=== PATIENT | female | born 1965 | race Caucasian/White ===

== ENCOUNTER 2016-07-15 12:13 | Emergency (ER) | payer MEDICARE, MEDICAID ==
[~2016-07-15] VITALS: Ht 160 cm; Wt 53.0 kg
[~2016-07-15 12:13] MED LIST: BUDE100T PO; CLIN150 PO; LURA20TA PO; TYLE3 PO
[2016-07-15 12:54] VITALS: BP 105/66; PULSE 87; RESP 16; TEMP 98; O2SAT 100
[2016-07-15] MEDS ORDERED: BUPR100T4 PO (13:27)
[2016-07-15] MEDS ORDERED: LURA20TA PO (13:27)
--- NOTE | 2016-07-15 14:34 | PD ---
HPI Chief Complaint: Eye Problems/Injury Time Seen by Provider: 13:43 Travel History International Travel<30 days: No Contact w/Intl Traveler<30days: No Traveled to known affect area: No History of Present Illness HPI This 51-year-old lady has a history of bipolar and schizoaffective disorders. Is not clear what medication she is on now. She is supposed be on what to do. He says that she is here to have something documented. She says she was told by her eye doctor that she has some nerve problems related to previous medications. She hasn't seen her eye doctor last month because of some blurred vision and she is having a lot of stressors in her life. The house that she lives and has been sold in the [place] and electric evidence cut off. She denies any thoughts of hurting herself or others. she has been Shaw acted in the past but tells me she does not feel like she needs to be Shaw acted now. PFSH Past Medical History Blood Disorders: No Bipolar Disorder: Yes Anxiety: Yes Depression: Yes Cancer: No Cardiovascular Problems: No Chemotherapy: No Diabetes: No Diminished Hearing: No Endocrine: No Gastrointestinal Disorders: No Glaucoma: No Genitourinary: No Headaches: Yes Hypertension: Yes Immune Disorder: No Implanted Vascular Access Dvce: No Musculoskeletal: No Neurologic: No Psychiatric: Yes Reproductive: No Respiratory: No Immunizations Current: Yes Radiation Therapy: No Schizophrenia: Yes Seizures: Yes Sickle Cell Disease: No Tetanus Vaccination: < 5 Years Influenza Vaccination: No ?: Not Menopausal: Yes : 1 Para: 1 Past Surgical History AICD: No Arteriovenous Shunt: No Section: No Insulin Pump: No Joint Replacement: No Pacemaker: No Other Surgery: Yes (see ed history and physical) Social History Alcohol Use: Yes (RARELY -mix drinks) Tobacco Use: Yes (1 PPD (HX OF 3 PPD)) Substance Use: No (PT DENIES) Allergies-Medications (Allergen,Severity, Reaction): Coded Allergies: Depakote (Verified Allergy, Severe, Twitching, 07/15/16) Haldol (Verified Allergy, Severe, 07/15/16) Risperdal (Verified Allergy, Severe, Rash, 07/15/16) Sulfa (Verified Allergy, Severe, Itching, 07/15/16) Ampicillin (Verified Allergy, Mild, Nausea/Vomiting, 07/15/16) *MDRO Multi-Drug Resistant Organism (Unverified Allergy, Unknown, 07/15/16) MRSA 2014 Reported Meds & Prescriptions Reported Meds & Active Scripts Active Reported Latuda (Lurasidone) 20 Mg Tab 20 Mg PO DAILY Bupropion HCl 100 Mg Tab 100 Mg PO DAILY Review of Systems General / Constitutional: No: Fever, Chills Eyes: No: Diploplia HENT: No: Headaches Cardiovascular: No: Chest Pain or Discomfort, Palpitations Respiratory: No: Cough, Shortness of Breath Gastrointestinal: No: Vomiting, Diarrhea Genitourinary: No: Frequency Musculoskeletal: No: Myalgias Skin: No Rash Neurologic: No: Weakness Physical Exam Narrative GENERAL: Well-developed female SKIN: Warm and dry. HEAD: Atraumatic. Normocephalic. EYES: Pupils equal and round. No scleral icterus. No injection or drainage. ENT: No nasal bleeding or discharge. Mucous membranes pink and moist. NECK: Trachea midline. No JVD. CARDIOVASCULAR: Regular rate and rhythm. No murmur appreciated. RESPIRATORY: No accessory muscle use. Clear to auscultation. Breath sounds equal bilaterally. GASTROINTESTINAL: Abdomen soft, non-tender, nondistended. Hepatic and splenic margins not palpable. MUSCULOSKELETAL: No obvious deformities. No clubbing. No cyanosis. No edema. NEUROLOGICAL: Awake and alert. No obvious cranial nerve deficits. Motor grossly within normal limits. Pressured speech PSYCHIATRIC: Patient is hyperactive and has some flight of ideas. She is alert and oriented however. Data Data Last Documented VS Vital Signs Date Time Temp Pulse Resp B/P Pulse Ox O2 Delivery O2 Flow Rate FiO2 07/15/16 12:54 98.0 87 16 105/66 100 MDM Medical Decision Making Medical Screen Exam Complete: Yes Emergency Medical Condition: Yes Medical Record Reviewed: Yes Differential Diagnosis Differential includes schizoaffective disorder, bipolar disorder, Narrative Course Patient appears to have schizoaffective disorder. She does not fit Shaw act criteria and does not want any psychiatric treatment at this time Diagnosis Primary Impression: Schizoaffective disorder Qualified Code: F25.0 - Schizoaffective disorder, bipolar type Disposition: 01 DISCHARGE HOME Condition: Stable Jv Ash MD Jul 15, 2016 14:34
== END 2016-07-15 14:40 | disposition home or self-care (01) ==
LOC: PHED 12:13
DX: F25.0 Schizoaffective disorder, bipolar type (principal); F17.210 Nicotine dependence, cigarettes, uncomplicated
CPT/HCPCS: 99283

== ENCOUNTER 2016-07-16 03:21 | Emergency (ER) | payer MEDICARE, OTHER ==
[~2016-07-16] VITALS: Ht 160 cm; Wt 51.1 kg
[~2016-07-16 03:21] MED LIST changes: -BUDE100T PO; +BUPR100T4 PO; -CLIN150 PO; -TYLE3 PO
[2016-07-16 03:41] VITALS: BP 97/67; PULSE 86; RESP 16; TEMP 97.8; O2SAT 99
== END 2016-07-16 03:50 | disposition left against medical advice (07) ==
LOC: PHED 03:21
DX: R51 Headache (principal)
CPT/HCPCS: 99281

== ENCOUNTER 2016-07-29 00:14 | Emergency (ER) | payer MEDICARE, MEDICAID, OTHER ==
[~2016-07-29] VITALS: Ht 160 cm; Wt 46.0 kg
[2016-07-29 00:16] VITALS: BP 122/75; PULSE 77; RESP 18; TEMP 97.8; O2SAT 98
[2016-07-29 02:50] VITALS: BP 110/70; PULSE 86; RESP 14; O2SAT 98
--- NOTE | 2016-07-29 03:37 | PD ---
HPI . Psychiatric evaluation Chief Complaint: Medical Clearance Time Seen by Provider: 03:18 Travel History International Travel<30 days: No Contact w/Intl Traveler<30days: No Traveled to known affect area: No History of Present Illness HPI History is obtained from triage. The patient is sound asleep and does not awaken when I call her name. She reportedly presented to triage voluntarily stating that her brain was muscle and that she was hurting all over. She comes in with her bags packed. PFSH Past Medical History Blood Disorders: No Bipolar Disorder: Yes Anxiety: Yes Depression: Yes Cancer: No Cardiovascular Problems: No Chemotherapy: No Diabetes: No Diminished Hearing: No Endocrine: No Gastrointestinal Disorders: No Glaucoma: No Genitourinary: No Headaches: Yes Hypertension: Yes Immune Disorder: No Implanted Vascular Access Dvce: No Musculoskeletal: No Neurologic: No Psychiatric: Yes Reproductive: No Respiratory: No Immunizations Current: Yes Radiation Therapy: No Schizophrenia: Yes Seizures: Yes Sickle Cell Disease: No ?: Not Menopausal: Yes : 1 Para: 1 Past Surgical History AICD: No Arteriovenous Shunt: No Section: No Insulin Pump: No Joint Replacement: No Pacemaker: No Other Surgery: Yes (see ed history and physical) Social History Alcohol Use: Yes (RARELY -mix drinks) Tobacco Use: Yes (1 PPD (HX OF 3 PPD)) Substance Use: No (PT DENIES) Allergies-Medications (Allergen,Severity, Reaction): Coded Allergies: Depakote (Verified Allergy, Severe, Twitching, 07/29/16) Haldol (Verified Allergy, Severe, 07/29/16) Risperdal (Verified Allergy, Severe, Rash, 07/29/16) Sulfa (Verified Allergy, Severe, Itching, 07/29/16) Ampicillin (Verified Allergy, Mild, Nausea/Vomiting, 07/29/16) *MDRO Multi-Drug Resistant Organism (Unverified Allergy, Unknown, 07/29/16) MRSA 2013 Reported Meds & Prescriptions Reported Meds & Active Scripts Active No Active Prescriptions or Reported Medications Review of Systems ROS Limitations: Other: (sound asleep) Except as stated in HPI: all other systems reviewed are Neg Physical Exam Narrative GENERAL: Patient presented to triage requesting evaluation for a metastatic brain and hurting all over. The patient has the appearance of a "street person. " She is currently sound sleep. SKIN: Warm and dry. HEAD: Atraumatic. Normocephalic. HENT: No nasal bleeding or discharge. Mucous membranes pink and moist. NECK: Trachea midline. Neck seems supple. CARDIOVASCULAR: Regular rate and rhythm. RESPIRATORY: No accessory muscle use. MUSCULOSKELETAL: No obvious deformities. No edema. NEUROLOGICAL: Sound sleep currently. She reportedly ambulated in. PSYCHIATRIC: Difficult to evaluate at this point. Data Data Last Documented VS Vital Signs Date Time Temp Pulse Resp B/P Pulse Ox O2 Delivery O2 Flow Rate FiO2 07/29/16 08:30 91 20 128/74 98 07/29/16 02:50 Room Air 07/29/16 00:16 97.8 Orders Complete Blood Count With Diff (07/29/16 03:33) Basic Metabolic Panel (Bmp) (07/29/16 03:33) Alcohol (Ethanol) (07/29/16 03:33) Psych Screen (07/29/16 03:33) Labs Laboratory Tests Test 07/29/16 04:30 White Blood Count 8.6 TH/MM3 Red Blood Count 3.67 MIL/MM3 Hemoglobin 11.4 GM/DL Hematocrit 33.2 % Mean Corpuscular Volume 90.5 FL Mean Corpuscular Hemoglobin 31.0 PG Mean Corpuscular Hemoglobin 34.3 % Concent Red Cell Distribution Width 12.4 % Platelet Count 326 TH/MM3 Mean Platelet Volume 6.9 FL Neutrophils (%) (Auto) 51.0 % Lymphocytes (%) (Auto) 35.3 % Monocytes (%) (Auto) 10.8 % Eosinophils (%) (Auto) 1.9 % Basophils (%) (Auto) 1.0 % Neutrophils # (Auto) 4.4 TH/MM3 Lymphocytes # (Auto) 3.1 TH/MM3 Monocytes # (Auto) 0.9 TH/MM3 Eosinophils # (Auto) 0.2 TH/MM3 Basophils # (Auto) 0.1 TH/MM3 CBC Comment DIFF FINAL Differential Comment Sodium Level 140 MEQ/L Potassium Level 3.6 MEQ/L Chloride Level 104 MEQ/L Carbon Dioxide Level 32.1 MEQ/L Anion Gap 4 MEQ/L Blood Urea Nitrogen 14 MG/DL Creatinine 0.69 MG/DL Estimat Glomerular Filtration 89 ML/MIN Rate Random Glucose 97 MG/DL Calcium Level 8.5 MG/DL Ethyl Alcohol Level LESS THAN 3 MG/DL MDM Medical Decision Making Medical Screen Exam Complete: Yes Emergency Medical Condition: Yes Differential Diagnosis Differential diagnosis of altered mental status includes but is not limited to infection, electrolyte abnormality, neurological event, intoxication Narrative Course Patient presents for evaluation of a "messed up brain" and hurting all over. She is currently resting comfortably. Diagnosis Primary Impression: Schizoaffective disorder Qualified Code: F25.0 - Schizoaffective disorder, bipolar type Scripts No Active Prescriptions or Reported Meds Disposition: 01 DISCHARGE HOME Condition: Stable Neha Camejo MD Jul 29, 2016 03:37
[2016-07-29 04:51] LABS: AUTOMATED NEUTROPHIL # 4.4 TH/MM3 (1.8-7.7); BASOPHIL # 0.1 TH/MM3 (0-0.2); EOSINOPHIL # 0.2 TH/MM3 (0-0.4); EOSINOPHIL % 1.9 % (0.0-4.0); HEMATOCRIT 33.2 % (35.0-46.0); HEMO FLAGS DIFF FINAL; LYMPH % 35.3 % (9.0-44.0); LYMPHOCYTE # 3.1 TH/MM3 (1.0-4.8); MEAN CELL VOLUME 90.5 FL (80.0-100.0); MEAN CORPUSCULAR HGB CONC 34.3 % (32.0-36.0); MONO % 10.8 % (0.0-8.0); PLATELET COUNT 326 TH/MM3 (150-450); RED BLOOD COUNT 3.67 MIL/MM3 (4.00-5.30); RED CELL DISTRIBUTION WIDTH 12.4 % (11.6-17.2); WHITE BLOOD COUNT 8.6 TH/MM3 (4.0-11.0)
[2016-07-29 05:15] LABS: ANION GAP 4 MEQ/L (5-15); BICARBONATE 32.1 MEQ/L (21.0-32.0); BLOOD UREA NITROGEN 14 MG/DL (7-18); CHLORIDE 104 MEQ/L (98-107); GLOMERULAR FILTRATION RATE 89 ML/MIN (>89); POTASSIUM 3.6 MEQ/L (3.5-5.1); SODIUM (NA) 140 MEQ/L (136-145)
--- NOTE | 2016-07-29 07:56 | PD ---
History of Present Illness Chief Complaint: Medical Clearance Time Seen by Provider: 07:44 Travel History International Travel<30 Days: No Contact w/Intl Traveler<30days: No Known affected area: No Legal Status Legal Status: Voluntary History of Present Illness: Travel History International Travel<30 days: No Contact w/Intl Traveler<30days: No Traveled to known affect area: No History of Present Illness 51 year old female with history of schizoaffective disorder who presents to ed on a voluntary basis reporting that her " brain was a muscle and that she was hurting all over". She was asleep when the Ed provider went to evaluate her. Of note she presented with all her belongings. As per record review she has a hx of schizoaffective disorder with her last psychiatric hospitalization in 2013 under the care of Dr. Stroud. She presented to ED on Jul 15, 2015 with the complaint that she needed " to have something documented " as her eye doctor told her some of her medications had caused her some side effects. Patient seen in main ed. Asleep but awakens easily . She is irritable. Alert and oriented. Appears older than stated age, disheveled in her appearance. Speech is clear, sl pressured but can be interrupted. No zeynep. She does not appear to be responding to internal stimuli and she denies any hallucinatory process. No suicidal or homicidal ideation. She states " I have no psychiatric illness. I do not take medication and I don't need medication. The psychiatric medication is what messed me up" She states " I am here because my muscles hurt and I need physical attention". She then goes on to describe in detail how she has been affected by different medications and she in no way will consider taking medication. PFSH Past Medical History Blood Disorders: No Bipolar Disorder: Yes Anxiety: Yes Depression: Yes Cancer: No Cardiovascular Problems: No Chemotherapy: No Diabetes: No Diminished Hearing: No Endocrine: No Gastrointestinal Disorders: No Glaucoma: No Genitourinary: No Headaches: Yes Hypertension: Yes Immune Disorder: No Implanted Vascular Access Dvce: No Musculoskeletal: No Neurologic: No Psychiatric: Yes Reproductive: No Respiratory: No Immunizations Current: Yes Radiation Therapy: No Schizophrenia: Yes Seizures: Yes Sickle Cell Disease: No ?: Not Menopausal: Yes : 1 Para: 1 Past Surgical History AICD: No Arteriovenous Shunt: No Section: No Insulin Pump: No Joint Replacement: No Pacemaker: No Other Surgery: Yes (see ed history and physical) Psychiatric History Psychiatric History Hx Psychiatric Treatment: HX OF BIPOLAR DISORDER , DEPRESSION AND SCHIZOAFFECTIVE DISORDER. LAST ADMIT TO [facility] WAS DECEMBER 182013 History of Inpatient Treatment: Yes Guns or firearms in home: No Social History Single, homeless female. Hx Alcohol Use: Yes (RARELY -mix drinks) Hx Tobacco Use: Yes (1 PPD (HX OF 3 PPD)) Hx Substance Use: No (PT DENIES) Substance Use Type: Nicotine/Cigarettes Hx of Substance Use Treatment: No Family Psychiatric History None reported Allergies-Medications (Allergen,Severity, Reaction): Coded Allergies: Depakote (Verified Allergy, Severe, Twitching, 07/29/16) Haldol (Verified Allergy, Severe, 07/29/16) Risperdal (Verified Allergy, Severe, Rash, 07/29/16) Sulfa (Verified Allergy, Severe, Itching, 07/29/16) Ampicillin (Verified Allergy, Mild, Nausea/Vomiting, 07/29/16) *MDRO Multi-Drug Resistant Organism (Unverified Allergy, Unknown, 07/29/16) MRSA 2013 Reported Meds & Prescriptions Reported Meds & Active Scripts Active No Active Prescriptions or Reported Medications Review of Systems ROS Limitations: Clinical Condition (Luis presents multiple complaints in every body system.) Exam Alert: Yes [place]: Person (ox4) Mood: Angry Affect: Euthymic Speech: Clear (focused on multiple complaints regarding her physical complaints ) Eye Contact: Normal Delusions: No Suicidal: Ideation (denies any) Homicidal: Ideation (deneis any) Insight/Judgement Poor. poor MDM Medical Decision Making Medical Record Reviewed: Yes Assessment/Plan 51 year old female under a voluntary status who states she presented to hospital for evaluation of physical complaints. I believe that some of her complaints may have a psychiatric basis and that she may benefit from treatment but she is refusing treatment at this time. She does not meet criteria for BA or for inpatient treatment. Furthermore she is refusing to take any medication or having any psychiatric follow up. She is denying that she has any psychiatric concerns at this time. She states that she is here for physical complaints as " I can't walk". She also states that she is homeless and is having a hard time getting around". Cleared from psychiatry for discharge Orders Complete Blood Count With Diff (07/29/16 03:33) Basic Metabolic Panel (Bmp) (07/29/16 03:33) Drug Screen, Random Urine (07/29/16 03:33) Alcohol (Ethanol) (07/29/16 03:33) Psych Screen (07/29/16 03:33) Results Vital Signs Date Time Temp Pulse Resp B/P Pulse Ox O2 Delivery O2 Flow Rate FiO2 07/29/16 02:50 86 14 110/70 98 Room Air 07/29/16 00:16 97.8 77 18 122/75 98 Room Air Laboratory Tests Test 07/29/16 04:30 White Blood Count 8.6 Red Blood Count 3.67 Hemoglobin 11.4 Hematocrit 33.2 Mean Corpuscular Volume 90.5 Mean Corpuscular Hemoglobin 31.0 Mean Corpuscular Hemoglobin 34.3 Concent Red Cell Distribution Width 12.4 Platelet Count 326 Mean Platelet Volume 6.9 Neutrophils (%) (Auto) 51.0 Lymphocytes (%) (Auto) 35.3 Monocytes (%) (Auto) 10.8 Eosinophils (%) (Auto) 1.9 Basophils (%) (Auto) 1.0 Neutrophils # (Auto) 4.4 Lymphocytes # (Auto) 3.1 Monocytes # (Auto) 0.9 Eosinophils # (Auto) 0.2 Basophils # (Auto) 0.1 CBC Comment DIFF FINAL Differential Comment Sodium Level 140 Potassium Level 3.6 Chloride Level 104 Carbon Dioxide Level 32.1 Anion Gap 4 Blood Urea Nitrogen 14 Creatinine 0.69 Estimat Glomerular Filtration 89 Rate Random Glucose 97 Calcium Level 8.5 Ethyl Alcohol Level LESS THAN 3 Diagnosis Primary Impression: Schizoaffective disorder Psychiatrically Cleared: Yes Med/ Other Pt Specific Info: No Meds Exist/No RX given Prescriptions No Active Prescriptions or Reported Meds Problem Qualifiers Primary Impression: Schizoaffective disorder Qualified Code: F25.0 - Schizoaffective disorder, bipolar type Diane Anaya Jul 29, 2016 07:56
[2016-07-29 08:30] VITALS: BP 128/74
== END 2016-07-29 08:35 | disposition home or self-care (01) ==
LOC: NEPC 00:14
DX: F25.0 Schizoaffective disorder, bipolar type (principal); I10 Essential (primary) hypertension; F17.200 Nicotine dependence, unspecified, uncomplicated; Z59.0 Homelessness; Z86.59 Personal history of other mental and behavioral disorders; Z86.69 Personal history of other diseases of the nervous system and sense organs
CPT/HCPCS: 80048; 80320; 85025; 99283

== ENCOUNTER 2016-08-20 11:32 | Emergency (ER) | payer MEDICARE, OTHER ==
[~2016-08-20] VITALS: Ht 162.6 cm; Wt 50.0 kg
[2016-08-20 11:33] VITALS: BP 134/78; PULSE 89; RESP 15; TEMP 97.9; O2SAT 97
== END 2016-08-20 11:49 | disposition left against medical advice (07) ==
LOC: NED 11:32
DX: Z53.21 Procedure and treatment not carried out due to patient leaving prior to being seen by health care provider (principal)
CPT/HCPCS: 99281

== ENCOUNTER 2016-10-28 13:34 | Inpatient (IN) | payer OTHER, MEDICAID, MEDICARE ==
[~2016-10-28] VITALS: Ht 167.6 cm; Wt 56.5 kg
[2016-10-28 13:43] VITALS: BP 140/89
[2016-10-28] MEDS ORDERED: diphenhydrAMINE HCL 50 MG/ML VIAL IV PUSH ONE ×2 (13:45→18:15)
[2016-10-28] MEDS ORDERED: LORazepam 2 MG/ML VIAL IV PUSH ONE (13:45)
[2016-10-28 13:47] VITALS: BP 140/89; PULSE 82; RESP 20; TEMP 99.1; O2SAT 100
--- NOTE | 2016-10-28 14:15 | PD ---
HPI Chief Complaint: Psychiatric Symptoms Time Seen by Provider: 14:09 Travel History International Travel<30 days: No Contact w/Intl Traveler<30days: No Traveled to known affect area: No History of Present Illness HPI 51-year-old female brought into the emergency department via the police under the Shaw act with reports of patient running in and out of traffic in the [address] The patient also stated to the police that she [place] every morning for him to take her life. Patient was brought in and was somewhat verbally abusive and anxious and was placed in restraints. Patient appears psychotic. Patient denies any medical complaints. She has a history of MRSA. She is allergic to ampicillin, Depakote, Haldol, Risperdal, and sulfa. PFSH Past Medical History Blood Disorders: No Bipolar Disorder: Yes Anxiety: Yes Depression: Yes Cancer: No Cardiovascular Problems: No Chemotherapy: No Diabetes: No Diminished Hearing: No Endocrine: No Gastrointestinal Disorders: No Glaucoma: No Genitourinary: No Headaches: Yes Hypertension: Yes Immune Disorder: No Implanted Vascular Access Dvce: No Musculoskeletal: No Neurologic: No Psychiatric: Yes Reproductive: No Respiratory: No Immunizations Current: Yes Radiation Therapy: No Schizophrenia: Yes Seizures: Yes Sickle Cell Disease: No Tetanus Vaccination: < 5 Years Influenza Vaccination: No ?: Unknown Menopausal: Yes : 1 Para: 1 Past Surgical History AICD: No Arteriovenous Shunt: No Section: No Insulin Pump: No Joint Replacement: No Pacemaker: No Other Surgery: Yes (see ed history and physical) Social History Alcohol Use: Yes (RARELY ) Tobacco Use: Yes (1/2 PPD) Substance Use: No Allergies-Medications (Allergen,Severity, Reaction): Coded Allergies: Depakote (Verified Allergy, Severe, Twitching, 08/20/16) Haldol (Verified Allergy, Severe, 08/20/16) Risperdal (Verified Allergy, Severe, Rash, 08/20/16) Sulfa (Verified Allergy, Severe, Itching, 08/20/16) Ampicillin (Verified Allergy, Mild, Nausea/Vomiting, 08/20/16) *MDRO Multi-Drug Resistant Organism (Unverified Allergy, Unknown, 08/20/16) MRSA 2013 Reported Meds & Prescriptions Reported Meds & Active Scripts Active No Active Prescriptions or Reported Medications Review of Systems ROS Limitations: Psychotic Except as stated in HPI: all other systems reviewed are Neg General / Constitutional: Positive: Chills, No: Fever Eyes: No: Visual changes HENT: No: Headaches Cardiovascular: No: Chest Pain or Discomfort Respiratory: No: Shortness of Breath Gastrointestinal: No: Abdominal Pain Genitourinary: No: Dysuria Musculoskeletal: No: Pain Skin: No Rash Neurologic: No: Weakness Psychiatric: No: Depression Endocrine: No: Polydipsia Hematologic/Lymphatic: No: Easy Bruising Physical Exam Exam Limitations: Uncooperative, Combative, Psychotic Narrative GENERAL: Patient appears anxious and psychotic SKIN: Warm and dry. Normal color. Normal turgor. HEAD: Atraumatic. Normocephalic. EYES: Pupils equal and round. No scleral icterus. No injection or drainage. ENT: No nasal bleeding or discharge. Mucous membranes pink and moist. Pharynx is clear. Airway is patent. Patient has false teeth. NECK: Trachea midline. No JVD. Supple nontender. CARDIOVASCULAR: Regular rate and rhythm. RESPIRATORY: No accessory muscle use. Clear to auscultation. Breath sounds equal bilaterally. MUSCULOSKELETAL: Extremities without clubbing, cyanosis, or edema. No obvious deformities. NEUROLOGICAL: Awake and alert. No obvious cranial nerve deficits. Motor grossly within normal limits. Five out of 5 muscle strength in the arms and legs. Normal speech. PSYCHIATRIC: Patient appears psychotic, but so far is cooperative with redirection. Data Data Last Documented VS Vital Signs Date Time Temp Pulse Resp B/P Pulse Ox O2 Delivery O2 Flow Rate FiO2 10/28/16 13:47 99.1 82 20 140/89 100 Orders Complete Blood Count With Diff (10/28/16 13:45) Comprehensive Metabolic Panel (10/28/16 13:45) Psych Screen (10/28/16 13:45) Restraints Violent (10/28/16 13:45) Drug Screen, Random Urine (10/28/16 13:45) Alcohol (Ethanol) (10/28/16 13:45) Diphenhydramine Inj (Benadryl Inj) (10/28/16 13:45) Lorazepam Inj (Ativan Inj) (10/28/16 13:45) Labs Laboratory Tests Test 10/28/16 14:23 White Blood Count 7.8 TH/MM3 Red Blood Count 3.95 MIL/MM3 Hemoglobin 12.1 GM/DL Hematocrit 36.3 % Mean Corpuscular Volume 91.7 FL Mean Corpuscular Hemoglobin 30.6 PG Mean Corpuscular Hemoglobin 33.4 % Concent Red Cell Distribution Width 12.6 % Platelet Count 311 TH/MM3 Mean Platelet Volume 7.1 FL Neutrophils (%) (Auto) 57.4 % Lymphocytes (%) (Auto) 31.6 % Monocytes (%) (Auto) 8.9 % Eosinophils (%) (Auto) 1.1 % Basophils (%) (Auto) 1.0 % Neutrophils # (Auto) 4.5 TH/MM3 Lymphocytes # (Auto) 2.5 TH/MM3 Monocytes # (Auto) 0.7 TH/MM3 Eosinophils # (Auto) 0.1 TH/MM3 Basophils # (Auto) 0.1 TH/MM3 CBC Comment DIFF FINAL Differential Comment Sodium Level 141 MEQ/L Potassium Level 3.4 MEQ/L Chloride Level 109 MEQ/L Carbon Dioxide Level 25.0 MEQ/L Anion Gap 7 MEQ/L Blood Urea Nitrogen 13 MG/DL Creatinine 0.76 MG/DL Estimat Glomerular Filtration 80 ML/MIN Rate Random Glucose 79 MG/DL Calcium Level 8.8 MG/DL Total Bilirubin 0.5 MG/DL Aspartate Amino Transf 28 U/L (AST/SGOT) Alanine Aminotransferase 22 U/L (ALT/SGPT) Alkaline Phosphatase 80 U/L Total Protein 6.5 GM/DL Albumin 3.4 GM/DL Ethyl Alcohol Level LESS THAN 3 MG/DL MDM Medical Decision Making Medical Screen Exam Complete: Yes Emergency Medical Condition: Yes Medical Record Reviewed: Yes Differential Diagnosis Psychosis. Suicidal ideation. Mood disorder. Narrative Course Patient is medically stable. Patient is placed in an physical restraints. IV access is obtained and the patient is given 1 mg lorazepam and 50 mg diphenhydramine IV. Labs ordered including CBC, CMP, urinalysis, urine drug screen, and serum alcohol level. 1520 hrs. patient is medically cleared for psychiatric evaluation. Diagnosis Primary Impression: Schizoaffective disorder Qualified Code: F25.9 - Schizoaffective disorder, unspecified type Additional Impression: Medical clearance for psychiatric admission Scripts No Active Prescriptions or Reported Meds Condition: Stable Honorio Henderson Oct 28, 2016 14:15
[2016-10-28 15:04] LABS: AUTOMATED NEUTROPHIL # 4.5 TH/MM3 (1.8-7.7); BASOPHIL # 0.1 TH/MM3 (0-0.2); EOSINOPHIL # 0.1 TH/MM3 (0-0.4); EOSINOPHIL % 1.1 % (0.0-4.0); HEMATOCRIT 36.3 % (35.0-46.0); HEMO FLAGS DIFF FINAL; LYMPH % 31.6 % (9.0-44.0); LYMPHOCYTE # 2.5 TH/MM3 (1.0-4.8); MEAN CELL VOLUME 91.7 FL (80.0-100.0); MEAN CORPUSCULAR HEMOGLOBIN 30.6 PG (27.0-34.0); MEAN CORPUSCULAR HGB CONC 33.4 % (32.0-36.0); MONO % 8.9 % (0.0-8.0); NEUT % 57.4 % (16.0-70.0); PLATELET COUNT 311 TH/MM3 (150-450); RED BLOOD COUNT 3.95 MIL/MM3 (4.00-5.30); RED CELL DISTRIBUTION WIDTH 12.6 % (11.6-17.2); WHITE BLOOD COUNT 7.8 TH/MM3 (4.0-11.0)
[2016-10-28 15:10] LABS: ALT (GPT) 22 U/L (10-53); ANION GAP 7 MEQ/L (5-15); AST (GOT) 28 U/L (15-37); BLOOD UREA NITROGEN 13 MG/DL (7-18); CHLORIDE 109 MEQ/L (98-107); GLOMERULAR FILTRATION RATE 80 ML/MIN (>89); POTASSIUM 3.4 MEQ/L (3.5-5.1); SODIUM (NA) 141 MEQ/L (136-145)
[2016-10-28 15:13] LABS: ALKALINE PHOSPHATASE 80 U/L (45-117); TOTAL BILIRUBIN ADULT 0.5 MG/DL (0.2-1.0)
[2016-10-28 17:15] VITALS: BP 120/77; PULSE 86; RESP 18; TEMP 97.9; O2SAT 96
[2016-10-28] MEDS ORDERED: LORazepam 2 MG/ML VIAL IM ONE ×2 (18:15→22:30)
[2016-10-28 22:00] VITALS: BP 113/81; PULSE 85; RESP 19; O2SAT 98
[2016-10-28] MEDS ORDERED: LORazepam 2 MG/ML VIAL IM PRN (22:30)
[2016-10-28] MEDS: diphenhydrAMINE HCL 50 MG/ML VIAL IM PRN (23:37)
[2016-10-29 02:28] VITALS: BP 93/64; PULSE 72; RESP 17; O2SAT 99
[2016-10-29 06:00] VITALS: PULSE 75; RESP 19
[2016-10-29] MEDS ORDERED: OLANZapine IM 10 MG VIAL IM ONE ×2 (09:37→09:45)
[2016-10-29] MEDS ORDERED: LORazepam 1 MG TAB PO PRN (09:45)
[2016-10-29] MEDS ORDERED: OLANZapine 5 MG TAB PO SCH (09:45)
[2016-10-29] MEDS ORDERED: LORazepam 0.5 MG TAB PO PRN (09:45)
[2016-10-29] MEDS ORDERED: LORazepam 2 MG/ML VIAL IM ONE (09:45)
[2016-10-29] MEDS ORDERED: OLANZapine IM 10 MG VIAL IM PRN (09:45)
[2016-10-29] MEDS ORDERED: MAGNESIUM HYDROXIDE SUSP 30 ML CUP PO PRN (09:45)
[2016-10-29] MEDS ORDERED: ALUMINUM/MAGNESIUM/SIMETH 30 ML CUP PO PRN (09:45)
[2016-10-29] MEDS ORDERED: LORazepam 2 MG/ML VIAL IM PRN ×2 (09:45)
--- NOTE | 2016-10-29 09:53 | HHI.HP ---
Provisional Diagnosis Admission Date [place] I. Schizoaffective disorder, bipolar type [place] II. Deferred [place] III. No medical history [place] IV. Homeless, poor social support [place] V. 30 Certification of Person's Competence To Provide Express and Informed Consent I have personally examined Pilar Muniz , a person being served at [facility] on, Oct 29, 2016 09:46. Express and informed consent means consent voluntarily given in writing, by a competent person, after sufficient explanation and disclosure of the subject matter involved to enable the person to make a knowing and willful decision without any element of force, fraud, deceit, duress, or other form of constraint or coercion. This person is 18 years of age or older, is not now known to be incompetent to consent to treatment with a guardian advocate, and does not have a health care surrogate or proxy currently making medical treatment decisions. I have found this person to be one of the following: [] Competent to provide express and informed consent, as defined above, for voluntary admission to this facility and is competent to provide express and informed consent for treatment. He/she has the consistent capacity to make well reasoned, willful, and knowing decisions concerning his or her medical or mental health treatment. The person fully and consistently understands the purpose of the admission for examination/placement and is fully capable of personally exercising all rights assured under [place] [] Incompetent to provide express and informed consent to voluntary admission, and this is incompetent to provide express and informed consent to treatment. The person must be transferred to involuntary status and a petition for a guardian advocate filed with the Circuit Court. [X] Refusing to provide express and informed consent to voluntary admission but is competent to provide express and informed consent for treatment. The person must be discharged or transferred to involuntary status. Form shall be completed within 24 hours of a person's arrival at the receiving facility and filed in the clinical record of each person: 1. Admitted on a voluntary basis 2. Permitted to provide express and informed consent to his/her own treatment 3. Allowed to transfer from involuntary to voluntary status 4. Prior to permitting a person to consent to his or her own treatment after having been previously found incompetent to consent to treatment. History of Present Illness Capacity: Has Capacity HPI The patient is a 51-year-old woman, homeless, single, unemployed, with psychiatric history of schizoaffective disorder, multiple psychiatric hospitalizations, previously [place] acted, known by service, no significant medical history, who was brought into the emergency department via the police under the [place] act with reports of patient running in and out of traffic in the [address] The patient also stated to the police that she [place] every morning for him to take her life. Patient was brought in and was somewhat verbally abusive and anxious and was placed in restraints. Patient denies any medical complaints. She has a history of MRSA. She is allergic to ampicillin, Depakote, Haldol, Risperdal, and sulfa. On psychiatric evaluation patient is extremely disorganized, disruptive, verbally aggressive, no making any sense and unable to answer questions appropriately and provide any meaningful or reliable information for the psychiatric assessment at this moment. Patient in the ER has been giving ETOs already twice. She says that she hasn't been using drugs, psychology could not be done at this moment, BAL is negative, she denies suicidal and homicidal ideation, she denies visual and auditory hallucinations. Review of Systems Constitutional: DENIES: Diaphoretic episodes, Fatigue, Fever, Weight gain, Weight loss, Chills, Dizziness, Change in appetite, Night Sweats Endocrine: DENIES: Abnorml menstrual pattern, Heat/cold intolerance, Polydipsia , Polyuria, Polyphagia Eyes: DENIES: Blurred vision, Diplopia, Eye inflammation, Eye pain, Vision loss , Photosensitivity, Double Vision Ears, nose, mouth, throat: DENIES: Tinnitus, Hearing loss, Vertigo, Nasal discharge, Oral lesions, Throat pain, Hoarseness, Ear Pain, Running Nose, Epistaxis, Sinus Pain, Toothache, Odynophagia Respiratory: DENIES: Apneas, Cough, Snoring, Wheezing, Hemoptysis, Sputum production, Shortness of breath Cardiovascular: DENIES: Chest pain, Palpitations, Syncope, Dyspnea on Exertion , PND, Lower Extremity Edema, Orthopnea, Claudication Genitourinary: DENIES: Abnormal vaginal bleeding, Dysmenorrhea, Dyspareunia, Sexual dysfunction, Urinary frequency, Urinary incontinence, Urgency, Hematuria , Dysuria, Nocturia, Vaginal discharge Musculoskeletal: DENIES: Joint pain, Muscle aches, Stiffness, Joint Swelling, Back pain, Neck pain Integumentary: DENIES: Abnormal pigmentation, Pruritus, Rash, Nail changes, Breast masses, Breast skin changes, Nipple discharge Hematologic/lymphatic: DENIES: Bruising, Lymphadenopathy Immunologic/allergic: DENIES: Eczema, Urticaria Neurologic: DENIES: Abnormal gait, Headache, Localized weakness, Paresthesias, Seizures, Speech Problems, Tremor, Poor Balance Past Psych History Violence risk - others (6 mos) Increased Violence risk - self (6 mos) Increased Substance Abuse History Drugs/Alcohol past 12 months Patient denies the use of cocaine, heroine, and alcohol. She reports occasional use of marijuana Past Family Social History Coded Allergies: Depakote (Verified Allergy, Severe, Twitching, 08/20/16) Haldol (Verified Allergy, Severe, 08/20/16) Risperdal (Verified Allergy, Severe, Rash, 08/20/16) Sulfa (Verified Allergy, Severe, Itching, 08/20/16) Ampicillin (Verified Allergy, Mild, Nausea/Vomiting, 08/20/16) *MDRO Multi-Drug Resistant Organism (Unverified Allergy, Unknown, 08/20/16) MRSA 2013 No Active Prescriptions or Reported Meds Current Medications Medications (Trade) Dose Ordered Sig/Zo Route Start Time Stop Time Status Last Admin (Benadryl Inj) 50 mg ONCE PRN IM 10/28/16 22:30 10/28/16 23:37 (Ativan Inj) 1 mg ONCE PRN IM 10/28/16 22:30 10/28/16 23:37 (Ativan Inj) 2 mg NOW ONCE IM 10/29/16 09:45 10/29/16 09:46 (ZyPREXA INJ) 10 mg NOW ONCE IM 10/29/16 09:45 10/29/16 09:46 (Ativan) 1 mg Q6H PRN PO 10/29/16 09:45 UNV (Ativan Inj) 1 mg Q6H PRN IM 10/29/16 09:45 UNV (Ativan) 0.5 mg Q12H PRN PO 10/29/16 09:45 UNV (Ativan Inj) 0.5 mg Q12H PRN IM 10/29/16 09:45 UNV (Tylenol) 650 mg Q4H PRN PO 10/29/16 09:45 UNV (Milk Of Magnesia Liq) 30 ml DAILY PRN PO 10/29/16 09:45 UNV (Mag-Al Plus Susp Liq) 30 ml Q6H PRN PO 10/29/16 09:45 UNV (ZyPREXA) 5 mg Q12HR PO 10/29/16 09:45 UNV (ZyPREXA INJ) 10 mg Q12H PRN IM 10/29/16 09:45 UNV Family History She denies Social History Patient was born in [facility], she has been living for the for many years, she lives alone in the street, she is single, unemployed Patient's Strengths (min. 2) Under observation Physical Exam Restlessness, psychomotor agitation is present Several skin burning visible lesions No EPS present no stiffness, Vital Signs Vital Signs Date Time Temp Pulse Resp B/P Pulse Ox O2 Delivery O2 Flow Rate FiO2 10/29/16 06:00 75 19 Room Air 10/29/16 02:28 93/64 99 10/28/16 17:15 97.9 Lab Results BAL is negative WBC 7.8, Hgb 12.1, HCT 36.3, NA 141, K3.4, BUN 13, creatinine 0.7, AST 28, AST 22 Mental Status Examination Appearance Short stature, disheveled, very poor hygiene, order than his stated age, [facility], restless, disorganized, non-cooperative Speech: Pressured, Rapid Orientation: Person, Place Memory: Unremarkable Thought Process: Loose Association, Tangential Thought Content: Bizarre thinking, Paranoid, Obsessions Hallucination Type: None Attention and Concentration: Abnormal Suicidal Ideation: No Previous Suicide Attempts: Yes Homicidal Ideation: No Previous Homicide Attempts: No Judgment: Poor Affect: Irritable Mood: Angry Motor Activity: Normal gait Assessment & Plan Problem List: (1) Schizoaffective disorder Assessment & Plan: Psychotic evaluation this morning patient is poorly cooperative, non-reliable, very agitated and disorganized, with visible paranoia and pressured speech, unable to provide any meaningful and reliable information for the psychiatric assessment at this moment. At this moment we are not able to determined if current presentation of zeynep/psychosis is secondary to substance intoxication, no toxicology has been done to the moment, or this is secondary to a major psychiatric illness decompensation, however due to the level of psychosis and disorganization the patient is a current danger to self and others and needs psychiatric admission for stabilization. Patient will be transferred to 2700 units. Will start olanzapine 5 mg twice a day for mood and psychosis. Also will order olanzapine 10 mg IM every 12 hours when necessary aggressive behavior and agitation. Reordered toxicology. Order EKG for baseline QTC. forestry conservation worker intervention for collateral information, psychosocial assessment, counseling, and discharge planning. Patient will participate in individual and group therapies. Appropriate safety measures will be taken, patient is to be in close observation. will consult psychiatry for second opinion. ICD Code: F25.9 Assessment & Plan Estimated LOS: days Problem Qualifiers (1) Schizoaffective disorder: Qualified Code: F25.9 - Schizoaffective disorder, unspecified type Justin Dasilva MD Oct 29, 2016 09:53
[2016-10-29 10:20] VITALS: BP 99/58; PULSE 68; RESP 18; TEMP 96.6; O2SAT 98
[2016-10-29] MEDS ORDERED: ZIPRASIDONE MESYLATE 20 MG VIAL IM ONE (11:53)
[2016-10-29] MEDS ORDERED: ZIPRASIDONE MESYLATE 20 MG VIAL IM STA (11:53)
[2016-10-29] MEDS ORDERED: diphenhydrAMINE HCL 50 MG/ML VIAL IM STA (11:55)
--- NOTE | 2016-10-29 12:00 | HHI.PYPN ---
Subjective Remarks Patient is demonstrating loose associations and nonsensical speech. She is highly agitated, disrobing, banging against the door, and is in danger of harming herself and others. This physician ordered intramuscular Benadryl and intramuscular Geodon stat to prevent her from harming herself or others. Review of Systems ROS Limitations: Clinical Condition Objective Alert: Yes [place]: Person Mood: Agitated Affect: Labile Memory Intact: Immediate Hallucinations: Other Delusions: Yes Delusion Type: Paranoid Suicidal: Ideation Homicidal: Ideation Insight/Judgment Markedly impaired Labs Test 10/28/16 14:23 White Blood Count 7.8 TH/MM3 Red Blood Count 3.95 MIL/MM3 Hemoglobin 12.1 GM/DL Hematocrit 36.3 % Mean Corpuscular Volume 91.7 FL Mean Corpuscular Hemoglobin 30.6 PG Mean Corpuscular Hemoglobin 33.4 % Concent Red Cell Distribution Width 12.6 % Platelet Count 311 TH/MM3 Mean Platelet Volume 7.1 FL Neutrophils (%) (Auto) 57.4 % Lymphocytes (%) (Auto) 31.6 % Monocytes (%) (Auto) 8.9 % Eosinophils (%) (Auto) 1.1 % Basophils (%) (Auto) 1.0 % Neutrophils # (Auto) 4.5 TH/MM3 Lymphocytes # (Auto) 2.5 TH/MM3 Monocytes # (Auto) 0.7 TH/MM3 Eosinophils # (Auto) 0.1 TH/MM3 Basophils # (Auto) 0.1 TH/MM3 CBC Comment DIFF FINAL Differential Comment Sodium Level 141 MEQ/L Potassium Level 3.4 MEQ/L Chloride Level 109 MEQ/L Carbon Dioxide Level 25.0 MEQ/L Anion Gap 7 MEQ/L Blood Urea Nitrogen 13 MG/DL Creatinine 0.76 MG/DL Estimat Glomerular Filtration 80 ML/MIN Rate Random Glucose 79 MG/DL Calcium Level 8.8 MG/DL Total Bilirubin 0.5 MG/DL Aspartate Amino Transf 28 U/L (AST/SGOT) Alanine Aminotransferase 22 U/L (ALT/SGPT) Alkaline Phosphatase 80 U/L Total Protein 6.5 GM/DL Albumin 3.4 GM/DL Ethyl Alcohol Level LESS THAN 3 MG/DL Vitals/IOs Vital Signs Date Time Temp Pulse Resp B/P Pulse Ox O2 Delivery O2 Flow Rate FiO2 10/29/16 10:20 68 18 99/58 Room Air 10/29/16 10:20 96.6 98 Assessment & Plan Problem List: (1) Schizoaffective disorder ICD Code: F25.9 Assessment & Plan Estimated LOS: 7 days days patient obviously requires stabilization on antipsychotic and mood stabilizing medications. At this point she is agitated, emotionally labile, aggressive towards others and inappropriately disrobing. Antipsychotic and mood stabilizing medications will be given for dangerous behavior in a injectable fashion as ordered this morning. We hope to get her to take medications orally for further stabilization. Justification for Cont. Inpt. Psychotic, unstable and dangerous. Problem Qualifiers (1) Schizoaffective disorder: Qualified Code: F25.9 - Schizoaffective disorder, unspecified type Sriram Kerr MD Oct 29, 2016 12:00
[2016-10-29 23:05] VITALS: BP 127/62; PULSE 96; RESP 19; TEMP 99.1; O2SAT 98
[2016-10-30] MEDS ORDERED: LORazepam 2 MG/ML VIAL ONE ×2 (02:00→17:30)
[2016-10-30] MEDS ORDERED: diphenhydrAMINE HCL 50 MG/ML VIAL ONE ×2 (02:01→17:31)
[2016-10-30] MEDS ORDERED: ZIPRASIDONE MESYLATE 20 MG VIAL IM ONE ×4 (02:01→18:00)
[2016-10-30] MEDS ORDERED: LORazepam 2 MG/ML VIAL IM ONE ×2 (02:15→09:00)
[2016-10-30] MEDS ORDERED: diphenhydrAMINE HCL 50 MG/ML VIAL IM ONE ×3 (02:15→18:00)
[2016-10-30 05:38] VITALS: BP 108/60; PULSE 69; RESP 16; TEMP 97.7; O2SAT 100
[2016-10-30] MEDS ORDERED: OLANZapine IM 10 MG VIAL IM ONE ×2 (07:57→09:00)
[2016-10-30] MEDS: diphenhydrAMINE HCL 50 MG/ML VIAL IM PRN (08:19)
[2016-10-30] MEDS ORDERED: MIDAZOLAM HCL 2 MG/2 ML VIAL IM ONE (12:00)
--- NOTE | 2016-10-30 15:29 | HHI.PYPN ---
Subjective Remarks This is a request for second opinion. Patient was seen, and admission note reviewed and case discussed with nursing. Per nursing patient has been delusional and disorganized throughout the day. She has been yelling, labile but has not been combative. Has been stripping continuously throughout the day. She is grossly disorganized and presents a very poor insight into her need to be at the hospital. She's not on any medications at this time because nursing is attempting to obtain consents. Has received 2 ETO's today as ordered by the on-call doctor. Denies positive symptoms but is responding to internal stimuli Objective Alert: Yes [place]: Person Mood: Agitated Affect: Labile Memory Intact: Immediate (not tested) Hallucinations: Other (internal stimuli) Delusions: Yes Delusion Type: Paranoid (internal stimuli) Suicidal: Ideation Homicidal: Ideation Insight/Judgment Poor Labs Test 10/29/16 16:15 Nasal Screen MRSA (PCR) MRSA NOT DETECTED Vitals/IOs Vital Signs Date Time Temp Pulse Resp B/P Pulse Ox O2 Delivery O2 Flow Rate FiO2 10/30/16 05:38 97.7 69 16 108/60 100 10/29/16 10:20 Room Air Assessment & Plan Problem List: (1) Schizoaffective disorder ICD Code: F25.9 Assessment & Plan Work on obtaining consents for medications Justification for Cont. Inpt. Patient will decompensate in a less restrictive setting Problem Qualifiers (1) Schizoaffective disorder: Qualified Code: F25.9 - Schizoaffective disorder, unspecified type Musa Delgadillo DO Oct 30, 2016 15:29
[2016-10-30 18:09] VITALS: BP 122/57; PULSE 62; RESP 17; TEMP 98; O2SAT 97
[2016-10-30 22:40] VITALS: BP 117/66; PULSE 56; RESP 18; TEMP 98.6; O2SAT 93
[2016-10-30 23:30] VITALS: BP 111/63; PULSE 70; RESP 18
[2016-10-31 05:55] VITALS: BP 130/69; PULSE 64; RESP 18; TEMP 97.4; O2SAT 97
[2016-10-31 11:27] VITALS: BP 110/62; PULSE 69; RESP 18; TEMP 98.9; O2SAT 98
--- NOTE | 2016-10-31 14:57 | HHI.PYPN ---
Subjective Remarks Patient was seen and case discussed with nursing. Patient is not on any medications because there is no consent. She was initially cooperative and then began raising her voice getting irritable because she is not being discharged today. Thought process is disorganized and loose. Insight remains poor. Denies auditory hallucinations Objective Alert: Yes [place]: Person, Place Mood: Agitated Affect: Labile Memory Intact: Immediate (not tested) Hallucinations: Auditory (denies), Other (internal stimuli) Delusions: Yes Delusion Type: Paranoid (internal stimuli) Suicidal: Ideation Homicidal: Ideation Insight/Judgment Poor Vitals/IOs Vital Signs Date Time Temp Pulse Resp B/P Pulse Ox O2 Delivery O2 Flow Rate FiO2 10/31/16 11:27 98.9 69 18 110/62 98 10/29/16 10:20 Room Air Assessment & Plan Problem List: (1) Schizoaffective disorder ICD Code: F25.9 Assessment & Plan Continue current treatment plan Justification for Cont. Inpt. Patient will decompensate in a less restrictive setting Problem Qualifiers (1) Schizoaffective disorder: Qualified Code: F25.9 - Schizoaffective disorder, unspecified type Musa Delgadillo DO Oct 31, 2016 14:57
[2016-10-31 16:06] VITALS: BP 110/76; PULSE 68; RESP 16; TEMP 99; O2SAT 100
[2016-10-31] MEDS ORDERED: LORazepam 2 MG/ML VIAL ONE (18:44)
[2016-10-31] MEDS ORDERED: diphenhydrAMINE HCL 50 MG/ML VIAL ONE (18:45)
[2016-10-31] MEDS ORDERED: diphenhydrAMINE HCL 50 MG/ML VIAL IM ONE (19:00)
[2016-10-31] MEDS ORDERED: ZIPRASIDONE MESYLATE 20 MG VIAL IM ONE (19:00)
[2016-10-31] MEDS ORDERED: LORazepam 2 MG/ML VIAL IM ONE (19:00)
[2016-10-31 20:00] VITALS: BP 110/70; PULSE 68; RESP 16; TEMP 98; O2SAT 98
[2016-11-01 06:11] VITALS: BP 110/71; PULSE 69; RESP 20; TEMP 97.6; O2SAT 100
--- NOTE | 2016-11-01 11:28 | HHI.PYPN ---
Subjective Remarks Patient seen and examined with counselor and nurse. Chart reviewed. Case discussed with nursing staff who reports patient remains quite delusional. On my examination today, the patient is initially calm and fairly pleasant but becomes much more irritable and argumentative with extended questioning. She denies any history of psychiatric illness, denies any chemical dependency history, says that she is presently homeless and would like assisted living placement which we have offered to assist her with. She denies any suicidal or homicidal ideation but believes "people are making things happen. They're making me think that I'm crazy because I could say some things to get people in trouble." Paranoia is present. She appears somewhat internally stimulated. When I explained that I will not be discharging her today, she becomes extremely upset and interrupts my rounds repeatedly to demand that she be discharged. She is beginning to escalate on the unit, and I have ordered her medicated with Zyprexa 10 mg IM ETO. We are awaiting consents for psychotropic medications. Review of Systems ROS Limitations: Psychotic, Poor Historian Except as stated in HPI: all other systems reviewed are Neg Objective Alert: Yes [place]: Person, Place (at least) Mood: Agitated, Angry, Oppositional Affect: Labile Memory Intact: Comment (not formally assessed) Hallucinations: Other (appears internally preoccupied) Delusions: Yes Delusion Type: Paranoid (as noted above) Suicidal: Ideation (denies SI) Homicidal: Ideation (denies HI) Insight/Judgment Poor Remarks No motor abnormalities noted. Thought process somewhat disorganized. Speech rambling. Grooming and hygiene fair to poor at best. Labs Labs reviewed. Vitals/IOs Vital Signs Date Time Temp Pulse Resp B/P Pulse Ox O2 Delivery O2 Flow Rate FiO2 11/01/16 06:11 97.6 69 20 110/71 100 10/29/16 10:20 Room Air Assessment & Plan Problem List: (1) Schizoaffective disorder ICD Code: F25.9 Assessment & Plan Ongoing agitation requiring ETO. Awaiting consents for medications. I have instructed the nursing staff to try to identify someone to act his healthcare surrogate to consent for medications. Check a BMP and a beta hCG. Continue to monitor on the high acuity unit. Continue other medications and care as ordered. Justification for Cont. Inpt. Impairment in reality construction. Impairment in social functioning. High risk for decompensation in a less restrictive environment. Discharge Planning Pending psychiatric stabilization. Problem Qualifiers (1) Schizoaffective disorder: Qualified Code: F25.8 - Other schizoaffective disorders Mikey Khanna MD Nov 01, 2016 11:28
[2016-11-01] MEDS ORDERED: OLANZapine IM 10 MG VIAL IM ONE ×2 (11:30→20:00)
[2016-11-02 06:00] VITALS: BP 134/74; PULSE 80; RESP 17; TEMP 98.1; O2SAT 100
--- NOTE | 2016-11-02 11:15 | HHI.PYPN ---
Subjective Remarks Patient seen and examined with counselor and nurse. Chart reviewed. Patient had to be medicated yesterday evening with Zyprexa ETO for agitation. Case discussed with counselor, nurse and occupational therapist in treatment team. Per nursing staff, the patient remains quite disorganized and bizarre. She has reportedly been trying to call the abuse hotline without obvious cause. Even prior to my evaluation today, the patient is behaving in an odd fashion. She is standing at the nursing station trying to hear our conversation through the glass. When the nursing staff asks her to step away for privacy, she instead lowers herself down to the floor, as if hiding. In conversation, she makes several odd statements, saying for example that her boyfriend is "in [facility], probably butt ass naked." She also says "I told my daughter if she to come back as Sai so I could see her." Behavior is overly formal and she is fairly interpersonally odd. She remains quite discharge focused and has asked to file a writ, and I have asked the nursing staff to assist her with this. We are still without a healthcare surrogate to provide consents for patient's medication. I did try to call the number in the EMR of a friend, Mr. Reich, and left a voicemail requesting a call back. The patient herself is either unable or unwilling to provide us with further collateral sources. I did try to call over to [facility] to see if they have any history with the patient. The nurse there told me that she has a record of them seeing the patient in the past, but they have no contact information for anyone in the could serve as healthcare surrogate. Review of Systems ROS Limitations: Psychotic, Poor Historian Except as stated in HPI: all other systems reviewed are Neg Objective Alert: Yes [place]: Person, Place Mood: Anxious, Oppositional Affect: Other (odd) Memory Intact: Comment (not formally assessed) Hallucinations: Other (remains internally preoccupied) Delusions: Yes Delusion Type: Paranoid (and bizarre) Suicidal: Ideation (no SI) Homicidal: Ideation (no HI) Insight/Judgment Poor Remarks No abnormal motor movements noted. Thought process disorganized. Speech somewhat rambling. Grooming and hygiene fair. Labs Labs reviewed. Vitals/IOs Vital Signs Date Time Temp Pulse Resp B/P Pulse Ox O2 Delivery O2 Flow Rate FiO2 4/25/17 06:00 98.1 80 17 134/74 100 10/29/16 10:20 Room Air Assessment & Plan Problem List: (1) Schizoaffective disorder ICD Code: F25.9 Assessment & Plan Still awaiting consents for psychotropics. Continue to monitor on the high acuity unit. Continue other medications and care as ordered. Justification for Cont. Inpt. Impairment in reality construction. Impairment in social function. High risk for decompensation in a less restrictive environment. Discharge Planning Pending outcome of [address], , at which time hopefully the patient will be appointed a guardian advocate who can consent for medications. Request HC Surrog/Guard Advoc?: Yes Problem Qualifiers (1) Schizoaffective disorder: Qualified Code: F25.8 - Other schizoaffective disorders Mikey Khanna MD Nov 02, 2016 11:15
[2016-11-02 14:59] LABS: BICARBONATE 33.4 MEQ/L (21.0-32.0)
[2016-11-02 17:40] VITALS: BP 144/89; PULSE 88; RESP 16; TEMP 97.9; O2SAT 98
[2016-11-03] MEDS: ACETAMINOPHEN 325 MG TAB PO PRN (03:38)
[2016-11-03 05:54] VITALS: BP 110/76; PULSE 77; RESP 18; TEMP 97.7; O2SAT 99
[2016-11-03] MEDS ORDERED: OLANZapine IM 10 MG VIAL IM ONE ×2 (09:15)
--- NOTE | 2016-11-03 12:04 | HHI.PYPN ---
Subjective Remarks Patient seen and examined. Chart reviewed. Case discussed with nursing staff. Patient was extremely agitated this morning, screaming at staff that they were killing her grandmother and child. I was contacted by the nursing staff and ordered the patient medicated with Zyprexa IM ETO. At the time of my evaluation, the patient is somewhat calmer. She remains paranoid and her thought process is disorganized. Affect is dysphoric. No evident side effects from medications. Following my departure from the unit, the patient once again becomes agitated in a similar fashion, and I have ordered her medicated, this time with Geodon ETO in hopes that it will provide more long-lasting behavioral control. Review of Systems ROS Limitations: Psychotic, Poor Historian Except as stated in HPI: all other systems reviewed are Neg Objective Alert: Yes [place]: Person, Place Mood: Anxious Affect: Other (remains odd) Memory Intact: Comment (Not assessed) Hallucinations: Other (internally stimulated) Delusions: Yes Delusion Type: Paranoid (ongoing paranoia) Suicidal: Ideation (no SI) Homicidal: Ideation (no HI) Insight/Judgment Poor Remarks No abnormal motor movements noted Labs Test 11/02/16 14:04 Sodium Level 140 MEQ/L Potassium Level 4.0 MEQ/L Chloride Level 101 MEQ/L Carbon Dioxide Level 33.4 MEQ/L Anion Gap 6 MEQ/L Blood Urea Nitrogen 16 MG/DL Creatinine 0.88 MG/DL Estimat Glomerular Filtration 67 ML/MIN Rate Random Glucose 74 MG/DL Calcium Level 8.9 MG/DL Beta HCG, Qualitative 3 MIU/ML Labs reviewed. GFR decreased. Vitals/IOs Vital Signs Date Time Temp Pulse Resp B/P Pulse Ox O2 Delivery O2 Flow Rate FiO2 11/03/16 05:54 97.7 77 18 110/76 99 Assessment & Plan Problem List: (1) Schizoaffective disorder ICD Code: F25.9 Assessment & Plan Awaiting [facility] for appointment of guardian advocate to allow for scheduled psychotropic medications. Patient remains quite psychotic and requires ongoing monitoring on the inpatient psychiatric unit in the meantime. I will check a BMP in the morning to follow-up patient's renal function. Continue other medications and care as ordered. Justification for Cont. Inpt. Impairment in reality construction. Impairment in social function. High risk for decompensation in a restrictive environment. Discharge Planning Pending outcome of [facility] tomorrow. Request HC Surrog/Guard Advoc?: Yes Problem Qualifiers (1) Schizoaffective disorder: Qualified Code: F25.8 - Other schizoaffective disorders Mikey Kahnna MD Nov 03, 2016 12:04
[2016-11-03] MEDS ORDERED: ZIPRASIDONE MESYLATE 20 MG VIAL IM ONE (13:30)
[2016-11-03] MEDS ORDERED: LORazepam 2 MG/ML VIAL IM ONE (13:30)
[2016-11-03] MEDS ORDERED: diphenhydrAMINE HCL 50 MG/ML VIAL IM ONE (13:30)
[2016-11-03 18:43] VITALS: BP 116/69; PULSE 73; RESP 18; TEMP 97.6; O2SAT 98
[2016-11-04 05:34] VITALS: BP 130/73; PULSE 83; RESP 18; TEMP 97.7; O2SAT 98
--- NOTE | 2016-11-04 11:55 | HHI.PYPN ---
Subjective Remarks Patient seen and case discussed with nursing staff. Chart reviewed. For me today, patient remains disorganized. Her speech is rambling and pressured. She is a little less irritable today. She remains internally preoccupied. No SI or HI voiced. Patient's case was presented to the [email or web address] act court, and she was retained on the inpatient unit by the court and provided with a guardian advocate in order to initiate medications. Review of Systems ROS Limitations: Poor Historian Except as stated in HPI: all other systems reviewed are Neg Objective Alert: Yes [place]: Person, Place Mood: Other (mildly elevated) Affect: Other (odd, somewhat expansive) Memory Intact: Comment (Not assessed) Hallucinations: Other (remains internally preoccupied) Delusions: Yes Delusion Type: Paranoid Suicidal: Ideation (no SI) Homicidal: Ideation (no HI) Insight/Judgment Poor Remarks No motor abnormalities noted. Thought process somewhat disorganized. Speech rambling and pressured. Labs Labs reviewed. Vitals/IOs Vital Signs Date Time Temp Pulse Resp B/P Pulse Ox O2 Delivery O2 Flow Rate FiO2 11/04/16 05:34 97.7 83 18 130/73 98 Assessment & Plan Problem List: (1) Schizoaffective disorder ICD Code: F25.9 Assessment & Plan Initiated Zyprexa 10 mg at bedtime by mouth with IM backup. Plan to titrate to effect. Titrate Ativan PRN. Continue to monitor on the high acuity unit. Continue other medications and care as ordered. Justification for Cont. Inpt. Impairment in reality construction. High risk for decompensation in a restrictive environment. Discharge Planning Pending psychiatric stabilization. Request HC Surrog/Guard Advoc?: Yes Problem Qualifiers (1) Schizoaffective disorder: Qualified Code: F25.8 - Other schizoaffective disorders Mikey Khanna MD Nov 04, 2016 11:55
[2016-11-04] MEDS ORDERED: BENZTROPINE MESYLATE 1 MG TAB PO PRN (12:00)
[2016-11-04] MEDS ORDERED: OLANZapine IM 10 MG VIAL IM PRN (12:00)
[2016-11-04 19:00] VITALS: BP 120/74; PULSE 84; RESP 18; TEMP 97.9; O2SAT 99
[2016-11-04] MEDS: LORazepam 1 MG TAB PO PRN (20:49)
[2016-11-04] MEDS ORDERED: OLANZapine ODT 10 MG TAB PO SCH (21:00)
[2016-11-05] MEDS: ACETAMINOPHEN 325 MG TAB PO PRN (03:17)
[2016-11-05 05:35] VITALS: BP 107/68; PULSE 79; RESP 17; TEMP 97.4; O2SAT 98
[2016-11-05] MEDS: LORazepam 1 MG TAB PO PRN (08:43)
--- NOTE | 2016-11-05 11:30 | HHI.PYPN ---
Subjective Remarks Patient seen and examined with counselor and nurse. Chart reviewed. Case discussed with RN who reports patient was beginning to escalate this morning and received Ativan PO PRN this morning. On my examination today, patient reports that she was "doing really super good until something triggers my memory." Speech is rambling and significant loosening of associations is present. Patient becomes increasingly agitated and discharge focused can initially be verbally redirected. However, I was called by the RN after leaving the unit that the patient continued to escalate, and I have ordered her medicated with Zyprexa 10mg PO once. No evident side effects from medications. Review of Systems ROS Limitations: Psychotic, Poor Historian Except as stated in HPI: all other systems reviewed are Neg Objective Alert: Yes [place]: Person, Place Mood: Other (generally dysphoric) Affect: Labile Memory Intact: Comment (Not assessed) Hallucinations: Other (internally stimulated) Delusions: Yes Delusion Type: Paranoid Suicidal: Ideation (no SI) Homicidal: Ideation (no HI) Insight/Judgment Poor Remarks No motor abnormalities noted. Thought process rambling with significant loosening of associations. Grooming and hygiene fair. Labs Labs reviewed. Vitals/IOs Vital Signs Date Time Temp Pulse Resp B/P Pulse Ox O2 Delivery O2 Flow Rate FiO2 11/05/16 05:35 97.4 79 17 107/68 98 Assessment & Plan Problem List: (1) Schizoaffective disorder ICD Code: F25.9 Assessment & Plan Titrate Zyprexa through the weekend to a target dose of 20 mg at bedtime for the management of psychosis and mood instability. Continue to monitor on the high acuity unit. Continue other medications and care as ordered. Justification for Cont. Inpt. Impairment in social functioning. Impairment in reality construction. Medication changes in process. High risk for decompensation in a less restrictive environment. Discharge Planning Pending psychiatric stabilization. My hope is that the patient would be improved enough for discharge by the middle of next week. Request HC Surrog/Guard Advoc?: Yes Problem Qualifiers (1) Schizoaffective disorder: Qualified Code: F25.8 - Other schizoaffective disorders Mikey Khanna MD Nov 05, 2016 11:30
[2016-11-05] MEDS ORDERED: OLANZapine ODT 10 MG TAB PO ONE (12:15)
[2016-11-05] MEDS: LORazepam 2 MG/ML VIAL IM PRN ×2 (15:55→21:37)
[2016-11-05 17:39] VITALS: BP 113/53; PULSE 88; RESP 18; TEMP 98.6; O2SAT 96
[2016-11-05] MEDS: OLANZapine ODT 15 MG TAB PO SCH (21:00)
[2016-11-06] MEDS: ACETAMINOPHEN 325 MG TAB PO PRN (03:52)
[2016-11-06 05:23] VITALS: BP 114/60; PULSE 90; RESP 18; TEMP 97.5; O2SAT 95
[2016-11-06] MEDS ORDERED: OLANZapine IM 10 MG VIAL IM ONE (13:15)
--- NOTE | 2016-11-06 13:16 | HHI.PYPN ---
Subjective Remarks Pt seen and discussed with staff. Pt escalates quickly during interview and becomes agitated and threatening towards staff. She states that people are following her and committing fraud against her in the hospital. She become increasingly disorganized. Staff tried other means of deescalating pt ( escorting to quiet area of unit for less stimulation) She continued to increase in aggressive agitated behavior (banging on nursing unit windows and making threats to nurses) and was given IM olanzapine X1. Objective Alert: Yes [place]: Person, Place Mood: Agitated (aggresive and threatening), Angry Affect: Labile Memory Intact: Comment (fair) Hallucinations: Auditory, Other (internally stimulated) Delusions: Yes Delusion Type: Paranoid Suicidal: Ideation (no SI) Homicidal: Ideation (no HI) Insight/Judgment poor Vitals/IOs Vital Signs Date Time Temp Pulse Resp B/P Pulse Ox O2 Delivery O2 Flow Rate FiO2 11/06/16 05:23 97.5 90 18 114/60 95 Assessment & Plan Problem List: (1) Schizoaffective disorder ICD Code: F25.9 Assessment & Plan Continue current tx plan. Estimated LOS: days Justification for Cont. Inpt. impairments in safety and reality construction Request HC Surrog/Guard Advoc?: Yes Problem Qualifiers (1) Schizoaffective disorder: Qualified Code: F25.8 - Other schizoaffective disorders Anna Velasco MD Nov 06, 2016 13:16
[2016-11-06] MEDS ORDERED: ZIPRASIDONE MESYLATE 20 MG VIAL IM ONE ×2 (18:19→19:00)
[2016-11-06 18:20] VITALS: BP 115/61; PULSE 87; RESP 18; TEMP 98.2; O2SAT 97
[2016-11-06] MEDS ORDERED: diphenhydrAMINE HCL 50 MG/ML VIAL ONE (18:21)
[2016-11-06] MEDS: LORazepam 2 MG/ML VIAL IM PRN (18:30)
[2016-11-06] MEDS ORDERED: LORazepam 2 MG/ML VIAL IM ONE (19:00)
[2016-11-06] MEDS ORDERED: diphenhydrAMINE HCL 50 MG/ML VIAL IM ONE (19:00)
[2016-11-06] MEDS: OLANZapine ODT 15 MG TAB PO SCH (21:37)
[2016-11-06] MEDS: LORazepam 1 MG TAB PO PRN (21:44)
[2016-11-07 05:34] VITALS: BP 125/72; PULSE 72; RESP 18; TEMP 97.1; O2SAT 98
[2016-11-07] MEDS ORDERED: diphenhydrAMINE HCL 50 MG/ML VIAL ONE (08:33)
[2016-11-07] MEDS ORDERED: ZIPRASIDONE MESYLATE 20 MG VIAL IM ONE ×2 (08:33→09:30)
[2016-11-07] MEDS ORDERED: diphenhydrAMINE HCL 50 MG/ML VIAL IM ONE (09:30)
[2016-11-07] MEDS ORDERED: LORazepam 2 MG/ML VIAL IM ONE (09:30)
[2016-11-07] MEDS: LORazepam 2 MG/ML VIAL IM PRN (12:16)
[2016-11-07] MEDS: BENZTROPINE MESYLATE 2 MG/2 ML VIAL IM PRN (12:16)
[2016-11-07] MEDS ORDERED: ZIPRASIDONE MESYLATE 20 MG VIAL IM STA (17:11)
[2016-11-07] MEDS ORDERED: diphenhydrAMINE HCL 50 MG/ML VIAL IM STA (17:12)
[2016-11-07] MEDS ORDERED: LORazepam 2 MG/ML VIAL IM STA (17:12)
--- NOTE | 2016-11-07 17:33 | HHI.PYPN ---
Subjective Remarks Pt seen and discussed with staff. Pt was agitated this morning and received geodon 20mg IMX1. She remains highly delusional and disorganized. She requires constant supervision and redirection. No SI/HI Objective Alert: Yes [place]: Person, Place Mood: Agitated, Angry Affect: Labile Memory Intact: Comment (fair) Hallucinations: Auditory, Other (internally stimulated) Delusions: Yes Delusion Type: Paranoid Suicidal: Ideation (no SI) Homicidal: Ideation (no HI) Insight/Judgment poor Vitals/IOs Vital Signs Date Time Temp Pulse Resp B/P Pulse Ox O2 Delivery O2 Flow Rate FiO2 11/07/16 05:34 97.1 72 18 125/72 98 Assessment & Plan Problem List: (1) Schizoaffective disorder ICD Code: F25.9 Assessment & Plan Continue current tx plan. Estimated LOS: days Justification for Cont. Inpt. impairments in reality construction and safety Request HC Surrog/Guard Advoc?: Yes Problem Qualifiers (1) Schizoaffective disorder: Qualified Code: F25.8 - Other schizoaffective disorders Anna Velasco MD Nov 07, 2016 17:33
[2016-11-07 17:54] VITALS: BP 130/69; PULSE 121; RESP 18; TEMP 98.4; O2SAT 98
[2016-11-07] MEDS: OLANZapine ODT 20 MG TAB PO SCH (20:24)
[2016-11-07 22:00] VITALS: BP 116/66; PULSE 82; RESP 18; TEMP 97.4
[2016-11-08] MEDS: LORazepam 1 MG TAB PO PRN ×3 (02:50→20:42)
[2016-11-08 06:02] VITALS: BP 106/65; PULSE 104; RESP 18; TEMP 97.7; O2SAT 97
--- NOTE | 2016-11-08 10:17 | HHI.PYPN ---
Subjective Remarks Patient seen and examined with counselor. Chart reviewed. Case discussed with nursing staff who reports patient has had ongoing issues with agitation. The patient did ask for additional medication this morning noting "I need to be slowed down." On my examination today, the patient remains fairly irritable with significant loosening of associations. She denies any suicidal or homicidal ideation but it is not clear that she is reliable to contract for safety. She says "I have a lot of frenemies. It just goes to show that the good people young. I don't like houses. I want a tent. I don't want nothing from the government." She does report she has been on Depakote 250 mg 3 times daily in the past and is agreeable to starting this agent again for mood stabilization. She denies side effects from medications. She becomes agitated following conclusion of our interview, and I have ordered her medicated with Thorazine 100 mg IM once. Review of Systems ROS Limitations: Psychotic, Poor Historian Except as stated in HPI: all other systems reviewed are Neg Objective Alert: Yes [place]: Person, Place Mood: Anxious, Other (easily agitated) Affect: Labile Memory Intact: Comment (not formally assessed) Hallucinations: Other (remains internally preoccupied) Delusions: Yes Delusion Type: Paranoid (regarding being monitored) Suicidal: Ideation (denies SI but unreliable to contract for safety) Homicidal: Ideation (no HI) Insight/Judgment Poor Remarks No motor abnormalities noted. Thought process disorganized with loosening of associations. Speech rambling. Grooming and hygiene fair. Labs Labs reviewed. Vitals/IOs Vital Signs Date Time Temp Pulse Resp B/P Pulse Ox O2 Delivery O2 Flow Rate FiO2 11/08/16 06:02 97.7 104 18 106/65 97 Assessment & Plan Problem List: (1) Schizoaffective disorder ICD Code: F25.9 Assessment & Plan Add Depakote DR 250 mg 3 times daily for mood stabilization. Plan to check a Depakote level later in the week. Continue Zyprexa as ordered, although we might consider titrating this agent as well. Continue to monitor on the high acuity unit. Continue other medications and care as ordered. Justification for Cont. Inpt. Impairment in reality construction. Impairment in social function. Medication changes in process. High risk for decompensation in a lesser restrictive environment. Discharge Planning Pending psychiatric stabilization. My hope is that the patient will be stabilized adequately for safe discharge by the end of the week. Request HC Surrog/Guard Advoc?: Yes Problem Qualifiers (1) Schizoaffective disorder: Qualified Code: F25.8 - Other schizoaffective disorders Mikey Khanna MD November 08, 2016 10:17
[2016-11-08] MEDS: DIVALPROEX SODIUM DELAYED RELEASE 250 MG TAB PO SCH ×2 (12:12→18:18)
[2016-11-08] MEDS: LORazepam 2 MG/ML VIAL IM PRN (12:26)
[2016-11-08 17:15] VITALS: BP 110/57; PULSE 102; RESP 18; TEMP 97.5; O2SAT 97
[2016-11-08] MEDS: OLANZapine ODT 20 MG TAB PO SCH (20:42)
[2016-11-08] MEDS: ACETAMINOPHEN 325 MG TAB PO PRN (21:57)
[2016-11-09] MEDS: ACETAMINOPHEN 325 MG TAB PO PRN ×3 (04:38→20:45)
[2016-11-09 05:58] VITALS: BP 107/54; PULSE 107; RESP 20; TEMP 97.2; O2SAT 97
[2016-11-09] MEDS: LORazepam 1 MG TAB PO PRN ×2 (08:27→20:45)
[2016-11-09] MEDS: DIVALPROEX SODIUM DELAYED RELEASE 250 MG TAB PO SCH ×2 (08:27→13:45)
--- NOTE | 2016-11-09 09:35 | HHI.PYPN ---
Subjective Remarks Patient seen and examined with counselor and nurse. Chart reviewed. Case discussed with counselor, nurse and recreational therapist in treatment team. Per nursing staff, the patient has been considerably agitated and fault finding. Recreational therapist notes that the patient cannot control herself and groups. On my examination today, the patient reports "it's a new day. I forgot about yesterday. I want to get an education. My mother's in a intermediate." She thinks this service writer advisor and the staff for her care in the hospital. She says "I don't want to escape." Denies side effects from medications. We discuss behavioral expectations for discharge including but not limited to at least 24 hours of reasonable behavioral control. Following my departure from the unit, I receive a call from the nursing staff that the patient is escalating. I ordered Prolixin and Benadryl ETO, but the patient was able to be de-escalated before this had to be administered. Review of Systems ROS Limitations: Psychotic, Poor Historian Except as stated in HPI: all other systems reviewed are Neg Objective Alert: Yes [place]: Person, Place Mood: Oppositional, Other (somewhat elevated) Affect: Labile Memory Intact: Comment (not formally assessed) Hallucinations: Other (internally stimulated) Delusions: Yes Delusion Type: Paranoid Suicidal: Ideation (no SI) Homicidal: Ideation (no HI) Insight/Judgment Poor Remarks No motor abnormalities noted. Thought process with ongoing loosening of associations. Speech somewhat rambling. Labs Labs reviewed. Vitals/IOs Vital Signs Date Time Temp Pulse Resp B/P Pulse Ox O2 Delivery O2 Flow Rate FiO2 11/09/16 05:58 97.2 107 20 107/54 97 Assessment & Plan Problem List: (1) Schizoaffective disorder ICD Code: F25.9 Assessment & Plan Titrate Zyprexa to 5/20 mg for additional mood stabilization and for psychosis. Continue Depakote as ordered. Plan to check a Depakote and ammonia level and the we can adjust the dose based on the level and patient's clinical presentation. Continue to monitor on the high acuity unit in the meantime. Continue other medications and care as ordered. Justification for Cont. Inpt. Impairment in reality construction. Impairment in social function. Medication changes in process. High risk for decompensation in a less restrictive environment. Discharge Planning Pending psychiatric stabilization. We have once again offered assisted living placement to this patient, but she has declined. Request HC Surrog/Guard Advoc?: Yes Problem Qualifiers (1) Schizoaffective disorder: Qualified Code: F25.8 - Other schizoaffective disorders Mikey Khanna MD November 09, 2016 09:35
[2016-11-09] MEDS ORDERED: fluPHENAZine HCL 25 MG/10 ML VIAL IM STA (10:52)
[2016-11-09] MEDS ORDERED: diphenhydrAMINE HCL 50 MG/ML VIAL IM ONE (11:00)
[2016-11-09] MEDS: OLANZapine ODT 20 MG TAB PO SCH (20:45)
[2016-11-09] MEDS: carBAMazepine 200 MG TAB PO SCH ×2 (20:45→20:58)
[2016-11-10 06:05] VITALS: BP 117/80; PULSE 102; RESP 16; TEMP 97.3; O2SAT 97
[2016-11-10] MEDS ORDERED: OLANZapine ODT 5 MG TAB PO SCH (09:00)
[2016-11-10] MEDS: LORazepam 1 MG TAB PO PRN ×2 (09:16→21:28)
[2016-11-10] MEDS: carBAMazepine 200 MG TAB PO SCH ×2 (09:16→21:28)
--- NOTE | 2016-11-10 11:38 | HHI.PYPN ---
Subjective Remarks Patient seen and examined with counselor. Chart reviewed. Case discussed with nursing staff who reports that the patient was unable to remain calm after our discussion yesterday regarding the behavioral expectations for discharge. On my examination today, the patient presents as paranoid. She believes that there is something in her bed that is causing nightmares and also believes there is something underneath the bed that is stealing her belongings. She says "that's not normal. It's paranormal. I've been around ghosts. I've seen ghosts" since she was a child. She remains quite discharge focused and when told that she is not yet stable for discharge, she grows irate and rushes out of the room and begin screaming at the nursing station. She insists that she will simply escape the unit. Patient refused heard first dose of carbamazepine last night but did accept a dose this morning. Denies side effects from medications. Review of Systems ROS Limitations: Psychotic, Poor Historian Except as stated in HPI: all other systems reviewed are Neg Objective Alert: Yes [place]: Person, Place Mood: Agitated, Angry, Oppositional Affect: Labile Memory Intact: Comment (not formally assessed) Hallucinations: Other (remains internally preoccupied) Delusions: Yes Delusion Type: Paranoid (and bizarre as noted above) Suicidal: Ideation (no SI) Homicidal: Ideation (no HI) Insight/Judgment Poor Remarks No motor abnormalities noted. Thought process perseverative on discharge. Speech rambling. Grooming and hygiene fair. Labs Labs reviewed. Vitals/IOs Vital Signs Date Time Temp Pulse Resp B/P Pulse Ox O2 Delivery O2 Flow Rate FiO2 11/10/16 06:05 97.3 102 16 117/80 97 Assessment & Plan Problem List: (1) Schizoaffective disorder ICD Code: F25.9 Assessment & Plan Titrate Zyprexa to 10/20 mg for mood stabilization/psychosis. Continue carbamazepine with plans to check a level later in the week. Check a BMP in the morning to follow-up on GFR. Escape precautions. Continue to monitor on the high acuity unit. Continue other medications and care as ordered. Justification for Cont. Inpt. Impairment in reality construction. Impairment in social functioning. Medication changes in process. High risk for decompensation in a restrictive environment. Discharge Planning Pending psychiatric stabilization Request HC Surrog/Guard Advoc?: Yes Problem Qualifiers (1) Schizoaffective disorder: Qualified Code: F25.8 - Other schizoaffective disorders Mikey Kahnna MD November 10, 2016 11:38
[2016-11-10] MEDS: LORazepam 2 MG/ML VIAL IM PRN (17:38)
[2016-11-10] MEDS: BENZTROPINE MESYLATE 2 MG/2 ML VIAL IM PRN (17:48)
[2016-11-10 18:10] VITALS: BP 106/58; PULSE 99; RESP 16; TEMP 98.8; O2SAT 99
[2016-11-10] MEDS: OLANZapine ODT 20 MG TAB PO SCH (21:00)
[2016-11-11] MEDS: ACETAMINOPHEN 325 MG TAB PO PRN (05:39)
[2016-11-11] MEDS: LORazepam 1 MG TAB PO PRN ×2 (05:39→16:00)
[2016-11-11 05:57] VITALS: BP 101/65; PULSE 88; RESP 16; TEMP 98.4; O2SAT 95
[2016-11-11 08:34] LABS: BICARBONATE 35.3 MEQ/L (21.0-32.0); POTASSIUM 3.8 MEQ/L (3.5-5.1)
[2016-11-11] MEDS: carBAMazepine 200 MG TAB PO SCH ×2 (09:13→20:32)
[2016-11-11] MEDS: OLANZapine ODT 5 MG TAB PO SCH (09:13)
--- NOTE | 2016-11-11 11:12 | HHI.PYPN ---
Subjective Remarks Patient seen and examined with counselor. Chart reviewed. Case discussed with nursing staff. Per nursing staff, patient was complaining of dysuria and requesting chocolate to fix it. Nursing notes indicate the patient was bizarre and somewhat agitated overnight. She was given Ativan in the convex grinder operator. Consequently, at the time of my evaluation, the patient is somewhat sedated. Despite this, her affect remains quite labile. She remains quite discharge focused. She says "I want a place to live. I want my cat. Give me freedom!" She remains internally preoccupied. No evident side effects from medications. She does continue to complain of some pelvic discomfort but is to impaired to obtain much more history than that. Review of Systems ROS Limitations: Psychotic, Poor Historian Except as stated in HPI: all other systems reviewed are Neg Objective Alert: Yes [place]: Person, Place Mood: Anxious Affect: Labile Memory Intact: Comment (not formally assessed) Hallucinations: Other (internally stimulated) Delusions: Yes Delusion Type: Paranoid Suicidal: Ideation (no SI) Homicidal: Ideation (no HI) Insight/Judgment Poor Remarks No motor abnormalities noted Labs Test 11/11/16 07:15 Sodium Level 140 MEQ/L Potassium Level 3.8 MEQ/L Chloride Level 99 MEQ/L Carbon Dioxide Level 35.3 MEQ/L Anion Gap 6 MEQ/L Blood Urea Nitrogen 15 MG/DL Creatinine 0.68 MG/DL Estimat Glomerular Filtration 91 ML/MIN Rate Random Glucose 86 MG/DL Calcium Level 8.8 MG/DL Labs reviewed. GFR improved. Vitals/IOs Vital Signs Date Time Temp Pulse Resp B/P Pulse Ox O2 Delivery O2 Flow Rate FiO2 11/11/16 05:57 98.4 88 16 101/65 95 Assessment & Plan Problem List: (1) Schizoaffective disorder ICD Code: F25.9 Assessment & Plan This will be patient's first day on 30 mg total daily dose Zyprexa. She remains fairly psychotic and so if we felt the see any benefit within the next day or 2, I believe we will need to consider modifications or changes to therapy , such as switching to a different antipsychotic or possibly augmenting with a typical. Continue carbamazepine for mood stabilization with plans to check a carbamazepine level over the weekend. I have decreased the dose of patient's Ativan PRN to avoid excessively sedating her. Continue to monitor on the inpatient psychiatric unit. Check a urinalysis. Continue other medications and care as ordered. Justification for Cont. Inpt. Impairment in reality construction. Impairment in social functioning. High risk for decompensation in a restrictive environment. Discharge Planning Pending psychiatric stabilization. Request HC Surrog/Guard Advoc?: Yes Problem Qualifiers (1) Schizoaffective disorder: Qualified Code: F25.8 - Other schizoaffective disorders Mikey Khanna MD November 11, 2016 11:12
[2016-11-11 16:00] VITALS: BP 104/56; PULSE 90; RESP 18; TEMP 97.6; O2SAT 94
[2016-11-11] MEDS ORDERED: LORazepam 2 MG/ML VIAL IM PRN (16:00)
[2016-11-11] MEDS: OLANZapine ODT 20 MG TAB PO SCH (20:32)
[2016-11-12 06:33] VITALS: BP 118/69; PULSE 94; RESP 18; TEMP 97.4; O2SAT 97
[2016-11-12] MEDS: OLANZapine ODT 5 MG TAB PO SCH (08:38)
[2016-11-12] MEDS: carBAMazepine 200 MG TAB PO SCH ×2 (08:38→20:59)
--- NOTE | 2016-11-12 09:05 | HHI.PYPN ---
Subjective Remarks " And has been agitated, including banging on the nursing station window. On my examination today, the patient is angry and irritable. She remains quite discharge focus. She is unable to contain her emotional lability and storms around the unit yelling "my doctor is !" She insists that her proper psychotropic medications are Depakote and Risperdal and that she has followed regularly with Jeremy at [facility] for these medications, but counselor has been in contact with [facility] and the patient has not been seen there in some time and is certainly not a regular patient there. She was most recently prescribed Geodon at [facility]. No side effects from medications. No physical complaints. I ordered Prolixin and Benadryl ETO for patient's high level of agitation. Review of Systems ROS Limitations: Poor Historian Except as stated in HPI: all other systems reviewed are Neg Objective Alert: Yes [place]: Person, Place Mood: Agitated, Anxious Affect: Labile (remains quite labile) Memory Intact: Comment (not formally assessed) Hallucinations: Other (remains internally preoccupied) Delusions: Yes Delusion Type: Paranoid Suicidal: Ideation (no SI) Homicidal: Ideation (no HI) Insight/Judgment Poor Remarks No motor abnormalities noted. Thought process disorganized with loosening of associations. Speech rambling. Labs Labs reviewed. Vitals/IOs Vital Signs Date Time Temp Pulse Resp B/P Pulse Ox O2 Delivery O2 Flow Rate FiO2 11/12/16 06:33 97.4 94 18 118/69 97 Assessment & Plan Problem List: (1) Schizoaffective disorder ICD Code: F25.9 Assessment & Plan Patient does not seem to be deriving much therapeutic benefit from her current psychotropic regimen, it despite the robust dose of Zyprexa. I will discontinue Zyprexa and replace with Geodon with plans to titrate over the weekend. I will continue carbamazepine in check a carbamazepine level over the weekend. Patient has listed allergies/intolerances to Depakote and Risperdal. Continue to monitor on the high acuity unit. Continue other medications and care as ordered. Justification for Cont. Inpt. Impairment in reality construction. Impairment in social function. Medication changes ongoing. High risk for decompensation in a restrictive environment. Discharge Planning Pending psychiatric stabilization. Request HC Surrog/Guard Advoc?: Yes Problem Qualifiers (1) Schizoaffective disorder: Qualified Code: F25.8 - Other schizoaffective disorders Mikey Khanna MD November 12, 2016 09:05
[2016-11-12] MEDS ORDERED: diphenhydrAMINE HCL 50 MG/ML VIAL IM ONE (10:15)
[2016-11-12] MEDS ORDERED: fluPHENAZine HCL 25 MG/10 ML VIAL IM ONE (10:15)
[2016-11-12] MEDS ORDERED: ZIPRASIDONE MESYLATE 20 MG VIAL IM PRN (11:00)
[2016-11-12 18:00] VITALS: BP 112/66; PULSE 93; RESP 18; TEMP 97.8; O2SAT 97
[2016-11-12 18:01] VITALS: BP 112/66; PULSE 93; RESP 18; TEMP 97.8; O2SAT 97
[2016-11-12] MEDS: ZIPRASIDONE HCL 20 MG CAP PO SCH (18:14)
[2016-11-13] MEDS: ACETAMINOPHEN 325 MG TAB PO PRN (03:40)
[2016-11-13 05:58] VITALS: BP 121/67; PULSE 89; RESP 18; TEMP 97.2; O2SAT 98
[2016-11-13] MEDS: ZIPRASIDONE HCL 20 MG CAP PO SCH ×2 (08:41→17:24)
[2016-11-13] MEDS: carBAMazepine 200 MG TAB PO SCH ×2 (08:41→21:38)
[2016-11-13] MEDS: LORazepam 1 MG TAB PO PRN ×2 (09:58→18:24)
--- NOTE | 2016-11-13 13:52 | HHI.PYPN ---
Subjective Remarks Patient was seen and case discussed with nursing. Nursing notes more organized behavior. However patient remains hyperverbal, pressured and disorganized. She is labile occasionally crying during the interview and stopping after a couple seconds when talking about her mother Mother's Day. Compliant with her medications. Denies psychotic symptoms. Denies suicidal ideation intent or plan Objective Alert: Yes [place]: Person, Place Mood: Happy Affect: Labile (remains quite labile), Tearful Memory Intact: Comment (not formally assessed) Hallucinations: Other (remains internally preoccupied) Delusions: Yes Delusion Type: Paranoid Suicidal: Ideation (no SI) Homicidal: Ideation (no HI) Insight/Judgment Poor Vitals/IOs Vital Signs Date Time Temp Pulse Resp B/P Pulse Ox O2 Delivery O2 Flow Rate FiO2 11/13/16 05:58 97.2 89 18 121/67 98 Assessment & Plan Problem List: (1) Schizoaffective disorder ICD Code: F25.9 Assessment & Plan Continue current treatment plan Justification for Cont. Inpt. Patient will decompensate in a less restrictive setting Request HC Surrog/Guard Advoc?: Yes Problem Qualifiers (1) Schizoaffective disorder: Qualified Code: F25.8 - Other schizoaffective disorders Musa Delgadillo DO November 13, 2016 13:52
[2016-11-13 14:53] VITALS: BP 110/65; PULSE 91; RESP 17; TEMP 98.1
[2016-11-14] MEDS: LORazepam 1 MG TAB PO PRN ×2 (03:13→20:13)
[2016-11-14 05:46] VITALS: BP 117/74; PULSE 90; RESP 18; TEMP 97.6; O2SAT 96
[2016-11-14] MEDS: carBAMazepine 200 MG TAB PO SCH ×2 (08:11→20:13)
[2016-11-14] MEDS: ZIPRASIDONE HCL 20 MG CAP PO SCH ×2 (08:11→17:34)
--- NOTE | 2016-11-14 12:26 | HHI.PYPN ---
Subjective Remarks Patient was seen and case discussed with nursing. Patient remains elevated pressured and hyperverbal. Today she is labile and very focused on discharge. Was giving a stripper dance this morning. Compliant with medications Objective Alert: Yes [place]: Person, Place Mood: Anxious Affect: Labile (remains quite labile), Manic, Tearful Memory Intact: Comment (not formally assessed) Hallucinations: Other (remains internally preoccupied) Delusions: Yes Delusion Type: Paranoid Suicidal: Ideation (no SI) Homicidal: Ideation (no HI) Insight/Judgment Poor Labs Test 11/14/16 07:50 Carbamazepine (Tegretol) Level 9.6 MCG/ML Vitals/IOs Vital Signs Date Time Temp Pulse Resp B/P Pulse Ox O2 Delivery O2 Flow Rate FiO2 11/14/16 05:46 97.6 90 18 117/74 96 Assessment & Plan Problem List: (1) Schizoaffective disorder ICD Code: F25.9 Assessment & Plan Continue current treatment plan Justification for Cont. Inpt. Patient will decompensate in a less restrictive setting Request HC Surrog/Guard Advoc?: Yes Problem Qualifiers (1) Schizoaffective disorder: Qualified Code: F25.8 - Other schizoaffective disorders Musa Delgadillo DO November 14, 2016 12:26
[2016-11-14 18:08] VITALS: BP 123/80; PULSE 104; RESP 18; TEMP 98.5; O2SAT 98
[2016-11-15 05:52] VITALS: BP 117/69; PULSE 104; RESP 17; TEMP 97.2; O2SAT 100
[2016-11-15] MEDS: ZIPRASIDONE HCL 20 MG CAP PO SCH (09:51)
[2016-11-15] MEDS: carBAMazepine 200 MG TAB PO SCH ×2 (09:51→22:02)
--- NOTE | 2016-11-15 10:07 | HHI.PYPN ---
Subjective Remarks Patient seen and examined with counselor and nurse. Chart reviewed. Case discussed with nursing staff who reports that the patient painted her face with markers and was dancing on the unit. She has been loud and disruptive. On my examination today, the patient is in better behavioral control. She says "I have no place to live. I need a place that tolerates messy people. I don't hold any grudges. I do want my freedom but I smoke cigarettes." Speech is somewhat pressured. Thoughts remained somewhat disorganized with loose associations. She denies side effects from medications. She says that we can contact a friend who runs a [employer] to get better sense of her baseline; counselor has taken the number. Review of Systems ROS Limitations: Psychotic, Poor Historian Except as stated in HPI: all other systems reviewed are Neg Objective Alert: Yes Lester: Person, Place Mood: Anxious Affect: Labile (mild) Memory Intact: Comment (not formally assessed) Hallucinations: Other (less internally preoccupied) Delusions: No Delusion Type: Other (no wero delusions) Suicidal: Ideation (no SI) Homicidal: Ideation (no HI) Insight/Judgment Poor Remarks No motor abnormalities noted. Thought process as above. Speech somewhat rambling and pressured. Grooming and hygiene fair. Labs Labs reviewed. Carbamazepine level within the therapeutic range Vitals/IOs Vital Signs Date Time Temp Pulse Resp B/P Pulse Ox O2 Delivery O2 Flow Rate FiO2 11/15/16 05:52 97.2 104 17 117/69 100 Assessment & Plan Problem List: (1) Schizoaffective disorder ICD Code: F25.9 Assessment & Plan Patient does seem modestly improved versus before the weekend with the addition of Geodon. I will titrate Geodon to 100 mg twice daily with meals today. Continue carbamazepine as ordered as the level is therapeutic. Continue to monitor on the high acuity unit. Continue other medications and care as ordered. Justification for Cont. Inpt. Impairment in reality construction. Medication changes in process. High risk for decompensation in a restrictive environment. Discharge Planning Pending psychiatric stabilization. We have reinforced the need for good behavioral control for at least a day as a condition of discharge to a lower level of care. Request HC Surrog/Guard Advoc?: Yes Problem Qualifiers (1) Schizoaffective disorder: Qualified Code: F25.8 - Other schizoaffective disorders Mikey Khanna MD November 15, 2016 10:07
[2016-11-15] MEDS: LORazepam 1 MG TAB PO PRN (15:40)
[2016-11-15] MEDS: ZIPRASIDONE HCL 40 MG CAP PO SCH (17:00)
[2016-11-15] MEDS: ZIPRASIDONE HCL 60 MG CAP PO SCH (17:00)
[2016-11-15 17:32] VITALS: BP_SYST 117; BP_SYST 173; BP_DIAS 69; BP_DIAS 84; PULSE 104; PULSE 114; RESP 16; RESP 17; TEMP 97.2; TEMP 98.4; O2SAT 100; O2SAT 97
[2016-11-16] MEDS: ACETAMINOPHEN 325 MG TAB PO PRN (03:55)
[2016-11-16 05:47] VITALS: BP 134/85; PULSE 90; RESP 18; TEMP 97.9; O2SAT 100
[2016-11-16] MEDS: ZIPRASIDONE HCL 60 MG CAP PO SCH (09:07)
[2016-11-16] MEDS: ZIPRASIDONE HCL 40 MG CAP PO SCH (09:07)
[2016-11-16] MEDS: carBAMazepine 200 MG TAB PO SCH (09:07)
[2016-11-16] MEDS ORDERED: GEOD80CA PO (09:48)
[2016-11-16] MEDS ORDERED: CARB200T PO (09:48)
--- NOTE | 2016-11-16 09:48 | HHI.DS ---
Psychiatry Discharge Summary Inpatient Psychiatric care?: Yes Advance Directive: No Reason Not Provided: DOES NOT HAVE Mental Health AdvanceDirective: No Health Care Proxy: No Admission Admission Date Oct 29, 2016 at 09:45 Admission Diagnosis: (1) Schizoaffective disorder ICD Code: F25.9 Brief History The patient is a 51-year-old woman, homeless, single, unemployed, with psychiatric history of schizoaffective disorder, multiple psychiatric hospitalizations, previously Shaw acted, known by service, no significant medical history, who was brought into the emergency department via the police under the Shaw act with reports of patient running in and out of traffic in the [address] The patient also stated to the police that she [place] every morning for him to take her life. Patient was brought in and was somewhat verbally abusive and anxious and was placed in restraints. Patient denies any medical complaints. She has a history of MRSA. She is allergic to ampicillin, Depakote, Haldol, Risperdal, and sulfa. On psychiatric evaluation patient is extremely disorganized, disruptive, verbally aggressive, no making any sense and unable to answer questions appropriately and provide any meaningful or reliable information for the psychiatric assessment at this moment. Patient in the ER has been giving ETOs already twice. She says that she hasn't been using drugs, psychology could not be done at this moment, BAL is negative, she denies suicidal and homicidal ideation, she denies visual and auditory hallucinations. Tobacco Use In Past 30 Days: No Tobacco Past 30 Days Alcohol Use: Monthly or Less Hospital Course Patient was admitted to a locked, inpatient psychiatric unit. Appropriate precautions were in place throughout patient's hospital stay. Patient was seen and examined daily on the unit by psychiatry and also visited by counselor. Medications were adjusted. Patient tolerated medications well without side effects. Patient had improvement in presenting psychiatric symptomatology. There was no evidence of any suicidality or homicidality on the inpatient unit. Patient's behavior improved with the benefit of psychopharmacologic treatment , and she was able to maintain good behavioral control as required for 24 hours prior to discharge. On the day of discharge: Patient seen and examined with counselor and nurse. Chart reviewed. Case discussed with nurse, counselor and recreation therapist in treatment team. Per nursing staff, patient has remained in good behavioral control. On my examination today, the patient persists in requesting discharge from the inpatient psychiatric unit. She believes her mood has stabilized and says that she feels "focused enough to be out of here." Denies any suicidal or homicidal ideation, intent or plan. Denies audiovisual hallucinations, and I can elicit no delusional beliefs. Denies side effects from medications. No physical complaints. She continues to decline assisted living placement but is willing to accept homeless resources on discharge. Weighing the acute, chronic, and protective factors and based on the available evidence, I escort vehicle driver to a reasonable degree of medical certainty that the patient is at low imminent risk of harm to self or others from a mental illness as defined under the Shaw act and her level of function is adequate for outpatient care. Consequently, the patient no longer meets criteria for involuntary psychiatric hospitalization. Given that the patient no longer meets criteria for involuntary psychiatric hospitalization and given that she is requesting discharge from the inpatient unit today, I must arrange for her discharge with psychiatric follow-up as arranged by counselor. Patient is also to follow-up with primary care. I counseled the patient regarding warning signs for need to return to the psychiatric emergency room as part of the general safety plan. Results Blood Pressure 134 / 85 Vital Signs Date Time Temp Pulse Resp B/P Pulse Ox O2 Delivery O2 Flow Rate FiO2 11/16/16 05:47 97.9 90 18 134/85 100 Item Value Date Time White Blood Count 7.8 TH/MM3 10/28/16 1423 Hemoglobin 12.1 GM/DL 10/28/16 1423 Platelet Count 311 TH/MM3 10/28/16 1423 Sodium Level 140 MEQ/L 11/11/16 0715 Potassium Level 3.8 MEQ/L 11/11/16 0715 Chloride Level 99 MEQ/L 11/11/16 0715 Carbon Dioxide Level 35.3 MEQ/L H 11/11/16 0715 Blood Urea Nitrogen 15 MG/DL 11/11/16 0715 Creatinine 0.68 MG/DL 11/11/16 0715 Aspartate Amino Transf (AST/SGOT) 28 U/L 10/28/16 1423 Alanine Aminotransferase (ALT/SGPT) 22 U/L 10/28/16 1423 Alkaline Phosphatase 80 U/L 10/28/16 1423 Beta HCG, Qualitative 3 MIU/ML 11/02/16 1404 Carbamazepine (Tegretol) Level 9.6 MCG/ML 11/14/16 0750 Ethyl Alcohol Level LESS THAN 3 MG/DL 10/28/16 1423 Summary of Procedures None done Imaging None done Pending results at discharge: No Medications # of Antipsychotic meds at D/C: 1 Approp Antipsych med options 1 - Minimum of three failed multiple trials of monotherapy. 2 - Documented plan to taper to monotherapy due to previous use of multiple meds OR cross-taper in progress at D/C. 3 - Documentation of augmentation of Clozapine. 4 - Justification other than those listed in allowable values 1-3, document here : Discharge Discharge Date: November 16, 2016 Discharge Diagnosis: (1) Other schizoaffective disorders Diagnosis: Principal (stabilized) ICD Code: F25.8 GAF on discharge is 55 Mental Status Exam at Disch Patient is casually dressed. She is well groomed. She is awake and alert and oriented to person and hospital at least. No motor abnormalities noted. Speech is within normal limits for rate, tone and volume. Language and fund of knowledge seemed average. Mood is reportedly stable and affect is somewhat blunted. Thought process linear. No loosening of associations. No evident delusions. Denies audiovisual hallucinations. Denies suicidal or homicidal ideation, intent or plan. Insight and judgment are fair at best. Pt Condition on Discharge: Stable Discharge Disposition: Discharge Home Discharge Instructions Diet Instructions: As Tolerated, No Restrictions Activities you can perform: Weight Bearing as Aranza Scheduled Appointment: Gene Dobbins Appointment Time: 7:30am New Medications: Ziprasidone (Geodon) 80 Mg Cap 100 MG PO BIDPC Pharmacist: Ok to dispense in any combination of strengths so long as dose is the same. Mental Health Days 15 Ref 1 CAP Carbamazepine (Carbamazepine) 200 Mg Tab 200 MG PO Q12HR Mental Health Days 15 Ref 1 TAB Discharge Time > 30 minutes Discharge/Advance Care Plan Health Problems: (1) Schizoaffective disorder Goals to promote your health * To prevent worsening of your condition and complications * To maintain your health at the optimal level Directions to meet your goals Take your medications as prescribed Follow your dietary instruction Follow activity as directed Keep your appointments as scheduled Take your immunizations and boosters as scheduled If your symptoms worsen call your PCP, if no PCP go to Urgent Care Center or Emergency Room For 31/01 questions related to your inpatient stay or results of tests pending at discharge, please contact Dr. Mikey Khanna at Smoking is Dangerous to Your Health. Avoid second hand smoking Problem Qualifiers (1) Schizoaffective disorder: Qualified Code: F25.9 - Schizoaffective disorder, unspecified type Mikey Khanna MD November 16, 2016 09:48
== END 2016-11-16 11:10 | disposition home or self-care (01) | DRG 885 ==
LOC: NEPE 13:34 → NEDA 10-29 09:45 → H270 10-29 11:00
PROVIDERS: ADMIT Psychiatry & Neurology Psychiatry; ATTEND Psychiatry & Neurology Psychiatry
DX: F25.8 Other schizoaffective disorders (principal); Z78.1 Physical restraint status; Z59.0 Homelessness; F12.90 Cannabis use, unspecified, uncomplicated
CPT/HCPCS: 80048; 80053; 80156; 80307; 84703; 85025; 87641; 96372; 96374; 96375; J0515; J1200; J2060; J2250; J3230; J3486

== ENCOUNTER 2016-11-17 13:45 | Emergency (ER) | payer MEDICARE, OTHER ==
[~2016-11-17] VITALS: Ht 162.6 cm; Wt 54.5 kg
[~2016-11-17 13:45] MED LIST changes: -BUPR100T4 PO; +CARB200T PO; +GEOD80CA PO; -LURA20TA PO
[2016-11-17] MEDS ORDERED: SODIUM CHLOR 0.9% 1000 ML INJ 1,000 ML IV ONE (14:00)
[2016-11-17] MEDS ORDERED: SODIUM CHLORIDE 0.9% FLUSH 10 ML FLUSH IVF PRN (14:00)
[2016-11-17] MEDS ORDERED: LORazepam 2 MG/ML VIAL IV ONE (14:00)
--- NOTE | 2016-11-17 14:22 | PD ---
HPI Chief Complaint: Alcohol/Drug Intoxication Time Seen by Provider: 13:53 Travel History International Travel<30 days: No Contact w/Intl Traveler<30days: No History of Present Illness HPI Patient is a 51-year-old female who was just discharged from the psychiatric unit on November 16, 2016 with a diagnosis of schizoaffective disorder, multi- psychiatric hospitalizations, presents to emergency room after she reported that she took too many of her geodone pills. Patient reports that she was diagnosed with Geodon, reports that she was given 2 bottles that and was not sure how to take it. Patient reports that she saw her mother today at the group home, reports that she was on such a high, reports that she did bring herself down a little bit. Reports that she self medicated and took 2 extra pills of Geodon. Patient reports that she did take a Geodon 100 mg (she has 2 bottles with her, 1 bottle is 60mg and the second bottle of geodon is 40mg) around 8am this morning, reports that after she saw her mother, she took 2 tabs of the Geodon 40mg to "bring me down." Patient reports that she became worried that she took 2 many medications so she called 911. Patient with a flight of ideas in the emergency room, denies SI or HI at this time. Reports "i just wanted to bring myself down because i was so excited and hyper." Denies use of drugs/alcohol PFSH Past Medical History Blood Disorders: No Bipolar Disorder: Yes Anxiety: Yes Depression: Yes Cancer: No Cardiovascular Problems: No Chemotherapy: No Diabetes: No Diminished Hearing: No Endocrine: No Gastrointestinal Disorders: No Glaucoma: No Genitourinary: No Headaches: Yes Hypertension: Yes Immune Disorder: No Implanted Vascular Access Dvce: No Musculoskeletal: No Neurologic: No Psychiatric: Yes Reproductive: No Respiratory: No Immunizations Current: Yes Radiation Therapy: No Schizophrenia: Yes Seizures: Yes Sickle Cell Disease: No Menopausal: Yes : 1 Para: 1 Past Surgical History AICD: No Arteriovenous Shunt: No Section: No Insulin Pump: No Joint Replacement: No Pacemaker: No Other Surgery: Yes (see ed history and physical) Social History Alcohol Use: Yes (RARELY ) Tobacco Use: Yes (1/2 PPD) Substance Use: Yes Allergies-Medications (Allergen,Severity, Reaction): Coded Allergies: Depakote (Verified Allergy, Severe, Twitching, 11/17/16) Haldol (Verified Allergy, Severe, 11/17/16) Risperdal (Verified Allergy, Severe, Rash, 11/17/16) Sulfa (Verified Allergy, Severe, Itching, 11/17/16) Ampicillin (Verified Allergy, Mild, Nausea/Vomiting, 11/17/16) *MDRO Multi-Drug Resistant Organism (Unverified Allergy, Unknown, 11/17/16) MRSA 2013 Reported Meds & Prescriptions Reported Meds & Active Scripts Active Geodon (Ziprasidone) 80 Mg Cap 100 Mg PO BIDPC 15 Days Pharmacist: Ok to dispense in any combination of strengths so long as dose is the same. Carbamazepine 200 Mg Tab 200 Mg PO Q12HR 15 Days Review of Systems General / Constitutional: No: Fever Eyes: No: Visual changes HENT: No: Headaches Cardiovascular: No: Chest Pain or Discomfort Respiratory: No: Shortness of Breath Gastrointestinal: No: Abdominal Pain Genitourinary: No: Dysuria Musculoskeletal: No: Pain Skin: No Rash Neurologic: No: Weakness Psychiatric: Positive: Mood Disorder, No: Depression Endocrine: No: Polydipsia Hematologic/Lymphatic: No: Easy Bruising Physical Exam Narrative GENERAL: mild distress SKIN: Focused skin assessment warm/dry. HEAD: Atraumatic. Normocephalic. EYES: Pupils equal and round. No scleral icterus. No injection or drainage. ENT: No nasal bleeding or discharge. Mucous membranes pink and moist. NECK: Trachea midline. No JVD. CARDIOVASCULAR: Regular rate and rhythm. No murmur appreciated. RESPIRATORY: No accessory muscle use. Clear to auscultation. Breath sounds equal bilaterally. GASTROINTESTINAL: Abdomen soft, non-tender, nondistended. Hepatic and splenic margins not palpable. MUSCULOSKELETAL: No obvious deformities. No clubbing. No cyanosis. No edema. NEUROLOGICAL: Awake and alert. No obvious cranial nerve deficits. Motor grossly within normal limits. Normal speech. PSYCHIATRIC: Patient anxious with a flight of ideas, denies suicidal or homicidal ideations Data Data Last Documented VS Vital Signs Date Time Temp Pulse Resp B/P Pulse Ox O2 Delivery O2 Flow Rate FiO2 11/17/16 14:39 100 Room Air 11/17/16 14:29 98.5 118 18 127/81 Orders Complete Blood Count With Diff (11/17/16 13:56) Comprehensive Metabolic Panel (11/17/16 13:56) Urinalysis - C+S If Indicated (11/17/16 13:56) Electrocardiogram (11/17/16 13:56) Oximetry (11/17/16 13:56) Iv Access Insert/Monitor (11/17/16 13:56) Ecg Monitoring (11/17/16 13:56) Psych Screen (11/17/16 13:56) Sodium Chloride 0.9% Flush (Ns Flush) (11/17/16 14:00) Lorazepam Inj (Ativan Inj) (11/17/16 14:00) Drug Screen, Random Urine (11/17/16 13:56) Sodium Chlor 0.9% 1000 Ml Inj (Ns 1000 M (11/17/16 14:00) Call Poison Control (11/17/16 14:19) Labs Laboratory Tests Test 11/17/16 14:25 White Blood Count 13.1 TH/MM3 Red Blood Count 4.18 MIL/MM3 Hemoglobin 12.8 GM/DL Hematocrit 37.8 % Mean Corpuscular Volume 90.5 FL Mean Corpuscular Hemoglobin 30.6 PG Mean Corpuscular Hemoglobin 33.8 % Concent Red Cell Distribution Width 12.6 % Platelet Count 516 TH/MM3 Mean Platelet Volume 6.7 FL Neutrophils (%) (Auto) 66.3 % Lymphocytes (%) (Auto) 22.4 % Monocytes (%) (Auto) 10.3 % Eosinophils (%) (Auto) 0.6 % Basophils (%) (Auto) 0.4 % Neutrophils # (Auto) 8.6 TH/MM3 Lymphocytes # (Auto) 2.9 TH/MM3 Monocytes # (Auto) 1.4 TH/MM3 Eosinophils # (Auto) 0.1 TH/MM3 Basophils # (Auto) 0.1 TH/MM3 CBC Comment DIFF FINAL Differential Comment Urine Collection Type CLEAN CATCH Urine Color YELLOW Urine Turbidity CLEAR Urine pH 5.5 Urine Specific [place] 1.005 Urine Protein NEG mg/dL Urine Glucose (UA) NEG mg/dL Urine Ketones NEG mg/dL Urine Occult Blood NEG Urine Nitrite NEG Urine Bilirubin NEG Urine Leukocyte Esterase TRACE Urine RBC 0-3 /hpf Urine WBC 0-2 /hpf Urine Squamous Epithelial 0-5 /hpf Cells Microscopic Urinalysis Comment CULT NOT INDICATED Urine Collection Time 14:25 Sodium Level 138 MEQ/L Potassium Level 3.8 MEQ/L Chloride Level 100 MEQ/L Carbon Dioxide Level 30.6 MEQ/L Anion Gap 7 MEQ/L Blood Urea Nitrogen 11 MG/DL Creatinine 0.71 MG/DL Estimat Glomerular Filtration 86 ML/MIN Rate Random Glucose 100 MG/DL Calcium Level 8.7 MG/DL Total Bilirubin 0.3 MG/DL Aspartate Amino Transf 29 U/L (AST/SGOT) Alanine Aminotransferase 52 U/L (ALT/SGPT) Alkaline Phosphatase 120 U/L Total Protein 7.5 GM/DL Albumin 3.4 GM/DL Urine Opiates Screen NEG Urine Barbiturates Screen NEG Urine Amphetamines Screen NEG Urine Benzodiazepines Screen NEG Urine Cocaine Screen NEG Urine Cannabinoids Screen NEG MDM Medical Decision Making Medical Screen Exam Complete: Yes Emergency Medical Condition: Yes Differential Diagnosis Schizoaffective disorder, electrolyte abnormality, drug overdose Narrative Course Patient is a 51-year-old female who presents to emergency room with complaints of medication overdose. She reports that she was recently discharged from a psychiatric unit at [facility], reports that she was at a restaurant and was on a high so she decided to take extra geodon pills to "bring me down." Patient reports that she is not sure how much Geodon she is supposed to be taking, that she took one of each tablet this morning and took an extra 2 blue tabs this afternoon. Patient with a flight of ideas, denies suicidal or homicidal ideations, reports that "I just off medicated myself." I did review patient's previous records, she was recently discharged from [facility] facility with a prescription for Geodon 100 mg. Patient reports that she was given 2 bottles of geodon from the pharmacy today, one bottle was for Geodon 40 mg, another bottle was for Geodon 60 mg. Patient reports that she does not know how to take her medications as no one reviewed this with her. Although patient denies suicidal or homicidal lesions, patient does have a flight of ideas and patient appears to to be disorganized in her speech. I am concerned for patient safety as she was recently discharged from a psychiatric unit and patient appears extremely confused and with a flight of ideas. Call made to poison control to review dose of Geodon the patient took today. Psychiatric screening labs ordered, EKG ordered, patient was placed on a child monitor upon arrival to the emergency room. Patient will require psychiatric screening once medically cleared. Patient medically cleared for behavioral health evaluation. Shaw act was initiated in the emergency room as patient is unable to determine for herself with her examination is necessary and without treatment and care, she is likely to cause bodily harm to herself as she is self-medicating herself Anna Johnson DO November 17, 2016 14:22
[2016-11-17 14:29] VITALS: BP 127/81; PULSE 118; RESP 18; TEMP 98.5; O2SAT 99
[2016-11-17 14:34] LABS: AUTOMATED NEUTROPHIL # 8.6 TH/MM3 (1.8-7.7); BASOPHIL # 0.1 TH/MM3 (0-0.2); BASOPHIL % 0.4 % (0.0-2.0); EOSINOPHIL # 0.1 TH/MM3 (0-0.4); EOSINOPHIL % 0.6 % (0.0-4.0); HEMATOCRIT 37.8 % (35.0-46.0); HEMO FLAGS DIFF FINAL; LYMPH % 22.4 % (9.0-44.0); LYMPHOCYTE # 2.9 TH/MM3 (1.0-4.8); MEAN CELL VOLUME 90.5 FL (80.0-100.0); MEAN CORPUSCULAR HEMOGLOBIN 30.6 PG (27.0-34.0); MEAN CORPUSCULAR HGB CONC 33.8 % (32.0-36.0); MONO % 10.3 % (0.0-8.0); NEUT % 66.3 % (16.0-70.0); PLATELET COUNT 516 TH/MM3 (150-450); RED BLOOD COUNT 4.18 MIL/MM3 (4.00-5.30); RED CELL DISTRIBUTION WIDTH 12.6 % (11.6-17.2); WHITE BLOOD COUNT 13.1 TH/MM3 (4.0-11.0)
[2016-11-17 14:38] LABS: BLOOD, URINE NEG (NEG); GLUCOSE,URINE NEG (NEG); KETONE, URINE NEG (NEG); NITRITE,URINE NEG (NEG); PH, URINE 5.5 (5.0-8.5)
[2016-11-17 14:39] VITALS: O2SAT 100
[2016-11-17 14:40] LABS: AMPHETAMINE, URINE NEG (NEG); BARBITURATES, URINE NEG (NEG)
[2016-11-17 14:41] LABS: COCAINE, URINE NEG (NEG)
[2016-11-17 14:43] LABS: CHLORIDE 100 MEQ/L (98-107); COMMENT (UR) CULT NOT INDICATED; CULTURE IF INDICATED CULT NOT INDICATED; METHOD OF COLLECTION CLEAN CATCH; POTASSIUM 3.8 MEQ/L (3.5-5.1); RBC, URINE 0-3 /hpf (0-3); SODIUM (NA) 138 MEQ/L (136-145); SQUAMOUS EPITHELIAL CELL URINE 0-5 /hpf (0-5); URINE COLOR YELLOW (YELLW/STRAW); WBC, URINE 0-2 /hpf (0-5)
[2016-11-17 14:47] LABS: ANION GAP 7 MEQ/L (5-15); BICARBONATE 30.6 MEQ/L (21.0-32.0); BLOOD UREA NITROGEN 11 MG/DL (7-18)
[2016-11-17 14:50] LABS: ALT (GPT) 52 U/L (10-53); AST (GOT) 29 U/L (15-37); GLOMERULAR FILTRATION RATE 86 ML/MIN (>89)
[2016-11-17 14:52] LABS: TOTAL BILIRUBIN ADULT 0.3 MG/DL (0.2-1.0)
[2016-11-17 14:53] LABS: ALKALINE PHOSPHATASE 120 U/L (45-117)
[2016-11-17 15:23] VITALS: BP 99/67; PULSE 93; RESP 14; O2SAT 99
[2016-11-17 18:39] VITALS: BP 131/85; PULSE 98; RESP 18; TEMP 97.5; O2SAT 99
[2016-11-17 22:00] VITALS: BP 129/72; PULSE 101; RESP 18; O2SAT 98
[2016-11-17] MEDS ORDERED: LORazepam 2 MG/ML VIAL IM ONE (22:45)
[2016-11-18 02:00] VITALS: BP 101/53; PULSE 72; RESP 18; O2SAT 99
[2016-11-18 06:00] VITALS: BP 111/72; PULSE 100; RESP 19; O2SAT 99
[2016-11-18 10:16] VITALS: BP 136/66; PULSE 66; RESP 16; TEMP 97.6; O2SAT 98
--- NOTE | 2016-11-18 15:50 | EKG ---
Date Performed: 11/17/2016 Time Performed: 14:41:42 PTAGE: 51 years EKG: Sinus tachycardia Anterior T wave changes are nonspecific Borderline ECG PREVIOUS TRACING 01/28/2001 Compared to prior tracing no significant change DOCTOR: Gera Martinez Interpretating Date/Time 11/18/2016 15:47:59
== END 2016-11-18 09:45 ==
LOC: PHED 13:45 → NEPJ 11-18 09:45
DX: F25.9 Schizoaffective disorder, unspecified (principal); I10 Essential (primary) hypertension; F17.200 Nicotine dependence, unspecified, uncomplicated; Z79.899 Other long term (current) drug therapy
CPT/HCPCS: 80053; 80156; 80307; 81001; 85025; 93005; 96361; 96372; 96374; 99285; J2060; J7030

== ENCOUNTER 2016-11-21 10:13 | Emergency (ER) | payer MEDICARE, MEDICAID ==
[2016-11-21 10:14] VITALS: BP 129/74; PULSE 98; RESP 16; TEMP 98.4; O2SAT 99
--- NOTE | 2016-11-21 10:26 | PD ---
HPI Chief Complaint: Psychiatric Symptoms Time Seen by Provider: 10:26 Travel History International Travel<30 days: No Contact w/Intl Traveler<30days: No Traveled to known affect area: No History of Present Illness HPI 51-year-old female came to the emergency room with history of not feeling well she said. She was screaming and said that all this started after she took her psych medications. She has history of schizophrenia. Initially upon arrival she was quite agitated and combative. But has calmed down since then. She is was sleeping but woke up when I called her name. I asked her how she was feeling and she said not good. Vital signs are stable otherwise. I'm not getting much more history out of her at this point. PFSH Past Medical History Narrative Medical List of her past medical, surgical, social and family history is reviewed from the nursing note. Blood Disorders: No Bipolar Disorder: Yes Anxiety: Yes Depression: Yes Cancer: No Cardiovascular Problems: No Chemotherapy: No Diabetes: No Diminished Hearing: No Endocrine: No Gastrointestinal Disorders: No Glaucoma: No Genitourinary: No Headaches: Yes Hypertension: Yes Immune Disorder: No Implanted Vascular Access Dvce: No Musculoskeletal: No Neurologic: No Psychiatric: Yes Reproductive: No Respiratory: No Immunizations Current: Yes Radiation Therapy: No Schizophrenia: Yes Seizures: Yes Sickle Cell Disease: No Menopausal: Yes : 1 Para: 1 Past Surgical History AICD: No Arteriovenous Shunt: No Section: No Insulin Pump: No Joint Replacement: No Pacemaker: No Other Surgery: Yes (see ed history and physical) Social History Alcohol Use: No Tobacco Use: Yes (07/12 PPD) Substance Use: Yes Allergies-Medications (Allergen,Severity, Reaction): Coded Allergies: Depakote (Verified Allergy, Severe, Twitching, 11/17/16) Haldol (Verified Allergy, Severe, 11/17/16) Risperdal (Verified Allergy, Severe, Rash, 11/17/16) Sulfa (Verified Allergy, Severe, Itching, 11/17/16) Ampicillin (Verified Allergy, Mild, Nausea/Vomiting, 11/17/16) *MDRO Multi-Drug Resistant Organism (Unverified Allergy, Unknown, 11/17/16) MRSA 2013 Comments List of her allergies reviewed from the nursing note. Reported Meds & Prescriptions Reported Meds & Active Scripts Active Geodon (Ziprasidone) 80 Mg Cap 100 Mg PO BIDPC 15 Days Pharmacist: Ok to dispense in any combination of strengths so long as dose is the same. Carbamazepine 200 Mg Tab 200 Mg PO Q12HR 15 Days Narrative Medication List of her home medications reviewed from the nursing note. Review of Systems Except as stated in HPI: all other systems reviewed are Neg Physical Exam Narrative GENERAL: Lethargic but wakes up upon calling her name and answers questions appropriately SKIN: Focused skin assessment warm/dry. HEAD: Atraumatic. Normocephalic. EYES: Pupils equal and round. No scleral icterus. No injection or drainage. ENT: No nasal bleeding or discharge. Mucous membranes pink and moist. NECK: Trachea midline. No JVD. CARDIOVASCULAR: Regular rate and rhythm. No murmur appreciated. RESPIRATORY: No accessory muscle use. Clear to auscultation. Breath sounds equal bilaterally. GASTROINTESTINAL: Abdomen soft, non-tender, nondistended. Hepatic and splenic margins not palpable. MUSCULOSKELETAL: No obvious deformities. No clubbing. No cyanosis. No edema. NEUROLOGICAL: Awake and alert. No obvious cranial nerve deficits. Motor grossly within normal limits. Normal speech. PSYCHIATRIC: Appropriate mood and affect; insight and judgment normal. Data Data Last Documented VS Vital Signs Date Time Temp Pulse Resp B/P Pulse Ox O2 Delivery O2 Flow Rate FiO2 11/21/16 17:00 98.1 96 16 140/73 95 Room Air 11/21/16 12:30 2 Orders Electrocardiogram (11/21/16 10:35) Ammonia (11/21/16 10:35) Complete Blood Count With Diff (11/21/16 10:35) Comprehensive Metabolic Panel (11/21/16 10:35) Creatine Kinase (Cpk) (11/21/16 10:35) Prothrombin Time / Inr (Pt) (11/21/16 10:35) Troponin I (11/21/16 10:35) Thyroid Stimulating Hormone (11/21/16 10:35) Lactic Acid Sepsis Protocol (11/21/16 10:35) Urinalysis - C+S If Indicated (11/21/16 10:35) Blood Culture (11/21/16 10:35) Chest, Single Ap (11/21/16 10:35) Ct Brain W/O Iv Contrast(Rout) (11/21/16 10:35) Blood Glucose (11/21/16 10:35) Ecg Monitoring (11/21/16 10:35) Iv Access Insert/Monitor (11/21/16 10:35) Oximetry (11/21/16 10:35) Sodium Chloride 0.9% Flush (Ns Flush) (11/21/16 10:45) Sodium Chlor 0.9% 1000 Ml Inj (Ns 1000 M (11/21/16 10:35) Drug Screen, Random Urine (11/21/16 10:35) Alcohol (Ethanol) (11/21/16 10:35) Psych Screen (11/21/16 12:14) Labs Laboratory Tests Test 11/21/16 11/21/16 11/21/16 10:42 10:49 11:04 White Blood Count 8.9 TH/MM3 Red Blood Count 4.23 MIL/MM3 Hemoglobin 12.9 GM/DL Hematocrit 37.5 % Mean Corpuscular Volume 88.7 FL Mean Corpuscular Hemoglobin 30.4 PG Mean Corpuscular Hemoglobin 34.3 % Concent Red Cell Distribution Width 12.6 % Platelet Count 487 TH/MM3 Mean Platelet Volume 7.2 FL Neutrophils (%) (Auto) 60.6 % Lymphocytes (%) (Auto) 27.2 % Monocytes (%) (Auto) 10.4 % Eosinophils (%) (Auto) 1.0 % Basophils (%) (Auto) 0.8 % Neutrophils # (Auto) 5.4 TH/MM3 Lymphocytes # (Auto) 2.4 TH/MM3 Monocytes # (Auto) 0.9 TH/MM3 Eosinophils # (Auto) 0.1 TH/MM3 Basophils # (Auto) 0.1 TH/MM3 CBC Comment DIFF FINAL Differential Comment Prothrombin Time 10.2 SEC Prothromb Time International 0.9 RATIO Ratio Sodium Level 139 MEQ/L Potassium Level 3.4 MEQ/L Chloride Level 101 MEQ/L Carbon Dioxide Level 30.2 MEQ/L Anion Gap 8 MEQ/L Blood Urea Nitrogen 11 MG/DL Creatinine 0.74 MG/DL Estimat Glomerular Filtration 82 ML/MIN Rate Random Glucose 118 MG/DL Calcium Level 9.1 MG/DL Total Bilirubin 0.3 MG/DL Aspartate Amino Transf 29 U/L (AST/SGOT) Alanine Aminotransferase 37 U/L (ALT/SGPT) Alkaline Phosphatase 126 U/L Total Creatine Kinase 146 U/L Troponin I LESS THAN 0.02 NG/ML Total Protein 7.9 GM/DL Albumin 3.6 GM/DL Thyroid Stimulating Hormone 2.090 uIU/ML 3rd Gen Ethyl Alcohol Level LESS THAN 3 MG/DL Lactic Acid Level 0.8 mmol/L Ammonia 25 MCMOL/L Urine Color LIGHT-YELLOW Urine Turbidity CLEAR Urine pH 6.0 Urine Specific [place] 1.007 Urine Protein NEG mg/dL Urine Glucose (UA) NEG mg/dL Urine Ketones NEG mg/dL Urine Occult Blood NEG Urine Nitrite NEG Urine Bilirubin NEG Urine Urobilinogen LESS THAN 2.0 MG/DL Urine Leukocyte Esterase SMALL Urine RBC 1 /hpf Urine WBC 3 /hpf Urine Squamous Epithelial 4 /hpf Cells Urine Mucus FEW /lpf Microscopic Urinalysis Comment CATH-CULT NOT IND Urine Opiates Screen NEG Urine Barbiturates Screen NEG Urine Amphetamines Screen NEG Urine Benzodiazepines Screen NEG Urine Cocaine Screen NEG Urine Cannabinoids Screen NEG MDM Medical Decision Making Medical Screen Exam Complete: Yes Emergency Medical Condition: Yes Medical Record Reviewed: Yes Interpretation(s) Twelve-lead EKG was reviewed by me. Normal sinus rhythm, normal axis, nonspecific ST-T wave changes. Heart rate of 88 bpm. Differential Diagnosis Metabolic encephalopathy, UTI, electrolyte abnormality, sepsis, psychosis Narrative Course To 13 p.m. all the blood work, CAT scan and x-ray reports of back and within normal limits. I am medically clearing her at this point. She'll need psych assessment Procedures EKG Prior to Arrival: Edwin Keene MD November 21, 2016 10:26
[2016-11-21] MEDS ORDERED: SODIUM CHLOR 0.9% 1000 ML INJ 1,000 ML IV SCH (10:35)
[2016-11-21] MEDS ORDERED: SODIUM CHLORIDE 0.9% FLUSH 10 ML FLUSH IVF PRN (10:45)
--- NOTE | 2016-11-21 10:52 | RADRPT ---
EXAM DATE/TIME: 11/21/2016 10:48 [facility] COMPARISON: CHEST SINGLE AP, March 17, 2016, 18:27. INDICATIONS : Syncope. MEDICAL HISTORY : None. SURGICAL HISTORY : None. ENCOUNTER: Initial ACUITY: 1 day PAIN SCORE: Non-responsive. LOCATION: Bilateral chest FINDINGS: A single view of the chest demonstrates the lungs to be symmetrically aerated without evidence of mas s, infiltrate or effusion. The cardiomediastinal contours are unremarkable. Osseous structures are intact. CONCLUSION: No acute disease. Armani Pacheco MD on November 21, 2016 at 10:48 Board Certified Radiologist. This report was verified electronically.
[2016-11-21 11:20] LABS: AUTOMATED NEUTROPHIL # 5.4 TH/MM3 (1.8-7.7); BASOPHIL # 0.1 TH/MM3 (0-0.2); BASOPHIL % 0.8 % (0.0-2.0); EOSINOPHIL # 0.1 TH/MM3 (0-0.4); HEMATOCRIT 37.5 % (35.0-46.0); HEMO FLAGS DIFF FINAL; LYMPH % 27.2 % (9.0-44.0); LYMPHOCYTE # 2.4 TH/MM3 (1.0-4.8); MEAN CELL VOLUME 88.7 FL (80.0-100.0); MEAN CORPUSCULAR HEMOGLOBIN 30.4 PG (27.0-34.0); MEAN CORPUSCULAR HGB CONC 34.3 % (32.0-36.0); MONO % 10.4 % (0.0-8.0); NEUT % 60.6 % (16.0-70.0); PLATELET COUNT 487 TH/MM3 (150-450); RED BLOOD COUNT 4.23 MIL/MM3 (4.00-5.30); RED CELL DISTRIBUTION WIDTH 12.6 % (11.6-17.2); WHITE BLOOD COUNT 8.9 TH/MM3 (4.0-11.0)
[2016-11-21 11:21] VITALS: RESP 18; O2SAT 96
--- NOTE | 2016-11-21 11:22 | RADRPT ---
EXAM DATE/TIME: 11/21/2016 10:52 [facility] COMPARISON: No previous studies available for comparison. INDICATIONS : Altered mental status. RADIATION DOSE: 56.35 CTDIvol (mGy) MEDICAL HISTORY : Seizures. Hypertension. SURGICAL HISTORY : None. ENCOUNTER: Initial ACUITY: 1 day PAIN SCALE: 0/10 LOCATION: cranial TECHNIQUE: Multiple contiguous axial images were obtained of the head. Using automated exposure control and adj ustment of the mA and/or kV according to patient size, radiation dose was kept as low as reasonably a chievable to obtain optimal diagnostic quality images. FINDINGS: CEREBRUM: The ventricles are normal for age. No evidence of midline shift, mass lesion, hemorrhage or acute in farction. No extra-axial fluid collections are seen. POSTERIOR FOSSA: The cerebellum and brainstem are intact. The 4th ventricle is midline. The cerebellopontine angle i s unremarkable. EXTRACRANIAL: The visualized portion of the orbits is intact. SKULL: The calvaria is intact. No evidence of skull fracture. CONCLUSION: No acute intracranial disease. Armani Pacheco MD on November 21, 2016 at 11:19 Board Certified Radiologist. This report was verified electronically.
[2016-11-21 11:31] LABS: INTERNATIONAL NORMALIZED RATIO 0.9 RATIO; PROTHROMBIN TIME - PATIENT 10.2 SEC (9.8-11.6)
[2016-11-21 11:36] LABS: BLOOD, URINE NEG (NEG); COMMENT (UR) CATH-CULT NOT IND; CULTURE IF INDICATED CATH CULTURE NOT IND; GLUCOSE,URINE NEG (NEG); KETONE, URINE NEG (NEG); MUCUS URINE FEW /lpf (OCC); NITRITE,URINE NEG (NEG); SQUAMOUS EPITHELIAL CELL URINE 4 /hpf (0-5); URINE COLOR LIGHT-YELLOW (YELLW/STRAW)
[2016-11-21 11:39] LABS: AMPHETAMINE, URINE NEG (NEG); BARBITURATES, URINE NEG (NEG); COCAINE, URINE NEG (NEG)
[2016-11-21 11:40] LABS: ALT (GPT) 37 U/L (10-53); ANION GAP 8 MEQ/L (5-15); AST (GOT) 29 U/L (15-37); BICARBONATE 30.2 MEQ/L (21.0-32.0); BLOOD UREA NITROGEN 11 MG/DL (7-18); CHLORIDE 101 MEQ/L (98-107); GLOMERULAR FILTRATION RATE 82 ML/MIN (>89); POTASSIUM 3.4 MEQ/L (3.5-5.1); SODIUM (NA) 139 MEQ/L (136-145)
[2016-11-21 11:50] LABS: ALKALINE PHOSPHATASE 126 U/L (45-117); CREATINE KINASE 146 U/L (26-192); TOTAL BILIRUBIN ADULT 0.3 MG/DL (0.2-1.0)
[2016-11-21 12:30] VITALS: BP 137/88; PULSE 98; RESP 18; O2SAT 99
[2016-11-21 17:00] VITALS: BP 140/73; PULSE 96; RESP 16; TEMP 98.1; O2SAT 95
--- NOTE | 2016-11-22 15:38 | EKG ---
Date Performed: 11/21/2016 Time Performed: 10:40:49 PTAGE: 51 years EKG: Sinus rhythm POSSIBLE LEFT ATRIAL ENLARGEMENT BORDERLINE ECG PREVIOUS TRACING : 11/17/2016 14.41 Compared to previous tracing, sinus rate is slower. DOCTOR: Rodney Wellington Interpretating Date/Time 11/22/2016 15:37:35
== END 2016-11-21 18:30 | disposition left against medical advice (07) ==
LOC: NEPE 10:13
DX: F20.9 Schizophrenia, unspecified (principal); I10 Essential (primary) hypertension; F17.210 Nicotine dependence, cigarettes, uncomplicated; R94.31 Abnormal electrocardiogram [ECG] [EKG]
CPT/HCPCS: 70450; 71010; 80053; 80307; 81001; 82140; 82550; 83605; 84443; 84484; 85025; 85610; 87040; 93005; 99284; J7030

== ENCOUNTER 2016-11-22 22:56 | Inpatient (IN) | payer OTHER, MEDICARE ==
[~2016-11-22] VITALS: Ht 162.6 cm; Wt 54.1 kg
[2016-11-22 23:07] VITALS: BP 139/77; PULSE 108; RESP 18; TEMP 98.6; O2SAT 100
[2016-11-22] MEDS ORDERED: SODIUM CHLORIDE 0.9% FLUSH 10 ML FLUSH IVF PRN (23:15)
[2016-11-22] MEDS ORDERED: SODIUM CHLOR 0.9% 1000 ML INJ 1,000 ML IV SCH (23:15)
[2016-11-22 23:52] LABS: AUTOMATED NEUTROPHIL # 15.5 TH/MM3 (1.8-7.7); BASOPHIL # 0.3 TH/MM3 (0-0.2); BASOPHIL % 1.5 % (0.0-2.0); EOSINOPHIL # 0.1 TH/MM3 (0-0.4); EOSINOPHIL % 0.4 % (0.0-4.0); HEMATOCRIT 35.4 % (35.0-46.0); LYMPH % 10.5 % (9.0-44.0); LYMPHOCYTE # 2.1 TH/MM3 (1.0-4.8); MEAN CELL VOLUME 90.6 FL (80.0-100.0); MEAN CORPUSCULAR HEMOGLOBIN 31.2 PG (27.0-34.0); MEAN CORPUSCULAR HGB CONC 34.4 % (32.0-36.0); MONO % 8.2 % (0.0-8.0); NEUT % 79.4 % (16.0-70.0); PLATELET COUNT 480 TH/MM3 (150-450); RED BLOOD COUNT 3.91 MIL/MM3 (4.00-5.30); RED CELL DISTRIBUTION WIDTH 12.4 % (11.6-17.2); WHITE BLOOD COUNT 19.6 TH/MM3 (4.0-11.0)
[2016-11-22 23:54] LABS: HEMO FLAGS AUTO DIFF
[2016-11-23] VITALS (8 sets, daily range): BP systolic 85–167; BP diastolic 49–83; PULSE 71–94; RESP 18–20; TEMP 97.5–98.4; O2SAT 97–99
[2016-11-23 00:01] LABS: CHLORIDE 104 MEQ/L (98-107); SODIUM (NA) 139 MEQ/L (136-145)
[2016-11-23 00:04] LABS: APTT (PATIENT) 25.2 SEC (24.3-30.1); PROTHROMBIN TIME - PATIENT 10.6 SEC (9.8-11.6)
[2016-11-23 00:05] LABS: ANION GAP 7 MEQ/L (5-15); BICARBONATE 27.8 MEQ/L (21.0-32.0); BLOOD UREA NITROGEN 4 MG/DL (7-18)
[2016-11-23 00:08] LABS: ALT (GPT) 30 U/L (10-53); AST (GOT) 28 U/L (15-37); GLOMERULAR FILTRATION RATE 91 ML/MIN (>89)
[2016-11-23 00:09] LABS: PLATELET ESTIMATE SMEAR HIGH (NORMAL); PLATELET MORPHOLOGY NORMAL (NORMAL); SCAN/DIFF AUTO DIFF CONFIRMED
[2016-11-23 00:10] LABS: TOTAL BILIRUBIN ADULT 0.6 MG/DL (0.2-1.0)
[2016-11-23 00:11] LABS: ALKALINE PHOSPHATASE 105 U/L (45-117)
[2016-11-23 00:12] LABS: POTASSIUM 3.6 MEQ/L (3.5-5.1)
[2016-11-23 00:24] LABS: BLOOD, URINE NEG (NEG); GLUCOSE,URINE NEG (NEG); KETONE, URINE NEG (NEG); NITRITE,URINE NEG (NEG)
[2016-11-23] MEDS ORDERED: LORazepam 2 MG/ML VIAL IV PUSH ONE (00:30)
[2016-11-23 00:33] LABS: AMPHETAMINE, URINE NEG (NEG); BARBITURATES, URINE NEG (NEG)
[2016-11-23 00:34] LABS: COCAINE, URINE NEG (NEG)
[2016-11-23 00:41] LABS: URINE COLOR STRAW (YELLW/STRAW)
[2016-11-23 00:44] LABS: SQUAMOUS EPITHELIAL CELL URINE 0-5 /hpf (0-5)
[2016-11-23 00:45] LABS: COMMENT (UR) CULT NOT INDICATED; CULTURE IF INDICATED CULT NOT INDICATED
--- NOTE | 2016-11-23 02:09 | PD ---
HPI Chief Complaint: General Weakness Time Seen by Provider: 23:09 Travel History International Travel<30 days: No Contact w/Intl Traveler<30days: No Traveled to known affect area: No History of Present Illness HPI 51-year-old female presents emergency department for evaluation of possible poisoning. Patient is a known schizoaffective disorder multiple psychiatric evaluations in our facility as well as other facilities. She states that she had some mild aches and pains in her neck and somebody on the street gave her some ibuprofen and is making her feel very strange. Patient admits that she has not been taking her Geodon and she is weaning herself off of it because she doesn't think she needs anything. She had a similar presentation to this last month and was Shaw acted on arrival by Dr. Johnson. Patient is very bizarre on arrival is rolling back and forth in a stretcher on rocking. She may be interacting with unseen stimuli. She denies any pains other than her neck this time. She denies any injuries. PFSH Past Medical History Blood Disorders: No Bipolar Disorder: Yes Anxiety: Yes Depression: Yes Cancer: No Cardiovascular Problems: No Chemotherapy: No Diabetes: No Diminished Hearing: No Endocrine: No Gastrointestinal Disorders: No Glaucoma: No Genitourinary: No Headaches: Yes Hypertension: Yes Immune Disorder: No Implanted Vascular Access Dvce: No Musculoskeletal: No Neurologic: No Psychiatric: Yes (SCHIZOAFFECTIVE DISORDER) Reproductive: No Respiratory: No Immunizations Current: Yes Radiation Therapy: No Schizophrenia: Yes Seizures: Yes Sickle Cell Disease: No ?: Not Menopausal: Yes : 1 Para: 1 Past Surgical History AICD: No Arteriovenous Shunt: No Section: No Insulin Pump: No Joint Replacement: No Pacemaker: No Other Surgery: Yes (see ed history and physical) Social History Alcohol Use: No Tobacco Use: Yes (07/12 PPD) Substance Use: Yes (DENIES) Allergies-Medications (Allergen,Severity, Reaction): Coded Allergies: Depakote (Verified Allergy, Severe, Twitching, 11/23/16) Haldol (Verified Allergy, Severe, 11/23/16) Risperdal (Verified Allergy, Severe, Rash, 11/23/16) Sulfa (Verified Allergy, Severe, Itching, 11/23/16) Ampicillin (Verified Allergy, Mild, Nausea/Vomiting, 11/23/16) *MDRO Multi-Drug Resistant Organism (Unverified Allergy, Unknown, 11/23/16) MRSA 2014 Reported Meds & Prescriptions Reported Meds & Active Scripts Active Geodon (Ziprasidone) 80 Mg Cap 100 Mg PO BIDPC 15 Days Pharmacist: Ok to dispense in any combination of strengths so long as dose is the same. Carbamazepine 200 Mg Tab 200 Mg PO Q12HR 15 Days Review of Systems Except as stated in HPI: all other systems reviewed are Neg Physical Exam Narrative GENERAL: Well-developed well-nourished, rocking back and forth in the stretcher. SKIN: No bruising no lacerations. There is a small abrasion in the internal portion of bilateral thighs the proximal aspect probably consistent with friction abrasion. HEAD: Atraumatic. Normocephalic. EYES: Pupils equal and round. No scleral icterus. No injection or drainage. ENT: No nasal bleeding or discharge. Mucous membranes pink and moist. NECK: Trachea midline. No JVD. No midline CT or L-spine tenderness. CARDIOVASCULAR: Regular rate and rhythm. No murmur appreciated. RESPIRATORY: No accessory muscle use. Clear to auscultation. Breath sounds equal bilaterally. GASTROINTESTINAL: Abdomen soft, non-tender, nondistended. Hepatic and splenic margins not palpable. MUSCULOSKELETAL: No obvious deformities. No clubbing. No cyanosis. No edema. NEUROLOGICAL: Awake and alert. No obvious cranial nerve deficits. Motor grossly within normal limits. Normal speech. PSYCHIATRIC: labile affect; fairly poor insight into her current medical condition, very poor judgment as well. Data Data Last Documented VS Vital Signs Date Time Temp Pulse Resp B/P Pulse Ox O2 Delivery O2 Flow Rate FiO2 11/23/16 03:37 76 20 100/61 98 11/22/16 23:07 98.6 Orders Electrocardiogram (11/22/16 23:15) Ammonia (11/22/16 23:15) Complete Blood Count With Diff (11/22/16 23:15) Comprehensive Metabolic Panel (11/22/16 23:15) Prothrombin Time / Inr (Pt) (11/22/16 23:15) Act Partial Throm Time (Ptt) (11/22/16 23:15) Urinalysis - C+S If Indicated (11/22/16 23:15) Blood Glucose (11/22/16 23:15) Ecg Monitoring (11/22/16 23:15) Iv Access Insert/Monitor (11/22/16 23:15) Oximetry (11/22/16 23:15) Sodium Chloride 0.9% Flush (Ns Flush) (11/22/16 23:15) Sodium Chlor 0.9% 1000 Ml Inj (Ns 1000 M (11/22/16 23:15) Drug Screen, Random Urine (11/22/16 23:15) Alcohol (Ethanol) (11/22/16 23:15) Salicylates (Aspirin) (11/22/16 23:15) Tylenol (Acetaminophen) (11/22/16 23:15) Lorazepam Inj (Ativan Inj) (11/23/16 00:30) Chest, Single Ap (11/23/16 ) Tylenol (Acetaminophen) (11/23/16 03:12) Labs Laboratory Tests Test 11/22/16 11/23/16 11/23/16 23:30 00:10 03:15 White Blood Count 19.6 TH/MM3 Red Blood Count 3.91 MIL/MM3 Hemoglobin 12.2 GM/DL Hematocrit 35.4 % Mean Corpuscular Volume 90.6 FL Mean Corpuscular Hemoglobin 31.2 PG Mean Corpuscular Hemoglobin 34.4 % Concent Red Cell Distribution Width 12.4 % Platelet Count 480 TH/MM3 Mean Platelet Volume 7.3 FL Neutrophils (%) (Auto) 79.4 % Lymphocytes (%) (Auto) 10.5 % Monocytes (%) (Auto) 8.2 % Eosinophils (%) (Auto) 0.4 % Basophils (%) (Auto) 1.5 % Neutrophils # (Auto) 15.5 TH/MM3 Lymphocytes # (Auto) 2.1 TH/MM3 Monocytes # (Auto) 1.6 TH/MM3 Eosinophils # (Auto) 0.1 TH/MM3 Basophils # (Auto) 0.3 TH/MM3 CBC Comment AUTO DIFF Differential Comment AUTO DIFF CONFIRMED Platelet Estimate HIGH Platelet Morphology Comment NORMAL Red Cell Morphology Comment NORMAL Prothrombin Time 10.6 SEC Prothromb Time International 1.0 RATIO Ratio Activated Partial 25.2 SEC Thromboplast Time Sodium Level 139 MEQ/L Potassium Level 3.6 MEQ/L Chloride Level 104 MEQ/L Carbon Dioxide Level 27.8 MEQ/L Anion Gap 7 MEQ/L Blood Urea Nitrogen 4 MG/DL Creatinine 0.68 MG/DL Estimat Glomerular Filtration 91 ML/MIN Rate Random Glucose 107 MG/DL Calcium Level 9.0 MG/DL Total Bilirubin 0.6 MG/DL Aspartate Amino Transf 28 U/L (AST/SGOT) Alanine Aminotransferase 30 U/L (ALT/SGPT) Alkaline Phosphatase 105 U/L Ammonia 31 MCMOL/L Total Protein 7.2 GM/DL Albumin 3.6 GM/DL Salicylates Level 2.4 MG/DL Acetaminophen Level LESS THAN 2.0 LESS THAN 2.0 MCG/ML MCG/ML Ethyl Alcohol Level LESS THAN 3 MG/DL Urine Color STRAW Urine Turbidity CLEAR Urine pH 6.0 Urine Specific [place] 1.002 Urine Protein NEG mg/dL Urine Glucose (UA) NEG mg/dL Urine Ketones NEG mg/dL Urine Occult Blood NEG Urine Nitrite NEG Urine Bilirubin NEG Urine Leukocyte Esterase NEG Urine Squamous Epithelial 0-5 /hpf Cells Microscopic Urinalysis Comment CULT NOT INDICATED Urine Opiates Screen NEG Urine Barbiturates Screen NEG Urine Amphetamines Screen NEG Urine Benzodiazepines Screen NEG Urine Cocaine Screen NEG Urine Cannabinoids Screen NEG MDM Medical Decision Making Medical Screen Exam Complete: Yes Emergency Medical Condition: Yes Interpretation(s) EKG shows normal sinus rhythm normal axis normal R-wave progression. No concerning ST T changes. Intervals within normal limits. This normal EKG. Differential Diagnosis Intoxication, Tylenol toxicity, salicylate toxicity, psychosis. Narrative Course Patient is a 51-year-old female with a history of schizoaffective disorder presents with very bizarre behavior. She was given Ativan 1 mg IV. After the Ativan started wearing off the patient began wandering the emergency department saying that she wanted to go outside and smoke cigarettes. At this time I counseled her on the risks benefits competitions and alternatives of not waiting for a Tylenol level and the possibility signing out AMA. She does not demonstrate proper insight into her current medical condition and therefore cannot make her own medical decisions. At this time I placed her under Shaw act. Her second Tylenol level comes back nontoxic and she is medically cleared for psychiatric evaluation and disposition. Her labs do show that she has a mildly elevated white blood cell count but no sources been found, urine is clean chest x-ray negative, her exam does not demonstrate a nidus of infection. Diagnosis Primary Impression: Psychosis Qualified Code: F29 - Psychosis, unspecified psychosis type Disposition: 70 TRANSFER TO OTHER FACILITY ([facility]) Condition: Stable Ti Reed MD November 23, 2016 02:09
--- NOTE | 2016-11-23 03:45 | RADHPO ---
EXAM DATE/TIME: 11/23/2016 03:04 [facility] COMPARISON: CHEST SINGLE AP, November 21, 2016, 10:48. INDICATIONS : Cough. MEDICAL HISTORY : None. SURGICAL HISTORY : None. ENCOUNTER: Initial ACUITY: 1 day PAIN SCORE: Non-responsive. LOCATION: Bilateral upper chest FINDINGS: A single view of the chest demonstrates the lungs to be symmetrically aerated without evidence of mas s, infiltrate or effusion. The cardiomediastinal contours are unremarkable. Osseous structures are intact. CONCLUSION: No acute disease. There is no evidence of pneumonia. Shen Bravo MD on November 23, 2016 at 3:43 Board Certified Radiologist. This report was verified electronically.
[2016-11-23 03:56] LABS: ACETAMINOPHEN LESS THAN 2.0 MCG/ML (10.0-30.0)
--- NOTE | 2016-11-23 10:00 | PD ---
History of Present Illness Chief Complaint: General Weakness Time Seen by Provider: 10:40 Travel History International Travel<30 Days: No Contact w/Intl Traveler<30days: No Known affected area: No Legal Status Legal Status: Shaw Act Shaw Act Signed By: History of Present Illness: History of Present Illness 51-year-old female with history of schizoaffective disorder presents to emergency department for evaluation of what she believes is a possible poisoning. She was placed under a BA by Dr. Reed in Ed for " not taking her medication, someone on the street gave her ibuprofen today and she doesn't think it was that. very anxious, bizarre and poor judgement" . Patient admits that she has not been taking her Geodon and she is weaning herself off of it because she doesn't think she needs anything. As per ED documentation " Patient is very bizarre on arrival is rolling back and forth in a stretcher on rocking. She may be interacting with unseen stimuli. " EMR is reviewed. Patient was seen in ED on november 21. as well as on November 17 . She was discharged from [facility] on November 16. Current toxicology is negative. Patient seen. Roz ROBLEDO present.Patient alert, oriented, restless. She is unable to sit for more that several minutes. Appears to be having akathisia. She tells me that she doesn't know when her follow up appointment at [facility] is or if she has any medication left. decreased concentration and attention is noted. She does not admit to hallucinations but appears internally preoccupied. Poor judgement and impaired ability to care for self. PFSH Past Medical History Blood Disorders: No Bipolar Disorder: Yes Anxiety: Yes Depression: Yes Cancer: No Cardiovascular Problems: No Chemotherapy: No Diabetes: No Diminished Hearing: No Endocrine: No Gastrointestinal Disorders: No Glaucoma: No Genitourinary: No Headaches: Yes Hypertension: Yes Immune Disorder: No Implanted Vascular Access Dvce: No Musculoskeletal: No Neurologic: No Psychiatric: Yes (SCHIZOAFFECTIVE DISORDER) Reproductive: No Respiratory: No Immunizations Current: Yes Radiation Therapy: No Schizophrenia: Yes Seizures: Yes Sickle Cell Disease: No ?: Not Menopausal: Yes : 1 Para: 1 Past Surgical History AICD: No Arteriovenous Shunt: No Section: No Insulin Pump: No Joint Replacement: No Pacemaker: No Other Surgery: Yes (see ed history and physical) Psychiatric History Psychiatric History Hx Psychiatric Treatment: Schizoaffective Disorder History of Inpatient Treatment: Yes ([facility] [place] and was discharged on Nov 16 2016.) Guns or firearms in home: No Social History Single, homeless , female Hx Alcohol Use: No Hx Tobacco Use: Yes (07/12 PPD) Hx Substance Use: Yes (DENIES) Substance Use Type: Nicotine/Cigarettes Hx of Substance Use Treatment: No Family Psychiatric History Unknown Allergies-Medications (Allergen,Severity, Reaction): Coded Allergies: Depakote (Verified Allergy, Severe, Twitching, 11/23/16) Haldol (Verified Allergy, Severe, 11/23/16) Risperdal (Verified Allergy, Severe, Rash, 11/23/16) Sulfa (Verified Allergy, Severe, Itching, 11/23/16) Ampicillin (Verified Allergy, Mild, Nausea/Vomiting, 11/23/16) *MDRO Multi-Drug Resistant Organism (Unverified Allergy, Unknown, 11/23/16) MRSA 2013 Reported Meds & Prescriptions Reported Meds & Active Scripts Active Geodon (Ziprasidone) 80 Mg Cap 100 Mg PO BIDPC 15 Days Pharmacist: Ok to dispense in any combination of strengths so long as dose is the same. Carbamazepine 200 Mg Tab 200 Mg PO Q12HR 15 Days Review of Systems ROS Limitations: Clinical Condition Exam Alert: Yes [place]: Person, Place, Date (partial to time) Mood: Anxious Affect: Blunted Speech: Clear, Illogical Eye Contact: Normal Memory Intact: Comment (not formally tetsted. ) Hallucinations: Other (deneis at present) Delusions: No Suicidal: Ideation (denies any) Homicidal: Ideation (deneis any) Insight/Judgement Poor. Impaired. MDM Medical Decision Making Medical Record Reviewed: Yes Assessment/Plan 51 year old female with hx of schizoaffective disorder who presents to ED for evaluation as she reports she took some unknown pills from someone and then she felt strange. She has not been taking her medication since her discharge and during one of her ED visits reported she took more that what was prescribed. At this time the patient exhibits impaired judgement, not caring for herself, not medication compliance. She will be admitted to [facility] for stabilization, medication adjustment and to maintain her safety. Orders Electrocardiogram (11/22/16:) Ammonia (11/22/16:) Complete Blood Count With Diff (11/22/16:) Comprehensive Metabolic Panel (11/22/16:) Prothrombin Time / Inr (Pt) (11/22/16:) Act Partial Throm Time (Ptt) (11/22/16:) Urinalysis - C+S If Indicated (11/22/16:) Blood Glucose (11/22/16:) Ecg Monitoring (11/22/16:) Iv Access Insert/Monitor (11/22/16:) Oximetry (11/22/16:) Sodium Chloride 0.9% Flush (Ns Flush) (11/22/16:) Sodium Chlor 0.9% 1000 Ml Inj (Ns 1000 M (11/22/16:) Drug Screen, Random Urine (11/22/16:15) Alcohol (Ethanol) (11/22/16 23:15) Salicylates (Aspirin) (11/22/16:15) Tylenol (Acetaminophen) (11/22/16:15) Lorazepam Inj (Ativan Inj) (11/23/16 00:30) Chest, Single Ap (11/23/16 ) Tylenol (Acetaminophen) (11/23/16 03:12) Diet Regular Basic (11/23/16 Breakfast) Psych Screen (11/23/16 08:57) Results Vital Signs Date Time Temp Pulse Resp B/P Pulse Ox O2 Delivery O2 Flow Rate FiO2 11/23/16 05:00 84 20 122/77 98 11/23/16 03:37 76 20 100/61 98 11/23/16 02:06 80 20 93/55 98 11/23/16 00:58 71 20 85/49 99 11/23/16 00:25 20 11/23/16 00:13 87 20 139/77 98 11/22/16 23:07 98.6 108 18 139/77 100 Laboratory Tests Test 5/15/17 5/16/17 5/16/17 23:30 00:10 03:15 White Blood Count 19.6 Red Blood Count 3.91 Hemoglobin 12.2 Hematocrit 35.4 Mean Corpuscular Volume 90.6 Mean Corpuscular Hemoglobin 31.2 Mean Corpuscular Hemoglobin 34.4 Concent Red Cell Distribution Width 12.4 Platelet Count 480 Mean Platelet Volume 7.3 Neutrophils (%) (Auto) 79.4 Lymphocytes (%) (Auto) 10.5 Monocytes (%) (Auto) 8.2 Eosinophils (%) (Auto) 0.4 Basophils (%) (Auto) 1.5 Neutrophils # (Auto) 15.5 Lymphocytes # (Auto) 2.1 Monocytes # (Auto) 1.6 Eosinophils # (Auto) 0.1 Basophils # (Auto) 0.3 CBC Comment AUTO DIFF Differential Comment AUTO DIFF CONFIRMED Platelet Estimate HIGH Platelet Morphology Comment NORMAL Red Cell Morphology Comment NORMAL Prothrombin Time 10.6 Prothromb Time International 1.0 Ratio Activated Partial 25.2 Thromboplast Time Sodium Level 139 Potassium Level 3.6 Chloride Level 104 Carbon Dioxide Level 27.8 Anion Gap 7 Blood Urea Nitrogen 4 Creatinine 0.68 Estimat Glomerular Filtration 91 Rate Random Glucose 107 Calcium Level 9.0 Total Bilirubin 0.6 Aspartate Amino Transf 28 (AST/SGOT) Alanine Aminotransferase 30 (ALT/SGPT) Alkaline Phosphatase 105 Ammonia 31 Total Protein 7.2 Albumin 3.6 Salicylates Level 2.4 Acetaminophen Level LESS THAN 2.0 LESS THAN 2.0 Ethyl Alcohol Level LESS THAN 3 Urine Color STRAW Urine Turbidity CLEAR Urine pH 6.0 Urine Specific [place] 1.002 Urine Protein NEG Urine Glucose (UA) NEG Urine Ketones NEG Urine Occult Blood NEG Urine Nitrite NEG Urine Bilirubin NEG Urine Leukocyte Esterase NEG Urine Squamous Epithelial 0-5 Cells Microscopic Urinalysis Comment CULT NOT INDICATED Urine Opiates Screen NEG Urine Barbiturates Screen NEG Urine Amphetamines Screen NEG Urine Benzodiazepines Screen NEG Urine Cocaine Screen NEG Urine Cannabinoids Screen NEG Diagnosis Primary Impression: Psychosis Additional Impression: Schizoaffective disorder Admitting Information Admitting Physician Requests: Admit Disposition: 70 TRANSFER TO OTHER FACILITY Condition: Stable Problem Qualifiers Primary Impression: Psychosis Qualified Code: F29 - Psychosis, unspecified psychosis type Additional Impression: Schizoaffective disorder Qualified Code: F25.9 - Schizoaffective disorder, unspecified type Diane Anaya November 23, 2016 10:00
[2016-11-23] MEDS ORDERED: ACETAMINOPHEN 325 MG TAB PO PRN (11:15)
[2016-11-23] MEDS ORDERED: MAGNESIUM HYDROXIDE SUSP 30 ML CUP PO PRN (11:15)
[2016-11-23] MEDS ORDERED: ALUMINUM/MAGNESIUM/SIMETH 30 ML CUP PO PRN (11:15)
--- NOTE | 2016-11-23 13:58 | EKG ---
Date Performed: 11/22/2016 Time Performed: 23:37:40 PTAGE: 51 years EKG: Sinus rhythm Anterior T wave changes are nonspecific Low QRS voltages in precordial leads Borderline ECG PREVIOUS TRACING : 11/21/2016 10.40 Compared to prior tracing no significant change DOCTOR: Rodney Wellington Interpretating Date/Time 11/23/2016 13:57:23
[2016-11-23] MEDS: NICOTINE 21 MG/24 HR PATCH T-DERMAL SCH (16:20)
[2016-11-23] MEDS ORDERED: OLANZapine 10 MG TAB PO SCH (22:15)
[2016-11-24 06:04] VITALS: BP 130/58; PULSE 93; RESP 16; TEMP 98.6; O2SAT 96
[2016-11-24 08:24] LABS: ANION GAP 7 MEQ/L (5-15); BLOOD UREA NITROGEN 4 MG/DL (7-18); CHLORIDE 105 MEQ/L (98-107); GLOMERULAR FILTRATION RATE 109 ML/MIN (>89); HDL CHOLESTEROL 61.1 MG/DL (40.0-60.0); LDL CHOLESTEROL 111 MG/DL (0-99); POTASSIUM 3.7 MEQ/L (3.5-5.1); SODIUM (NA) 143 MEQ/L (136-145)
[2016-11-24] MEDS: REMOVE OLD PATCH T-DERMAL SCH (09:00)
[2016-11-24] MEDS: NICOTINE 21 MG/24 HR PATCH T-DERMAL SCH (09:00)
[2016-11-24 11:28] LABS: HEMOGLOBIN A1a 1.1 %; HEMOGLOBIN A1b 0.5 %; HEMOGLOBIN Ao 54.2 %; HEMOGLOBIN F 0.8 %; HEMOGLOBIN LA1C 1.3 %; HEMOGLOBIN P3 2.2 %
--- NOTE | 2016-11-24 12:25 | HHI.HP ---
Provisional Diagnosis Admission Date November 23, 2016 at 11:19 [place] I. Schizoaffective disorder, bipolar type [place] II. Deferred [place] III. Significant medical history [place] IV. Multiple psychiatric hospitalizations, homeless [place] V. 54 Certification of Person's Competence To Provide Express and Informed Consent I have personally examined Pilar Muniz , a person being served at [facility] on, November 24, 2016 12:14. Express and informed consent means consent voluntarily given in writing, by a competent person, after sufficient explanation and disclosure of the subject matter involved to enable the person to make a knowing and willful decision without any element of force, fraud, deceit, duress, or other form of constraint or coercion. This person is 18 years of age or older, is not now known to be incompetent to consent to treatment with a guardian advocate, and does not have a health care surrogate or proxy currently making medical treatment decisions. I have found this person to be one of the following: [X] Competent to provide express and informed consent, as defined above, for voluntary admission to this facility and is competent to provide express and informed consent for treatment. He/she has the consistent capacity to make well reasoned, willful, and knowing decisions concerning his or her medical or mental health treatment. The person fully and consistently understands the purpose of the admission for examination/placement and is fully capable of personally exercising all rights assured [place] Incompetent to provide express and informed consent to voluntary admission, and this is incompetent to provide express and informed consent to treatment. The person must be transferred to involuntary status and a petition for a guardian advocate filed with the Circuit Court. [] Refusing to provide express and informed consent to voluntary admission but is competent to provide express and informed consent for treatment. The person must be discharged or transferred to involuntary status. Form shall be completed within 24 hours of a person's arrival at the receiving facility and filed in the clinical record of each person: 1. Admitted on a voluntary basis 2. Permitted to provide express and informed consent to his/her own treatment 3. Allowed to transfer from involuntary to voluntary status 4. Prior to permitting a person to consent to his or her own treatment after having been previously found incompetent to consent to treatment. History of Present Illness Capacity: Has Capacity HPI As per documentation in the ER by Ms. Anaya: "51-year-old female with history of schizoaffective disorder presents to emergency department for evaluation of what she believes is a possible poisoning. She was placed under a BA by Dr. Reed in Ed for " not taking her medication, someone on the street gave her ibuprofen today and she doesn't think it was that. very anxious, bizarre and poor judgement" . Patient admits that she has not been taking her Geodon and she is weaning herself off of it because she doesn't think she needs anything. As per ED documentation " Patient is very bizarre on arrival is rolling back and forth in a stretcher on rocking. She may be interacting with unseen stimuli. EMR is reviewed. Patient was seen in ED on november 21. as well as on November 17 . She was discharged from [facility] on November 16. Current toxicology is negative. Patient seen. Roz RN present.Patient alert, oriented, restless. She is unable to sit for more that several minutes. Appears to be having akathisia. She tells me that she doesn't know when her follow up appointment at [facility] is or if she has any medication left. decreased concentration and attention is noted. She does not admit to hallucinations but appears internally preoccupied. Poor judgement and impaired ability to care for self". On psychiatric evaluation today in 2700 units, patient is found in her bed, calm , cooperative. Patient says that she has been feeling very paranoid and "mentally unstable, because I haven't been taking medication medications". She says that she has been having racing thoughts, she has been depressed, and very anxious. She reports restlessness, problem sleeping at night, suicidal thoughts , but no suicidal intention or plan. Patient is oriented 3, no attention deficit, no fluctuation of consciousness present. Last night patient was medicated with olanzapine 10 mg due to agitation and disorganized behavior in the unit. Review of Systems Constitutional: DENIES: Diaphoretic episodes, Fatigue, Fever, Weight gain, Weight loss, Chills, Dizziness, Change in appetite, Night Sweats Eyes: DENIES: Blurred vision, Diplopia, Eye inflammation, Eye pain, Vision loss , Photosensitivity, Double Vision Ears, nose, mouth, throat: DENIES: Tinnitus, Hearing loss, Vertigo, Nasal discharge, Oral lesions, Throat pain, Hoarseness, Ear Pain, Running Nose, Epistaxis, Sinus Pain, Toothache, Odynophagia Respiratory: DENIES: Apneas, Cough, Snoring, Wheezing, Hemoptysis, Sputum production, Shortness of breath Cardiovascular: DENIES: Chest pain, Palpitations, Syncope, Dyspnea on Exertion , PND, Lower Extremity Edema, Orthopnea, Claudication Gastrointestinal: DENIES: Abdominal pain, Black stools, Bloody stools, Constipation, Diarrhea, Nausea, Vomiting, Difficulty Swallowing, Anorexia Genitourinary: DENIES: Abnormal vaginal bleeding, Dysmenorrhea, Dyspareunia, Sexual dysfunction, Urinary frequency, Urinary incontinence, Urgency, Hematuria , Dysuria, Nocturia, Vaginal discharge Musculoskeletal: DENIES: Joint pain, Muscle aches, Stiffness, Joint Swelling, Back pain, Neck pain Integumentary: DENIES: Abnormal pigmentation, Pruritus, Rash, Nail changes, Breast masses, Breast skin changes, Nipple discharge Hematologic/lymphatic: DENIES: Bruising, Lymphadenopathy Immunologic/allergic: DENIES: Eczema, Urticaria Neurologic: DENIES: Abnormal gait, Headache, Localized weakness, Paresthesias, Seizures, Speech Problems, Tremor, Poor Balance Psychiatric: COMPLAINS OF: Depression, Delusions, DENIES: Anxiety, Confusion, Mood changes, Hallucinations, Agitation, Suicidal Ideation, Homicidal Ideation Past Psych History Violence risk - self (6 mos) Elevated Substance Abuse History Drugs/Alcohol past 12 months Patient denies the use of alcohol or drugs Past Family Social History Coded Allergies: Depakote (Verified Allergy, Severe, Twitching, 11/23/16) Haldol (Verified Allergy, Severe, 11/23/16) Risperdal (Verified Allergy, Severe, Rash, 11/23/16) Sulfa (Verified Allergy, Severe, Itching, 11/23/16) Ampicillin (Verified Allergy, Mild, Nausea/Vomiting, 11/23/16) *MDRO Multi-Drug Resistant Organism (Unverified Allergy, Unknown, 11/24/16) MRSA 2013 MRSA PCR screen NEGATIVE 10/29/16 & 11/23/16 Cleared per Infection Control Active Scripts Ziprasidone (Geodon)80 Mg Mob771 Mg PO BIDPC 15 Days Ref 1 Pharmacist: Ok to dispense in any combination of strengths so long as dose is the same. Prov:Mikey Khanna MD 11/16/16 Carbamazepine 200 Mg Qcz887 Mg PO Q12HR 15 Days Ref 1 Prov:Mikey Khanna MD 11/16/16 Current Medications Medications (Trade) Dose Ordered Sig/Zo Route Start Time Stop Time Status Last Admin (NS Flush) 2 ml UNSCH PRN IVF 11/22/16 23:15 (Tylenol) 650 mg Q4H PRN PO 11/23/16 11:15 11/24/16 11:53 (Milk Of Magnesia Liq) 30 ml DAILY PRN PO 11/23/16 11:15 (Mag-Al Plus Susp Liq) 30 ml Q6H PRN PO 11/23/16 11:15 (Habitrol 21 Mg Patch.24 Hr) 1 patch DAILY T-DERMAL 11/23/16 11:15 11/23/16 16:20 Miscellaneous Information 1 DAILY T-DERMAL 11/24/16 09:00 Family History Her mother has depression Social History Patient was born and raised in [place], she lives in [place], she is homeless, single, she has one son, supported by [facility], her highest level of education is GED Physical Exam Patient seems to be restless, but no tremors, no EPS, no stiffness present Vital Signs Vital Signs Date Time Temp Pulse Resp B/P Pulse Ox O2 Delivery O2 Flow Rate FiO2 11/24/16 06:04 98.6 93 16 130/58 96 I/O 11/23/16 11/23/16 11/24/16 08:00 16:00 00:00 Intake Total 1000 ml 320 ml Output Total 1000 ml Balance 0 ml 320 ml Lab Results Toxicology and BAL are negative Mental Status Examination Appearance woman, age appearing, fair hygiene, [facility], she is calm and cooperative Speech: Unremarkable Orientation: x3 Memory: Unremarkable Thought Process: Logical Thought Content: Paranoid Hallucination Type: None Suicidal Ideation: No Previous Suicide Attempts: Yes Homicidal Ideation: No Previous Homicide Attempts: No Insight: Poor Affect: Irritable Mood: Appropriate Motor Activity: Normal gait Assessment & Plan Problem List: (1) Schizoaffective disorder Assessment & Plan: The patient is a 51-year-old woman, homeless, unemployed, single, with extensive psychiatric history of schizoaffective disorder, numerous hospitalizations, last hospitalization was here at [facility] in November 2016, multiple ER visits, noncompliant and nonadherent to medications, previous suicidal attempts, who presents this time complaining of paranoia, depression, decreased functionality, suicidal thoughts, anxiety, racing thoughts in the context of noncompliance with medications. She denies suicidal and homicidal ideation, she denies visual and auditory hallucinations. Patient will be admitted in psychiatry for stabilization of psychosis. She would be admitted in voluntary basis. jordan worker intervention for psychosocial assessment, collateral information, individual and group psychotherapy. We'll start Depakote 250 mg twice a day, also with start olanzapine 2.5 mg twice a day for psychosis and mood stabilization. Extensive psycho education, supportive motivation provided. ICD Code: F25.9 Assessment & Plan Estimated LOS: days Problem Qualifiers (1) Schizoaffective disorder: Qualified Code: F25.9 - Schizoaffective disorder, unspecified type Justin Dasilva MD November 24, 2016 12:24
[2016-11-24] MEDS ORDERED: OLANZapine 5 MG TAB PO SCH (13:00)
[2016-11-24] MEDS ORDERED: LORazepam 1 MG TAB PO ONE ×2 (15:00→15:15)
--- NOTE | 2016-11-24 15:31 | HHI.PYPN ---
Subjective Remarks Patient seen in day room with nurse Meka, chart review, patient continues somewhat diffusely confused vague and vigilant. Giving no significant reason why she discontinued her medications upon her last discharged from here. Medications have been reviewed will discontinue the Depakote there are signs that there may be allergy to that also discontinue the Zyprexa we'll restart her discharge medications of Tegretol and Geodon. Review of Systems Except as stated in HPI: all other systems reviewed are Neg Objective Alert: Yes [place]: Person, Place, Date (partial to time) Mood: Anxious Affect: Blunted Memory Intact: Comment (not formally tetsted. ) Hallucinations: Other (deneis at present) Delusions: No Delusion Type: Paranoid Suicidal: Ideation (denies any) Homicidal: Ideation (deneis any) Insight/Judgment Poor Labs Test 11/23/16 11/24/16 17:20 07:05 Nasal Screen MRSA (PCR) MRSA NOT DETECTED Sodium Level 143 MEQ/L Potassium Level 3.7 MEQ/L Chloride Level 105 MEQ/L Carbon Dioxide Level 31.0 MEQ/L Anion Gap 7 MEQ/L Blood Urea Nitrogen 4 MG/DL Creatinine 0.58 MG/DL Estimat Glomerular Filtration 109 ML/MIN Rate Random Glucose 88 MG/DL Hemoglobin A1c 5.3 % Calcium Level 9.0 MG/DL Triglycerides Level 67 MG/DL Cholesterol Level 185 MG/DL LDL Cholesterol 111 MG/DL HDL Cholesterol 61.1 MG/DL Cholesterol/HDL Ratio 3.02 RATIO Vitals/IOs Vital Signs Date Time Temp Pulse Resp B/P Pulse Ox O2 Delivery O2 Flow Rate FiO2 11/24/16 06:04 98.6 93 16 130/58 96 Intake and Output 11/23/16 11/23/16 11/24/16 08:00 16:00 00:00 Intake Total 1000 ml 320 ml Output Total 1000 ml Balance 0 ml 320 ml Assessment & Plan Problem List: (1) Schizoaffective disorder ICD Code: F25.9 Assessment & Plan Estimated LOS: days patient remained psychotic delusional, she medication adjustments above Justification for Cont. Inpt. This time patient will decompensate placed in the lower level of care Discharge Planning To be determined Problem Qualifiers (1) Schizoaffective disorder: Qualified Code: F25.8 - Other schizoaffective disorders Reji Stroud MD November 24, 2016 15:31
[2016-11-24] MEDS ORDERED: ZIPRASIDONE HCL 20 MG CAP PO SCH (18:00)
[2016-11-24 18:07] VITALS: BP 158/98; PULSE 115; RESP 18; TEMP 98.3; O2SAT 99
[2016-11-24] MEDS ORDERED: VALPROIC ACID 250 MG CAP PO SCH (21:00)
[2016-11-24] MEDS ORDERED: carBAMazepine 200 MG TAB PO SCH (21:00)
[2016-11-25 05:36] VITALS: BP 133/61; PULSE 89; RESP 16; TEMP 98.5; O2SAT 100
[2016-11-25] MEDS: NICOTINE 21 MG/24 HR PATCH T-DERMAL SCH (08:30)
[2016-11-25] MEDS: REMOVE OLD PATCH T-DERMAL SCH (08:30)
--- NOTE | 2016-11-25 10:32 | HHI.PYPN ---
Subjective Remarks Patient was seen today for psychiatric evaluation, patient is found in her room , she says that she feels very happy, with increased energy, she says "I am happy, happy, happy, I feel like dancing I feel like dancing", she is restless, talkative, somewhat intrusive. Patient denies suicidal or homicidal ideation, she denies visual and auditory hallucinations. Patient is oriented 3. Review of Systems Other No somatic complaints Objective Alert: Yes [place]: Person, Place, Date (partial to time) Mood: Anxious Affect: Labile Memory Intact: Comment (not formally tetsted. ) Hallucinations: Other (deneis at present) Delusions: No Delusion Type: Paranoid Suicidal: Ideation (denies any) Homicidal: Ideation (deneis any) Insight/Judgment Poor Vitals/IOs Vital Signs Date Time Temp Pulse Resp B/P Pulse Ox O2 Delivery O2 Flow Rate FiO2 11/25/16 05:36 98.5 89 16 133/61 100 Assessment & Plan Problem List: (1) Schizoaffective disorder Assessment & Plan: Patient is acutely delusional/manic. Will resume carbamazepine 200 mg twice a day, Geodon 60 mg twice a day for psychosis. ICD Code: F25.9 Assessment & Plan Estimated LOS: days Justification for Cont. Inpt. Patient is acutely delusional/manic,needs to continue psychiatric hospitalization for stabilization. Problem Qualifiers (1) Schizoaffective disorder: Qualified Code: F25.8 - Other schizoaffective disorders Justin Dasilva MD November 25, 2016 10:32
[2016-11-25 15:10] VITALS: BP 140/92; PULSE 122; RESP 18; TEMP 99.5; O2SAT 98
[2016-11-25] MEDS ORDERED: diphenhydrAMINE HCL 50 MG/ML VIAL ONE (17:30)
[2016-11-25] MEDS ORDERED: ZIPRASIDONE MESYLATE 20 MG VIAL IM ONE ×2 (17:30→18:15)
[2016-11-25] MEDS ORDERED: ZIPRASIDONE HCL 60 MG CAP PO SCH (18:00)
[2016-11-25] MEDS ORDERED: diphenhydrAMINE HCL 50 MG/ML VIAL IM ONE (18:15)
[2016-11-26 06:22] VITALS: BP 115/80; PULSE 100; RESP 18; TEMP 98.1; O2SAT 99
[2016-11-26] MEDS: REMOVE OLD PATCH T-DERMAL SCH (08:00)
[2016-11-26] MEDS: NICOTINE 21 MG/24 HR PATCH T-DERMAL SCH (08:00)
--- NOTE | 2016-11-26 15:11 | HHI.PYPN ---
Subjective Remarks Patient seen in room with nurse Natasha, patient calmer more focused requesting Respinol and Depakote. When questioned patient acknowledges her mental illness that she needs medications for her mental illness and she is compliant with it and willing to cooperate with medication and the milieu therefore will give the patient capacity to sign for her medications canceling the health care surrogate and a guardian advocate Review of Systems Except as stated in HPI: all other systems reviewed are Neg Objective Alert: Yes [place]: Person, Place, Date (partial to time) Mood: Anxious Affect: Labile Memory Intact: Comment (not formally tetsted. ) Hallucinations: Other (deneis at present) Delusions: No Delusion Type: Paranoid Suicidal: Ideation (denies any) Homicidal: Ideation (deneis any) Insight/Judgment Poor Vitals/IOs Vital Signs Date Time Temp Pulse Resp B/P Pulse Ox O2 Delivery O2 Flow Rate FiO2 11/26/16 06:22 98.1 100 18 115/80 99 Assessment & Plan Problem List: (1) Schizoaffective disorder ICD Code: F25.9 Assessment & Plan Estimated LOS: days patient remained psychotic isolative with paranoid though showing more focused and some insight into need for medication at this time with bowel canceled health care surrogate and guardian advocate and order her Respinol 2 mg twice a day Depakote 500 mg twice a day Justification for Cont. Inpt. At this time patient decompensate if placed in a lower level of care also continues to need medication management and adjustment Discharge Planning To be determined Request HC Surrog/Guard Advoc?: No Problem Qualifiers (1) Schizoaffective disorder: Qualified Code: F25.8 - Other schizoaffective disorders Reji Stroud MD November 26, 2016 15:11
[2016-11-26] MEDS ORDERED: diphenhydrAMINE HCL 50 MG CAP PO ONE (17:30)
[2016-11-26 18:14] VITALS: BP 163/75; PULSE 94; RESP 14; TEMP 98.4; O2SAT 99
[2016-11-26] MEDS: risperiDONE ODT 2 MG TAB PO SCH (20:53)
[2016-11-26] MEDS: DIVALPROEX SODIUM E.R. 500 MG TAB PO SCH (20:53)
[2016-11-27 06:11] VITALS: BP 119/73; PULSE 95; RESP 17; TEMP 98.1; O2SAT 99
[2016-11-27] MEDS: risperiDONE ODT 2 MG TAB PO SCH ×3 (08:10→20:40)
[2016-11-27] MEDS: DIVALPROEX SODIUM E.R. 500 MG TAB PO SCH ×3 (08:10→20:39)
[2016-11-27] MEDS: NICOTINE 21 MG/24 HR PATCH T-DERMAL SCH (09:00)
[2016-11-27] MEDS: REMOVE OLD PATCH T-DERMAL SCH (09:00)
[2016-11-27] MEDS ORDERED: ZIPRASIDONE MESYLATE 20 MG VIAL IM STA (09:16)
--- NOTE | 2016-11-27 15:43 | HHI.PYPN ---
Subjective Remarks Patient was seen and case discussed with nursing. Patient is labile disorganized and bizarre. She is perseverative on Ativan for her nerves. Has a ready received Geodon and Thorazine ETO's today. During interview she is on her knees begging and crying for Ativan. She was not positive for benzodiazepines on admission. sHe remains psychotic and responding to internal stimuli Objective Alert: Yes [place]: Person, Place Mood: Anxious Affect: Labile, Manic Memory Intact: Comment (not formally tetsted. ) Hallucinations: Other (deneis at present) Delusions: No Delusion Type: Paranoid Suicidal: Ideation (denies any) Homicidal: Ideation (deneis any) Insight/Judgment Poor Vitals/IOs Vital Signs Date Time Temp Pulse Resp B/P Pulse Ox O2 Delivery O2 Flow Rate FiO2 11/27/16 06:11 98.1 95 17 119/73 99 Assessment & Plan Problem List: (1) Schizoaffective disorder ICD Code: F25.9 Assessment & Plan Nursing was given a verbal order to administer Zyprexa 10 mg and Benadryl 50 mg every 6 hours when necessary agitation. Justification for Cont. Inpt. Patient will decompensate in a less restrictive setting Request HC Surrog/Guard Advoc?: No Problem Qualifiers (1) Schizoaffective disorder: Qualified Code: F25.8 - Other schizoaffective disorders Musa Delgadillo DO November 27, 2016 15:43
[2016-11-27] MEDS ORDERED: OLANZapine IM 10 MG VIAL IM ONE (16:04)
[2016-11-27] MEDS: OLANZapine IM 10 MG VIAL IM PRN (16:19)
[2016-11-28 06:25] VITALS: BP 119/63; PULSE 96; RESP 18; TEMP 98; O2SAT 98
[2016-11-28] MEDS: DIVALPROEX SODIUM E.R. 500 MG TAB PO SCH ×2 (08:24→20:37)
[2016-11-28] MEDS: risperiDONE ODT 2 MG TAB PO SCH ×2 (08:24→20:37)
[2016-11-28] MEDS: diphenhydrAMINE HCL 50 MG/ML VIAL IM PRN (08:29)
[2016-11-28] MEDS: NICOTINE 21 MG/24 HR PATCH T-DERMAL SCH (08:59)
[2016-11-28] MEDS: REMOVE OLD PATCH T-DERMAL SCH (08:59)
[2016-11-28] MEDS ORDERED: ZIPRASIDONE HCL 60 MG CAP PO SCH (09:00)
[2016-11-28] MEDS ORDERED: carBAMazepine 200 MG TAB PO SCH (09:00)
[2016-11-28 13:02] LABS: BLOOD, URINE NEG (NEG); GLUCOSE,URINE NEG (NEG); KETONE, URINE TRACE mg/dL (NEG); MUCUS URINE FEW /lpf (OCC); NITRITE,URINE NEG (NEG); SQUAMOUS EPITHELIAL CELL URINE 9 /hpf (0-5); URINE COLOR YELLOW (YELLW/STRAW)
[2016-11-28 13:03] LABS: COMMENT (UR) CULT NOT INDICATED; CULTURE IF INDICATED CULT NOT INDICATED
--- NOTE | 2016-11-28 16:04 | HHI.PYPN ---
Subjective Remarks Patient was seen and case discussed with nursing. Behavior has had some improvements she did not require her Zyprexa ETO today. She was behaving well per nursing until she saw me became obsessed with getting Ativan and something for her nerves. We discussed medication options and she is okay with Vistaril. Patient is asking along little take until the fogginess is lifted from her mind psychoeducation was completed. Continues to deny auditory visual hallucinations. Denies suicidal ideations thought or plan Objective Alert: Yes [place]: Person, Place Mood: Anxious Affect: Labile, Manic Memory Intact: Comment (not formally tetsted. ) Hallucinations: Other (deneis at present) Delusions: No Delusion Type: Paranoid Suicidal: Ideation (denies any) Homicidal: Ideation (deneis any) Insight/Judgment Poor Labs Test 11/28/16 09:03 Urine Color YELLOW Urine Turbidity HAZY Urine pH 6.0 Urine Specific [place] 1.019 Urine Protein TRACE mg/dL Urine Glucose (UA) NEG mg/dL Urine Ketones TRACE mg/dL Urine Occult Blood NEG Urine Nitrite NEG Urine Bilirubin NEG Urine Urobilinogen LESS THAN 2.0 MG/DL Urine Leukocyte Esterase TRACE Urine RBC LESS THAN 1 /hpf Urine WBC 3 /hpf Urine Squamous Epithelial 9 /hpf Cells Urine Mucus FEW /lpf Microscopic Urinalysis Comment CULT NOT INDICATED Vitals/IOs Vital Signs Date Time Temp Pulse Resp B/P Pulse Ox O2 Delivery O2 Flow Rate FiO2 11/28/16 06:25 98.0 96 18 119/63 98 Assessment & Plan Problem List: (1) Schizoaffective disorder ICD Code: F25.9 Assessment & Plan Vistaril every 6 hours when necessary anxiety Justification for Cont. Inpt. Patient will decompensate in a less restrictive setting Request HC Surrog/Guard Advoc?: No Problem Qualifiers (1) Schizoaffective disorder: Qualified Code: F25.8 - Other schizoaffective disorders Musa Delgadillo DO November 28, 2016 16:03
[2016-11-28 20:04] VITALS: BP 97/64; PULSE 72; RESP 18; TEMP 97.7; O2SAT 97
[2016-11-29 06:06] VITALS: BP 108/58; PULSE 110; RESP 17; TEMP 97.4; O2SAT 97
[2016-11-29] MEDS: REMOVE OLD PATCH T-DERMAL SCH (09:00)
[2016-11-29] MEDS: risperiDONE ODT 2 MG TAB PO SCH ×2 (09:03→20:37)
[2016-11-29] MEDS: DIVALPROEX SODIUM E.R. 500 MG TAB PO SCH ×2 (09:03→20:37)
[2016-11-29] MEDS: NICOTINE 21 MG/24 HR PATCH T-DERMAL SCH (09:04)
--- NOTE | 2016-11-29 17:32 | HHI.PYPN ---
Subjective Remarks Patient seen in her room with nurse Phill, chart reviewed, patient somewhat loud intrusive speech rate and rhythm are somewhat increased. Sitting the Vistaril is not helping her anxiety and she wants a different medication. She is pleased with other medication. I feel this may be just a med seeking behavior we will switch patient to Atarax and see if she will respond to that Review of Systems Except as stated in HPI: all other systems reviewed are Neg Objective Alert: Yes [place]: Person, Place Mood: Anxious Affect: Labile, Manic Memory Intact: Comment (not formally tetsted. ) Hallucinations: Other (deneis at present) Delusions: No Delusion Type: Paranoid Suicidal: Ideation (denies any) Homicidal: Ideation (deneis any) Insight/Judgment Very poor Vitals/IOs Vital Signs Date Time Temp Pulse Resp B/P Pulse Ox O2 Delivery O2 Flow Rate FiO2 11/29/16 06:06 97.4 110 17 108/58 97 Assessment & Plan Problem List: (1) Schizoaffective disorder ICD Code: F25.9 Assessment & Plan Estimated LOS: days patient remains intense somewhat paranoid and psychotic. Also showing some drug-seeking. For now see med changes above Justification for Cont. Inpt. At this time patient will decompensate placed a lower level of care Discharge Planning To be determined Request HC Surrog/Guard Advoc?: No Problem Qualifiers (1) Schizoaffective disorder: Qualified Code: F25.8 - Other schizoaffective disorders Reji Stroud MD November 29, 2016 17:32
[2016-11-29 19:02] VITALS: BP 113/68; PULSE 97; RESP 18; TEMP 97.6; O2SAT 100
[2016-11-29] MEDS: hydrOXYzine HCL 50 MG TAB PO PRN (20:37)
[2016-11-30 05:17] VITALS: BP 103/72; PULSE 93; RESP 16; TEMP 97.4; O2SAT 98
[2016-11-30] MEDS: hydrOXYzine HCL 50 MG TAB PO PRN (06:36)
[2016-11-30] MEDS: risperiDONE ODT 2 MG TAB PO SCH ×2 (08:06→16:00)
[2016-11-30] MEDS: DIVALPROEX SODIUM E.R. 500 MG TAB PO SCH ×2 (08:06→20:10)
[2016-11-30] MEDS: NICOTINE 21 MG/24 HR PATCH T-DERMAL SCH (08:16)
[2016-11-30] MEDS: REMOVE OLD PATCH T-DERMAL SCH (08:16)
[2016-11-30] MEDS: OLANZapine IM 10 MG VIAL IM PRN (09:46)
[2016-11-30] MEDS: diphenhydrAMINE HCL 50 MG/ML VIAL IM PRN (09:46)
--- NOTE | 2016-11-30 13:02 | HHI.PYPN ---
Subjective Remarks Patient seen in day room with nurse Natasha, patient loud angry labile tearful running around the unit. Saying that she needs help but not helping her. Patient did receive a when necessary Zyprexa and Ativan. Patient has shown some response to the Zyprexa IM. She continues markedly delusional paranoid and out of control. For now will give the Respinol 2 mg at 8 AM and 4 PM and add Zyprexa Zydis 20 mg at bedtime Review of Systems Except as stated in HPI: all other systems reviewed are Neg Objective Alert: Yes [place]: Person, Place Mood: Anxious Affect: Labile, Manic Memory Intact: Comment (not formally tetsted. ) Hallucinations: Other (deneis at present) Delusions: No Delusion Type: Paranoid Suicidal: Ideation (denies any) Homicidal: Ideation (deneis any) Insight/Judgment Very poor Labs Test 11/30/16 07:08 Valproic Acid (Depakene) Level 101 MCG/ML Vitals/IOs Vital Signs Date Time Temp Pulse Resp B/P Pulse Ox O2 Delivery O2 Flow Rate FiO2 11/30/16 05:17 97.4 93 16 103/72 98 Assessment & Plan Problem List: (1) Schizoaffective disorder ICD Code: F25.9 Assessment & Plan Estimated LOS: days patient remained psychotic delusional quite labile and out of control. She medication adjustments above Justification for Cont. Inpt. At this time patient will decompensate the placed in the lower level of care Discharge Planning To be determined Request HC Surrog/Guard Advoc?: No Problem Qualifiers (1) Schizoaffective disorder: Qualified Code: F25.8 - Other schizoaffective disorders Reji Stroud MD November 30, 2016 13:02
[2016-11-30] MEDS: OLANZapine ODT 20 MG TAB PO SCH (20:10)
[2016-12-01 06:17] VITALS: BP 104/59; PULSE 107; RESP 18; TEMP 98; O2SAT 98
[2016-12-01] MEDS: REMOVE OLD PATCH T-DERMAL SCH (09:00)
[2016-12-01] MEDS: NICOTINE 21 MG/24 HR PATCH T-DERMAL SCH (09:00)
[2016-12-01] MEDS: DIVALPROEX SODIUM E.R. 500 MG TAB PO SCH ×2 (09:18→20:51)
[2016-12-01] MEDS: risperiDONE ODT 2 MG TAB PO SCH ×2 (09:18→16:00)
--- NOTE | 2016-12-01 13:53 | HHI.PYPN ---
Subjective Remarks Patient seen in her room with nurse Croft. It appears patient is somewhat calmer this morning patient did not show me the intensity lability or anger that she did yesterday. Patient is compliant with the medications including the addition of the Zyprexa at bedtime last night. For now continue treatment no change Review of Systems Except as stated in HPI: all other systems reviewed are Neg Objective Alert: Yes [place]: Person, Place Mood: Anxious Affect: Labile, Manic Memory Intact: Comment (not formally tetsted. ) Hallucinations: Other (deneis at present) Delusions: No Delusion Type: Paranoid Suicidal: Ideation (denies any) Homicidal: Ideation (deneis any) Insight/Judgment Poor Vitals/IOs Vital Signs Date Time Temp Pulse Resp B/P Pulse Ox O2 Delivery O2 Flow Rate FiO2 12/01/16 06:17 98.0 107 18 104/59 98 Assessment & Plan Problem List: (1) Schizoaffective disorder ICD Code: F25.9 Assessment & Plan Estimated LOS: days patient continue psychotic though the affect is softening. She continues compliant with medications. For now continue treatment Justification for Cont. Inpt. At this time patient will decompensate then placed in a lower level of care Discharge Planning To be determined Request HC Surrog/Guard Advoc?: No Problem Qualifiers (1) Schizoaffective disorder: Qualified Code: F25.8 - Other schizoaffective disorders Reji Stroud MD December 01, 2016 13:53
[2016-12-01 17:26] VITALS: BP 103/64; PULSE 85; RESP 18; TEMP 97.6; O2SAT 99
[2016-12-01] MEDS: hydrOXYzine HCL 50 MG TAB PO PRN (17:27)
[2016-12-01] MEDS: OLANZapine ODT 20 MG TAB PO SCH (20:50)
[2016-12-02 05:26] VITALS: BP 105/68; PULSE 72; RESP 16; TEMP 98; O2SAT 98
[2016-12-02] MEDS: REMOVE OLD PATCH T-DERMAL SCH (09:00)
[2016-12-02] MEDS: NICOTINE 21 MG/24 HR PATCH T-DERMAL SCH (09:00)
[2016-12-02] MEDS: risperiDONE ODT 2 MG TAB PO SCH (09:25)
[2016-12-02] MEDS: DIVALPROEX SODIUM E.R. 500 MG TAB PO SCH (09:25)
[2016-12-02] MEDS ORDERED: RISPM2 PO (10:24)
[2016-12-02] MEDS ORDERED: OLANZ20 PO (10:24)
[2016-12-02] MEDS ORDERED: DEPA500T3 PO (10:24)
--- NOTE | 2016-12-02 10:31 | HHI.DS ---
Psychiatry Discharge Summary Inpatient Psychiatric care?: Yes Advance Directive: No Reason Not Provided: Due to Patient Condition Mental Health AdvanceDirective: No Health Care Proxy: No Admission Admission Date November 23, 2016 at 11:19 Admission Diagnosis: (1) Other schizoaffective disorders ICD Code: F25.8 Brief History As per documentation in the ER by Ms. Anaya: "51-year-old female with history of schizoaffective disorder presents to emergency department for evaluation of what she believes is a possible poisoning. She was placed under a BA by Dr. Reed in Ed for " not taking her medication, someone on the street gave her ibuprofen today and she doesn't think it was that. very anxious, bizarre and poor judgement" . Patient admits that she has not been taking her Geodon and she is weaning herself off of it because she doesn't think she needs anything. As per ED documentation " Patient is very bizarre on arrival is rolling back and forth in a stretcher on rocking. She may be interacting with unseen stimuli. EMR is reviewed. Patient was seen in ED on november 21. as well as on November 17 . She was discharged from [facility] on November 16. Current toxicology is negative. Patient seen. Roz RN present.Patient alert, oriented, restless. She is unable to sit for more that several minutes. Appears to be having akathisia. She tells me that she doesn't know when her follow up appointment at [facility] is or if she has any medication left. decreased concentration and attention is noted. She does not admit to hallucinations but appears internally preoccupied. Poor judgement and impaired ability to care for self". On psychiatric evaluation today in 2700 units, patient is found in her bed, calm , cooperative. Patient says that she has been feeling very paranoid and "mentally unstable, because I haven't been taking medication medications". She says that she has been having racing thoughts, she has been depressed, and very anxious. She reports restlessness, problem sleeping at night, suicidal thoughts , but no suicidal intention or plan. Patient is oriented 3, no attention deficit, no fluctuation of consciousness present. Last night patient was medicated with olanzapine 10 mg due to agitation and disorganized behavior in the unit. Tobacco Use In Past 30 Days: 5 or More Cigarettes/Day Alcohol Use: Never Hospital Course Patient's psychosis so control behavior softens somewhat the first few days of this admission with complaints medication. However her delusions persist the lack of insight persists. Patient was taken to [facility] today. Patient was ordered discharge per [facility] customer support consultant ace. I feel patient would benefit significantly from further stabilization, I need to respect the orders of the [facility] customer support consultant. Thus I'll discharge patient today with Rx 1 month for follow-up [facility] outpatient mental health services Results Blood Pressure 105 / 68 Vital Signs Date Time Temp Pulse Resp B/P Pulse Ox O2 Delivery O2 Flow Rate FiO2 12/02/16 05:26 98.0 72 16 105/68 98 Laboratory Tests Test 11/30/16 07:08 Valproic Acid (Depakene) Level 101 MCG/ML (50-100) Laboratory Results Test 11/30/16 07:08 Valproic Acid (Depakene) Level 101 MCG/ML (50-100) Summary of Procedures None done Imaging Last Impressions Chest X-Ray 11/23/16 0000 Signed Impressions: Service Date/Time: Wednesday, November 23, 2016 03:04 - CONCLUSION: No acute disease. There is no evidence of pneumonia. Shen Bravo MD Pending results at discharge: No Medications # of Antipsychotic meds at D/C: 2 Appropriate >1 Antipsych meds?: 1 Approp Antipsych med options 1 - Minimum of three failed multiple trials of monotherapy. 2 - Documented plan to taper to monotherapy due to previous use of multiple meds OR cross-taper in progress at D/C. 3 - Documentation of augmentation of Clozapine. 4 - Justification other than those listed in allowable values 1-3, document here : Discharge Discharge Date: December 02, 2016 Discharge Diagnosis: (1) Schizoaffective disorder Diagnosis: Principal ICD Code: F25.9 Mental Status Exam at Disch Alert thin slender somewhat disheveled white female she has normal active mildly arousals, speech regular them are increased there is some pressure to her speech is mildly tangential, mood is euthymic to somewhat irritable, some increase in range and intensity of its affect. Though auditory or visual hallucinations though times appears patient responding to internal stimuli. There are no delusions noted today though she is quite vigilant, insight and judgment is poor cognition grossly intact Pt Condition on Discharge: Guarded Discharge Disposition: Discharge Home Discharge Instructions Diet Instructions: As Tolerated, No Restrictions Activities you can perform: Regular-No Restrictions Scheduled Appointment: Gene Dobbins Discharge Time > 30 minutes Discharge/Advance Care Plan Health Problems: (1) Schizoaffective disorder Goals to promote your health * To prevent worsening of your condition and complications * To maintain your health at the optimal level Directions to meet your goals Take your medications as prescribed Follow your dietary instruction Follow activity as directed Keep your appointments as scheduled Take your immunizations and boosters as scheduled If your symptoms worsen call your PCP, if no PCP go to Urgent Care Center or Emergency Room For 31/01 questions related to your inpatient stay or results of tests pending at discharge, please contact Dr. Reji Stroud at Smoking is Dangerous to Your Health. Avoid second hand smoking Problem Qualifiers (1) Schizoaffective disorder: Qualified Code: F25.8 - Other schizoaffective disorders Reji Stroud MD December 02, 2016 10:31
== END 2016-12-02 11:00 | disposition home or self-care (01) | DRG 885 ==
LOC: PHED 22:56 → NEDA 11-23 11:19 → H270 11-23 12:10
PROVIDERS: ADMIT Psychiatry & Neurology Psychiatry; ATTEND Psychiatry & Neurology Psychiatry
DX: F25.9 Schizoaffective disorder, unspecified (principal); Z91.128 Patient's intentional underdosing of medication regimen for other reason; T43.596A Underdosing of other antipsychotics and neuroleptics, initial encounter; F17.210 Nicotine dependence, cigarettes, uncomplicated; Z59.0 Homelessness
CPT/HCPCS: 70450; 71010; 80048; 80053; 80061; 80164; 80307; 81001; 82140; 82550; 83036; 83605; 84443; 84484; 85025; 85610; 85730; 87040; 87641; 93005; 96361; 96374; 99281; J1200; J2060; J3230; J3486; J7030; Q0163

== ENCOUNTER 2016-12-28 01:07 | Emergency (ER) | payer MEDICARE, OTHER ==
[~2016-12-28] VITALS: Ht 165.1 cm; Wt 65.0 kg
[~2016-12-28 01:07] MED LIST changes: +DEPA500T3 PO; +OLANZ20 PO; +RISPM2 PO
[2016-12-28 01:21] VITALS: BP 107/67; PULSE 73; RESP 16; TEMP 98.5; O2SAT 99
--- NOTE | 2016-12-28 01:49 | PD ---
HPI Chief Complaint: Injury Time Seen by Provider: 01:46 Travel History International Travel<30 days: No Contact w/Intl Traveler<30days: No Traveled to known affect area: No History of Present Illness HPI 51-year-old female with history of schizoaffective disorder, presents to the ER today because she states that she tripped and fell landing on her left wrist several weeks ago. She states that she thinks it hit a tree root and it has been hurting since. She denies any other injuries or issues. Modifying Factors: None Associated Signs & Symptoms: Left wrist pain for 3 weeks after falling Risk Factors: None PFSH Past Medical History Blood Disorders: No Bipolar Disorder: Yes Anxiety: Yes Depression: Yes Cancer: No Cardiovascular Problems: No Chemotherapy: No Diabetes: No Diminished Hearing: No Endocrine: No Gastrointestinal Disorders: No Glaucoma: No Genitourinary: No Headaches: Yes Hypertension: Yes Immune Disorder: No Implanted Vascular Access Dvce: No Musculoskeletal: No Neurologic: No Psychiatric: Yes (SCHIZOAFFECTIVE DISORDER) Reproductive: No Respiratory: No Immunizations Current: Yes Radiation Therapy: No Schizophrenia: Yes Seizures: Yes Sickle Cell Disease: No Tetanus Vaccination: < 5 Years Influenza Vaccination: No ?: Unknown Menopausal: Yes : 1 Para: 1 Past Surgical History AICD: No Arteriovenous Shunt: No Section: No Insulin Pump: No Joint Replacement: No Pacemaker: No Other Surgery: Yes (see ed history and physical) Social History Alcohol Use: No Tobacco Use: Yes (07/12 PPD) Substance Use: Yes (DENIES) Allergies-Medications (Allergen,Severity, Reaction): Coded Allergies: Haldol (Verified Allergy, Severe, 12/28/16) Sulfa (Verified Allergy, Severe, Itching, 12/28/16) Ampicillin (Verified Allergy, Mild, Nausea/Vomiting, 12/28/16) *MDRO Multi-Drug Resistant Organism (Unverified Allergy, Unknown, 12/28/16) MRSA 2013 MRSA PCR screen NEGATIVE 10/29/16 & 11/23/16 Cleared per Infection Control Reported Meds & Prescriptions Reported Meds & Active Scripts Active Risperdal M-Tab (Risperidone) 2 Mg Tab 2 Mg PO BID@,16 Depakote ER (Divalproex Sodium) 500 Mg Ray 500 Mg PO BID Review of Systems Except as stated in HPI: all other systems reviewed are Neg Physical Exam Narrative GENERAL: Well-developed middle age female patient currently in no acute distress. Awake and oriented 3. SKIN: Focused skin assessment warm/dry. HEAD: Atraumatic. Normocephalic. EYES: Pupils equal and round. No scleral icterus. No injection or drainage. ENT: No nasal bleeding or discharge. Mucous membranes pink and moist. NECK: Trachea midline. No JVD. CARDIOVASCULAR: Regular rate and rhythm. No murmur appreciated. RESPIRATORY: No accessory muscle use. Clear to auscultation. Breath sounds equal bilaterally. GASTROINTESTINAL: Abdomen soft, non-tender, nondistended. Hepatic and splenic margins not palpable. MUSCULOSKELETAL: No obvious deformities. No clubbing. No cyanosis. No edema. NEUROLOGICAL: Awake and alert. No obvious cranial nerve deficits. Motor grossly within normal limits. Normal speech. Left wrist: There is notable edema over the left wrist area, mild tenderness to palpation. PSYCHIATRIC: Appropriate mood and affect; insight and judgment normal. Data Data Last Documented VS Vital Signs Date Time Temp Pulse Resp B/P Pulse Ox O2 Delivery O2 Flow Rate FiO2 12/28/16 01:21 98.5 73 16 107/67 99 Orders Wrist, Complete ([id number]) (12/28/16 01:46) [facility] Medical Decision Making Medical Screen Exam Complete: Yes Emergency Medical Condition: Yes Medical Record Reviewed: Yes Differential Diagnosis Left wrist injurysprain versus fractures Narrative Course X-rays shows a subacute distal radius and ulna fracture. At this point, it appears to be signs of bony healing. My plan would be to place the patient in a splint and sling and have her follow-up with orthopedics. However, patient states that she is homeless and states that she does not want to be placed in a splint. I have talked her about the fact that the wrist would be unstable and can fracture and dislocation further. Patient states that standing but refuses splinting still. Return for new issues as needed. The plan has been discussed with the patient and she states understanding. Diagnosis Primary Impression: Wrist fracture, left Qualified Code: S62.102A - Wrist fracture, left, closed, initial encounter Referrals: Pipe Singh MD Med/Other Pt SpecificInfo: Prescription(s) given Scripts Ibuprofen (Motrin Ib)200 Mg [id number] Mg PO QID PRN (PAIN SCALE 1 TO 10) #30 Prov:Soontharothai,Rewadee MD 12/28/16 Disposition: 01 DISCHARGE HOME Condition: Stable Vanita Hope MD Dec 28, 2016 01:48
--- NOTE | 2016-12-28 02:17 | RADRPT ---
EXAM DATE/TIME: 12/28/2016 02:06 [place] COMPARISON: No previous studies available for comparison. INDICATIONS : Left wrist pain post fall. MEDICAL HISTORY : None. SURGICAL HISTORY : None. ENCOUNTER: Initial ACUITY: 1 day PAIN SCORE: 3/10 LOCATION: Left wrist. FINDINGS: There is a subacute appearing fracture in the metaphyseal region of the distal radius. There is perio steal new bone growth. Mild to moderate volar angulation deformity noted. Minimally displaced fracture seen of the ulnar styloid. Carpal bones are intact. CONCLUSION: Metaphyseal fracture of the distal radius with mild to moderate volar angulation deformity. The fract ure appears subacute and there is evidence of early healing. There is a minimally displaced fracture of the ulnar styloid. Reji Britton MD on December 28, 2016 at 2:14 Board Certified Radiologist. This report was verified electronically.
[2016-12-28] MEDS ORDERED: IBUP-1129 PO (02:23)
== END 2016-12-28 02:45 | disposition home or self-care (01) ==
LOC: NEPE 01:07
DX: S52.502A Unspecified fracture of the lower end of left radius, initial encounter for closed fracture (principal); S52.202A Unspecified fracture of shaft of left ulna, initial encounter for closed fracture; W01.0XXA Fall on same level from slipping, tripping and stumbling without subsequent striking against object, initial encounter; F25.9 Schizoaffective disorder, unspecified; F17.210 Nicotine dependence, cigarettes, uncomplicated
CPT/HCPCS: 73110; 99283

== ENCOUNTER 2017-01-10 00:06 | Emergency (ER) | payer MEDICARE, OTHER ==
[~2017-01-10 00:06] MED LIST changes: -CARB200T PO; -GEOD80CA PO; +IBUP-1129 PO; -OLANZ20 PO
[2017-01-10 00:14] VITALS: BP 111/60; PULSE 111; RESP 20; TEMP 98.5; O2SAT 98
[2017-01-10] MEDS ORDERED: DEPA500T3 PO (01:35)
[2017-01-10] MEDS ORDERED: RISP3 PO (01:35)
--- NOTE | 2017-01-10 02:54 | PD ---
HPI Chief Complaint: Anxiety Time Seen by Provider: 02:49 Travel History International Travel<30 days: No Contact w/Intl Traveler<30days: No Traveled to known affect area: No History of Present Illness HPI 51 year-old female presents to the emergency department for complaint of anxiety alcohol ingestion and inability to sleep. Patient reportedly states that she slept for several hours at a hotel a few days ago but since leaving the hotel she has had difficulty sleeping. Patient also reports that she has been drinking caffeine and when she drinks caffeine she becomes very anxious. Patient admits drinking alcohol. Patient states she needs a medicine for her anxiety. Patient denies other concerns or complaints. No reported headache chest pain shortness of breath back pain abdominal pain nausea vomiting ataxia gait fever or recent respiratory illness. Patient states she needs something for her anxiety. Patient does not report depression. Patient rates pain 0/10 in intensity. PFSH Past Medical History Narrative Medical Anxiety depression schizoaffective disorder seizure headache hypertension alcohol use tobacco abuse nursing notes reviewed Blood Disorders: No Bipolar Disorder: Yes Anxiety: Yes Depression: Yes Cancer: No Cardiovascular Problems: No Chemotherapy: No Diabetes: No Diminished Hearing: No Endocrine: No Gastrointestinal Disorders: No Glaucoma: No Genitourinary: No Headaches: Yes Hypertension: Yes Immune Disorder: No Implanted Vascular Access Dvce: No Medical other: Yes (POOR HISTORIAN) Musculoskeletal: No Neurologic: No Psychiatric: Yes (SCHIZOAFFECTIVE DISORDER) Reproductive: No Respiratory: No Immunizations Current: Yes Radiation Therapy: No Schizophrenia: Yes Seizures: Yes Sickle Cell Disease: No ?: Not Menopausal: Yes : 1 Para: 1 Past Surgical History AICD: No Arteriovenous Shunt: No Section: No Insulin Pump: No Joint Replacement: No Pacemaker: No Other Surgery: Yes (see ed history and physical) Social History Alcohol Use: No Tobacco Use: Yes (1 07/12 PPD) Substance Use: Yes (DENIES) Allergies-Medications (Allergen,Severity, Reaction): Coded Allergies: Haldol (Verified Allergy, Severe, 12/28/16) Sulfa (Verified Allergy, Severe, Itching, 12/28/16) Ampicillin (Verified Allergy, Mild, Nausea/Vomiting, 12/28/16) *MDRO Multi-Drug Resistant Organism (Unverified Allergy, Unknown, 12/28/16) MRSA 2013 MRSA PCR screen NEGATIVE 10/29/16 & 11/23/16 Cleared per Infection Control Reported Meds & Prescriptions Reported Meds & Active Scripts Active Reported Risperdal (Risperidone) 3 Mg Tab 3 Mg PO DAILY Depakote ER (Divalproex Sodium) 500 Mg Ray 1,000 Mg PO DAILY Review of Systems Except as stated in HPI: all other systems reviewed are Neg General / Constitutional: No: Fever, Chills Eyes: No: Visual changes HENT: No: Headaches, Neck Pain Cardiovascular: No: Chest Pain or Discomfort Respiratory: No: Shortness of Breath Gastrointestinal: No: Nausea, Vomiting Genitourinary: No: Frequency Musculoskeletal: No: Myalgias, Arthralgias Skin: No Rash Neurologic: No: Weakness Psychiatric: Positive: Anxiety, No: Depression, Suicidal Ideations Hematologic/Lymphatic: No: Easy Bruising Physical Exam Narrative GENERAL: Well-developed well-nourished female in no acute distress no respiratory distress; patient sleeping on stretcher awakened easily with verbal stimuli: Upon awakening GCS is 15 SKIN: Warm and dry. HEAD: Normocephalic. EYES: No scleral icterus. No injection or drainage. NECK: Supple, trachea midline. No JVD or lymphadenopathy. CARDIOVASCULAR: Regular rate and rhythm without murmurs, gallops, or rubs. RESPIRATORY: Breath sounds equal bilaterally. No accessory muscle use. GASTROINTESTINAL: Abdomen soft, non-tender, nondistended. MUSCULOSKELETAL: No cyanosis, or edema. BACK: Nontender without obvious deformity. No CVA tenderness. Data Data Last Documented VS Vital Signs Date Time Temp Pulse Resp B/P Pulse Ox O2 Delivery O2 Flow Rate FiO2 01/10/17 03:31 79 20 94/51 98 01/10/17 00:14 98.5 [facility] Medical Decision Making Medical Screen Exam Complete: Yes Emergency Medical Condition: Yes Medical Record Reviewed: Yes Differential Diagnosis Anxiety, alcohol ingestion, malingering Narrative Course Patient without resident's presents to the emergency department after leaving her hotel yesterday without a place to stay admittedly consuming alcohol the day stating that she had too much caffeine in it makes her feel anxious; patient is in no acute distress no respiratory distress stable vital signs ( initial HR mild tachycardia; resolved) sleeping on exam room stretcher awakened easily to verbal stimuli stating that she needs something for her anxiety, a blanket, something to eat, and then falls back to sleep. At this point in time physical exam is normal and patient appears to any place to sleep but no focality on exam indicative of diagnostics or imaging studies. Diagnosis Primary Impression: Anxiety disorder Qualified Code: F41.9 - Anxiety disorder, unspecified type Patient Instructions: General Instructions Additional Instructions: Follow-up with [facility] or [facility] Continue your current medications as presently prescribed Return to the emergency department for any concerns or change in condition Med/Other Pt SpecificInfo: No Change to Meds Disposition: 01 DISCHARGE HOME Condition: Stable Destiny Byrne MD Jan 10, 2017 02:54
[2017-01-10 03:31] VITALS: BP 94/51
== END 2017-01-10 03:39 | disposition home or self-care (01) ==
LOC: PHED 00:06
DX: F41.9 Anxiety disorder, unspecified (principal); I10 Essential (primary) hypertension; F31.9 Bipolar disorder, unspecified; F20.9 Schizophrenia, unspecified; F17.210 Nicotine dependence, cigarettes, uncomplicated
CPT/HCPCS: 99283

== ENCOUNTER 2017-01-15 09:01 | Emergency (ER) | payer MEDICARE, OTHER ==
[~2017-01-15] VITALS: Ht 162.6 cm; Wt 55.1 kg
[~2017-01-15 09:01] MED LIST changes: -IBUP-1129 PO; +RISP3 PO; -RISPM2 PO
[2017-01-15 09:12] VITALS: BP 109/75; PULSE 94; RESP 16; TEMP 97.8; O2SAT 98
[2017-01-15] MEDS ORDERED: PENI500T PO (09:34)
--- NOTE | 2017-01-15 09:40 | PD ---
HPI Chief Complaint: Skin Problem Time Seen by Provider: 09:26 Travel History International Travel<30 days: No Contact w/Intl Traveler<30days: No Traveled to known affect area: No History of Present Illness HPI Patient presents with concerns of an insect bite on her right gluteus. States she fell asleep outside and specifically recalls something biting her. Denies . Occurred approximately 2 days ago. Admits to poor wound care as she is homeless. PFSH Past Medical History Blood Disorders: No Bipolar Disorder: Yes Anxiety: Yes Depression: Yes Cancer: No Cardiovascular Problems: No Chemotherapy: No Diabetes: No Diminished Hearing: No Endocrine: No Gastrointestinal Disorders: No Glaucoma: No Genitourinary: No Headaches: Yes Hypertension: Yes Immune Disorder: No Implanted Vascular Access Dvce: No Musculoskeletal: No Neurologic: No Psychiatric: Yes (SCHIZOAFFECTIVE DISORDER) Reproductive: No Respiratory: No Immunizations Current: Yes Radiation Therapy: No Schizophrenia: Yes Seizures: Yes Sickle Cell Disease: No ?: Not LMP: menapause Menopausal: Yes : 1 Para: 1 Past Surgical History AICD: No Arteriovenous Shunt: No Section: No Insulin Pump: No Joint Replacement: No Pacemaker: No Other Surgery: Yes (see ed history and physical) Social History Alcohol Use: No Tobacco Use: Yes (1 07/12 PPD) Substance Use: Yes (DENIES) Allergies-Medications (Allergen,Severity, Reaction): Coded Allergies: Haldol (Verified Allergy, Severe, 01/15/17) Sulfa (Verified Allergy, Severe, Itching, 01/15/17) Ampicillin (Verified Allergy, Mild, Nausea/Vomiting, 01/15/17) *MDRO Multi-Drug Resistant Organism (Unverified Allergy, Unknown, 01/15/17) MRSA 2013 MRSA PCR screen NEGATIVE 10/29/16 & 11/23/16 Cleared per Infection Control Reported Meds & Prescriptions Reported Meds & Active Scripts Active Reported Risperdal (Risperidone) 3 Mg Tab 3 Mg PO DAILY Depakote ER (Divalproex Sodium) 500 Mg Ray 1,000 Mg PO DAILY Review of Systems General / Constitutional: No: Fever Eyes: No: Visual changes HENT: No: Headaches Cardiovascular: No: Chest Pain or Discomfort Respiratory: No: Shortness of Breath Gastrointestinal: No: Abdominal Pain Genitourinary: No: Dysuria Musculoskeletal: No: Pain Skin: No Rash Neurologic: No: Weakness Psychiatric: No: Depression Endocrine: No: Polydipsia Hematologic/Lymphatic: No: Easy Bruising Physical Exam Narrative GENERAL: Well-nourished, well-developed patient. SKIN: Focused skin assessment warm/dry. HEAD: Normocephalic. EYES: No scleral icterus. No injection or drainage. NECK: Supple, trachea midline. No JVD or lymphadenopathy. CARDIOVASCULAR: Regular rate and rhythm without murmurs, gallops, or rubs. RESPIRATORY: Breath sounds equal bilaterally. No accessory muscle use. GASTROINTESTINAL: Abdomen soft, non-tender, nondistended. MUSCULOSKELETAL: No cyanosis, or edema. BACK: Nontender without obvious deformity. No CVA tenderness. Examination the right gluteus reveals a palpable abscess measuring approximately 2 cm in diameter, nonfluctuant Data Data Last Documented VS Vital Signs Date Time Temp Pulse Resp B/P Pulse Ox O2 Delivery O2 Flow Rate FiO2 01/15/17 09:12 97.8 94 16 109/75 98 Orders Clindamycin Inj (Cleocin Inj) (01/15/17 10:00) [facility] Medical Decision Making Medical Screen Exam Complete: Yes Emergency Medical Condition: Yes Differential Diagnosis Abscess, cellulitis, insect bite Narrative Course Assessment and plan discussed with patient at bedside. Patient reports need for free antibiotic secondary to lack of funds. Allergies evaluated and compared to free list at [employer]. Diagnosis Primary Impression: Abscess Patient Instructions: General Instructions Additional Instructions: Encouraged general wound care, encouraged antibiotic as prescribed. Return to emergency room with any worsening symptoms. Med/Other Pt SpecificInfo: Prescription(s) given Scripts Clindamycin 150 Mg [id number] Mg PO TID #30 CAP Ref 0 Prov:Wiliam Dumont MD 01/15/17 Disposition: 01 DISCHARGE HOME Condition: Good Wiliam Dumont MD Jan 15, 2017 09:40
[2017-01-15] MEDS ORDERED: CLIN1CAP5 PO (09:50)
[2017-01-15] MEDS ORDERED: CLINDAMYCIN PHOS 600 MG/4 ML VIAL IM ONE (10:00)
== END 2017-01-15 11:11 | disposition home or self-care (01) ==
LOC: PHED 09:01
DX: L02.31 Cutaneous abscess of buttock (principal); Z59.0 Homelessness
CPT/HCPCS: 96372

== ENCOUNTER 2017-05-05 08:41 | Emergency (ER) | payer MEDICARE, OTHER ==
[~2017-05-05 08:41] MED LIST changes: +CLIN150C14 PO
[2017-05-05 08:46] VITALS: BP 107/59; PULSE 117; RESP 20; TEMP 97.8; O2SAT 96
[2017-05-05] MEDS ORDERED: PYRE1SHA4 TOPICAL (09:18)
--- NOTE | 2017-05-05 09:19 | PD ---
HPI Chief Complaint: Skin Problem Time Seen by Provider: 09:04 Travel History International Travel<30 days: No Contact w/Intl Traveler<30days: No Traveled to known affect area: No History of Present Illness HPI This 52-year-old is complaining of itchy scalp. She's been having this for several weeks. She is almost. She has stayed in several different shelters. She has a history of schizoaffective disorder PFSH Past Medical History Blood Disorders: No Bipolar Disorder: Yes Anxiety: Yes Depression: Yes Cancer: No Cardiovascular Problems: No Chemotherapy: No Diabetes: No Diminished Hearing: No Endocrine: No Gastrointestinal Disorders: No Glaucoma: No Genitourinary: No Headaches: Yes Hypertension: Yes Immune Disorder: No Implanted Vascular Access Dvce: No Musculoskeletal: No Neurologic: No Psychiatric: Yes (SCHIZOAFFECTIVE DISORDER) Reproductive: No Respiratory: No Immunizations Current: Yes Radiation Therapy: No Schizophrenia: Yes Seizures: Yes Sickle Cell Disease: No ?: Not Menopausal: Yes : 1 Para: 1 Past Surgical History AICD: No Arteriovenous Shunt: No Section: No Insulin Pump: No Joint Replacement: No Pacemaker: No Other Surgery: Yes (see ed history and physical) Social History Alcohol Use: No Tobacco Use: Yes (1PPD) Substance Use: No (DENIES) Allergies-Medications (Allergen,Severity, Reaction): Coded Allergies: Sulfa (Sulfonamide Antibiotics) (Unverified Allergy, Severe, Itching, ) haloperidol (Unverified Allergy, Severe, 05/05/17) ampicillin (Unverified Allergy, Mild, Nausea/Vomiting, 05/05/17) *MDRO Multi-Drug Resistant Organism (Unverified Allergy, Unknown, 05/05/17 ) MRSA 2013 MRSA PCR screen NEGATIVE 10/29/16 & 11/23/16 Cleared per Infection Control Reported Meds & Prescriptions Reported Meds & Active Scripts Active No Active Prescriptions or Reported Medications Review of Systems General / Constitutional: No: Fever, Chills Cardiovascular: No: Chest Pain or Discomfort Genitourinary: No: Urgency Skin: Positive Rash, Positive Itching Hematologic/Lymphatic: No: Easy Bruising Physical Exam Narrative GENERAL: Well-developed female SKIN: Focused skin assessment warm/dry. HEAD: Atraumatic. Normocephalic. There are multiple nits visible scalp. There are a few macular lesions at the base of the neck EYES: Pupils equal and round. No scleral icterus. No injection or drainage. ENT: No nasal bleeding or discharge. Mucous membranes pink and moist. NECK: Trachea midline. No JVD. GASTROINTESTINAL: Abdomen soft, non-tender, nondistended. Hepatic and splenic margins not palpable. MUSCULOSKELETAL: No obvious deformities. No clubbing. No cyanosis. No edema. NEUROLOGICAL: Awake and alert. No obvious cranial nerve deficits. Motor grossly within normal limits. Normal speech. PSYCHIATRIC: Appropriate mood and affect; insight and judgment normal. Data Data Last Documented VS Vital Signs Date Time Temp Pulse Resp B/P (MAP) Pulse Ox O2 Delivery O2 Flow Rate FiO2 05/05/17 08:46 97.8 117 20 107/59 (75) 96 MDM Medical Decision Making Medical Screen Exam Complete: Yes Emergency Medical Condition: Yes Medical Record Reviewed: Yes Differential Diagnosis Differential includes seborrheic dermatitis, pediculosis capitis Narrative Course This appears to be ecchymosis Of this. She'll be given prescription for permethrin Diagnosis Primary Impression: Pediculosis capitis Scripts Pyrethrins Shampoo (Rid Lice Killing Shampoo) 1 Sham 1 APPLIC TOPICAL DIRECTED for Lice, #1 BOTTLE 0 Refills Prov: Jv Ash MD 05/05/17 Disposition: 01 DISCHARGE HOME Condition: Stable Jv Ash MD May 05, 2017 09:19
== END 2017-05-05 09:32 | disposition home or self-care (01) ==
LOC: PHEFT 08:41
DX: B85.0 Pediculosis due to Pediculus humanus capitis (principal)
CPT/HCPCS: 99283

== ENCOUNTER 2017-07-06 09:52 | Emergency (ER) | payer MEDICARE, OTHER ==
[~2017-07-06] VITALS: Ht 162.6 cm; Wt 56.7 kg
[~2017-07-06 09:52] MED LIST changes: -CLIN150C14 PO; -DEPA500T3 PO; +PYRE1SHA4 TOPICAL; -RISP3 PO
[2017-07-06 09:56] VITALS: BP 112/56; PULSE 74; RESP 16; TEMP 97.8; O2SAT 99
[2017-07-07] MEDS ORDERED: MUPI2%T TOPICAL (19:30)
[2017-07-07] MEDS ORDERED: PYRE1SHA4 TOPICAL (19:30)
== END 2017-07-06 10:43 | disposition left against medical advice (07) ==
LOC: PHED 09:52
DX: B85.0 Pediculosis due to Pediculus humanus capitis (principal); Z53.21 Procedure and treatment not carried out due to patient leaving prior to being seen by health care provider
CPT/HCPCS: 99281

== ENCOUNTER 2017-07-07 18:43 | Emergency (ER) | payer MEDICARE, OTHER ==
[~2017-07-07] VITALS: Ht 162.6 cm; Wt 55.9 kg
[2017-07-07] MEDS ORDERED: PYRE1SHA4 TOPICAL (19:30)
[2017-07-07] MEDS ORDERED: MUPI2%T TOPICAL (19:30)
--- NOTE | 2017-07-07 19:31 | PD ---
HPI Chief Complaint: Skin Problem Time Seen by Provider: 19:18 Travel History International Travel<30 days: No Contact w/Intl Traveler<30days: No History of Present Illness HPI 52-year-old female here with complaint of head lice and scalp sores from scratching. She denies fever or chills. Patient is homeless and reports she's had multiple episodes of lice over the last year. Symptom severity is mild. PFSH Past Medical History Blood Disorders: No Bipolar Disorder: Yes Anxiety: Yes Depression: Yes Cancer: No Cardiovascular Problems: No Chemotherapy: No Diabetes: No Diminished Hearing: No Endocrine: No Gastrointestinal Disorders: No Glaucoma: No Genitourinary: No Headaches: Yes Hypertension: Yes Immune Disorder: No Implanted Vascular Access Dvce: No Musculoskeletal: No Neurologic: No Psychiatric: Yes (SCHIZOAFFECTIVE DISORDER) Reproductive: No Respiratory: No Immunizations Current: Yes Radiation Therapy: No Schizophrenia: Yes Seizures: Yes Sickle Cell Disease: No Menopausal: Yes : 1 Para: 1 Past Surgical History AICD: No Arteriovenous Shunt: No Section: No Insulin Pump: No Joint Replacement: No Pacemaker: No Other Surgery: Yes (see ed history and physical) Social History Alcohol Use: Yes Tobacco Use: Yes (1PPD) Substance Use: No (DENIES) Allergies-Medications (Allergen,Severity, Reaction): Coded Allergies: Sulfa (Sulfonamide Antibiotics) (Verified Allergy, Severe, Itching, ) haloperidol (Verified Allergy, Severe, unknown, 07/07/17) ampicillin (Verified Allergy, Mild, Nausea/Vomiting, 07/07/17) *MDRO Multi-Drug Resistant Organism (Verified Allergy, Unknown, 07/07/17) MRSA 2013 MRSA PCR screen NEGATIVE 10/29/16 & 11/23/16 Cleared per Infection Control Reported Meds & Prescriptions Reported Meds & Active Scripts Active No Active Prescriptions or Reported Medications Review of Systems Except as stated in HPI: all other systems reviewed are Neg General / Constitutional: No: Fever Physical Exam Narrative GENERAL: Alert disheveled appearing female. Nontoxic appearing. SKIN: Multiple scabs to the scalp with mild erythema. No evidence of abscess or cellulitis HEAD: Normocephalic. EYES: No injection or drainage. NECK: Supple, trachea midline. No JVD or lymphadenopathy. MDM Medical Decision Making Medical Screen Exam Complete: Yes Emergency Medical Condition: Yes Differential Diagnosis Head lice, abrasions to the scalp, wound infection Narrative Course 52-year-old female here with head lice and multiple scalp sores from scratching. She is nontoxic-appearing. Vital signs are stable. Be treated for lice and localized scalp infection. Diagnosis Primary Impression: Head lice Additional Impression: Wound infection Referrals: [facility] Mupirocin Topical (Bactroban Topical) 22 Gm Cream 1 APPLIC TOPICAL BID for Mgmt Bacterial Infection, #1 TUBE 0 Refills Prov: Deana Quach 07/07/17 Pyrethrins Shampoo (Rid Lice Killing Shampoo) 1 Sham 1 APPLIC TOPICAL DIRECTED for Lice, #1 BOTTLE 0 Refills Prov: Deana Quach 07/07/17 Disposition: 01 DISCHARGE HOME Condition: Stable Deana Quach Jul 07, 2017 19:31
[2017-07-07 19:36] VITALS: BP 112/70; PULSE 90; RESP 16; TEMP 98.2; O2SAT 99
== END 2017-07-07 20:09 | disposition home or self-care (01) ==
LOC: PHED 18:43
DX: B85.0 Pediculosis due to Pediculus humanus capitis (principal); F41.8 Other specified anxiety disorders; F25.9 Schizoaffective disorder, unspecified; I10 Essential (primary) hypertension; F17.210 Nicotine dependence, cigarettes, uncomplicated; Z59.0 Homelessness
CPT/HCPCS: 99283

== ENCOUNTER 2017-07-20 01:38 | Emergency (ER) | payer MEDICARE, OTHER ==
[~2017-07-20] VITALS: Ht 162.6 cm; Wt 58.0 kg
[~2017-07-20 01:38] MED LIST changes: +MUPI2%T TOPICAL
[2017-07-20 01:56] VITALS: BP 128/79; PULSE 85; RESP 20; TEMP 97.8; O2SAT 98
[2017-07-20] MEDS ORDERED: LOTR1CRE TOPICAL (01:59)
--- NOTE | 2017-07-20 01:59 | PD ---
HPI Chief Complaint: umbilical rash Time Seen by Provider: 01:48 Travel History International Travel<30 days: No Contact w/Intl Traveler<30days: No Traveled to known affect area: No History of Present Illness HPI 52-year-old female complains of reddish rash around the umbilicus. Patient noticed the rash this evening. Patient states that she has recurrent rash on her neck and scalp area that was treated for head lice in the past. Patient also complains intermittent low back pain. Patient denies any recent injury to the back area. Patient denies any dysuria or frequency. Patient denies any fever chills. Patient states that she has intermittent abdominal discomfort. Patient denies any nausea vomiting diarrhea. PFSH Past Medical History Blood Disorders: No Bipolar Disorder: Yes Anxiety: Yes Depression: Yes Cancer: No Cardiovascular Problems: No Chemotherapy: No Diabetes: No Diminished Hearing: No Endocrine: No Gastrointestinal Disorders: No Glaucoma: No Genitourinary: No Headaches: Yes Hypertension: Yes Immune Disorder: No Implanted Vascular Access Dvce: No Musculoskeletal: No Neurologic: No Psychiatric: Yes (SCHIZOAFFECTIVE DISORDER) Reproductive: No Respiratory: No Immunizations Current: Yes Radiation Therapy: No Schizophrenia: Yes Seizures: Yes Sickle Cell Disease: No Menopausal: Yes : 1 Para: 1 Past Surgical History AICD: No Arteriovenous Shunt: No Section: No Insulin Pump: No Joint Replacement: No Oral Surgery: Yes (TEETH REMOVED FOR DENTURES) Pacemaker: No Other Surgery: Yes (see ed history and physical) Social History Alcohol Use: Yes Tobacco Use: Yes (1PPD) Substance Use: No (DENIES) Allergies-Medications (Allergen,Severity, Reaction): Coded Allergies: Sulfa (Sulfonamide Antibiotics) (Verified Allergy, Severe, Itching, ) haloperidol (Verified Allergy, Severe, unknown, 07/07/17) ampicillin (Verified Allergy, Mild, Nausea/Vomiting, 07/07/17) *MDRO Multi-Drug Resistant Organism (Verified Allergy, Unknown, 07/07/17) MRSA 2013 MRSA PCR screen NEGATIVE 10/29/16 & 11/23/16 Cleared per Infection Control Reported Meds & Prescriptions Reported Meds & Active Scripts Active Bactroban Topical (Mupirocin) 22 Gm Cream 1 Applic TOPICAL BID Rid Lice Killing Shampoo (Pyrethrins Shampoo) 1 Sham 1 Applic TOPICAL DIRECTED Review of Systems General / Constitutional: No: Fever Eyes: No: Visual changes HENT: No: Headaches Cardiovascular: No: Chest Pain or Discomfort Respiratory: No: Shortness of Breath Gastrointestinal: No: Abdominal Pain Genitourinary: No: Dysuria Musculoskeletal: No: Pain Skin: No Rash Neurologic: No: Weakness Psychiatric: No: Depression Endocrine: No: Polydipsia Hematologic/Lymphatic: No: Easy Bruising Physical Exam Narrative GENERAL: Well-nourished, well-developed patient. SKIN: Focused skin assessment warm/dry. HEAD: Normocephalic. EYES: No scleral icterus. No injection or drainage. NECK: Supple, trachea midline. No JVD or lymphadenopathy. CARDIOVASCULAR: Regular rate and rhythm without murmurs, gallops, or rubs. RESPIRATORY: Breath sounds equal bilaterally. No accessory muscle use. GASTROINTESTINAL: Abdomen soft, non-tender, nondistended. MUSCULOSKELETAL: No cyanosis, or edema. BACK: Nontender without obvious deformity. No CVA tenderness. Patient has with moist reddish rash at the umbilicus. No discharge noted. No induration noted tenderness on palpation. MDM Medical Decision Making Medical Screen Exam Complete: Yes Emergency Medical Condition: Yes Differential Diagnosis Differential diagnosis including tinea corporis, cellulitis. Narrative Course 52-year-old female with red rash at the umbilicus. Diagnosis Primary Impression: Tinea corporis Additional Instructions: Lotrimin cream as directed. Follow-up with personal physician. Med/Other Pt SpecificInfo: Prescription(s) given Scripts Clotrimazole Topical (Lotrimin AF Topical) 1% Cream 1 APPLIC TOPICAL BID for Fungal Infection, #1 GM 0 Refills Prov: Marshall Tavares MD 07/20/17 Disposition: 01 DISCHARGE HOME Condition: Stable Marshall Tavares MD Jul 20, 2017 01:59
[2017-07-29] MEDS ORDERED: CIPR-9 PO (16:27)
== END 2017-07-20 02:44 | disposition home or self-care (01) ==
LOC: PHED 01:38
DX: B35.4 Tinea corporis (principal); M54.5 Low back pain; F17.200 Nicotine dependence, unspecified, uncomplicated
CPT/HCPCS: 99283

== ENCOUNTER 2017-07-23 11:54 | Emergency (ER) | payer MEDICARE, OTHER ==
[~2017-07-23] VITALS: Ht 162.6 cm; Wt 55.1 kg
[~2017-07-23 11:54] MED LIST changes: +LOTR1CRE TOPICAL
[2017-07-23 11:56] VITALS: BP 142/62; PULSE 104; RESP 18; TEMP 98.3; O2SAT 97
[2017-07-23 12:55] LABS: BILIRUBIN, URINE NEG (NEG); BLOOD, URINE NEG (NEG); GLUCOSE,URINE NEG (NEG); KETONE, URINE NEG (NEG); NITRITE,URINE NEG (NEG); PH, URINE 5.5 (5.0-8.5); URINE LEUKOCYTE ESTERASE MOD (NEG)
[2017-07-23 13:01] LABS: URINE COLOR YELLOW (YELLW/STRAW)
[2017-07-23 13:02] LABS: BACTERIA, URINE FEW /hpf; RBC, URINE 0-3 /hpf (0-3); WBC, URINE 15-19 /hpf (0-5)
[2017-07-23] MEDS ORDERED: MACR100C2 PO (13:16)
--- NOTE | 2017-07-23 13:22 | PD ---
HPI Chief Complaint: Pain: Acute or Chronic Time Seen by Provider: 12:10 Travel History International Travel<30 days: No Contact w/Intl Traveler<30days: No Traveled to known affect area: No History of Present Illness HPI 52-year-old female with PMH of bipolar and schizoaffective presents to ED for evaluation of 04/19 all over body pain. Gradual onset last night. Patient states that she's had this similar pain for approximately 2 years. She denies fever, chills, cold symptoms, nausea, vomiting, numbness, tingling, weakness, limitations to range of motion of the extremities. She endorses urinary frequency but denies dysuria or hematuria. She denies suicidal ideation or homicidal ideation. She states that she has not had a primary care provider "for a long time" because "I don't like to take medication and I don't trust anybody." She is not currently taking any psychiatric medications. No treatment attempted at home. PFSH Past Medical History Blood Disorders: No Bipolar Disorder: Yes Anxiety: Yes Depression: Yes Cancer: No Cardiovascular Problems: No Chemotherapy: No Diabetes: Yes (NO MEDS) Patient Takes Glucophage: No Diminished Hearing: No Endocrine: No Gastrointestinal Disorders: No Glaucoma: No Genitourinary: No Headaches: Yes Hypertension: Yes Immune Disorder: No Implanted Vascular Access Dvce: No Musculoskeletal: No Neurologic: No Psychiatric: Yes (SCHIZOAFFECTIVE DISORDER) Reproductive: No Respiratory: No Immunizations Current: Yes Radiation Therapy: No Schizophrenia: Yes Seizures: Yes Sickle Cell Disease: No ?: Not Menopausal: Yes : 1 Para: 1 Past Surgical History AICD: No Arteriovenous Shunt: No Section: No Insulin Pump: No Joint Replacement: No Oral Surgery: Yes (TEETH REMOVED FOR DENTURES) Pacemaker: No Other Surgery: Yes Social History Alcohol Use: Yes Tobacco Use: Yes (1PPD) Substance Use: No (DENIES) Allergies-Medications (Allergen,Severity, Reaction): Coded Allergies: Sulfa (Sulfonamide Antibiotics) (Verified Allergy, Severe, Itching, ) haloperidol (Verified Allergy, Severe, unknown, 07/23/17) ampicillin (Verified Allergy, Mild, Nausea/Vomiting, 07/23/17) *MDRO Multi-Drug Resistant Organism (Verified Allergy, Unknown, 07/23/17) MRSA 2013 MRSA PCR screen NEGATIVE 10/29/16 & 11/23/16 Cleared per Infection Control Reported Meds & Prescriptions Reported Meds & Active Scripts Active Macrobid (Nitrofurantoin Monoh/Nitrofur Macro) 100 Mg Cap 100 Mg PO BID 7 Days Review of Systems Except as stated in HPI: all other systems reviewed are Neg Physical Exam Narrative GENERAL: Well-nourished, well-developed white female in no acute distress. SKIN: Warm and dry. HEAD: Normocephalic. Atraumatic. EYES: No scleral icterus. No injection or drainage. PERRLA. EOMI. ENT: Pearly pascual tympanic membranes bilaterally. Nasal mucosa is moist. Oropharynx without erythema, edema or exudate. NECK: Supple, trachea midline. No JVD or lymphadenopathy. CARDIOVASCULAR: Regular rate and rhythm without murmurs, gallops, or rubs. RESPIRATORY: Breath sounds clear and equal bilaterally. No accessory muscle use. GASTROINTESTINAL: Abdomen soft, non-tender, nondistended. + Bowel sounds MUSCULOSKELETAL: No cyanosis, or edema. Walks with a normal gait. BACK: Nontender without obvious deformity. No CVA tenderness. Data Data Last Documented VS Vital Signs Date Time Temp Pulse Resp B/P (MAP) Pulse Ox O2 Delivery O2 Flow Rate FiO2 07/23/17 11:56 98.3 104 18 142/62 (88) 97 Orders Orders Blood Glucose (07/23/17 12:10) Urinalysis - C+S If Indicated (07/23/17 12:35) Urine Culture (07/23/17 12:30) Nitrofurantoin Monohyd Macrocr (Macrobid (07/23/17 13:30) Ibuprofen (Motrin) (07/23/17 13:30) Ed Discharge Order (07/23/17 13:23) Labs Laboratory Tests Test 07/23/17 12:30 Urine Collection Type CLEAN CATCH Urine Color YELLOW Urine Turbidity CLEAR Urine pH 5.5 Urine Specific [place] 1.017 Urine Protein NEG mg/dL Urine Glucose (UA) NEG mg/dL Urine Ketones NEG mg/dL Urine Occult Blood NEG Urine Nitrite NEG Urine Bilirubin NEG Urine Leukocyte Esterase MOD Urine RBC 0-3 /hpf Urine WBC 15-19 /hpf Urine Squamous Epithelial Cells 6-8 /hpf Urine Bacteria FEW /hpf Microscopic Urinalysis Comment CULTURE INDICATED Urine Collection Time 12:30 [facility] Medical Decision Making Medical Screen Exam Complete: Yes Emergency Medical Condition: Yes Differential Diagnosis UTI versus hyperglycemia versus psychiatric illness versus other Narrative Course 52-year-old female with PMH of bipolar and schizoaffective presents to ED for evaluation of two-year history of 10/10 all over body pain. She denies fever, chills, cold symptoms, nausea, vomiting, numbness, tingling, weakness, limitations to range of motion of the extremities. She endorses urinary frequency but denies dysuria or hematuria. She denies suicidal ideation or homicidal ideation. She states that she has not had a primary care provider "for a long time" because "I don't like to take medication and I don't trust anybody." She is not currently taking any acute medicines. Vitals reviewed. Physical exam is unremarkable. UA positive for leukocyte esterase, wbc's and bacteria. Patient's prescribed 100 mg Macrobid twice a day 7 days. First dose along with a dose of ibuprofen administered here in the ED. Patient's instructed to take every pill until they are all gone, follow-up with the [facility]. She is stable and discharged home. Diagnosis Primary Impression: Urinary tract infection Qualified Codes: N30.00 - Acute cystitis without hematuria Additional Impression: Chronic pain Qualified Codes: G89.29 - Other chronic pain Referrals: [facility] Patient Instructions: General Instructions, Urinary Tract Infection in Women ( ED) Additional Instructions: Rest, hydrate. Take every antibiotic pill until they are all gone, even if your symptoms resolve. Take 600-800 mg ibuprofen every 8-12 hours as needed for pain. Follow-up with the [facility]. Return to the ED for any urgent or emergent medical condition. Med/Other Pt SpecificInfo: Prescription(s) given Scripts Nitrofurantoin Monohydrate Macrocrystals (Macrobid) 100 Mg Cap 100 MG PO BID for Infection for 7 Days, #14 CAP 0 Refills Prov: Antione Aponte MD 07/23/17 Disposition: 01 DISCHARGE HOME Condition: Stable Griselda Beltran Jul 23, 2017 13:22
[2017-07-23] MEDS ORDERED: IBUPROFEN 800 MG TAB PO ONE (13:30)
[2017-07-23] MEDS ORDERED: NITROFURANTOIN MONOHYD MACROCR 100 MG CAP PO ONE (13:30)
[2017-07-29] MEDS ORDERED: CIPR-9 PO (16:27)
== END 2017-07-23 13:47 | disposition home or self-care (01) ==
LOC: PHEFT 11:54
DX: N30.00 Acute cystitis without hematuria (principal); G89.29 Other chronic pain; F31.9 Bipolar disorder, unspecified; E11.9 Type 2 diabetes mellitus without complications; I10 Essential (primary) hypertension; F20.9 Schizophrenia, unspecified; F17.200 Nicotine dependence, unspecified, uncomplicated; R82.99 Other abnormal findings in urine
CPT/HCPCS: 81001; 87086; 99283

== ENCOUNTER 2017-07-29 14:06 | Emergency (ER) | payer MEDICARE, OTHER ==
[2017-07-29] MEDS: IBUPROFEN 600 MG TAB PO (16:33)
== END 2017-07-29 16:43 | disposition home or self-care (01) ==
LOC: PHED 14:06
DX: R21 Rash and other nonspecific skin eruption (principal); N39.0 Urinary tract infection, site not specified; E11.9 Type 2 diabetes mellitus without complications; I10 Essential (primary) hypertension; R56.9 Unspecified convulsions; Z72.0 Tobacco use; Z59.0 Homelessness
CPT/HCPCS: 99283

== ENCOUNTER 2017-08-01 13:31 | Emergency (ER) | payer MEDICARE, OTHER | END 2017-08-01 16:46 | disposition home or self-care (01) | LOC: NEPD 13:31 | DX: R06.02 Shortness of breath (principal); F17.200 Nicotine dependence, unspecified, uncomplicated | CPT/HCPCS: 71046; 99284 ==

== ENCOUNTER 2017-08-19 15:29 | Emergency (ER) | payer MEDICARE, OTHER ==
[2017-08-19 15:40] VITALS: BP 120/72; PULSE 84; RESP 16; TEMP 98.3; O2SAT 97
--- NOTE | 2017-08-19 16:17 | PD ---
HPI Chief Complaint: General Weakness Time Seen by Provider: 15:54 Travel History International Travel<30 days: No Contact w/Intl Traveler<30days: No Traveled to known affect area: No History of Present Illness HPI The patient was seen and examined in the presence of the nurse. This is a local homeless person who is brought in by ambulance. She complains of some general malaise. It's hard for her to formulate a specific chief complaint. She is a frequent visitor to the ER. This is her fifth visit in the last month. He says mainly she is just hungry because she hasn't got a lot of food lately. She is a cigarette smoker but denies alcohol or drug use. She is not feeling suicidal. Symptoms severity is mild PFSH Past Medical History Blood Disorders: No Bipolar Disorder: Yes Anxiety: Yes Depression: Yes Cancer: No Cardiovascular Problems: No Chemotherapy: No Diabetes: Yes (NO MEDS) Patient Takes Glucophage: No Diminished Hearing: No Endocrine: No Gastrointestinal Disorders: No Glaucoma: No Genitourinary: No Headaches: Yes Hypertension: Yes Immune Disorder: No Implanted Vascular Access Dvce: No Musculoskeletal: No Neurologic: No Psychiatric: Yes (SCHIZOAFFECTIVE DISORDER) Reproductive: No Respiratory: No Immunizations Current: Yes Radiation Therapy: No Schizophrenia: Yes Seizures: Yes Sickle Cell Disease: No ?: Not Menopausal: Yes : 1 Para: 1 Past Surgical History AICD: No Arteriovenous Shunt: No Section: No Insulin Pump: No Joint Replacement: No Oral Surgery: Yes (TEETH REMOVED FOR DENTURES) Pacemaker: No Other Surgery: Yes Social History Alcohol Use: Yes Tobacco Use: Yes (1PPD) 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) Allergies-Medications (Allergen,Severity, Reaction): Coded Allergies: Sulfa (Sulfonamide Antibiotics) (Verified Allergy, Severe, Itching, 08/19/17 ) haloperidol (Verified Allergy, Severe, unknown, 08/19/17) ampicillin (Verified Allergy, Mild, Nausea/Vomiting, 08/19/17) *MDRO Multi-Drug Resistant Organism (Verified Allergy, Unknown, 08/19/17) MRSA 2013 MRSA PCR screen NEGATIVE 10/29/16 & 11/23/16 Cleared per Infection Control Reported Meds & Prescriptions Reported Meds & Active Scripts Active No Active Prescriptions or Reported Medications Review of Systems General / Constitutional: No: Fever HENT: No: Lightheadedness Cardiovascular: No: Chest Pain or Discomfort Respiratory: No: Cough Physical Exam Narrative GENERAL: Disheveled well-developed patient in no apparent distress. SKIN: Focused skin assessment reveals no rash and nodules. Skin is Warm and dry. HEAD: Atraumatic. Normocephalic. EYES: Pupils equal and round. No scleral icterus. No injection or drainage. ENT: No nasal bleeding or discharge. Mucous membranes pink and moist. NECK: Trachea midline. No JVD. CARDIOVASCULAR: Regular rate and rhythm. No murmur appreciated. RESPIRATORY: No accessory muscle use. Clear to auscultation. Breath sounds equal bilaterally. GASTROINTESTINAL: Abdomen soft, non-tender, nondistended. Hepatic and splenic margins not palpable. MUSCULOSKELETAL: No obvious deformities. No clubbing. No cyanosis. No edema. NEUROLOGICAL: Awake and alert. No obvious cranial nerve deficits. Motor grossly within normal limits. Normal speech. PSYCHIATRIC: Appropriate mood and affect; insight and judgment normal. Data Data Last Documented VS Vital Signs Date Time Temp Pulse Resp B/P (MAP) Pulse Ox O2 Delivery O2 Flow Rate FiO2 08/19/17 15:49 84 16 08/19/17 15:40 98.3 120/72 (88) 97 MDM Medical Decision Making Medical Screen Exam Complete: Yes Emergency Medical Condition: Yes Medical Record Reviewed: Yes Differential Diagnosis Hungry, malingering, depression Narrative Course I have reviewed the patient's electronic medical record. Reviewed her last visit here. She had a normal chest x-ray Patient looks clinically well. She has normal vital signs and normal exam. I ordered her a meal tray and some snacks. She stable for outpatient follow-up Diagnosis Primary Impression: Hunger pan Qualified Codes: T73.0XXA - Starvation, initial encounter Additional Impression: Homeless single person Additional Instructions: The patient was advised to follow up with their physician and return if they worsen. Med/Other Pt SpecificInfo: Other Scripts No Active Prescriptions or Reported Meds Disposition: 01 DISCHARGE HOME Condition: Stable Darío Streeter MD Aug 19, 2017 16:17
== END 2017-08-19 16:31 | disposition home or self-care (01) ==
LOC: PHED 15:29
DX: T73.0XXA Starvation, initial encounter (principal); F17.210 Nicotine dependence, cigarettes, uncomplicated; F31.9 Bipolar disorder, unspecified; E11.9 Type 2 diabetes mellitus without complications; F20.9 Schizophrenia, unspecified; Z59.0 Homelessness
CPT/HCPCS: 99281

== ENCOUNTER 2017-08-22 08:51 | Emergency (ER) | payer MEDICARE, OTHER ==
[~2017-08-22] VITALS: Ht 162.6 cm; Wt 54.0 kg
[2017-08-22 09:04] VITALS: BP 120/78; PULSE 89; RESP 16; TEMP 98.6; O2SAT 99
--- NOTE | 2017-08-22 09:51 | PD ---
HPI . Refill request Chief Complaint: Medication Refill Request Time Seen by Provider: 09:39 Travel History International Travel<30 days: No Contact w/Intl Traveler<30days: No Traveled to known affect area: No History of Present Illness HPI This patient presented to triage with a chief complaint of needing a refill. The triage nurse did not document the medication that needed to be refilled. The patient was very uncooperative and eventually left before we were able to determine what she needed. She was roomed in the emergency department and immediately presented to the nurse's station and no when she was going to be seen. Myself and several of the nursing staff tried to explain to her that patients were seen based upon the severity of their illness and that we were unable to tell her exactly how long it would be before she was seen. PFSH Past Medical History Blood Disorders: No Bipolar Disorder: Yes Anxiety: Yes Depression: Yes Cancer: No Cardiovascular Problems: No Chemotherapy: No Diabetes: Yes (NO MEDS) Diminished Hearing: No Endocrine: No Gastrointestinal Disorders: No Glaucoma: No Genitourinary: No Headaches: Yes Hypertension: Yes Immune Disorder: No Implanted Vascular Access Dvce: No Musculoskeletal: No Neurologic: No Psychiatric: Yes (SCHIZOAFFECTIVE DISORDER) Reproductive: No Respiratory: No Immunizations Current: Yes Radiation Therapy: No Schizophrenia: Yes Seizures: Yes Sickle Cell Disease: No Menopausal: Yes : 1 Para: 1 Past Surgical History AICD: No Arteriovenous Shunt: No Section: No Insulin Pump: No Joint Replacement: No Oral Surgery: Yes (TEETH REMOVED FOR DENTURES) Pacemaker: No Other Surgery: Yes Social History Alcohol Use: Yes Tobacco Use: Yes (1PPD) 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) Allergies-Medications (Allergen,Severity, Reaction): Coded Allergies: Sulfa (Sulfonamide Antibiotics) (Verified Allergy, Severe, Itching, ) haloperidol (Verified Allergy, Severe, unknown, 08/22/17) ampicillin (Verified Allergy, Mild, Nausea/Vomiting, 08/22/17) *MDRO Multi-Drug Resistant Organism (Verified Allergy, Unknown, 08/19/17) MRSA 2013 MRSA PCR screen NEGATIVE 10/29/16 & 11/23/16 Cleared per Infection Control Reported Meds & Prescriptions Reported Meds & Active Scripts Active No Active Prescriptions or Reported Medications Review of Systems ROS Limitations: Uncooperative Physical Exam Narrative GENERAL: Patient has been ambulatory about the emergency department with no obvious neurological deficit and no obvious respiratory distress. SKIN: Warm and dry. HEAD: Normocephalic/atraumatic. EYES: Pupils are equal. Extraocular movements are intact. Distally NECK: Normal range of motion. Distally RESPIRATORY: Nonlabored respirations. MUSCULOSKELETAL: Atraumatic. NEUROLOGICAL: Nonfocal. PSYCHIATRIC: Inappropriate. Unreal expectation. Data Data Last Documented VS Vital Signs Date Time Temp Pulse Resp B/P (MAP) Pulse Ox O2 Delivery O2 Flow Rate FiO2 08/22/17 09:04 98.6 89 16 120/78 (92) 99 MDM Medical Decision Making Medical Screen Exam Complete: Yes Emergency Medical Condition: Yes Medical Record Reviewed: Yes (patient was seen here 3 days ago for hunger pains. Her psychiatric illnesses are listed as bipolar disorder and schizoaffective disorder.) Differential Diagnosis Differential diagnosis of refill request includes but is not limited to drug seeking behavior, poor planning, financial problems, travel, no primary care physician Narrative Course This patient presented requesting a refill on an unknown medication. She was very uncooperative with us. She was loitering at the nurse's station. We attempted on multiple occasions to get her into her room to await her turn. She refused. She eventually left. Diagnosis Primary Impression: Medication refill Scripts No Active Prescriptions or Reported Meds Disposition: 07 AGAINST MEDICAL ADVICE Neha Camejo MD Aug 22, 2017 09:50
== END 2017-08-22 09:35 | disposition left against medical advice (07) ==
LOC: PHED 08:51
DX: R46.89 Other symptoms and signs involving appearance and behavior (principal); R45.89 Other symptoms and signs involving emotional state; I10 Essential (primary) hypertension; E11.9 Type 2 diabetes mellitus without complications; F17.200 Nicotine dependence, unspecified, uncomplicated; Z86.59 Personal history of other mental and behavioral disorders; Z86.69 Personal history of other diseases of the nervous system and sense organs; Z53.29 Procedure and treatment not carried out because of patient's decision for other reasons
CPT/HCPCS: 99281

== ENCOUNTER 2017-08-23 21:07 | Emergency (ER) | payer MEDICARE, OTHER ==
[~2017-08-23] VITALS: Ht 162.6 cm; Wt 45.5 kg
[2017-08-23 21:15] VITALS: BP 140/86; PULSE 82; RESP 18; TEMP 98.8; O2SAT 100
--- NOTE | 2017-08-23 22:02 | PD ---
HPI Chief Complaint: Dizziness Time Seen by Provider: 22:01 Travel History International Travel<30 days: No Contact w/Intl Traveler<30days: No Traveled to known affect area: No History of Present Illness HPI Patient is a 52-year-old homeless female well known to this department presents to the emergency department for evaluation of very vague medical complaint. Patient states she was eating out of trash cans of the day and she thinks that someone poisoning her food with bleach. She states there was a smell and 1 of the trash cans of bleach and she thinks she ate this. She states this was yesterday. She states she has had no nausea no vomiting no diarrhea since this happened. No chest pain no shortness of breath. She states she just feels "weird". States symptoms have been constant ever since eating out of the trash can yesterday. Associated signs and symptoms and context as above PFSH Past Medical History Blood Disorders: No Bipolar Disorder: Yes Anxiety: Yes Depression: Yes Cancer: No Cardiovascular Problems: No Chemotherapy: No Diabetes: Yes (NO MEDS) Patient Takes Glucophage: No Diminished Hearing: No Endocrine: No Gastrointestinal Disorders: No Glaucoma: No Genitourinary: No Headaches: Yes Hypertension: Yes Immune Disorder: No Implanted Vascular Access Dvce: No Musculoskeletal: No Neurologic: No Psychiatric: Yes (SCHIZOAFFECTIVE DISORDER) Reproductive: No Respiratory: No Immunizations Current: Yes Radiation Therapy: No Schizophrenia: Yes Seizures: Yes Sickle Cell Disease: No Tetanus Vaccination: < 5 Years Influenza Vaccination: No ?: Not Menopausal: Yes : 1 Para: 1 Past Surgical History AICD: No Arteriovenous Shunt: No Section: No Insulin Pump: No Joint Replacement: No Oral Surgery: Yes (TEETH REMOVED FOR DENTURES) Pacemaker: No Other Surgery: Yes Social History Alcohol Use: Yes Tobacco Use: Yes (1PPD) 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) Allergies-Medications (Allergen,Severity, Reaction): Coded Allergies: Sulfa (Sulfonamide Antibiotics) (Verified Allergy, Severe, Itching, ) haloperidol (Verified Allergy, Severe, unknown, 08/23/17) ampicillin (Verified Allergy, Mild, Nausea/Vomiting, 08/23/17) *MDRO Multi-Drug Resistant Organism (Verified Allergy, Unknown, 08/23/17) MRSA 2013 MRSA PCR screen NEGATIVE 10/29/16 & 11/23/16 Cleared per Infection Control Reported Meds & Prescriptions Reported Meds & Active Scripts Active No Active Prescriptions or Reported Medications Review of Systems Except as stated in HPI: all other systems reviewed are Neg Physical Exam Narrative GENERAL: Well-developed well-nourished in obvious distress SKIN: Focused skin assessment warm/dry. HEAD: Atraumatic. Normocephalic. EYES: Pupils equal and round. No scleral icterus. No injection or drainage. ENT: No nasal bleeding or discharge. Mucous membranes pink and moist. NECK: Trachea midline. No JVD. CARDIOVASCULAR: Regular rate and rhythm. No murmur appreciated. RESPIRATORY: No accessory muscle use. Clear to auscultation. Breath sounds equal bilaterally. GASTROINTESTINAL: Abdomen soft, non-tender, nondistended. Hepatic and splenic margins not palpable. MUSCULOSKELETAL: No obvious deformities. No clubbing. No cyanosis. No edema. NEUROLOGICAL: Awake and alert. No obvious cranial nerve deficits. Motor grossly within normal limits. Normal speech. PSYCHIATRIC: Appropriate mood and affect; insight and judgment normal. Data Data Last Documented VS Vital Signs Date Time Temp Pulse Resp B/P (MAP) Pulse Ox O2 Delivery O2 Flow Rate FiO2 08/23/17 21:20 82 18 100 Room Air 08/23/17 21:15 98.8 140/86 (104) Orders Orders Ed Discharge Order (08/23/17 22:01) MDM Medical Decision Making Medical Screen Exam Complete: Yes Emergency Medical Condition: No Differential Diagnosis Food poisoning, poor social circumstance, homelessness, Narrative Course Patient room to the emergency department and after physical exam the patient does not have any criteria for an emergent medical condition. She is reassured , without any nausea or vomiting is highly unlikely to suspect a significant bleach ingestion. She has no signs or symptoms to suggest another cause. She was given a meal in the emergency department and is stable for discharge. Diagnosis Primary Impression: Homelessness Patient Instructions: Food Poisoning (GEN), General Instructions Scripts No Active Prescriptions or Reported Meds Disposition: 01 DISCHARGE HOME Condition: Stable Ti Reed MD Aug 23, 2017 22:02
== END 2017-08-23 22:19 | disposition home or self-care (01) ==
LOC: PHED 21:07
DX: Z59.0 Homelessness (principal); F31.9 Bipolar disorder, unspecified; F41.9 Anxiety disorder, unspecified; E11.9 Type 2 diabetes mellitus without complications; I10 Essential (primary) hypertension; F20.9 Schizophrenia, unspecified; F17.210 Nicotine dependence, cigarettes, uncomplicated
CPT/HCPCS: 99281

== ENCOUNTER 2017-09-17 20:45 | Emergency (ER) | payer MEDICARE, OTHER ==
[~2017-09-17] VITALS: Ht 160 cm; Wt 60.0 kg
[2017-09-17 20:59] VITALS: BP 122/77; PULSE 80; RESP 18; TEMP 97.3; O2SAT 99
== END 2017-09-17 22:39 | disposition left against medical advice (07) ==
LOC: NED 20:45
DX: Z00.8 Encounter for other general examination (principal); Z53.21 Procedure and treatment not carried out due to patient leaving prior to being seen by health care provider
CPT/HCPCS: 99281

== ENCOUNTER 2017-09-24 23:57 | Emergency (ER) | payer MEDICARE, OTHER ==
[2017-09-25 00:25] VITALS: BP 146/81; PULSE 70; RESP 18; TEMP 99.2; O2SAT 100
[2017-09-25 02:14] VITALS: BP_SYST 114; BP_SYST 122; BP_DIAS 63; BP_DIAS 70; PULSE 80; PULSE 88; RESP 18; TEMP 98.6; TEMP 99.1; O2SAT 97; O2SAT 98
--- NOTE | 2017-09-25 02:14 | PD ---
HPI Chief Complaint: Psychiatric Symptoms Time Seen by Provider: 02:03 Travel History International Travel<30 days: No Contact w/Intl Traveler<30days: No Traveled to known affect area: No History of Present Illness HPI This is a 52-year-old female who appears to have a history of schizoaffective disorder according to chart review. She is here under a [place] act initiated by the Police Department. According to the [place] act form she was observed wandering around in a parking lot and attempting to enter resident that was not her own. She was therefore brought here for further evaluation. She reports that she is looking for her son and does not want to give any more description of the matter. She also reports that she is hungry and tired and would like to go to sleep. She has no other complaints at this time and she refuses any testing or examination. PFSH Past Medical History Blood Disorders: No Bipolar Disorder: Yes Anxiety: Yes Depression: Yes Cancer: No Cardiovascular Problems: No Chemotherapy: No Diabetes: Yes (NO MEDS PER PATIENT) Patient Takes Glucophage: No Diminished Hearing: No Endocrine: No Gastrointestinal Disorders: No Glaucoma: No Genitourinary: No Headaches: Yes Hypertension: Yes Immune Disorder: No Implanted Vascular Access Dvce: No Musculoskeletal: No Neurologic: No Psychiatric: Yes (SCHIZOAFFECTIVE DISORDER) Reproductive: No Respiratory: No Immunizations Current: Yes Radiation Therapy: No Schizophrenia: Yes Seizures: Yes Sickle Cell Disease: No ?: Unknown Menopausal: Yes : 1 Para: 1 Past Surgical History AICD: No Arteriovenous Shunt: No Section: No Insulin Pump: No Joint Replacement: No Oral Surgery: Yes (TEETH REMOVED FOR DENTURES) Pacemaker: No Other Surgery: Yes Social History Alcohol Use: Yes Tobacco Use: Yes (1PPD) 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) Allergies-Medications (Allergen,Severity, Reaction): Coded Allergies: Sulfa (Sulfonamide Antibiotics) (Verified Allergy, Severe, Itching, ) haloperidol (Verified Allergy, Severe, unknown, 09/17/17) ampicillin (Verified Allergy, Mild, Nausea/Vomiting, 09/17/17) *MDRO Multi-Drug Resistant Organism (Verified Allergy, Unknown, 09/17/17) MRSA 2013 MRSA PCR screen NEGATIVE 10/29/16 & 11/23/16 Cleared per Infection Control Reported Meds & Prescriptions Reported Meds & Active Scripts Active No Active Prescriptions or Reported Medications Review of Systems ROS Limitations: Refused Except as stated in HPI: all other systems reviewed are Neg Physical Exam Exam Limitations: Refused Narrative Well-developed well-nourished female who is in no acute distress. She refuses any further examination. Data Data Last Documented VS Vital Signs Date Time Temp Pulse Resp B/P (MAP) Pulse Ox O2 Delivery O2 Flow Rate FiO2 09/25/17 00:25 99.2 70 18 146/81 (102) 100 Room Air Orders Orders Complete Blood Count With Diff (09/25/17 00:39) Comprehensive Metabolic Panel (09/25/17 00:39) Thyroid Stimulating Hormone (09/25/17 00:39) Psych Screen (09/25/17 00:39) Drug Screen, Random Urine (09/25/17 00:39) Alcohol (Ethanol) (09/25/17 00:39) MDM Medical Decision Making Medical Screen Exam Complete: Yes Emergency Medical Condition: Yes Medical Record Reviewed: Yes Differential Diagnosis Malingering, acute psychosis, schizoaffective disorder, substance-induced mood disorder, homelessness Narrative Course The patient refuses lab work and physical examination there and there is no real indication to forcibly examine her or obtain her blood. Mental health screening discussed with the patient. Psychiatric screen ordered. She is medically cleared. Diagnosis Primary Impression: Medical clearance for psychiatric admission Scripts No Active Prescriptions or Reported Meds Benjie Moon Sep 25, 2017 02:14
[2017-09-25 06:20] VITALS: BP 120/68; PULSE 60; RESP 16; TEMP 98.2; O2SAT 100
--- NOTE | 2017-09-25 09:02 | PD.PSY.CON ---
Provisional Diagnosis Admission Date Date of consultation 09/25/17 Cornelius I. 1. Other schizoaffective disorder, chronic baseline Cornelius II. Deferred History of Present Illness Service Psychiatry Consult Requested By Emergency department Reason for Consult Shaw act Primary Care Physician Unknown HPI Ms. Muniz is a 52-year-old female with a history of schizoaffective disorder brought in on a Shaw act by [employer] alleging that the patient was wandering around the parking lot trying to enter residences that were not her own. There is no allegation of suicidality or homicidality and the Shaw act. Reviewing the electronic medical record, I note that the patient was most recently psychiatrically admitted under Dr. Stroud in November 2016. I also note that patient has had several ED visits related to her homelessness. Patient seen and examined. Chart reviewed. Case discussed with nursing staff who reports that the patient has been refusing laboratories that otherwise has been no behavioral problem. She has been asking for blankets and food. There has been no evidence of any suicidality or homicidality while under observation in the [facility]. On my examination today, the patient denies any suicidal or homicidal ideation, intent or plan on direct questioning and contracts for safety. She denies any audiovisual hallucinations. Mood is "tired and hungry" and I can elicit no depressive or hypomanic/manic symptoms in this patient at this time. She does describe of beliefs that she has a chip implanted in her hand and nose, but otherwise I can elicit no delusional material. She does not describe any desire to self injure to extract these chips. Remainder of the psychiatric ROS is negative. No acute physical complaints. She is requesting discharge from the psychiatric emergency room this morning. Past psychiatric history: The patient has a history of schizoaffective disorder. She follows at [facility] but is nonadherent with treatment by her report. She denies any psychiatric admissions since the one last November. She denies any history of suicide attempts. Family history: The patient denies any family history of serious mental illness or suicide. Chemical dependency history: The patient denies any substance use besides cigarettes. Social history: The patient is homeless. She is single. She has a son. She has a GED. She collects SSI. She denies any access to guns or firearms. She denies any legal problems. Review of Systems Except as stated in HPI: all other systems reviewed are Neg Past Family Social History Coded Allergies: Sulfa (Sulfonamide Antibiotics) (Verified Allergy, Severe, Itching, ) haloperidol (Verified Allergy, Severe, unknown, 09/17/17) ampicillin (Verified Allergy, Mild, Nausea/Vomiting, 09/17/17) *MDRO Multi-Drug Resistant Organism (Verified Allergy, Unknown, 09/17/17) MRSA 2013 MRSA PCR screen NEGATIVE 10/29/16 & 11/23/16 Cleared per Infection Control Past Medical History See electronic medical record No Active Prescriptions or Reported Meds Patient's Strengths (min. 2) Able to access clinical care. Verbally fluent. Physical Exam Physical exam completed by ED provider. On my examination today, patient appears to be in no acute physical distress. No motor abnormalities noted. Attending to basic hygiene and no severe self-care deficit noted. Patient is refusing labs. Vitals reviewed. Vital Signs Vital Signs Date Time Temp Pulse Resp B/P (MAP) Pulse Ox O2 Delivery O2 Flow Rate FiO2 09/25/17 06:20 98.2 60 16 120/68 (85) 100 Room Air Mental Status Examination Appearance: Disheveled (maintaining basic hygiene) Consciousness: Alert Orientation: x4 Motor Activity: Other (no motor abnormalities noted) Speech: Unremarkable Language: Adequate Fund of Knowledge: Adequate Attention and Concentration: Adequate Memory: Unremarkable Mood: Appropriate Affect: Flat Thought Process & Associations: Intact, Logical, Linear Thought Content: Delusional (mild) Hallucination Type: None Delusion Type: Somatic (as noted above) Suicidal Ideation: No Suicidal Plan: No Suicidal Intention: No Homicidal Ideation: No Homicidal Plan: No Homicidal Intention: No Mental Status Exam Remarks Insight and judgment are likely chronically fair to poor. Assessment & Plan Problem List: (1) Other schizoaffective disorders ICD Codes: F25.8 - Other schizoaffective disorders Status: Acute Assessment & Plan 52-year-old female with psychiatric history as detailed above presently admitted under a Shaw act. On my examination today, the patient denies suicidal or homicidal ideation. Although she articulates some somatic delusions as noted in the history of present illness, there is no evidence of severely decompensated psychotic illness or any other mental illness in this patient at this time. I suspect that she is at her chronic baseline. She appears to be attending to her basic needs. Synthesizing this information and based on the available evidence, I bank boss that the patient does not presently meet the Shaw act criteria. I have lifted the Shaw act. I have recommended outpatient mental health follow-up. I have counseled the patient regarding warning signs for need to return to the psychiatric emergency room as part of a general safety plan. Patient is psychiatrically cleared for discharge from the emergency room. Thank you very much for this consultation. Request HC Surrog/Guard Advoc?: No Mikey Khanna MD Sep 25, 2017 09:02
--- NOTE | 2017-09-25 09:41 | PD ---
Physical Exam Date Seen by Provider: Sep 25, 2017 Time Seen by Provider: 09:41 Narrative Patient was seen and evaluated by the psychiatrist. Shaw Act has been lifted by the psychiatrist. I was asked to discharge the patient. The patient denies any suicidal or homicidal thoughts. She is agitated on my exam, upset about her cat, but wanting to be discharged. Data Data Last Documented VS Vital Signs Date Time Temp Pulse Resp B/P (MAP) Pulse Ox O2 Delivery O2 Flow Rate FiO2 09/25/17 06:20 98.2 60 16 120/68 (85) 100 Room Air Orders Orders Complete Blood Count With Diff (09/25/17 00:39) Comprehensive Metabolic Panel (09/25/17 00:39) Thyroid Stimulating Hormone (09/25/17 00:39) Psych Screen (09/25/17 00:39) Drug Screen, Random Urine (09/25/17 00:39) Alcohol (Ethanol) (09/25/17 00:39) Diet Regular Basic (09/25/17 Breakfast) MDM Supervised Visit with CAROLYN: No Diagnosis Primary Impression: Schizoaffective disorder Qualified Codes: F25.9 - Schizoaffective disorder, unspecified Referrals: Psychiatrist call for appointment Patient Instructions: General Instructions, Schizoaffective Disorder (ED) Additional Instruction: Follow up with your psychiatrist. Return to the emergency department for any acute, worsening of symptoms. Med/Other Pt SpecificInfo: No Change to Meds Scripts No Active Prescriptions or Reported Meds Disposition: 01 DISCHARGE HOME Condition: Stable Mare Samuel Sep 25, 2017 09:41
== END 2017-09-25 09:54 | disposition home or self-care (01) ==
LOC: NEPJ 23:57
DX: F25.9 Schizoaffective disorder, unspecified (principal); F31.9 Bipolar disorder, unspecified; F41.9 Anxiety disorder, unspecified; E11.9 Type 2 diabetes mellitus without complications; I10 Essential (primary) hypertension; F17.200 Nicotine dependence, unspecified, uncomplicated
CPT/HCPCS: 99283

== ENCOUNTER 2017-10-10 21:35 | Emergency (ER) | payer MEDICARE, OTHER ==
[2017-10-10] MEDS ORDERED: diphenhydrAMINE HCL 50 MG/ML VIAL IV PUSH ONE (21:45)
--- NOTE | 2017-10-10 21:54 | PD ---
HPI Chief Complaint: Psychiatric Symptoms Time Seen by Provider: 21:42 Travel History International Travel<30 days: No Contact w/Intl Traveler<30days: No History of Present Illness HPI 52-year-old female patient with history of bipolar disorder, schizoaffective disorder, homelessness, presents to the ER today brought in by EMS with initial complaint that she was having foot pain, but in the ER she tells me that she has had a 3-4 day history of discomfort, itchiness, and rash and swelling not only on her foot but all over her body. She states it larsen. She denies any injuries, fevers, chest pains, shortness of breath, or other issues. She had initially refused to give us her name but she gave us her Social Security number and we were able to find her records. She states that she lives out of [facility], and is not sure whether she has been exposed to any new chemicals or medications. She is not having any suicidal ideation or homicidal ideation. Modifying Factors: None Associated Signs & Symptoms: Itchiness and swelling to her feet, her body, hands Risk Factors: Schizoaffective disorder PFSH Past Medical History Blood Disorders: No Bipolar Disorder: Yes Anxiety: Yes Depression: Yes Cancer: No Cardiovascular Problems: No Chemotherapy: No Diabetes: Yes (NO MEDS PER PATIENT) Diminished Hearing: No Endocrine: No Gastrointestinal Disorders: No Glaucoma: No Genitourinary: No Headaches: Yes Hypertension: Yes Immune Disorder: No Implanted Vascular Access Dvce: No Musculoskeletal: No Neurologic: No Psychiatric: Yes (SCHIZOAFFECTIVE DISORDER) Reproductive: No Respiratory: No Immunizations Current: Yes Radiation Therapy: No Schizophrenia: Yes Seizures: Yes Sickle Cell Disease: No Menopausal: Yes : 1 Para: 1 Past Surgical History AICD: No Arteriovenous Shunt: No Section: No Insulin Pump: No Joint Replacement: No Oral Surgery: Yes (TEETH REMOVED FOR DENTURES) Pacemaker: No Other Surgery: Yes Social History Alcohol Use: Yes Tobacco Use: Yes (1PPD) 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) Allergies-Medications (Allergen,Severity, Reaction): Coded Allergies: Sulfa (Sulfonamide Antibiotics) (Verified Allergy, Severe, Itching, 10/10/17 ) haloperidol (Verified Allergy, Severe, unknown, 10/10/17) ampicillin (Verified Allergy, Mild, Nausea/Vomiting, 10/10/17) *MDRO Multi-Drug Resistant Organism (Verified Allergy, Unknown, 10/10/17) MRSA 2013 MRSA PCR screen NEGATIVE 10/29/16 & 11/23/16 Cleared per Infection Control Reported Meds & Prescriptions Reported Meds & Active Scripts Active No Active Prescriptions or Reported Medications Review of Systems ROS Limitations: Poor Historian Except as stated in HPI: all other systems reviewed are Neg Physical Exam Narrative GENERAL: Well-developed middle-age female patient currently in mild distress. Awake and alert, oriented 3. SKIN: Focused skin assessment warm/dry. There is a notable erythematous scaly rash notable especially to the hands and feet, and face. Nontender to palpation. HEAD: Atraumatic. Normocephalic. EYES: Pupils equal and round. No scleral icterus. No injection or drainage. ENT: No nasal bleeding or discharge. Mucous membranes pink and moist. NECK: Trachea midline. No JVD. Supple. CARDIOVASCULAR: Regular rate and rhythm. No murmur appreciated. RESPIRATORY: No accessory muscle use. Clear to auscultation. Breath sounds equal bilaterally. GASTROINTESTINAL: Abdomen soft, non-tender, nondistended. Hepatic and splenic margins not palpable. MUSCULOSKELETAL: No obvious deformities. No clubbing. No cyanosis. No edema. NEUROLOGICAL: Awake and alert. No obvious cranial nerve deficits. Motor grossly within normal limits. Normal speech. PSYCHIATRIC: Agitated mood and affect; insight and judgment poor. Data Data Orders Orders Complete Blood Count With Diff (10/10/17 21:43) Diphenhydramine Inj (Benadryl Inj) (10/10/17 21:45) Comprehensive Metabolic Panel (10/10/17 21:43) Ed Discharge Order (10/10/17 22:53) Labs Laboratory Tests Test 10/10/17 21:55 White Blood Count 9.1 TH/MM3 Red Blood Count 3.93 MIL/MM3 Hemoglobin 12.0 GM/DL Hematocrit 35.3 % Mean Corpuscular Volume 89.6 FL Mean Corpuscular Hemoglobin 30.5 PG Mean Corpuscular Hemoglobin Concent 34.0 % Red Cell Distribution Width 11.4 % Platelet Count 478 TH/MM3 Mean Platelet Volume 6.8 FL Neutrophils (%) (Auto) 58.8 % Lymphocytes (%) (Auto) 31.0 % Monocytes (%) (Auto) 7.3 % Eosinophils (%) (Auto) 2.1 % Basophils (%) (Auto) 0.8 % Neutrophils # (Auto) 5.3 TH/MM3 Lymphocytes # (Auto) 2.8 TH/MM3 Monocytes # (Auto) 0.7 TH/MM3 Eosinophils # (Auto) 0.2 TH/MM3 Basophils # (Auto) 0.1 TH/MM3 CBC Comment DIFF FINAL Differential Comment Blood Urea Nitrogen 18 MG/DL Creatinine 0.80 MG/DL Random Glucose 110 MG/DL Total Protein 7.0 GM/DL Albumin 3.1 GM/DL Calcium Level 8.8 MG/DL Alkaline Phosphatase 91 U/L Aspartate Amino Transf (AST/SGOT) 19 U/L Alanine Aminotransferase (ALT/SGPT) 17 U/L Total Bilirubin 0.3 MG/DL Sodium Level 137 MEQ/L Potassium Level 3.4 MEQ/L Chloride Level 102 MEQ/L Carbon Dioxide Level 30.2 MEQ/L Anion Gap 5 MEQ/L Estimat Glomerular Filtration Rate 75 ML/MIN MDM Medical Decision Making Medical Screen Exam Complete: Yes Emergency Medical Condition: Yes Interpretation(s) Laboratory Tests Test 10/10/17 21:55 Red Blood Count 3.93 MIL/MM3 (4.00-5.30) Red Cell Distribution Width 11.4 % (11.6-17.2) Platelet Count 478 TH/MM3 (150-450) Mean Platelet Volume 6.8 FL (7.0-11.0) Random Glucose 110 MG/DL (74-106) Albumin 3.1 GM/DL (3.4-5.0) Potassium Level 3.4 MEQ/L (3.5-5.1) Estimat Glomerular Filtration Rate 75 ML/MIN (>89) Differential Diagnosis Allergic reaction versus chemical irritation versus cellulitis Narrative Course I have given her Benadryl which she had requested as well. On reevaluation at 10:50 PM, she is resting comfortably, having a drink, and asked me to turn off the light. I have discussed releasing her with further follow-up to primary care doctor and Benadryl for the itching, and she states understanding. Diagnosis Primary Impression: Allergic reaction Med/Other Pt SpecificInfo: Prescription(s) given Scripts Epinephrine Inj (Epinephrine Inj) 0.3 Mg/0.3 Ml Pfpen 0.3 MG SQ ONCE Y for ALLERGIC REACTION, #1 PEN 0 Refills Prov: Soontharothai,Rewadee MD 10/10/17 Prednisone (Prednisone) 50 Mg Tab 50 MG PO DAILY for 3 Days, #3 TAB 0 Refills Prov: Vanita Hope MD 10/10/17 Diphenhydramine (Diphenhydramine) 25 Mg Tab 25 MG PO Q6H Y for ALLERGIES, #15 TAB 0 Refills Prov: Vanita Hope MD 10/10/17 Disposition: 01 DISCHARGE HOME Condition: Stable Vanita Hope MD Oct 10, 2017 21:54
[2017-10-10 22:04] LABS: AUTOMATED NEUTROPHIL # 5.3 TH/MM3 (1.8-7.7); BASOPHIL # 0.1 TH/MM3 (0-0.2); BASOPHIL % 0.8 % (0.0-2.0); EOSINOPHIL # 0.2 TH/MM3 (0-0.4); EOSINOPHIL % 2.1 % (0.0-4.0); HEMATOCRIT 35.3 % (35.0-46.0); LYMPHOCYTE # 2.8 TH/MM3 (1.0-4.8); MEAN CELL VOLUME 89.6 FL (80.0-100.0); MEAN CORPUSCULAR HEMOGLOBIN 30.5 PG (27.0-34.0); MEAN PLATELET VOLUME 6.8 FL (7.0-11.0); MONO % 7.3 % (0.0-8.0); MONOCYTE # 0.7 TH/MM3 (0-0.9); NEUT % 58.8 % (16.0-70.0); PLATELET COUNT 478 TH/MM3 (150-450); RED BLOOD COUNT 3.93 MIL/MM3 (4.00-5.30); RED CELL DISTRIBUTION WIDTH 11.4 % (11.6-17.2); WHITE BLOOD COUNT 9.1 TH/MM3 (4.0-11.0)
[2017-10-10 22:10] LABS: CHLORIDE 102 MEQ/L (98-107); SODIUM (NA) 137 MEQ/L (136-145)
[2017-10-10 22:14] LABS: ALBUMIN 3.1 GM/DL (3.4-5.0); BICARBONATE 30.2 MEQ/L (21.0-32.0); BLOOD UREA NITROGEN 18 MG/DL (7-18); CALCIUM 8.8 MG/DL (8.5-10.1); GLUCOSE,RANDOM 110 MG/DL (74-106)
[2017-10-10 22:17] LABS: ALT (GPT) 17 U/L (10-53); AST (GOT) 19 U/L (15-37); GLOMERULAR FILTRATION RATE 75 ML/MIN (>89)
[2017-10-10 22:19] LABS: TOTAL BILIRUBIN ADULT 0.3 MG/DL (0.2-1.0)
[2017-10-10 22:20] LABS: ALKALINE PHOSPHATASE 91 U/L (45-117)
[2017-10-10] MEDS ORDERED: EPIN1INJ17 SQ (23:01)
[2017-10-10] MEDS ORDERED: DIPH25TA2 PO (23:01)
[2017-10-10] MEDS ORDERED: PRED50 PO (23:01)
== END 2017-10-11 00:51 | disposition home or self-care (01) ==
LOC: PHED 21:35
DX: T78.40XA Allergy, unspecified, initial encounter (principal); R21 Rash and other nonspecific skin eruption; M79.89 Other specified soft tissue disorders; F25.9 Schizoaffective disorder, unspecified; F41.9 Anxiety disorder, unspecified; E11.9 Type 2 diabetes mellitus without complications; I10 Essential (primary) hypertension; F17.200 Nicotine dependence, unspecified, uncomplicated; Z59.0 Homelessness
CPT/HCPCS: 80053; 85025; 96374; 99284; J1200

== ENCOUNTER 2017-10-21 18:55 | Emergency (ER) | payer MEDICARE, OTHER ==
[~2017-10-21 18:55] MED LIST changes: +DIPH25TA2 PO; +EPIN1INJ17 SQ; -LOTR1CRE TOPICAL; -MUPI2%T TOPICAL; +PRED50 PO; -PYRE1SHA4 TOPICAL
== END 2017-10-21 19:46 | disposition left against medical advice (07) ==
LOC: NED 18:55
DX: Z53.21 Procedure and treatment not carried out due to patient leaving prior to being seen by health care provider (principal)
CPT/HCPCS: 99281

== ENCOUNTER 2017-10-21 20:26 | Emergency (ER) | payer MEDICARE, OTHER | END 2017-10-21 20:59 | disposition left against medical advice (07) | LOC: NED 20:26 | DX: Z53.21 Procedure and treatment not carried out due to patient leaving prior to being seen by health care provider (principal) | CPT/HCPCS: 99281 ==

== ENCOUNTER 2017-12-03 00:35 | Emergency (ER) | payer MEDICARE, OTHER ==
[2017-12-03 00:38] VITALS: BP 143/87; PULSE 109; RESP 18; TEMP 98.9; O2SAT 97
[2017-12-03] MEDS ORDERED: SODIUM CHLOR 0.9% 1000 ML INJ 1,000 ML IV SCH (00:59)
[2017-12-03] MEDS ORDERED: ONDANSETRON ODT 4 MG TAB PO ONE (01:00)
--- NOTE | 2017-12-03 01:05 | PD ---
HPI Chief Complaint: Fever Time Seen by Provider: 00:59 Travel History International Travel<30 days: No Contact w/Intl Traveler<30days: No Traveled to known affect area: No History of Present Illness HPI This is a 52-year-old homeless female with history of schizoaffective disorder who presents for evaluation. She reports over the past 2-3 days she has had chills and generalized myalgias, decreased appetite and nausea. Symptoms are moderate, no aggravating or relieving factors. She reports she has to walk several miles a day secondary to her homelessness. Despite being nauseous she is currently requesting something to eat. She has been seen here several times in the past with similar generalized complaints. She has no other focal complaints at this time. [facility] Past Medical History Blood Disorders: No Bipolar Disorder: Yes Anxiety: Yes Depression: Yes Cancer: No Cardiovascular Problems: No Chemotherapy: No Diabetes: Yes (NO MEDS PER PATIENT) Patient Takes Glucophage: No Diminished Hearing: No Endocrine: No Gastrointestinal Disorders: No Glaucoma: No Genitourinary: No Headaches: Yes Hypertension: Yes Immune Disorder: No Implanted Vascular Access Dvce: No Musculoskeletal: No Neurologic: No Psychiatric: Yes (SCHIZOAFFECTIVE DISORDER) Reproductive: No Respiratory: No Immunizations Current: Yes Radiation Therapy: No Schizophrenia: Yes Seizures: Yes Sickle Cell Disease: No ?: Not Menopausal: Yes : 1 Para: 1 Past Surgical History AICD: No Arteriovenous Shunt: No Section: No Insulin Pump: No Joint Replacement: No Oral Surgery: Yes (TEETH REMOVED FOR DENTURES) Pacemaker: No Other Surgery: Yes Social History Alcohol Use: Yes Tobacco Use: Yes Substance Use: Yes (HX K2 abuse) Allergies-Medications (Allergen,Severity, Reaction): Coded Allergies: Sulfa (Sulfonamide Antibiotics) (Verified Allergy, Severe, Itching, ) haloperidol (Verified Allergy, Severe, unknown, 12/03/17) ampicillin (Verified Allergy, Mild, Nausea/Vomiting, 12/03/17) *MDRO Multi-Drug Resistant Organism (Verified Allergy, Unknown, 12/03/17) MRSA 2013 MRSA PCR screen NEGATIVE 10/29/16 & 11/23/16 Cleared per Infection Control Reported Meds & Prescriptions Reported Meds & Active Scripts Active No Active Prescriptions or Reported Medications Review of Systems Except as stated in HPI: all other systems reviewed are Neg Physical Exam Narrative GENERAL: Well-developed well-nourished female no acute distress SKIN: Warm and dry. HEAD: Atraumatic. Normocephalic. EYES: Pupils equal and round. No scleral icterus. No injection or drainage. ENT: No nasal bleeding or discharge. Mucous membranes pink and moist. NECK: Trachea midline. No JVD. CARDIOVASCULAR: Regular rate and rhythm. No murmur appreciated. RESPIRATORY: No accessory muscle use. Clear to auscultation. Breath sounds equal bilaterally. GASTROINTESTINAL: Abdomen soft, non-tender, nondistended. Hepatic and splenic margins not palpable. MUSCULOSKELETAL: No obvious deformities. No clubbing. No cyanosis. No edema. NEUROLOGICAL: Awake and alert. No obvious cranial nerve deficits. Motor grossly within normal limits. Normal speech. Data Data Last Documented VS Vital Signs Date Time Temp Pulse Resp B/P (MAP) Pulse Ox O2 Delivery O2 Flow Rate FiO2 12/03/17 00:38 98.9 109 18 143/87 (105) 97 Orders Orders Chest, Single Ap (12/03/17 ) Sodium Chlor 0.9% 1000 Ml Inj (Ns 1000 M (12/03/17 00:59) Ondansetron Odt (Zofran Odt) (12/03/17 01:00) MDM Medical Decision Making Medical Screen Exam Complete: Yes Emergency Medical Condition: Yes Medical Record Reviewed: Yes Differential Diagnosis Homelessness, malingering, dehydration, hypoglycemia, electrolyte abnormality, rhabdomyolysis Narrative Course Lab work, urinalysis, chest x-ray ordered. The patient was given IV fluids and Zofran. 0210: I was informed by the nurses at some point the patient eloped. Diagnosis Primary Impression: Left against medical advice Scripts No Active Prescriptions or Reported Meds Disposition: 07 AGAINST MEDICAL ADVICE Condition: Stable Benjie Moon December 03, 2017 01:04
--- NOTE | 2017-12-03 01:52 | RADRPT ---
EXAM DATE: 12/03/2017 1:48 AM EDT AGE/SEX: 52 years / Female INDICATIONS: Fever. CLINICAL DATA: This is the patient's initial encounter. Patient reports that signs and symptoms have been present for 1 day and indicates a pain score of 0/10. MEDICAL/SURGICAL HISTORY: None. None. COMPARISON: [facility], CHEST SINGLE AP, 11/23/2016. . FINDINGS: A single AP view of the chest demonstrates the lungs to be symmetrically aerated without evidence of mass, infiltrate or effusion. The cardiomediastinal contours are unremarkable. Osseous structures a re intact. CONCLUSION: No acute cardiopulmonary disease demonstrated. Electronically signed by: Reji Britton MD 12/03/2017 1:51 AM EDT
== END 2017-12-03 02:33 | disposition left against medical advice (07) ==
LOC: NEPD 00:35
DX: R11.0 Nausea (principal); Z53.21 Procedure and treatment not carried out due to patient leaving prior to being seen by health care provider; F25.9 Schizoaffective disorder, unspecified; E11.9 Type 2 diabetes mellitus without complications; I10 Essential (primary) hypertension; Z72.0 Tobacco use; Z59.0 Homelessness; Z88.0 Allergy status to penicillin; Z88.2 Allergy status to sulfonamides
CPT/HCPCS: 71045; 99283

== ENCOUNTER 2017-12-03 06:26 | Emergency (ER) | payer MEDICARE, OTHER ==
[2017-12-03 06:28] VITALS: BP 137/71; PULSE 104; RESP 18; TEMP 98; O2SAT 99
[2017-12-03] MEDS ORDERED: SODIUM CHLOR 0.9% 1000 ML INJ 1,000 ML IV SCH (06:42)
[2017-12-03] MEDS ORDERED: ONDANSETRON ODT 4 MG TAB PO ONE (06:45)
--- NOTE | 2017-12-03 06:45 | PD ---
HPI Chief Complaint: Medical Clearance Time Seen by Provider: 06:43 Travel History International Travel<30 days: No Contact w/Intl Traveler<30days: No Traveled to known affect area: No History of Present Illness HPI This is a 52-year-old female with history of schizoaffective disorder who returns for evaluation. For the past few days she has been having myalgias, chills and nausea. She reports that she has a decreased appetite secondary to nausea but she is requesting something to eat. She reports that she has to walk several miles a day secondary to being homeless. Symptoms are moderate, aggravated by likely homelessness. She was seen here earlier this evening for evaluation of the same symptoms however she abruptly left prior to any lab work being performed. She did have a chest x-ray performed which was normal. She is seen here frequently for vague complaints. She has no other complaints at this time. PFSH Past Medical History Blood Disorders: No Bipolar Disorder: Yes Anxiety: Yes Depression: Yes Cancer: No Cardiovascular Problems: No Chemotherapy: No Diabetes: Yes (NO MEDS PER PATIENT) Diminished Hearing: No Endocrine: No Gastrointestinal Disorders: No Glaucoma: No Genitourinary: No Headaches: Yes Hypertension: Yes Immune Disorder: No Implanted Vascular Access Dvce: No Musculoskeletal: No Neurologic: No Psychiatric: Yes (SCHIZOAFFECTIVE DISORDER) Reproductive: No Respiratory: No Immunizations Current: Yes Radiation Therapy: No Schizophrenia: Yes Seizures: Yes Sickle Cell Disease: No Menopausal: Yes : 1 Para: 1 Past Surgical History AICD: No Arteriovenous Shunt: No Section: No Insulin Pump: No Joint Replacement: No Oral Surgery: Yes (TEETH REMOVED FOR DENTURES) Pacemaker: No Other Surgery: Yes Social History Alcohol Use: Yes Tobacco Use: Yes Substance Use: Yes (HX K2 abuse) Allergies-Medications (Allergen,Severity, Reaction): Coded Allergies: Sulfa (Sulfonamide Antibiotics) (Verified Allergy, Severe, Itching, ) haloperidol (Verified Allergy, Severe, unknown, 12/03/17) ampicillin (Verified Allergy, Mild, Nausea/Vomiting, 12/03/17) *MDRO Multi-Drug Resistant Organism (Verified Allergy, Unknown, 12/03/17) MRSA 2013 MRSA PCR screen NEGATIVE 10/29/16 & 11/23/16 Cleared per Infection Control Reported Meds & Prescriptions Reported Meds & Active Scripts Active No Active Prescriptions or Reported Medications Review of Systems Except as stated in HPI: all other systems reviewed are Neg Physical Exam Narrative GENERAL: Well-nourished female no acute distress ambulating normally. SKIN: Warm and dry. HEAD: Atraumatic. Normocephalic. EYES: Pupils equal and round. No scleral icterus. No injection or drainage. ENT: No nasal bleeding or discharge. Mucous membranes pink and moist. NECK: Trachea midline. No JVD. CARDIOVASCULAR: Regular rate and rhythm. No murmur appreciated. RESPIRATORY: No accessory muscle use. Clear to auscultation. Breath sounds equal bilaterally. GASTROINTESTINAL: Abdomen soft, non-tender, nondistended. Hepatic and splenic margins not palpable. MUSCULOSKELETAL: No obvious deformities. No clubbing. No cyanosis. No edema. NEUROLOGICAL: Awake and alert. No obvious cranial nerve deficits. Motor grossly within normal limits. Normal speech. Data Data Last Documented VS Vital Signs Date Time Temp Pulse Resp B/P (MAP) Pulse Ox O2 Delivery O2 Flow Rate FiO2 12/03/17 10:01 12/03/17 06:28 98.0 104 18 99 Room Air Orders Orders Complete Blood Count With Diff (12/03/17 06:42) Comprehensive Metabolic Panel (12/03/17 06:42) Urinalysis - C+S If Indicated (12/03/17 06:42) Iv Access Insert/Monitor (12/03/17 06:42) Sodium Chlor 0.9% 1000 Ml Inj (Ns 1000 M (12/03/17 06:42) Creatine Kinase (Cpk) (12/03/17 06:42) Ondansetron Odt (Zofran Odt) (12/03/17 06:45) Ed Discharge Order (12/03/17 09:41) Labs Laboratory Tests Test 12/03/17 07:40 12/03/17 07:55 White Blood Count 9.8 TH/MM3 Red Blood Count 4.26 MIL/MM3 Hemoglobin 13.2 GM/DL Hematocrit 38.1 % Mean Corpuscular Volume 89.5 FL Mean Corpuscular Hemoglobin 31.0 PG Mean Corpuscular Hemoglobin Concent 34.6 % Red Cell Distribution Width 13.1 % Platelet Count 480 TH/MM3 Mean Platelet Volume 6.9 FL Neutrophils (%) (Auto) 64.3 % Lymphocytes (%) (Auto) 25.6 % Monocytes (%) (Auto) 8.5 % Eosinophils (%) (Auto) 0.7 % Basophils (%) (Auto) 0.9 % Neutrophils # (Auto) 6.3 TH/MM3 Lymphocytes # (Auto) 2.5 TH/MM3 Monocytes # (Auto) 0.8 TH/MM3 Eosinophils # (Auto) 0.1 TH/MM3 Basophils # (Auto) 0.1 TH/MM3 CBC Comment DIFF FINAL Differential Comment Blood Urea Nitrogen 17 MG/DL Creatinine 0.89 MG/DL Random Glucose 98 MG/DL Total Protein 7.9 GM/DL Albumin 3.9 GM/DL Calcium Level 9.3 MG/DL Alkaline Phosphatase 104 U/L Aspartate Amino Transf (AST/SGOT) 38 U/L Alanine Aminotransferase (ALT/SGPT) 55 U/L Total Bilirubin 0.7 MG/DL Sodium Level 137 MEQ/L Potassium Level 3.8 MEQ/L Chloride Level 101 MEQ/L Carbon Dioxide Level 26.9 MEQ/L Anion Gap 9 MEQ/L Estimat Glomerular Filtration Rate 66 ML/MIN Total Creatine Kinase 124 U/L Urine Color YELLOW Urine Turbidity CLEAR Urine pH 5.5 Urine Specific [place] 1.009 Urine Protein NEG mg/dL Urine Glucose (UA) NEG mg/dL Urine Ketones NEG mg/dL Urine Occult Blood NEG Urine Nitrite NEG Urine Bilirubin NEG Urine Urobilinogen LESS THAN 2.0 MG/DL Urine Leukocyte Esterase NEG Urine WBC 1 /hpf Urine Squamous Epithelial Cells 1 /hpf Microscopic Urinalysis Comment CULT NOT INDICATED MDM Medical Decision Making Medical Screen Exam Complete: Yes Emergency Medical Condition: Yes Medical Record Reviewed: Yes Differential Diagnosis Malingering, homelessness, dehydration, electrolyte abnormality, hypoglycemia, rhabdomyolysis, UTI Narrative Course The patient will be given IV fluids and Zofran. Basic lab work and urinalysis have been performed. At the end of my shift the patient will be signed out to the oncoming provider to follow-up on lab work and urinalysis results. Likely the patient will be able to be discharged home if there is no gross abnormality. Scripts No Active Prescriptions or Reported Meds Benjie Moon December 03, 2017 06:45
[2017-12-03 08:05] LABS: AUTOMATED NEUTROPHIL # 6.3 TH/MM3 (1.8-7.7); BASOPHIL # 0.1 TH/MM3 (0-0.2); BASOPHIL % 0.9 % (0.0-2.0); EOSINOPHIL # 0.1 TH/MM3 (0-0.4); EOSINOPHIL % 0.7 % (0.0-4.0); HEMATOCRIT 38.1 % (35.0-46.0); HEMOGLOBIN 13.2 GM/DL (11.6-15.3); LYMPH % 25.6 % (9.0-44.0); LYMPHOCYTE # 2.5 TH/MM3 (1.0-4.8); MEAN CELL VOLUME 89.5 FL (80.0-100.0); MEAN CORPUSCULAR HGB CONC 34.6 % (32.0-36.0); MEAN PLATELET VOLUME 6.9 FL (7.0-11.0); MONO % 8.5 % (0.0-8.0); MONOCYTE # 0.8 TH/MM3 (0-0.9); NEUT % 64.3 % (16.0-70.0); PLATELET COUNT 480 TH/MM3 (150-450); RED BLOOD COUNT 4.26 MIL/MM3 (4.00-5.30); RED CELL DISTRIBUTION WIDTH 13.1 % (11.6-17.2); WHITE BLOOD COUNT 9.8 TH/MM3 (4.0-11.0)
[2017-12-03 08:22] LABS: ALBUMIN 3.9 GM/DL (3.4-5.0); ALT (GPT) 55 U/L (10-53); AST (GOT) 38 U/L (15-37); BICARBONATE 26.9 MEQ/L (21.0-32.0); BLOOD UREA NITROGEN 17 MG/DL (7-18); CALCIUM 9.3 MG/DL (8.5-10.1); CHLORIDE 101 MEQ/L (98-107); CREATININE 0.89 MG/DL (0.50-1.00); GLOMERULAR FILTRATION RATE 66 ML/MIN (>89); GLUCOSE,RANDOM 98 MG/DL (74-106); SODIUM (NA) 137 MEQ/L (136-145)
[2017-12-03 08:25] LABS: ALKALINE PHOSPHATASE 104 U/L (45-117); TOTAL BILIRUBIN ADULT 0.7 MG/DL (0.2-1.0); TOTAL PROTEIN 7.9 GM/DL (6.4-8.2)
--- NOTE | 2017-12-03 08:38 | PD ---
Physical Exam Date Seen by Provider: December 03, 2017 Narrative 52-year-old female presents emergency department evaluation of general malaise, fatigue that appears to be chronic. She was evaluated by the previous provider and signed out to me for evaluation of labs and disposition. Throughout the emergency department visit today, she is found pacing throughout her room and the pod. She was repeatedly asked to return to her room and she did so willingly. Her labs are stable at this point. She has no other complaints today would like to go home. Patient will be discharged advised to follow-up with a primary care physician. Data Data Last Documented VS Vital Signs Date Time Temp Pulse Resp B/P (MAP) Pulse Ox O2 Delivery O2 Flow Rate FiO2 12/03/17 10:01 12/03/17 06:28 98.0 104 18 99 Room Air Orders Orders Complete Blood Count With Diff (12/03/17 06:42) Comprehensive Metabolic Panel (12/03/17 06:42) Urinalysis - C+S If Indicated (12/03/17 06:42) Iv Access Insert/Monitor (12/03/17 06:42) Sodium Chlor 0.9% 1000 Ml Inj (Ns 1000 M (12/03/17 06:42) Creatine Kinase (Cpk) (12/03/17 06:42) Ondansetron Odt (Zofran Odt) (12/03/17 06:45) Ed Discharge Order (12/03/17 09:41) Labs Laboratory Tests Test 12/03/17 07:40 12/03/17 07:55 White Blood Count 9.8 TH/MM3 Red Blood Count 4.26 MIL/MM3 Hemoglobin 13.2 GM/DL Hematocrit 38.1 % Mean Corpuscular Volume 89.5 FL Mean Corpuscular Hemoglobin 31.0 PG Mean Corpuscular Hemoglobin Concent 34.6 % Red Cell Distribution Width 13.1 % Platelet Count 480 TH/MM3 Mean Platelet Volume 6.9 FL Neutrophils (%) (Auto) 64.3 % Lymphocytes (%) (Auto) 25.6 % Monocytes (%) (Auto) 8.5 % Eosinophils (%) (Auto) 0.7 % Basophils (%) (Auto) 0.9 % Neutrophils # (Auto) 6.3 TH/MM3 Lymphocytes # (Auto) 2.5 TH/MM3 Monocytes # (Auto) 0.8 TH/MM3 Eosinophils # (Auto) 0.1 TH/MM3 Basophils # (Auto) 0.1 TH/MM3 CBC Comment DIFF FINAL Differential Comment Blood Urea Nitrogen 17 MG/DL Creatinine 0.89 MG/DL Random Glucose 98 MG/DL Total Protein 7.9 GM/DL Albumin 3.9 GM/DL Calcium Level 9.3 MG/DL Alkaline Phosphatase 104 U/L Aspartate Amino Transf (AST/SGOT) 38 U/L Alanine Aminotransferase (ALT/SGPT) 55 U/L Total Bilirubin 0.7 MG/DL Sodium Level 137 MEQ/L Potassium Level 3.8 MEQ/L Chloride Level 101 MEQ/L Carbon Dioxide Level 26.9 MEQ/L Anion Gap 9 MEQ/L Estimat Glomerular Filtration Rate 66 ML/MIN Total Creatine Kinase 124 U/L Urine Color YELLOW Urine Turbidity CLEAR Urine pH 5.5 Urine Specific [place] 1.009 Urine Protein NEG mg/dL Urine Glucose (UA) NEG mg/dL Urine Ketones NEG mg/dL Urine Occult Blood NEG Urine Nitrite NEG Urine Bilirubin NEG Urine Urobilinogen LESS THAN 2.0 MG/DL Urine Leukocyte Esterase NEG Urine WBC 1 /hpf Urine Squamous Epithelial Cells 1 /hpf Microscopic Urinalysis Comment CULT NOT INDICATED MDM Supervised Visit with CAROLYN: No Diagnosis Primary Impression: Anxiety disorder Qualified Codes: F41.1 - Generalized anxiety disorder Referrals: [facility] Psychiatrist Additional Instruction: Ensure drink plenty of water to avoid dehydration or the same problems she had upon coming into the emergency department today. Follow-up with the [facility] regarding your care. Scripts No Active Prescriptions or Reported Meds Disposition: 01 DISCHARGE HOME Condition: Stable Angeles Gil December 03, 2017 08:38
[2017-12-03 09:26] LABS: BILIRUBIN, URINE NEG (NEG); BLOOD, URINE NEG (NEG); GLUCOSE,URINE NEG (NEG); KETONE, URINE NEG (NEG); NITRITE,URINE NEG (NEG); PH, URINE 5.5 (5.0-8.5); SQUAMOUS EPITHELIAL CELL URINE 1 /hpf (0-5); URINE COLOR YELLOW (YELLW/STRAW); URINE LEUKOCYTE ESTERASE NEG (NEG)
== END 2017-12-03 10:03 | disposition home or self-care (01) ==
LOC: NEPD 06:26
DX: F41.1 Generalized anxiety disorder (principal); Z72.0 Tobacco use; R11.0 Nausea; Z53.21 Procedure and treatment not carried out due to patient leaving prior to being seen by health care provider; F25.9 Schizoaffective disorder, unspecified; E11.9 Type 2 diabetes mellitus without complications; I10 Essential (primary) hypertension; Z59.0 Homelessness; Z88.0 Allergy status to penicillin; Z88.2 Allergy status to sulfonamides
CPT/HCPCS: 71045; 80053; 81001; 82550; 85025; 99283; J7030

== ENCOUNTER 2017-12-06 08:46 | Inpatient (IN) | payer MEDICARE, OTHER ==
[~2017-12-06] VITALS: Ht 162.6 cm; Wt 61.6 kg
[2017-12-06 08:56] VITALS: BP 164/76; PULSE 81; RESP 20; TEMP 97.5; O2SAT 100
[2017-12-06] MEDS ORDERED: diphenhydrAMINE HCL 50 MG/ML VIAL IM ONE ×2 (09:00→14:15)
[2017-12-06] MEDS ORDERED: TETANUS/DIPHTHERIA TOXOID ADULT 0.5 ML VIAL IM ONE (09:00)
[2017-12-06] MEDS ORDERED: ZIPRASIDONE MESYLATE 20 MG VIAL IM ONE ×2 (09:00→14:15)
--- NOTE | 2017-12-06 09:07 | PD ---
HPI Chief Complaint: Psychiatric Symptoms Time Seen by Provider: 09:00 Travel History International Travel<30 days: No Contact w/Intl Traveler<30days: No Traveled to known affect area: No History of Present Illness HPI This is a 52-year-old female with recorded history of schizoaffective disorder who presents under a Shaw act initiated by the Police Department. According to her paperwork she was found standing in traffic waving her arms and acting bizarrely. The patient is currently requesting that the Police Department kill her. Her speech is tangential. History is limited secondary to her acute psychosis. Per chart review the patient was seen here 2 times 3 days ago with vague complaints. Her medical workup was essentially unremarkable at that time. On examination she has a wound on her chin, she will not answer how the wound occurred. Symptoms are moderate, aggravated by psychosis, no alleviating factors. No other complaints. PFSH Past Medical History Blood Disorders: No Bipolar Disorder: Yes Anxiety: Yes Depression: Yes Cancer: No Cardiovascular Problems: No Chemotherapy: No Diabetes: Yes (NO MEDS PER PATIENT) Diminished Hearing: No Endocrine: No Gastrointestinal Disorders: No Glaucoma: No Genitourinary: No Headaches: Yes Hypertension: Yes Immune Disorder: No Implanted Vascular Access Dvce: No Musculoskeletal: No Neurologic: No Psychiatric: Yes (SCHIZOAFFECTIVE DISORDER) Reproductive: No Respiratory: No Immunizations Current: Yes Radiation Therapy: No Schizophrenia: Yes Seizures: Yes Sickle Cell Disease: No ?: Unknown Menopausal: Yes : 1 Para: 1 Past Surgical History AICD: No Arteriovenous Shunt: No Section: No Insulin Pump: No Joint Replacement: No Oral Surgery: Yes (TEETH REMOVED FOR DENTURES) Pacemaker: No Other Surgery: Yes Social History Alcohol Use: Yes (PT DENIES) Tobacco Use: Yes Substance Use: Yes (HX K2 abuse PT DENIES) Allergies-Medications (Allergen,Severity, Reaction): Coded Allergies: Sulfa (Sulfonamide Antibiotics) (Verified Allergy, Severe, Itching, ) haloperidol (Verified Allergy, Severe, unknown, 12/06/17) ampicillin (Verified Allergy, Mild, Nausea/Vomiting, 12/06/17) *MDRO Multi-Drug Resistant Organism (Verified Allergy, Unknown, 12/06/17) MRSA 2013 MRSA PCR screen NEGATIVE 10/29/16 & 11/23/16 Cleared per Infection Control Reported Meds & Prescriptions Reported Meds & Active Scripts Active No Active Prescriptions or Reported Medications Review of Systems ROS Limitations: Psychotic Except as stated in HPI: all other systems reviewed are Neg Physical Exam Exam Limitations: Psychotic Narrative GENERAL: Disheveled female in no acute distress SKIN: Warm and dry. There is a bleeding abrasion to the chin. HEAD: Atraumatic. Normocephalic. EYES: Pupils equal and round. No scleral icterus. No injection or drainage. ENT: No nasal bleeding or discharge. Mucous membranes pink and moist. NECK: Trachea midline. No JVD. CARDIOVASCULAR: Regular rate and rhythm. No murmur appreciated. RESPIRATORY: No accessory muscle use. Clear to auscultation. Breath sounds equal bilaterally. MUSCULOSKELETAL: No obvious deformities. No clubbing. No cyanosis. No edema. NEUROLOGICAL: Awake and alert. No obvious cranial nerve deficits. Motor grossly within normal limits. Normal speech. PSYCHIATRIC: Agitated, insight and judgment are limited. Data Data Last Documented VS Vital Signs Date Time Temp Pulse Resp B/P (MAP) Pulse Ox O2 Delivery O2 Flow Rate FiO2 12/06/17 15:51 83 16 124/71 (88) 100 Room Air 12/06/17 09:10 98.1 Orders Orders Psych Screen (12/06/17 09:00) Drug Screen, Random Urine (12/06/17 09:00) Alcohol (Ethanol) (12/06/17 09:00) Ziprasidone Inj (Geodon Inj) (12/06/17 09:00) Diphenhydramine Inj (Benadryl Inj) (12/06/17 09:00) Ct Brain W/O Iv Contrast(Rout) (12/06/17 ) Ct Facial Bones W/O Iv Cont (12/06/17 ) Tetanus/Diphtheria Tox Adult (Tetanus/Di (12/06/17 09:00) Lorazepam Inj (Ativan Inj) (12/06/17 09:15) Complete Blood Count With Diff (12/06/17 09:12) Comprehensive Metabolic Panel (12/06/17 09:12) Thyroid Stimulating Hormone (12/06/17 09:12) Electrocardiogram (12/06/17 09:12) Oximetry (12/06/17 09:12) Ecg Monitoring (12/06/17 09:12) Salicylates (Aspirin) (12/06/17 09:12) Tylenol (Acetaminophen) (12/06/17 09:12) Restraints Non-Violent CLYDE.Q3H (12/06/17 10:00) Tylenol (Acetaminophen) (12/06/17 13:25) Electrocardiogram (12/06/17 10:03) Ziprasidone Inj (Geodon Inj) (12/06/17 14:15) Diphenhydramine Inj (Benadryl Inj) (12/06/17 14:15) Diet Regular Basic (12/06/17 Lunch) Diet Regular Basic (12/06/17 Dinner) Labs Laboratory Tests Test 12/06/17 09:25 12/06/17 09:45 12/06/17 13:15 White Blood Count 9.0 TH/MM3 Red Blood Count 3.87 MIL/MM3 Hemoglobin 12.1 GM/DL Hematocrit 35.1 % Mean Corpuscular Volume 90.6 FL Mean Corpuscular Hemoglobin 31.1 PG Mean Corpuscular Hemoglobin Concent 34.4 % Red Cell Distribution Width 13.1 % Platelet Count 446 TH/MM3 Mean Platelet Volume 7.2 FL Neutrophils (%) (Auto) 58.4 % Lymphocytes (%) (Auto) 29.4 % Monocytes (%) (Auto) 10.0 % Eosinophils (%) (Auto) 1.0 % Basophils (%) (Auto) 1.2 % Neutrophils # (Auto) 5.3 TH/MM3 Lymphocytes # (Auto) 2.7 TH/MM3 Monocytes # (Auto) 0.9 TH/MM3 Eosinophils # (Auto) 0.1 TH/MM3 Basophils # (Auto) 0.1 TH/MM3 CBC Comment DIFF FINAL Differential Comment Blood Urea Nitrogen 7 MG/DL Creatinine 0.76 MG/DL Random Glucose 86 MG/DL Total Protein 7.4 GM/DL Albumin 3.5 GM/DL Calcium Level 8.7 MG/DL Alkaline Phosphatase 96 U/L Aspartate Amino Transf (AST/SGOT) 28 U/L Alanine Aminotransferase (ALT/SGPT) 33 U/L Total Bilirubin 0.5 MG/DL Sodium Level 141 MEQ/L Potassium Level 3.3 MEQ/L Chloride Level 104 MEQ/L Carbon Dioxide Level 28.7 MEQ/L Anion Gap 8 MEQ/L Estimat Glomerular Filtration Rate 80 ML/MIN Thyroid Stimulating Hormone 3rd Gen 1.420 uIU/ML Salicylates Level 2.2 MG/DL Acetaminophen Level 18.9 MCG/ML 2.1 MCG/ML Ethyl Alcohol Level LESS THAN 3 MG/DL Urine Opiates Screen NEG Urine Barbiturates Screen NEG Urine Amphetamines Screen NEG Urine Benzodiazepines Screen NEG Urine Cocaine Screen NEG Urine Cannabinoids Screen NEG MDM Medical Decision Making Medical Screen Exam Complete: Yes Emergency Medical Condition: Yes Medical Record Reviewed: Yes Differential Diagnosis Acute psychosis, substance-induced mood disorder, schizophrenia, schizoaffective disorder, bipolar disorder, encephalitis, meningitis Narrative Course I reviewed the patient's lab work from December 03. Her CBC reveals a platelet count of 480 otherwise unremarkable. Her CMP revealed an AST of 38 and an ALT of 55 otherwise unremarkable. Her urinalysis was unremarkable. Because of her facial wounds, CT the brain and facial bones have been ordered. Tetanus status updated. The police reports that the patient appears to have drank half a bottle of generic DayQuil. Time unknown. Mental health screening discussed with the patient. Psychiatric screen ordered. CT imaging is negative. Tylenol level is 18.9. This will be repeated in 4 hours prior to medical clearance. Repeat Tylenol level is 2.1. Medically cleared for psychiatric disposition. Diagnosis Primary Impression: Medical clearance for psychiatric admission Scripts No Active Prescriptions or Reported Meds Benjie Moon December 06, 2017 09:07
[2017-12-06 09:10] VITALS: BP 150/65; PULSE 75; RESP 15; TEMP 98.1; O2SAT 100
[2017-12-06] MEDS ORDERED: LORazepam 2 MG/ML VIAL IM ONE (09:15)
[2017-12-06 10:00] LABS: AUTOMATED NEUTROPHIL # 5.3 TH/MM3 (1.8-7.7); BASOPHIL # 0.1 TH/MM3 (0-0.2); BASOPHIL % 1.2 % (0.0-2.0); EOSINOPHIL # 0.1 TH/MM3 (0-0.4); HEMATOCRIT 35.1 % (35.0-46.0); HEMOGLOBIN 12.1 GM/DL (11.6-15.3); LYMPH % 29.4 % (9.0-44.0); LYMPHOCYTE # 2.7 TH/MM3 (1.0-4.8); MEAN CELL VOLUME 90.6 FL (80.0-100.0); MEAN CORPUSCULAR HEMOGLOBIN 31.1 PG (27.0-34.0); MEAN CORPUSCULAR HGB CONC 34.4 % (32.0-36.0); MEAN PLATELET VOLUME 7.2 FL (7.0-11.0); MONOCYTE # 0.9 TH/MM3 (0-0.9); NEUT % 58.4 % (16.0-70.0); PLATELET COUNT 446 TH/MM3 (150-450); RED BLOOD COUNT 3.87 MIL/MM3 (4.00-5.30); RED CELL DISTRIBUTION WIDTH 13.1 % (11.6-17.2)
[2017-12-06 10:34] LABS: ACETAMINOPHEN 18.9 MCG/ML (10.0-30.0); ALBUMIN 3.5 GM/DL (3.4-5.0); ALT (GPT) 33 U/L (10-53); AST (GOT) 28 U/L (15-37); BICARBONATE 28.7 MEQ/L (21.0-32.0); BLOOD UREA NITROGEN 7 MG/DL (7-18); CALCIUM 8.7 MG/DL (8.5-10.1); CHLORIDE 104 MEQ/L (98-107); CREATININE 0.76 MG/DL (0.50-1.00); GLOMERULAR FILTRATION RATE 80 ML/MIN (>89); GLUCOSE,RANDOM 86 MG/DL (74-106); SODIUM (NA) 141 MEQ/L (136-145)
[2017-12-06 10:44] LABS: ALKALINE PHOSPHATASE 96 U/L (45-117); TOTAL BILIRUBIN ADULT 0.5 MG/DL (0.2-1.0); TOTAL PROTEIN 7.4 GM/DL (6.4-8.2)
--- NOTE | 2017-12-06 11:06 | RADRPT ---
EXAM DATE: 12/06/2017 10:58 AM EDT AGE/SEX: 52 years / Female INDICATIONS: Possible fall, chin laceration. CLINICAL DATA: This is the patient's initial encounter. Patient reports that signs and symptoms have been present for 1 day and indicates a pain score of 0/10. MEDICAL/SURGICAL HISTORY: Hypertension. None. RADIATION DOSE: 29.75 CTDI (mGy) [place] [facility] [place]21[place]. . TECHNIQUE: CT of the head without contrast. Using automated exposure control and adjustment of the mA and/or kV according to patient size, radiation dose was kept as low as reasonably achievable to ob tain optimal diagnostic quality images. FINDINGS: Cerebrum: The ventricles are normal. No midline shift, mass lesion, hemorrhage or acute infarction. No extraaxial fluid collections are seen. Posterior Fossa: The cerebellum and brainstem demonstrate no acute abnormality. The 4th ventricle is midline. The cerebellopontine angle is within normal limits. Extracranial: The visualized sinuses are clear. Skull: The calvaria is intact. No skull fracture. CONCLUSION: No acute intracranial abnormality is identified. Electronically signed by: Reji Mathew MD 12/06/2017 11:05 AM EDT
--- NOTE | 2017-12-06 11:14 | RADRPT ---
EXAM DATE: 12/06/2017 11:07 AM EDT AGE/SEX: 52 years / Female INDICATIONS: Possible fall, chin laceration. CLINICAL DATA: This is the patient's initial encounter. Patient reports that signs and symptoms have been present for 1 day and indicates a pain score of 0/10. MEDICAL/SURGICAL HISTORY: Hypertension. None. RADIATION DOSE: 44.98 CTDI (mGy) COMPARISON: No prior [facility] exams available for comparison. TECHNIQUE: Contiguous images in the axial and coronal planes were obtained using helical multirow de tector technique. Using automated exposure control and adjustment of the mA and/or kV according to p atient size, radiation dose was kept as low as reasonably achievable to obtain optimal diagnostic kimberly lity images. FINDINGS: Orbits: The orbital and infraorbital osseous structures are intact. The retroconal structures have a normal configuration. No radiopaque foreign bodies are seen. Nasal Bone: The nasal bone and maxillary spine are intact. Zygomatic Arches: Symmetric without evidence of fracture. Sinuses: The maxillary, ethmoid, and frontal sinuses are intact. No air-fluid levels seen. Nasal Cavity: Nasal septum is deviated to the right. Soft Tissues: There is mild subcutaneous air adjacent to the anterior midline mandible. Intracranial: No acute intracranial abnormality is identified. Other: Mandible is intact without fracture. Pterygoid plates are intact. Styloid processes are elonga barbi bilaterally. CONCLUSION: 1. There is mild soft tissue swelling and soft tissue air anterior to the mandible. 2. No fracture is identified. Electronically signed by: Reji Mathew MD 12/06/2017 11:13 AM EDT
[2017-12-06 11:47] VITALS: BP 95/54; PULSE 78; RESP 17; O2SAT 99
--- NOTE | 2017-12-06 14:07 | EKG ---
Date Performed: 12/06/2017 Time Performed: 09:20:10 PTAGE: 52 years EKG: Sinus rhythm WITH OCCASIONAL VENTRICULAR PREMATURE COMPLEXES MINIMAL ST DEPRESSION BORDERLINE ECG PREVIOUS TRACING : 11/22/2016 23.37 Since the previous tracing, no significant change noted DOCTOR: Farhat Campos Interpretating Date/Time 12/09/2017 08:12:21
[2017-12-06 15:51] VITALS: BP 124/71; PULSE 83; RESP 16; O2SAT 100
[2017-12-06] MEDS ORDERED: NICOTINE 21 MG/24 HR PATCH T-DERMAL PRN (18:15)
[2017-12-06] MEDS ORDERED: MAGNESIUM HYDROXIDE SUSP 30 ML CUP PO PRN (18:15)
[2017-12-06] MEDS ORDERED: ALUMINUM/MAGNESIUM/SIMETH 30 ML CUP PO PRN (18:15)
[2017-12-06] MEDS ORDERED: POTASSIUM CHLORIDE 20 MEQ CONTROLLED RELEASE TAB PO ONE (18:45)
[2017-12-06 20:00] VITALS: BP 121/73; PULSE 87; RESP 18; TEMP 97.4; O2SAT 100
[2017-12-06 20:30] VITALS: BP 121/73; PULSE 87; RESP 18; TEMP 97.4; O2SAT 100
[2017-12-07 05:57] VITALS: BP 117/51; PULSE 99; RESP 18; TEMP 96.9; O2SAT 98
[2017-12-07] MEDS ORDERED: OLANZapine IM 10 MG VIAL IM PRN (12:15)
--- NOTE | 2017-12-07 12:15 | HHI.HP ---
Provisional Diagnosis Admission Date December 06, 2017 at 18:13 [place]. Unspecified psychosis Certification of Person's Competence To Provide Express and Informed Consent I have personally examined Pilar Muniz , a person being served at [facility] on, December 07, 2017 11:51. Express and informed consent means consent voluntarily given in writing, by a competent person, after sufficient explanation and disclosure of the subject matter involved to enable the person to make a knowing and willful decision without any element of force, fraud, deceit, duress, or other form of constraint or coercion. This person is 18 years of age or older, is not now known to be incompetent to consent to treatment with a guardian advocate, and does not have a health care surrogate or proxy currently making medical treatment decisions. I have found this person to be one of the following: [] Competent to provide express and informed consent, as defined above, for voluntary admission to this facility and is competent to provide express and informed consent for treatment. He/she has the consistent capacity to make well reasoned, willful, and knowing decisions concerning his or her medical or mental health treatment. The person fully and consistently understands the purpose of the admission for examination/placement and is fully capable of personally exercising all rights assured [place]xxx] Incompetent to provide express and informed consent to voluntary admission , and this is incompetent to provide express and informed consent to treatment. The person must be transferred to involuntary status and a petition for a guardian advocate filed with the Circuit Court. [] Refusing to provide express and informed consent to voluntary admission but is competent to provide express and informed consent for treatment. The person must be discharged or transferred to involuntary status. Form shall be completed within 24 hours of a person's arrival at the receiving facility and filed in the clinical record of each person: 1. Admitted on a voluntary basis 2. Permitted to provide express and informed consent to his/her own treatment 3. Allowed to transfer from involuntary to voluntary status 4. Prior to permitting a person to consent to his or her own treatment after having been previously found incompetent to consent to treatment. History of Present Illness Capacity: Lacks Capacity HPI Patient is a 52-year-old woman, unknown marital status, homeless, no children, denies previous psychiatric diagnosis of respiratory schizoaffective disorder, reports prior psychiatric admissions, denies any previous suicide attempt or self-injurious behavior, denies any substance use history, denies any past medical history was brought into the ED under [place] by police after she was found standing in front of traffic waving her arms and acting bizarre and requesting police to kill her which patient was admitted to the inpatient psychiatry for further evaluation and management. Discussion nursing staff reported the patient's disorganized, hyperverbal had to be removed from group activity earlier today. Patient was found lying hospital bed noted B, cooperative initially but he had become irritable as interview progressed and noted to be disorganized with nonsensical statements. Patient stated initially if she had done something that prior to the hospital was able to recall that she had walked in the street stated that she had nowhere to sleep and noted to be jumping from topic to topic with loosening associations. Patient disorganized throughout interview. When attempted to obtain history patient was unable to provide adequate recall of her history, unable to recall previous psychiatric medications and treatments refusing to comply or agree to a treatment at this time. Patient started becoming irritable and noted to be yelling later on the unit after interview. Family psychiatric history: Unable to obtain as patient is a poor historian along with current psychosis. Past psychiatric history: Patient denies any previous psychiatric diagnoses but as per chart history of schizoaffective disorder, patient was able to admit to previous psychiatric hospitalizations as per chart last here at [facility] in 2017 , denies any previous suicide attempt or self-injurious behavior. Substance use history: Patient reports occasional tobacco use but denies any alcohol or drugs. Past medical history: Denies Allergies: Unable to recall but as per chart in haloperidol, ampicillin, sulfas Social history: Patient was unable to recall marital status, denies having any children, currently homeless. Patient was unable to provide any emergency contact. Review of Systems Except as stated in HPI: all other systems reviewed are Neg Past Psych History Violence risk - others (6 mos) Moderate due to the patient's erratic behavior at this time Violence risk - self (6 mos) Elevated due to recent statements of wanting police to kill her Substance Abuse History Drugs/Alcohol past 12 months Patient denies Past Family Social History Coded Allergies: Sulfa (Sulfonamide Antibiotics) (Verified Allergy, Severe, Itching, ) haloperidol (Verified Allergy, Severe, unknown, 12/06/17) ampicillin (Verified Allergy, Mild, Nausea/Vomiting, 12/06/17) *MDRO Multi-Drug Resistant Organism (Verified Allergy, Unknown, 12/06/17) MRSA 2013 MRSA PCR screen NEGATIVE 10/29/16 & 11/23/16 Cleared per Infection Control Discontinued Scripts Epinephrine Inj (Epinephrine Inj) 0.3 Mg/0.3 Ml Pfpen, 0.3 MG SQ ONCE Y for ALLERGIC REACTION, #1 PEN 0 Refills Prov:Vanita Hope MD 10/10/17 Prednisone (Prednisone) 50 Mg Tab, 50 MG PO DAILY for 3 Days, #3 TAB 0 Refills Prov:Vanita Hope MD 10/10/17 Diphenhydramine (Diphenhydramine) 25 Mg Tab, 25 MG PO Q6H Y for ALLERGIES, #15 TAB 0 Refills Prov:Vanita Hope MD 10/10/17 Current Medications Medications (Trade) Dose Ordered Sig/Zo Route Start Time Stop Time Status Last Admin (Benadryl) 50 mg HS PRN PO 12/06/17 18:15 (Tylenol) 650 mg Q4H PRN PO 12/06/17 18:15 (Milk Of Magnesia Liq) 30 ml DAILY PRN PO 12/06/17 18:15 (Mag-Al Plus Susp Liq) 30 ml Q6H PRN PO 12/06/17 18:15 (Habitrol 21 Mg Patch.24 Hr) 1 patch DAILY PRN T-DERMAL 12/06/17 18:15 Family Psych History Unable to obtain due to patient's current psychosis and being a poor historian Social History Patient was unable to recall marital status, denies having any children, currently homeless. Patient was unable to provide any emergency contact. Patient's Strengths (min. 2) Verbal and communicative Physical Exam Patient not noted to be acute distress, no gross motor abnormalities, stable gait, no signs of tremor or EPS, no psychomotor agitation or retardation. Vital Signs Vital Signs Date Time Temp Pulse Resp B/P (MAP) Pulse Ox O2 Delivery O2 Flow Rate FiO2 12/07/17 05:57 96.9 99 18 117/51 (73) 98 12/06/17 15:51 Room Air Lab Results Test 12/06/17 13:15 Acetaminophen Level 2.1 MCG/ML Mental Status Examination Appearance: Disheveled Consciousness: Alert Orientation: Person, Place Motor Activity: Normal gait Speech: Pressured, Other (Loud at times) Language: Adequate Fund of Knowledge: Inadequate Attention and Concentration: Inadequate Memory: Unremarkable Mood: Angry, Irritable Affect: Irritable Thought Process & Associations: Loose associations, Tangential, Other ( Nonsensical statements at times) Thought Content: Racing thoughts Hallucination Type: None Delusion Type: None Suicidal Ideation: Yes Homicidal Ideation: No Insight: Poor Judgment: Poor Assessment & Plan Problem List: (1) Unspecified psychosis ICD Codes: F29 - Unspecified psychosis not due to a substance or known physiological condition Assessment & Plan Estimated LOS: 5-7 days. Patient is a 52-year-old woman who denies any previous psychiatric diagnoses but has diagnosis of schizoaffective disorder as per chart, previous psychiatric admissions, who was brought under [place] after being noted to have bizarre behavior in the street as well as having stated to police to kill her and during interview noted to be disorganized, irritable which patient was admitted to the inpatient psychiatry for further evaluation and management. Petition for involuntary hospitalization started, second opinion requested. Patient this time does not have any capacity to consent for treatment as patient currently with acute psychosis. Will need to find healthcare surrogate in the interim until SATHISH can be assigned through the court. We will order olanzapine 10 mg IM every 8 hours for agitation. Social work intervention for psychosocial assessment. We will continue to his search for collateral contacts. This was planning a progress. Discharge Planning To be determined. Armani Thakkar MD December 07, 2017 12:15
--- NOTE | 2017-12-07 14:32 | EKG ---
Date Performed: 12/06/2017 Time Performed: 10:03:32 PTAGE: 52 years EKG: Sinus rhythm WITH SINUS ARRHYTHMIA NORMAL ECG INTERPRETATION BASED ON A DEFAULT AGE OF 39 YEARS PREVIOUS TRACING : 12/06/2017 09.20 DOCTOR: Otoniel Mcneil Interpretating Date/Time 12/07/2017 14:30:28
[2017-12-08 06:15] VITALS: BP 109/52; PULSE 86; RESP 17; TEMP 98.1; O2SAT 97
--- NOTE | 2017-12-08 11:07 | HHI.PYPN ---
Subjective Remarks Patient seen and examined with nurse in coverage for Dr. Thakkar. This note serves also as my second opinion for involuntary psychiatric hospitalization. Chart reviewed. Case discussed with nursing staff. Patient noted to be irritable and inappropriate on the unit. On my examination today, patient is exceedingly irritable. She cannot tolerate extended interview. When I endeavor to explain the purpose of my visit, patient becomes quite agitated and says "I don't have any reason to be here!" She tells me "I have no symptoms whatsoever!" Speech is rapid. Affect is irritable. She is quite paranoid. Patient appears frankly internally stimulated. She denies any suicidal or homicidal ideation but is unreliable to contract for safety. Patient refusing any medications. Insight into mental illness is nil. Refuses to provide any contact information for collateral sources or potential health care surrogates. No physical complaints. I am unable to obtain any past psychiatric, family, chemical dependency or social history from this patient because of her degree of psychiatric impairment at present. Review of Systems ROS Limitations: Uncooperative, Psychotic, Poor Historian Except as stated in HPI: all other systems reviewed are Neg Mental Status Examination Appearance: Disheveled Consciousness: Alert Orientation: Person, Place Motor Activity: Normal gait Speech: Pressured, Other (Inappropriately loud) Language: Adequate Fund of Knowledge: Inadequate Attention and Concentration: Inadequate Memory: Unremarkable Mood: Angry, Irritable Affect: Irritable Thought Process & Associations: Loose associations, Tangential Thought Content: Hallucinations, Racing thoughts, Delusional Hallucination Type: Other (Appears internally stimulated) Delusion Type: Paranoid Suicidal Ideation: No (Unreliable to contract for safety) Homicidal Ideation: No Insight: Poor Judgment: Poor Results Labs Labs reviewed. It appears patient refused laboratories ordered yesterday. Vitals/IOs Vital Signs Date Time Temp Pulse Resp B/P (MAP) Pulse Ox O2 Delivery O2 Flow Rate FiO2 12/08/17 06:15 98.1 86 17 109/52 (71) 97 12/06/17 15:51 Room Air Assessment & Plan Problem List: (1) Unspecified psychosis ICD Codes: F29 - Unspecified psychosis not due to a substance or known physiological condition Assessment & Plan Scheduled psychotropics are on hold pending identification of a healthcare surrogate. Continue to monitor on the high acuity unit. Continue other medications and care as ordered. Given the circumstances of patient's presentation here and her presentation on my examination today, I concur with Dr. Thakkar that the patient meets criteria for involuntary psychiatric hospitalization. I have completed the second opinion paperwork. This serves as a progress note for today, but further care as per Dr. Thakkar. Thank you very much for this consultation. Justification for Cont. Inpt. Impairment in reality construction. Impairment in social function. Concern for impairment in self-care, particularly in a less restrictive setting. High risk for decompensation in a less restrictive setting. Discharge Planning Per Dr. Thakkar Request HC Surrog/Guard Advoc?: Yes Mikey Khanna MD December 08, 2017 11:07
[2017-12-08] MEDS ORDERED: OLANZapine IM 10 MG VIAL IM ONE (14:45)
[2017-12-09 12:27] LABS: BICARBONATE 23.9 MEQ/L (21.0-32.0); BLOOD UREA NITROGEN 10 MG/DL (7-18); CALCIUM 9.2 MG/DL (8.5-10.1); CHLORIDE 105 MEQ/L (98-107); CHOLESTEROL 212 MG/DL (120-200); CHOLESTEROL/ HDL RATIO 4.96 RATIO; CREATININE 0.74 MG/DL (0.50-1.00); GLOMERULAR FILTRATION RATE 82 ML/MIN (>89); GLUCOSE,RANDOM 213 MG/DL (74-106); HDL CHOLESTEROL 42.7 MG/DL (40.0-60.0); LDL CHOLESTEROL 136 MG/DL (0-99); MAGNESIUM 2.1 MG/DL (1.5-2.5); SODIUM (NA) 140 MEQ/L (136-145); TRIGLYCERIDES 165 MG/DL (42-150)
[2017-12-09 16:28] LABS: HEMOGLOBIN A1C 6.1 % (4.3-6.0)
[2017-12-09] MEDS ORDERED: ZIPRASIDONE MESYLATE 20 MG VIAL IM ONE ×2 (17:45→18:00)
[2017-12-09] MEDS ORDERED: LORazepam 2 MG/ML VIAL ONE (17:46)
[2017-12-09] MEDS ORDERED: LORazepam 2 MG/ML VIAL IM ONE (18:00)
--- NOTE | 2017-12-09 18:24 | HHI.PYPN ---
Subjective Remarks Patient seen for follow-up, chart reviewed. Discussion nursing staff reported the patient continued to refuse medications, there has been no healthcare surrogate found, continues to be disorganized. Patient was found earlier yelling and uterine discharge, patient states that she refuses to take any drugs or medications stating that she does not need them. Patient noted to be disorganized during interview states that she want to be discharged back to the streets. Patient states that she has been restricted from returning back to the [facility] as well as other facilities. Patient states she previously had been receiving SSI but was unable to continue to collect due to having lost her ID. Patient states that she does have a son whom she states wants to protect due to his involvement in some criminal activity. She reports that her lives out of state and has not been in contact with him since May or June of last year. Patient states that she has no other contacts in the area. When explained about patient continued hospital stay patient became irritable and yelling which interview ended. Review of Systems Except as stated in HPI: all other systems reviewed are Neg Mental Status Examination Appearance: Disheveled Consciousness: Alert Orientation: Person, Place Motor Activity: Normal gait Speech: Pressured, Other (Inappropriately loud) Language: Adequate Fund of Knowledge: Inadequate Attention and Concentration: Inadequate Memory: Unremarkable Mood: Angry, Irritable Affect: Irritable Thought Process & Associations: Loose associations, Tangential Thought Content: Hallucinations, Racing thoughts, Delusional Hallucination Type: Other (Appears internally stimulated) Delusion Type: Paranoid Suicidal Ideation: No (Unreliable to contract for safety) Homicidal Ideation: No Insight: Poor Judgment: Poor Results Labs Labs reviewed Test 12/09/17 11:04 Blood Urea Nitrogen 10 MG/DL Creatinine 0.74 MG/DL Random Glucose 213 MG/DL Calcium Level 9.2 MG/DL Magnesium Level 2.1 MG/DL Sodium Level 140 MEQ/L Potassium Level 3.9 MEQ/L Chloride Level 105 MEQ/L Carbon Dioxide Level 23.9 MEQ/L Anion Gap 11 MEQ/L Estimat Glomerular Filtration Rate 82 ML/MIN Hemoglobin A1c 6.1 % Triglycerides Level 165 MG/DL Cholesterol Level 212 MG/DL LDL Cholesterol 136 MG/DL HDL Cholesterol 42.7 MG/DL Cholesterol/HDL Ratio 4.96 RATIO Vitals/IOs Vital Signs Date Time Temp Pulse Resp B/P (MAP) Pulse Ox O2 Delivery O2 Flow Rate FiO2 12/08/17 06:15 98.1 86 17 109/52 (71) 97 12/06/17 15:51 Room Air Assessment & Plan Problem List: (1) Unspecified psychosis ICD Codes: F29 - Unspecified psychosis not due to a substance or known physiological condition Assessment & Plan Patient this time continues to be disorganized, poor impulse control, labile mood and has required ETO's when continuing becoming agitated. There is no healthcare surrogate that can consent for treatment at this time the patient refuses to treatment as well. We will continue to monitor mood and behavior. Patient likely to present to mental health court next week when SATHISH can be appointed as guardian advocate. Petition was granted for continued involuntary hospitalization for treatment. Discharge planning in progress. Justification for Cont. Inpt. At risk of further decompensation a lower level of care. Discharge Planning To be determined Request HC Surrog/Guard Advoc?: Yes Armani Thakkar MD Dec 09, 2017 18:24
--- NOTE | 2017-12-10 15:45 | HHI.PYPN ---
Subjective Remarks Patient was seen and case discussed with nursing. Per nursing there is no consent on file for medication. Patient is actively psychotic with bizarre behavior on the unit. She is walking around, talking to herself and putting her socks in her hands. Thought process is loose and disorganized. No outbursts Mental Status Examination Appearance: Disheveled Consciousness: Alert Orientation: Person, Place Motor Activity: Normal gait Speech: Pressured, Other (Inappropriately loud) Language: Adequate Fund of Knowledge: Inadequate Attention and Concentration: Inadequate Memory: Unremarkable Mood: Angry, Irritable Affect: Irritable Thought Process & Associations: Loose associations, Tangential Thought Content: Hallucinations, Racing thoughts, Delusional Hallucination Type: Other (Appears internally stimulated) Delusion Type: Paranoid Suicidal Ideation: No (Unreliable to contract for safety) Homicidal Ideation: No Insight: Poor Judgment: Poor Results Vitals/IOs Vital Signs Date Time Temp Pulse Resp B/P (MAP) Pulse Ox O2 Delivery O2 Flow Rate FiO2 12/08/17 06:15 98.1 86 17 109/52 (71) 97 12/06/17 15:51 Room Air Assessment & Plan Problem List: (1) Unspecified psychosis ICD Codes: F29 - Unspecified psychosis not due to a substance or known physiological condition Assessment & Plan Continue current treatment plan Justification for Cont. Inpt. Patient would decompensate in a less restrictive setting Request HC Surrog/Guard Advoc?: Yes Musa Delgadillo DO Dec 10, 2017 15:45
[2017-12-10 17:53] VITALS: BP 125/70; PULSE 99; RESP 19; TEMP 98.4; O2SAT 97
--- NOTE | 2017-12-11 10:22 | HHI.PYPN ---
Subjective Remarks Patient was seen and case discussed with nursing. Per nursing, patient was loud and angry this morning. From my interview she is cooperative but loose. We are continuing to wait for consents for medication. Has not required any ETO 's today Mental Status Examination Appearance: Disheveled Consciousness: Alert Orientation: Person, Place Motor Activity: Normal gait Speech: Pressured, Other (Inappropriately loud) Language: Adequate Fund of Knowledge: Inadequate Attention and Concentration: Inadequate Memory: Unremarkable Mood: Angry, Irritable Affect: Irritable, Labile Thought Process & Associations: Loose associations, Tangential Thought Content: Hallucinations, Racing thoughts, Delusional Hallucination Type: Other (Appears internally stimulated) Delusion Type: Paranoid Suicidal Ideation: No (Unreliable to contract for safety) Homicidal Ideation: No Insight: Poor Judgment: Poor Results Vitals/IOs Vital Signs Date Time Temp Pulse Resp B/P (MAP) Pulse Ox O2 Delivery O2 Flow Rate FiO2 12/10/17 17:53 98.4 99 19 125/70 (88) 97 Assessment & Plan Problem List: (1) Unspecified psychosis ICD Codes: F29 - Unspecified psychosis not due to a substance or known physiological condition Assessment & Plan Continue current treatment plan Justification for Cont. Inpt. Patient would decompensate in a less restrictive setting Request HC Surrog/Guard Advoc?: Yes Musa Delgadillo DO Dec 11, 2017 10:22
[2017-12-11 16:00] VITALS: BP 97/60; PULSE 85; RESP 18; TEMP 98.3; O2SAT 99
[2017-12-12 06:35] VITALS: BP 111/64; PULSE 69; RESP 19; TEMP 98; O2SAT 100
--- NOTE | 2017-12-12 10:02 | HHI.PYPN ---
Subjective Remarks I am assuming primary care of this patient as of today. Patient seen and examined with nurse. Chart reviewed. Case discussed with nursing staff. Patient with intermittent agitation requiring ETO's. On my examination today, I find the patient laying in her room. She is quite disorganized. She tells me "I have urinated everywhere" although I see no evidence that this is the case. She has scrawled on the wall several phrases including "Blood bleed" and "Kill me." She insists that she is not presently experiencing suicidal ideation. Appears frankly internally stimulated. Patient has no scheduled psychotropic medications ordered for lack of anyone to provide consent. I did broach the subject of patient possibly providing consent, but she remains incapacitated to do so and refuses to even enter into a discussion of the possibility of taking psychotropic medications. Following my departure from the unit, I was notified by the nurse that the patient was growing acutely agitated. I have ordered her medicated with Zyprexa 10 mg IM ETO. Review of Systems ROS Limitations: Psychotic, Poor Historian Except as stated in HPI: all other systems reviewed are Neg Mental Status Examination Appearance: Disheveled Consciousness: Alert Orientation: Person, Place (At least) Motor Activity: Other (No motor abnormalities noted) Speech: Rapid Language: Other (Rambling) Fund of Knowledge: Inadequate Attention and Concentration: Inadequate Memory: Impaired (Psychosis interferes) Mood: Angry, Irritable, Other (Dysphoric presently) Affect: Labile Thought Process & Associations: Loose associations, Disorganized Thought Content: Hallucinations, Delusional Hallucination Type: Other (Frankly internally stimulated) Delusion Type: Paranoid Suicidal Ideation: No (Remains unreliable to contract for safety) Homicidal Ideation: No Insight: Poor Judgment: Poor Results Vitals/IOs Vital Signs Date Time Temp Pulse Resp B/P (MAP) Pulse Ox O2 Delivery O2 Flow Rate FiO2 12/12/17 06:35 98.0 69 19 111/64 (80) 100 Assessment & Plan Problem List: (1) Unspecified psychosis ICD Codes: F29 - Unspecified psychosis not due to a substance or known physiological condition Assessment & Plan Psychotropic medications remain on hold for lack of anyone to provide consent. I do note that the patient has some Zyprexa IM ordered p.r.n., and this will have to be placed on hold for lack of consent. HgbA1c is slightly elevated with random glucose of 213 on BMP. I will add BID Accu-Cheks and sliding scale. Continue to monitor on the high acuity unit. Continue other medications and care as ordered. Justification for Cont. Inpt. Impairment in reality construction. Impairment in self-care. High risk for decompensation in less restrictive environment. Discharge Planning Pending psychiatric stabilization. We will likely be forced to await [place] on for appointment of a [place] for med consents. Request HC Surrog/Guard Advoc?: Yes Mikey Khanna MD Dec 12, 2017 10:02
[2017-12-12] MEDS ORDERED: OLANZapine IM 10 MG VIAL IM STA (11:54)
[2017-12-12] MEDS ORDERED: GLUCAGON 1 MG/ML VIAL OTHER PRN (14:00)
[2017-12-12] MEDS ORDERED: DEXTROSE 50% IN WATER 50 ML VIAL(D50) IV PUSH PRN (14:00)
[2017-12-12] MEDS: INSULIN ASPART SUPPLEMENTAL SCALE SQ SCH (16:00)
[2017-12-12 17:01] VITALS: BP 160/71; PULSE 78; RESP 18; TEMP 98.1; O2SAT 99
[2017-12-13] MEDS: INSULIN ASPART SUPPLEMENTAL SCALE SQ SCH ×2 (07:49→16:00)
[2017-12-13] MEDS ORDERED: diphenhydrAMINE HCL 50 MG/ML VIAL IM ONE ×2 (08:45→19:30)
[2017-12-13] MEDS ORDERED: LORazepam 2 MG/ML VIAL IM ONE ×2 (08:45→19:30)
[2017-12-13] MEDS ORDERED: ZIPRASIDONE MESYLATE 20 MG VIAL IM ONE ×3 (08:45→19:30)
--- NOTE | 2017-12-13 09:19 | HHI.PYPN ---
Subjective Remarks Patient seen and examined in day area. Chart reviewed. Case discussed with nursing staff and in treatment team. On my exam, patient remains floridly psychotic. She verbally accosts this provider and yells "I don't belong here!" She screams "lies! Goddamn fucking lies!" She says "I'll fucking rip that bathroom up!" She remains frankly internally stimulated. She is quite paranoid. She grows increasingly agitated and fearing imminent violence I have ordered the patient medicated with Geodon, Ativan and Benadryl IM ETO. No physical complaints. Review of Systems ROS Limitations: Uncooperative, Psychotic, Poor Historian Except as stated in HPI: all other systems reviewed are Neg Mental Status Examination Appearance: Disheveled Consciousness: Alert Orientation: Person, Place (At least) Motor Activity: Other (No abnormal motor movements noted) Speech: Rapid Language: Other (Rambling) Fund of Knowledge: Inadequate Attention and Concentration: Inadequate Memory: Impaired (Psychosis interferes) Mood: Angry, Irritable, Other (Dysphoric) Affect: Labile Thought Process & Associations: Loose associations, Disorganized Thought Content: Hallucinations, Delusional Hallucination Type: Other (Remains internally stimulated) Delusion Type: Paranoid Suicidal Ideation: No (No SI voiced) Homicidal Ideation: No (No HI voiced) Insight: Poor Judgment: Poor Results Labs Labs reviewed. Patient refused bedside glucose. Vitals/IOs Vital Signs Date Time Temp Pulse Resp B/P (MAP) Pulse Ox O2 Delivery O2 Flow Rate FiO2 12/12/17 17:01 98.1 78 18 160/71 (100) 99 Assessment & Plan Problem List: (1) Unspecified psychosis ICD Codes: F29 - Unspecified psychosis not due to a substance or known physiological condition Assessment & Plan Patient remained severely decompensated with respect to her psychosis. Psychotropic medications remain on hold for lack of consent. I did try to call over to [facility] to see if they had any contact information on file for someone who might serve as health care surrogate, but they have none. We will likely have to wait for [address] on for appointment of a guardian advocate. Continue to monitor on the high acuity unit. Continue other medications and care as ordered. Justification for Cont. Inpt. Impairment in reality construction. Impairment in self-care. High risk for decompensation in less restrictive environment. Discharge Planning Pending psychiatric stabilization Request HC Surrog/Guard Advoc?: Yes Mikey Khanna MD Dec 13, 2017 09:19
[2017-12-13] MEDS ORDERED: LORazepam 2 MG/ML VIAL ONE (19:21)
[2017-12-13] MEDS ORDERED: diphenhydrAMINE HCL 50 MG/ML VIAL ONE (19:22)
[2017-12-14 05:52] VITALS: BP 118/62; PULSE 16; RESP 16; TEMP 97.5; O2SAT 98
[2017-12-14] MEDS: INSULIN ASPART SUPPLEMENTAL SCALE SQ SCH ×2 (06:37→11:54)
[2017-12-14] MEDS ORDERED: ZIPRASIDONE MESYLATE 20 MG VIAL IM STA (08:34)
[2017-12-14] MEDS ORDERED: LORazepam 2 MG/ML VIAL IM STA (08:34)
[2017-12-14] MEDS ORDERED: diphenhydrAMINE HCL 50 MG/ML VIAL IM STA (08:34)
[2017-12-14] MEDS ORDERED: ZIPRASIDONE MESYLATE 20 MG VIAL IM ONE ×3 (08:35→18:15)
--- NOTE | 2017-12-14 08:36 | HHI.PYPN ---
Subjective Remarks Patient seen and examined with nurse. Chart reviewed. Case discussed with nursing staff. Patient put a hole in the wall of her room overnight and required ETO of Geodon IM. Patient has been moved to a new room, and I note she has begun to peel the paint from the wall, and the floor of her room is littered with large furls of paint. On my examination today, patient is argumentative, hostile and perseverative on discharge. I did try to discuss [address] with her, but she is not listening. She insists that she does not have a mental illness, and her insight overall is quite poor. She remains extremely paranoid. She is internally stimulated. She becomes fairly menacing and begins screaming at this provider. She remains quite emotionally dysregulated and cannot be calmed. She ultimately requires additional dose of Geodon, Ativan and Benadryl IM ETO. No evident side effects from medications. No physical complaints. Nurse was able to obtain a number for mother from old records. Malena Gonzalez ). I called this number and it kept ringing without opportunity to leave a voicemail. Review of Systems ROS Limitations: Psychotic, Poor Historian Except as stated in HPI: all other systems reviewed are Neg Mental Status Examination Appearance: Disheveled Consciousness: Alert, Vigilant Orientation: Person, Place (At least) Motor Activity: Other (No motoric abnormalities appreciated) Speech: Rapid, Other (Loud) Language: Other (Rambling) Fund of Knowledge: Inadequate Attention and Concentration: Inadequate Memory: Impaired (Psychosis interferes) Mood: Angry, Irritable, Other (Remains dysphoric) Affect: Labile Thought Process & Associations: Loose associations, Disorganized Thought Content: Hallucinations, Delusional Hallucination Type: Other (Remains internally stimulated) Delusion Type: Paranoid Suicidal Ideation: No (No SI voiced) Homicidal Ideation: No (No HI voiced but menacing today) Insight: Poor Judgment: Poor Results Labs Labs reviewed. Refusing bedside glucoses. Vitals/IOs Vital Signs Date Time Temp Pulse Resp B/P (MAP) Pulse Ox O2 Delivery O2 Flow Rate FiO2 12/14/17 05:52 97.5 -1-6- In error. Actually 68/min. 16 118/62 (80) 98 Assessment & Plan Problem List: (1) Unspecified psychosis ICD Codes: F29 - Unspecified psychosis not due to a substance or known physiological condition Assessment & Plan Patient remains floridly psychotic. She requires ongoing ETO medication for management of agitation in the setting of her psychosis. She is additionally refusing to allow staff to check her blood glucoses. Scheduled psychotropic medications remain on hold for lack of consent. Continue to monitor on the high acuity unit. Continue other medications and care as ordered. Justification for Cont. Inpt. Impairment in reality construction. Impairment in self-care. High risk for decompensation in less restrictive setting. Discharge Planning Pending psychiatric stabilization. [address] tomorrow. Request HC Surrog/Guard Advoc?: Yes Mikey Khanna MD Dec 14, 2017 08:36
[2017-12-14 15:16] VITALS: BP 111/66; PULSE 84; RESP 18; TEMP 98.1; O2SAT 100
[2017-12-14] MEDS ORDERED: LORazepam 2 MG/ML VIAL ONE (17:53)
[2017-12-14] MEDS ORDERED: diphenhydrAMINE HCL 50 MG/ML VIAL ONE (17:55)
[2017-12-14] MEDS ORDERED: LORazepam 2 MG/ML VIAL IM ONE (18:15)
[2017-12-14] MEDS ORDERED: diphenhydrAMINE HCL 50 MG/ML VIAL IM ONE (18:15)
[2017-12-14] MEDS: ACETAMINOPHEN 325 MG TAB PO PRN (23:54)
[2017-12-15 06:01] VITALS: BP 113/53; PULSE 101; RESP 18; TEMP 98.1; O2SAT 96
[2017-12-15] MEDS: INSULIN ASPART SUPPLEMENTAL SCALE SQ SCH ×2 (06:43→16:00)
--- NOTE | 2017-12-15 08:54 | HHI.PYPN ---
Subjective Remarks Patient seen and examined with nurse. Chart reviewed. Case discussed with nursing staff. Patient required Geodon, Ativan and Benadryl ETO overnight. On my examination today, the patient remains paranoid and internally stimulated. Following the [place] [address] I was called by the nurse because the patient was growing agitated once again and was trying to throw a chair. I have ordered her medicated with the same ETO medications once again. No physical complaints. Review of Systems ROS Limitations: Psychotic, Poor Historian Except as stated in HPI: all other systems reviewed are Neg Mental Status Examination Appearance: Disheveled Consciousness: Alert, Vigilant Orientation: Person, Place (At least) Motor Activity: Other (No abnormal motor movements noted) Speech: Rapid Language: Other (Remains rambling) Fund of Knowledge: Inadequate Attention and Concentration: Inadequate Memory: Impaired (Psychosis interferes) Mood: Angry, Irritable, Other (Dysphoric) Affect: Labile Thought Process & Associations: Loose associations, Disorganized Thought Content: Hallucinations, Delusional Hallucination Type: Other (Internally preoccupied) Delusion Type: Paranoid Suicidal Ideation: No Homicidal Ideation: No Insight: Poor Judgment: Poor Results Labs Labs reviewed. No new labs. Vitals/IOs Vital Signs Date Time Temp Pulse Resp B/P (MAP) Pulse Ox O2 Delivery O2 Flow Rate FiO2 12/15/17 06:01 98.1 101 18 113/53 (73) 96 Assessment & Plan Problem List: (1) Unspecified psychosis ICD Codes: F29 - Unspecified psychosis not due to a substance or known physiological condition Assessment & Plan Ongoing severely decompensated psychotic illness. We still have no one to provide consent for medications. Unfortunately, the territory sales executive was unable to rule on patient's case in [address] as territory sales executive reported that she had witnessed patient's disruptive behavior outside of the hospital and so had a conflict of interest. Patient's case was placed in continuance for 1 week with plans for a different territory sales executive to hear the case next week. However, this leaves us without anyone to serve as health care surrogate. Continue to monitor on high acuity unit. Continue other medications and care as ordered. Justification for Cont. Inpt. Impairment in reality construction. High risk for decompensation in less restrictive setting. Discharge Planning Pending psychiatric stabilization Request HC Surrog/Guard Advoc?: Yes Mikey Khanna MD Dec 15, 2017 08:54
[2017-12-15] MEDS ORDERED: LORazepam 2 MG/ML VIAL IM STA (14:22)
[2017-12-15] MEDS ORDERED: ZIPRASIDONE MESYLATE 20 MG VIAL IM STA (14:22)
[2017-12-15] MEDS ORDERED: diphenhydrAMINE HCL 50 MG/ML VIAL IM STA (14:22)
[2017-12-15] MEDS ORDERED: LORazepam 2 MG/ML VIAL ONE (14:23)
[2017-12-15] MEDS ORDERED: ZIPRASIDONE MESYLATE 20 MG VIAL IM ONE (14:23)
[2017-12-16 05:40] VITALS: BP 126/74; PULSE 82; RESP 16; TEMP 97.2; O2SAT 100
[2017-12-16] MEDS: INSULIN ASPART SUPPLEMENTAL SCALE SQ SCH ×2 (06:01→16:00)
[2017-12-16] MEDS ORDERED: BENZTROPINE MESYLATE 2 MG/2 ML VIAL IM PRN (10:00)
[2017-12-16] MEDS ORDERED: LORazepam 2 MG/ML VIAL IM PRN (10:00)
--- NOTE | 2017-12-16 10:00 | HHI.PYPN ---
Subjective Remarks Patient seen and examined with nurse. Chart reviewed. Case discussed with and nurse and in treatment team. On my exam, patient remains paranoid and continues to respond to internal stimuli. She is irritable. She does seem more willing to consider psychotropic medications and says that she wants to take the medications provided to her by "doctor Jeremy Luna at [facility]." She reports that she used to take Depakote ER and Risperdal, both BID. No physical complaints. Called over to [facility]. Patient was most recently prescribed Haldol 10mg TID, Risperdal 4mg qHS and Depakote (form not listed) 500mg BID. Review of Systems ROS Limitations: Psychotic, Poor Historian Except as stated in HPI: all other systems reviewed are Neg Mental Status Examination Appearance: Disheveled Consciousness: Alert, Vigilant Orientation: Person, Place (At least) Motor Activity: Other (No motor abnormalities noted) Speech: Rapid (Somewhat slower today) Language: Other (Remains rambling) Fund of Knowledge: Inadequate Attention and Concentration: Inadequate Memory: Impaired (Psychosis interferes) Mood: Irritable, Other (Dysphoric) Affect: Labile Thought Process & Associations: Loose associations, Disorganized Thought Content: Hallucinations, Delusional Hallucination Type: Other (Remains internally stimulated) Delusion Type: Paranoid Suicidal Ideation: No Homicidal Ideation: No Insight: Poor Judgment: Poor Results Labs Labs reviewed Vitals/IOs Vital Signs Date Time Temp Pulse Resp B/P (MAP) Pulse Ox O2 Delivery O2 Flow Rate FiO2 12/16/17 05:40 97.2 82 16 126/74 (91) 100 Assessment & Plan Problem List: (1) Unspecified psychosis ICD Codes: F29 - Unspecified psychosis not due to a substance or known physiological condition Assessment & Plan Patient more willing and able to negotiate regarding medication treatment today. I hospitality internship that she is capacitated to consent for medications. Initiate Risperdal 1 mg twice daily with plans to titrate over the weekend to target psychosis. To consider long-acting injectable. Initiate Depakote ER 500 mg twice daily for mood stabilization with plans to check a level on Tuesday of next week. Continue to monitor on the high acuity unit. Continue other medications and care as ordered. Justification for Cont. Inpt. Medication changes. Impairment in reality construction. High risk for decompensation in less restrictive setting. Discharge Planning Pending psychiatric stabilization. Request HC Surrog/Guard Advoc?: Yes Mikey Khanna MD Dec 16, 2017 10:00
[2017-12-16] MEDS ORDERED: BENZTROPINE MESYLATE 1 MG TAB PO PRN (11:00)
[2017-12-16] MEDS: DIVALPROEX SODIUM E.R. 500 MG TAB PO SCH ×2 (11:24→20:41)
[2017-12-16] MEDS: risperiDONE ODT 1 MG TAB PO SCH ×2 (11:24→20:41)
[2017-12-17] MEDS: INSULIN ASPART SUPPLEMENTAL SCALE SQ SCH ×2 (06:03→16:00)
[2017-12-17 06:33] VITALS: BP 114/56; PULSE 92; RESP 17; TEMP 97.7; O2SAT 100
[2017-12-17] MEDS: DIVALPROEX SODIUM E.R. 500 MG TAB PO SCH ×2 (08:51→21:57)
[2017-12-17] MEDS: risperiDONE ODT 1 MG TAB PO SCH ×2 (08:51→21:56)
--- NOTE | 2017-12-17 12:40 | HHI.PYPN ---
Subjective Remarks Pt seen and discussed with staff. She has been observed responding to internal stimuli on unit and has engaged in some disorganized behavior (defecated in a towel). She is hyperverbal. She is compliant with medications. Mental Status Examination Appearance: Disheveled Consciousness: Alert, Vigilant Orientation: Person, Place (At least) Motor Activity: Other (No motor abnormalities noted) Speech: Rapid (Somewhat slower today) Language: Other (Remains rambling) Fund of Knowledge: Inadequate Attention and Concentration: Inadequate Memory: Impaired (Psychosis interferes) Mood: Irritable, Other (Dysphoric) Affect: Labile Thought Process & Associations: Loose associations, Tangential Thought Content: Hallucinations, Delusional Hallucination Type: Other (Remains internally stimulated) Delusion Type: Paranoid Suicidal Ideation: No Homicidal Ideation: No Insight: Poor Judgment: Poor Results Vitals/IOs Vital Signs Date Time Temp Pulse Resp B/P (MAP) Pulse Ox O2 Delivery O2 Flow Rate FiO2 12/17/17 06:33 97.7 92 17 114/56 (75) 100 Assessment & Plan Problem List: (1) Unspecified psychosis ICD Codes: F29 - Unspecified psychosis not due to a substance or known physiological condition Assessment & Plan Continue current tx plan. Estimated LOS: days Justification for Cont. Inpt. impairments in reality testing Request HC Surrog/Guard Advoc?: Yes Anna Velasco MD Dec 17, 2017 12:40
[2017-12-17 17:45] VITALS: PULSE 109; RESP 18; TEMP 97.5; O2SAT 99
[2017-12-17] MEDS: LORazepam 1 MG TAB PO PRN (21:58)
[2017-12-18 06:46] VITALS: BP 125/81; PULSE 98; RESP 19; TEMP 98.6; O2SAT 100
[2017-12-18] MEDS: INSULIN ASPART SUPPLEMENTAL SCALE SQ SCH ×2 (08:00→16:00)
[2017-12-18] MEDS: risperiDONE ODT 1 MG TAB PO SCH ×2 (09:02→20:45)
[2017-12-18] MEDS: DIVALPROEX SODIUM E.R. 500 MG TAB PO SCH ×2 (09:03→20:45)
--- NOTE | 2017-12-18 15:04 | HHI.PYPN ---
Subjective Remarks Pt seen and discussed with staff. She has been hostile and intrusive, yelling on unit. She expresses paranoid ideations about MD and nursing staff stating that we have taken her papers but she will write more. She later apologizes and alludes that "others" are the real culprits. She is compliant with medications. Mental Status Examination Appearance: Disheveled Consciousness: Alert, Vigilant Orientation: Person, Place (At least) Motor Activity: Other (No motor abnormalities noted) Speech: Rapid (Somewhat slower today) Language: Other (Remains rambling) Fund of Knowledge: Inadequate Attention and Concentration: Inadequate Memory: Impaired (Psychosis interferes) Mood: Irritable, Other (Dysphoric) Affect: Labile Thought Process & Associations: Loose associations, Tangential Thought Content: Hallucinations, Delusional Hallucination Type: Other (Remains internally stimulated) Delusion Type: Paranoid Suicidal Ideation: No Homicidal Ideation: No Insight: Poor Judgment: Poor Results Vitals/IOs Vital Signs Date Time Temp Pulse Resp B/P (MAP) Pulse Ox O2 Delivery O2 Flow Rate FiO2 12/18/17 06:46 98.6 98 19 125/81 (96) 100 Assessment & Plan Problem List: (1) Unspecified psychosis ICD Codes: F29 - Unspecified psychosis not due to a substance or known physiological condition Assessment & Plan Continue current tx plan. Estimated LOS: days Justification for Cont. Inpt. impairments in reality testing Request HC Surrog/Guard Advoc?: Yes Anna Velasco MD Dec 18, 2017 15:04
[2017-12-18] MEDS: diphenhydrAMINE HCL 50 MG CAP PO PRN (20:45)
[2017-12-19 06:40] VITALS: BP 156/65; PULSE 95; RESP 18; TEMP 97.3; O2SAT 100
[2017-12-19] MEDS: INSULIN ASPART SUPPLEMENTAL SCALE SQ SCH ×2 (08:00→16:00)
[2017-12-19] MEDS: DIVALPROEX SODIUM E.R. 500 MG TAB PO SCH ×2 (09:05→20:20)
[2017-12-19] MEDS: risperiDONE ODT 1 MG TAB PO SCH ×2 (09:06→20:22)
--- NOTE | 2017-12-19 11:30 | HHI.PYPN ---
Subjective Remarks Patient seen and examined with nurse. Chart reviewed. Case discussed with nursing staff. Nurse reports patient defecated in the shower this morning, and I do see patient defecated in a towel over weekend. She is considerably less irritable today. Speech remains hyperverbal and rambling. She is fairly distractible. Some ongoing paranoia. No side effects from medications. No physical complaints. Requesting double portions. Receptive to [facility] placement. Review of Systems ROS Limitations: Psychotic, Poor Historian Except as stated in HPI: all other systems reviewed are Neg Mental Status Examination Appearance: Disheveled Consciousness: Alert, Vigilant Orientation: Person, Place (At least) Motor Activity: Other (No abnormal motor movements noted) Speech: Rapid (A little slower today but still fairly rapid) Language: Other (Somewhat rambling) Fund of Knowledge: Inadequate Attention and Concentration: Inadequate Memory: Impaired (Psychosis interferes) Mood: Irritable, Other (Dysphoric) Affect: Labile Thought Process & Associations: Loose associations, Tangential Thought Content: Hallucinations, Delusional Hallucination Type: Other (internally preoccupied) Delusion Type: Paranoid Suicidal Ideation: No Homicidal Ideation: No Insight: Poor Judgment: Poor Results Labs Labs reviewed. Vitals/IOs Vital Signs Date Time Temp Pulse Resp B/P (MAP) Pulse Ox O2 Delivery O2 Flow Rate FiO2 12/19/17 06:40 97.3 95 18 156/65 (95) 100 Assessment & Plan Problem List: (1) Unspecified psychosis ICD Codes: F29 - Unspecified psychosis not due to a substance or known physiological condition Assessment & Plan Continue Depakote and Risperdal as ordered. Depakote level ordered for tomorrow morning, and we may consider titrating the dose based on the level. Also to consider titrating Risperdal to 4 mg twice daily to target residual disorganization and psychotic symptoms. Continue to monitor on the inpatient unit. Continue other medications and care as ordered. Justification for Cont. Inpt. Impairment in reality construction. Risk for decompensation in less restrictive setting. Discharge Planning Possible [facility] placement. Counselor working on this. Request HC Surrog/Guard Advoc?: Yes Mikey Khanna MD Dec 19, 2017 11:30
[2017-12-19 18:00] VITALS: BP 92/92; PULSE 94; RESP 18; TEMP 98; O2SAT 100
[2017-12-20 06:23] VITALS: BP 110/60; PULSE 88; RESP 18; TEMP 97.4; O2SAT 96
[2017-12-20] MEDS: INSULIN ASPART SUPPLEMENTAL SCALE SQ SCH ×2 (07:32→16:00)
[2017-12-20] MEDS: risperiDONE ODT 1 MG TAB PO SCH (08:53)
[2017-12-20] MEDS: DIVALPROEX SODIUM E.R. 500 MG TAB PO SCH ×2 (08:53→20:02)
--- NOTE | 2017-12-20 13:01 | HHI.PYPN ---
Subjective Remarks Patient seen and examined with nurse. Chart reviewed. Case discussed with nursing staff who reports patient is more organized in her thought process but remains easily agitated and tearful. On my examination today, the patient is quite discharged focused. She says "I do not want to be here. I do not need to be here. I do not feel like I need to be on any meds." Her insight into her mental illness is quite poor. She becomes very agitated and paranoid when I try to discuss her psychiatric issues with her and says "I know you all did something to me!" No side effects from medications. No physical complaints. She now says that she will refuse [facility] placement. Review of Systems ROS Limitations: Psychotic, Poor Historian Except as stated in HPI: all other systems reviewed are Neg Mental Status Examination Appearance: Disheveled Consciousness: Alert, Vigilant Orientation: Person, Place (At least) Motor Activity: Other (No motor abnormalities noted) Speech: Rapid (A little slower today but still fairly rapid) Language: Other (Somewhat rambling) Fund of Knowledge: Inadequate Attention and Concentration: Inadequate Memory: Impaired (Psychosis interferes) Mood: Irritable, Other (Dysphoric) Affect: Labile Thought Process & Associations: Other (A little more organized) Thought Content: Hallucinations, Delusional Hallucination Type: Other (Remain somewhat internally stimulated) Delusion Type: Paranoid Suicidal Ideation: No Homicidal Ideation: No Insight: Poor Judgment: Poor Results Labs Test 12/20/17 08:40 Ammonia 26 MCMOL/L Valproic Acid (Depakene) Level 68 MCG/ML Depakote level within therapeutic range. Ammonia level not elevated. Vitals/IOs Vital Signs Date Time Temp Pulse Resp B/P (MAP) Pulse Ox O2 Delivery O2 Flow Rate FiO2 12/20/17 06:23 97.4 88 18 110/60 (05) 96 Assessment & Plan Problem List: (1) Unspecified psychosis ICD Codes: F29 - Unspecified psychosis not due to a substance or known physiological condition Assessment & Plan Titrate Risperdal to 4 mg twice daily to target psychosis. Continue Depakote as ordered. Continue to monitor on the inpatient unit. Continue other medications and care as ordered. Justification for Cont. Inpt. Med changes. Impairment in reality construction. High risk for decompensation in less restrictive environment. Discharge Planning Placement is recommended, but patient is presently refusing. She is otherwise homeless. Request HC Surrog/Guard Advoc?: Yes Mikey Khanna MD Dec 20, 2017 13:01
[2017-12-20] MEDS: LORazepam 1 MG TAB PO PRN ×2 (14:41→16:02)
[2017-12-20 17:00] VITALS: BP 112/59; PULSE 95; RESP 17; TEMP 98.6; O2SAT 97
[2017-12-20] MEDS: diphenhydrAMINE HCL 50 MG CAP PO PRN (20:02)
[2017-12-20] MEDS ORDERED: risperiDONE 1 MG TAB PO SCH (21:00)
[2017-12-21 05:51] VITALS: BP 99/57; PULSE 110; RESP 18; TEMP 97.3; O2SAT 99
[2017-12-21] MEDS: INSULIN ASPART SUPPLEMENTAL SCALE SQ SCH ×2 (06:08→16:00)
[2017-12-21] MEDS: DIVALPROEX SODIUM E.R. 500 MG TAB PO SCH ×3 (08:33→16:13)
[2017-12-21] MEDS: risperiDONE 1 MG TAB PO SCH ×2 (09:30→16:13)
--- NOTE | 2017-12-21 10:07 | HHI.PYPN ---
Subjective Remarks Patient seen and examined with nurse. Chart reviewed. Case discussed with nursing staff who reports patient refused medications this morning and has been intermittently yelling out. On my examination today, the patient remains very discharge focused but also quite disorganized and paranoid. She has scrawled a figure on her wall that looks like a snail with human eyes on tentacles sticking out of it with the words "pills" and "void" on the wall. When I ask her about this, she provides a rambling explanation about it being a "vent engine" and that the "pills are what go in the gas tank." She remains quite irascible and intrusive and pursues this technical writer and editor around the unit yelling that she will not go to court tomorrow and is expecting to be discharged today. No evident side effects from medications. No physical complaints. Review of Systems ROS Limitations: Psychotic, Poor Historian Except as stated in HPI: all other systems reviewed are Neg Mental Status Examination Appearance: Disheveled Consciousness: Alert, Vigilant Orientation: Person, Place (At least) Motor Activity: Other (No abnormal motor movements noted) Speech: Rapid (A little slower today but still fairly rapid) Language: Other (Somewhat rambling) Fund of Knowledge: Inadequate Attention and Concentration: Inadequate Memory: Impaired (Psychosis interferes) Mood: Oppositional, Irritable, Other (Dysphoric) Affect: Labile Thought Process & Associations: Disorganized Thought Content: Hallucinations, Delusional Hallucination Type: Other (Remains internally stimulated) Delusion Type: Paranoid Suicidal Ideation: No Homicidal Ideation: No Insight: Poor Judgment: Poor Results Labs Labs reviewed Vitals/IOs Vital Signs Date Time Temp Pulse Resp B/P (MAP) Pulse Ox O2 Delivery O2 Flow Rate FiO2 12/21/17 05:51 97.3 110 18 99/57 (71) 99 Assessment & Plan Problem List: (1) Unspecified psychosis ICD Codes: F29 - Unspecified psychosis not due to a substance or known physiological condition Assessment & Plan Patient now refusing medications. She is scheduled for [address] tomorrow, and we may be forced to request a guardian advocate. Patient remains severely decompensated with respect to her psychosis and is not stable for safe discharge at this time. Continue to monitor on the high acuity unit. Continue other medications and care as ordered. Justification for Cont. Inpt. Impairment in reality construction. High risk for decompensation in less restrictive environment. Discharge Planning Pending outcome of [address] tomorrow. If retained, likely will refer to state psychiatric hospital given severity and chronicity of patient's mental illness issues. Request HC Surrog/Guard Advoc?: Yes Mikey Khanna MD Dec 21, 2017 10:06
[2017-12-21 16:05] VITALS: BP 110/61; PULSE 106; RESP 18; TEMP 98.2; O2SAT 100
[2017-12-21] MEDS: LORazepam 1 MG TAB PO PRN (16:13)
[2017-12-21] MEDS: diphenhydrAMINE HCL 50 MG CAP PO PRN (20:40)
[2017-12-22 06:01] VITALS: BP 103/57; PULSE 106; RESP 18; TEMP 97.9; O2SAT 100
[2017-12-22] MEDS: risperiDONE 1 MG TAB PO SCH ×2 (07:49→20:32)
[2017-12-22] MEDS: DIVALPROEX SODIUM E.R. 500 MG TAB PO SCH ×2 (07:49→20:32)
[2017-12-22] MEDS: INSULIN ASPART SUPPLEMENTAL SCALE SQ SCH ×2 (08:00→16:00)
[2017-12-22] MEDS: LORazepam 1 MG TAB PO PRN (08:51)
--- NOTE | 2017-12-22 11:19 | HHI.PYPN ---
Subjective Remarks Patient seen and case discussed with nursing staff. Chart reviewed. For me today, patient is irritable, hyperverbal and rambling. She is impulsive and somewhat disinhibited. No side effects from medications. No physical complaints. Becomes quite agitated during [place] and is retained on the unit by the extracorporeal technician with a guardian from [facility]. Review of Systems ROS Limitations: Psychotic, Poor Historian Other Limited ROS Mental Status Examination Appearance: Disheveled Consciousness: Alert, Vigilant Orientation: Person, Place (At least) Motor Activity: Other (No motor abnormalities noted) Speech: Rapid (A little slower today but still fairly rapid) Language: Other (Somewhat rambling) Fund of Knowledge: Inadequate Attention and Concentration: Inadequate Memory: Impaired (Psychosis interferes) Mood: Irritable Affect: Labile Thought Process & Associations: Disorganized Thought Content: Hallucinations, Delusional Hallucination Type: Other (Internally preoccupied) Delusion Type: Paranoid Suicidal Ideation: No Homicidal Ideation: No Insight: Poor Judgment: Poor Results Labs Labs reviewed Vitals/IOs Vital Signs Date Time Temp Pulse Resp B/P (MAP) Pulse Ox O2 Delivery O2 Flow Rate FiO2 12/22/17 06:01 97.9 106 18 103/57 (72) 100 Assessment & Plan Problem List: (1) Schizoaffective disorder ICD Codes: F25.9 - Schizoaffective disorder, unspecified Status: Acute Assessment & Plan Continue current psychotropic medications as ordered. If we do not begin to see benefit from these in short order, I think it is necessary to consider alternative therapy. We might consider a clozapine trial in this patient with serious and persistent mental illness and a history of multiple previous medication trials. I will check a CBC in the morning in anticipation of possible clozapine trial. Continue to monitor on the high acuity unit. Continue other medications and care as ordered. Justification for Cont. Inpt. Impairment in reality construction. Impairment in self-care. High risk for decompensation in less restrictive environment. Discharge Planning Given chronicity of patient's mental illness, I will go ahead and initiate a state referral in case we are unable to stabilize patient's psychiatric condition adequately for safe discharge. Request HC Surrog/Guard Advoc?: Yes Problem Qualifiers (1) Schizoaffective disorder: Qualified Codes: F25.0 - Schizoaffective disorder, bipolar type Mikey Khanna MD Dec 22, 2017 11:19
[2017-12-22 17:42] VITALS: BP 117/67; PULSE 107; RESP 18; TEMP 98.1; O2SAT 99
[2017-12-22] MEDS: diphenhydrAMINE HCL 50 MG CAP PO PRN (20:32)
[2017-12-23] MEDS: INSULIN ASPART SUPPLEMENTAL SCALE SQ SCH ×2 (06:12→16:00)
[2017-12-23 06:20] VITALS: BP 157/87; PULSE 92; RESP 18; TEMP 97.5; O2SAT 98
[2017-12-23 07:34] LABS: AUTOMATED NEUTROPHIL # 3.4 TH/MM3 (1.8-7.7); BASOPHIL % 0.5 % (0.0-2.0); EOSINOPHIL # 0.2 TH/MM3 (0-0.4); EOSINOPHIL % 2.7 % (0.0-4.0); HEMATOCRIT 35.1 % (35.0-46.0); HEMOGLOBIN 11.6 GM/DL (11.6-15.3); LYMPH % 39.4 % (9.0-44.0); LYMPHOCYTE # 2.8 TH/MM3 (1.0-4.8); MEAN CELL VOLUME 92.7 FL (80.0-100.0); MEAN CORPUSCULAR HEMOGLOBIN 30.7 PG (27.0-34.0); MEAN CORPUSCULAR HGB CONC 33.1 % (32.0-36.0); MEAN PLATELET VOLUME 7.3 FL (7.0-11.0); MONO % 9.8 % (0.0-8.0); MONOCYTE # 0.7 TH/MM3 (0-0.9); NEUT % 47.6 % (16.0-70.0); PLATELET COUNT 333 TH/MM3 (150-450); RED BLOOD COUNT 3.79 MIL/MM3 (4.00-5.30); RED CELL DISTRIBUTION WIDTH 14.1 % (11.6-17.2); WHITE BLOOD COUNT 7.1 TH/MM3 (4.0-11.0)
[2017-12-23] MEDS: DIVALPROEX SODIUM E.R. 500 MG TAB PO SCH ×2 (08:43→21:09)
[2017-12-23] MEDS: risperiDONE 1 MG TAB PO SCH ×2 (08:43→21:09)
--- NOTE | 2017-12-23 09:24 | HHI.PYPN ---
Subjective Remarks Patient seen and examined with nurse. Chart reviewed. Case discussed with nursing staff. Case discussed in treatment team. On my examination today, patient remains disorganized. Speech is rambling. She says that she wants to leave [place] for [place] to stay with a cousin but then says she wants to visit with friends. She admits that she has had no recent contact with any of these people. She remains discharge focused. [place] says [place] Affect remains a little irritable. She remains internally stimulated. No side effects from medications. No physical complaints. I spoke with patient's guardian advocate from [facility]. I have obtained consent for existing meds from CT (Depakote, Risperdal, Ativan, Benadryl) and also obtained consent for clozapine. Review of Systems ROS Limitations: Psychotic, Poor Historian Except as stated in HPI: all other systems reviewed are Neg Mental Status Examination Appearance: Disheveled Consciousness: Alert, Vigilant Orientation: Person, Place (At least) Motor Activity: Other (No abnormal motor movements noted) Speech: Rapid (A little slower today but still fairly rapid) Language: Other (Somewhat rambling) Fund of Knowledge: Inadequate Attention and Concentration: Inadequate Memory: Impaired (Psychosis interferes) Mood: Irritable Affect: Labile Thought Process & Associations: Disorganized (Ongoing) Thought Content: Hallucinations, Delusional Hallucination Type: Other (Internally preoccupied) Delusion Type: Paranoid Suicidal Ideation: No Homicidal Ideation: No Insight: Poor Judgment: Poor Results Labs Test 12/23/17 05:40 White Blood Count 7.1 TH/MM3 Red Blood Count 3.79 MIL/MM3 Hemoglobin 11.6 GM/DL Hematocrit 35.1 % Mean Corpuscular Volume 92.7 FL Mean Corpuscular Hemoglobin 30.7 PG Mean Corpuscular Hemoglobin Concent 33.1 % Red Cell Distribution Width 14.1 % Platelet Count 333 TH/MM3 Mean Platelet Volume 7.3 FL Neutrophils (%) (Auto) 47.6 % Lymphocytes (%) (Auto) 39.4 % Monocytes (%) (Auto) 9.8 % Eosinophils (%) (Auto) 2.7 % Basophils (%) (Auto) 0.5 % Neutrophils # (Auto) 3.4 TH/MM3 Lymphocytes # (Auto) 2.8 TH/MM3 Monocytes # (Auto) 0.7 TH/MM3 Eosinophils # (Auto) 0.2 TH/MM3 Basophils # (Auto) 0.0 TH/MM3 CBC Comment DIFF FINAL Differential Comment Labs reviewed. ANC adequate for clozapine therapy. Vitals/IOs Vital Signs Date Time Temp Pulse Resp B/P (MAP) Pulse Ox O2 Delivery O2 Flow Rate FiO2 12/23/17 06:20 97.5 92 18 157/87 (110) 98 Assessment & Plan Problem List: (1) Schizoaffective disorder ICD Codes: F25.9 - Schizoaffective disorder, unspecified Status: Acute Assessment & Plan Initiate clozapine 50 mg at bedtime to target psychosis. Plan to titrate over the weekend to 25 mg in the morning and 50 mg at bedtime. Weekly CBCs. I have enrolled the patient in clozapine REMS. Taper Risperdal to 3 mg twice daily with plans for further taper of this agent as clozapine dose is increased. Continue Depakote as ordered. Continue to monitor on the high acuity unit. Continue other medications and care as ordered. Justification for Cont. Inpt. Medication changes. Impairment in reality construction. High risk for decompensation in less restrictive environment. Discharge Planning [facility] referral. Request HC Surrog/Guard Advoc?: Yes Problem Qualifiers (1) Schizoaffective disorder: Qualified Codes: F25.0 - Schizoaffective disorder, bipolar type Mikey Khanna MD Dec 23, 2017 09:24
[2017-12-23] MEDS: cloZAPine 25 MG TAB PO SCH (21:09)
[2017-12-24 06:26] VITALS: TEMP 97.3
[2017-12-24] MEDS: INSULIN ASPART SUPPLEMENTAL SCALE SQ SCH ×2 (08:00→15:49)
[2017-12-24] MEDS: risperiDONE 1 MG TAB PO SCH ×2 (09:00→20:18)
[2017-12-24] MEDS: DIVALPROEX SODIUM E.R. 500 MG TAB PO SCH ×2 (09:00→20:17)
--- NOTE | 2017-12-24 13:59 | HHI.PYPN ---
Subjective Remarks Patient was seen and case discussed with nursing. Patient is loud, intrusive, pressured with poor insight. She is compliant with her medications. She received IM Ativan this morning. Oppositional with care Mental Status Examination Appearance: Disheveled Consciousness: Alert, Vigilant Orientation: Person, Place (At least) Motor Activity: Other (No abnormal motor movements noted) Speech: Rapid (A little slower today but still fairly rapid) Language: Other (Somewhat rambling) Fund of Knowledge: Inadequate Attention and Concentration: Inadequate Memory: Impaired (Psychosis interferes) Mood: Irritable Affect: Labile Thought Process & Associations: Disorganized (Ongoing) Thought Content: Hallucinations, Delusional Hallucination Type: Other (Internally preoccupied) Delusion Type: Paranoid Suicidal Ideation: No Homicidal Ideation: No Insight: Poor Judgment: Poor Results Vitals/IOs Vital Signs Date Time Temp Pulse Resp B/P (MAP) Pulse Ox O2 Delivery O2 Flow Rate FiO2 12/24/17 06:26 97.3 12/23/17 06:20 92 18 157/87 (110) 98 Assessment & Plan Problem List: (1) Schizoaffective disorder ICD Codes: F25.9 - Schizoaffective disorder, unspecified Status: Acute Assessment & Plan Continue current treatment plan Justification for Cont. Inpt. Patient would decompensate in a less restrictive setting Request HC Surrog/Guard Advoc?: Yes Problem Qualifiers (1) Schizoaffective disorder: Qualified Codes: F25.0 - Schizoaffective disorder, bipolar type Musa Delgadillo DO Dec 24, 2017 13:59
[2017-12-24 17:53] VITALS: BP 127/76; PULSE 113; RESP 19; TEMP 98.4; O2SAT 97
[2017-12-24] MEDS: cloZAPine 25 MG TAB PO SCH (20:18)
[2017-12-25 05:56] VITALS: BP 133/90; PULSE 97; RESP 18; TEMP 98.6; O2SAT 98
[2017-12-25] MEDS: INSULIN ASPART SUPPLEMENTAL SCALE SQ SCH ×2 (08:00→16:00)
[2017-12-25] MEDS: DIVALPROEX SODIUM E.R. 500 MG TAB PO SCH ×2 (08:57→21:11)
[2017-12-25] MEDS: cloZAPine 25 MG TAB PO SCH ×3 (08:57→21:12)
[2017-12-25] MEDS: risperiDONE 1 MG TAB PO SCH ×2 (08:57→21:12)
--- NOTE | 2017-12-25 11:53 | HHI.PYPN ---
Subjective Remarks Patient was seen and case discussed with nursing. Patient remains loud, obnoxious, and demanding. Thought processes loose and disorganized. Patient has not needed any ETO's however. Compliant with medications. Insight remains very poor Mental Status Examination Appearance: Disheveled Consciousness: Alert, Vigilant Orientation: Person, Place (At least) Motor Activity: Other (No abnormal motor movements noted) Speech: Rapid (A little slower today but still fairly rapid) Language: Other (Somewhat rambling) Fund of Knowledge: Inadequate Attention and Concentration: Inadequate Memory: Impaired (Psychosis interferes) Mood: Angry, Irritable Affect: Labile Thought Process & Associations: Disorganized (Ongoing) Thought Content: Hallucinations, Delusional Hallucination Type: Other (Internally preoccupied) Delusion Type: Paranoid Suicidal Ideation: No Homicidal Ideation: No Insight: Poor Judgment: Poor Results Vitals/IOs Vital Signs Date Time Temp Pulse Resp B/P (MAP) Pulse Ox O2 Delivery O2 Flow Rate FiO2 12/25/17 05:56 98.6 97 18 133/90 (104) 98 Assessment & Plan Problem List: (1) Schizoaffective disorder ICD Codes: F25.9 - Schizoaffective disorder, unspecified Status: Acute Assessment & Plan Continue current treatment plan Justification for Cont. Inpt. Patient would decompensate in a less restrictive setting Request HC Surrog/Guard Advoc?: Yes Problem Qualifiers (1) Schizoaffective disorder: Qualified Codes: F25.0 - Schizoaffective disorder, bipolar type Musa Delgadillo DO Dec 25, 2017 11:53
[2017-12-25] MEDS: LORazepam 1 MG TAB PO PRN (12:09)
[2017-12-26 06:21] VITALS: BP 130/76; PULSE 76; RESP 18; TEMP 97.1; O2SAT 96
[2017-12-26] MEDS: INSULIN ASPART SUPPLEMENTAL SCALE SQ SCH ×2 (08:00→16:00)
[2017-12-26] MEDS: DIVALPROEX SODIUM E.R. 500 MG TAB PO SCH ×2 (08:41→20:05)
[2017-12-26] MEDS: risperiDONE 1 MG TAB PO SCH ×2 (08:41→20:06)
[2017-12-26] MEDS: cloZAPine 25 MG TAB PO SCH ×3 (08:44→20:05)
[2017-12-26] MEDS: LORazepam 1 MG TAB PO PRN (10:05)
[2017-12-26 10:43] LABS: AUTOMATED NEUTROPHIL # 3.6 TH/MM3 (1.8-7.7); BASOPHIL # 0.1 TH/MM3 (0-0.2); BASOPHIL % 0.9 % (0.0-2.0); EOSINOPHIL # 0.1 TH/MM3 (0-0.4); EOSINOPHIL % 2.2 % (0.0-4.0); HEMATOCRIT 36.6 % (35.0-46.0); HEMOGLOBIN 12.4 GM/DL (11.6-15.3); LYMPH % 32.7 % (9.0-44.0); LYMPHOCYTE # 2.1 TH/MM3 (1.0-4.8); MEAN CELL VOLUME 91.8 FL (80.0-100.0); MEAN CORPUSCULAR HEMOGLOBIN 31.1 PG (27.0-34.0); MEAN CORPUSCULAR HGB CONC 33.9 % (32.0-36.0); MEAN PLATELET VOLUME 7.4 FL (7.0-11.0); MONOCYTE # 0.7 TH/MM3 (0-0.9); NEUT % 54.2 % (16.0-70.0); PLATELET COUNT 337 TH/MM3 (150-450); RED BLOOD COUNT 3.99 MIL/MM3 (4.00-5.30); RED CELL DISTRIBUTION WIDTH 13.6 % (11.6-17.2); WHITE BLOOD COUNT 6.6 TH/MM3 (4.0-11.0)
--- NOTE | 2017-12-26 10:55 | HHI.PYPN ---
Subjective Remarks Reviewed electronic medical record and discussed case with staff. Patient's nurse reports that patient refused her Clozaril stating that she had had a reaction to it previously. Reviewed labs, no drastic changes in CBC. Follow- up was conducted in the exam room with Landon cyanide case hardener present. Patient reports that she thought the medication being offered was "Klonopin". Explained the confusion patient willing to take the medication first dose given. She complains about her diet which is addressed. States that she is sleeping "okay". Patient still remains manic with rapid pressured speech. Although the cyanide case hardener reports there is some improvement with her. Mental Status Examination Appearance: Disheveled Consciousness: Alert, Vigilant Orientation: Person, Place (At least) Motor Activity: Other (No abnormal motor movements noted) Speech: Rapid (A little slower today but still fairly rapid) Language: Other (Somewhat rambling) Fund of Knowledge: Inadequate Attention and Concentration: Inadequate Memory: Impaired (Psychosis interferes) Mood: Angry, Irritable Affect: Labile Thought Process & Associations: Disorganized (Ongoing) Thought Content: Hallucinations, Delusional Hallucination Type: Other (Internally preoccupied) Delusion Type: Paranoid Suicidal Ideation: No Homicidal Ideation: No Insight: Poor Judgment: Poor Results Labs Test 12/26/17 09:30 White Blood Count 6.6 TH/MM3 Red Blood Count 3.99 MIL/MM3 Hemoglobin 12.4 GM/DL Hematocrit 36.6 % Mean Corpuscular Volume 91.8 FL Mean Corpuscular Hemoglobin 31.1 PG Mean Corpuscular Hemoglobin Concent 33.9 % Red Cell Distribution Width 13.6 % Platelet Count 337 TH/MM3 Mean Platelet Volume 7.4 FL Neutrophils (%) (Auto) 54.2 % Lymphocytes (%) (Auto) 32.7 % Monocytes (%) (Auto) 10.0 % Eosinophils (%) (Auto) 2.2 % Basophils (%) (Auto) 0.9 % Neutrophils # (Auto) 3.6 TH/MM3 Lymphocytes # (Auto) 2.1 TH/MM3 Monocytes # (Auto) 0.7 TH/MM3 Eosinophils # (Auto) 0.1 TH/MM3 Basophils # (Auto) 0.1 TH/MM3 CBC Comment DIFF FINAL Differential Comment Vitals/IOs Vital Signs Date Time Temp Pulse Resp B/P (MAP) Pulse Ox O2 Delivery O2 Flow Rate FiO2 12/26/17 06:21 97.1 76 18 130/76 94 96 Assessment & Plan Problem List: (1) Schizoaffective disorder ICD Codes: F25.9 - Schizoaffective disorder, unspecified Status: Acute Assessment & Plan Estimated LOS: Clazuril treatment initiated today. We will continue with current treatment plan and monitor for improvement in patient's condition. Days Justification for Cont. Inpt. Moving this patient to a lower level of care would likely result in decompensation. She remains symptomatic. Request HC Surrog/Guard Advoc?: Yes Problem Qualifiers (1) Schizoaffective disorder: Qualified Codes: F25.0 - Schizoaffective disorder, bipolar type Sandra Mesa Dec 26, 2017 10:55
[2017-12-26 15:48] VITALS: BP 122/65; PULSE 95; RESP 18; TEMP 98.1; O2SAT 98
[2017-12-27 05:56] VITALS: BP 114/78; PULSE 85; RESP 18; TEMP 97.8; O2SAT 100
[2017-12-27] MEDS: INSULIN ASPART SUPPLEMENTAL SCALE SQ SCH ×2 (07:16→16:00)
[2017-12-27] MEDS: LORazepam 1 MG TAB PO PRN (08:19)
[2017-12-27] MEDS: DIVALPROEX SODIUM E.R. 500 MG TAB PO SCH ×2 (08:19→20:58)
[2017-12-27] MEDS: risperiDONE 1 MG TAB PO SCH ×2 (08:19→20:58)
[2017-12-27] MEDS: cloZAPine 25 MG TAB PO SCH ×3 (08:20→20:59)
--- NOTE | 2017-12-27 20:03 | HHI.PYPN ---
Subjective Remarks Reviewed electronic medical record and discussed case with staff. Patient observed on the unit prior to her follow-up being conducted extremely labile and irritable yelling obscenities at staff. Follow-up was conducted and her room with her nurse present. Patient found lying on a mattress on the floor. She remains irritable and seems to be internally stimulated. She asks, "what are you have to tell me about my discharge". When I advised that she is not being discharged she becomes verbally abusive. She states, "as soon as I get out of here I will stop taking the medication anyway you are not going to stop me from being Pilar". Mental Status Examination Appearance: Disheveled Consciousness: Alert, Vigilant Orientation: Person, Place (At least) Motor Activity: Other (No abnormal motor movements noted) Speech: Rapid (A little slower today but still fairly rapid) Language: Other (Somewhat rambling) Fund of Knowledge: Inadequate Attention and Concentration: Inadequate Memory: Impaired (Psychosis interferes) Mood: Angry, Irritable Affect: Labile Thought Process & Associations: Disorganized (Ongoing) Thought Content: Hallucinations, Delusional Hallucination Type: Other (Internally preoccupied) Delusion Type: Paranoid Suicidal Ideation: No Homicidal Ideation: No Insight: Poor Judgment: Poor Results Vitals/IOs Vital Signs Date Time Temp Pulse Resp B/P (MAP) Pulse Ox O2 Delivery O2 Flow Rate FiO2 12/27/17 05:56 97.8 85 18 114/78 (90) 100 Assessment & Plan Problem List: (1) Schizoaffective disorder ICD Codes: F25.9 - Schizoaffective disorder, unspecified Status: Acute Assessment & Plan Estimated LOS: Patient remains internally stimulated, labile, and irritable. Will continue current treatment plan and check to see is her behavior continues to worsen. She may require a change in treatment. Justification for Cont. Inpt. Moving this patient to a lower level of care would result in a decompensation she remains symptomatic. Request HC Surrog/Guard Advoc?: Yes Problem Qualifiers (1) Schizoaffective disorder: Qualified Codes: F25.0 - Schizoaffective disorder, bipolar type Sandra Mesa Dec 27, 2017 20:03
[2017-12-28 06:12] VITALS: BP 109/58; PULSE 109; RESP 18; TEMP 97.2; O2SAT 97
[2017-12-28] MEDS: INSULIN ASPART SUPPLEMENTAL SCALE SQ SCH ×2 (06:39→16:00)
[2017-12-28] MEDS: cloZAPine 25 MG TAB PO SCH ×2 (08:44→21:07)
[2017-12-28] MEDS: risperiDONE 1 MG TAB PO SCH ×2 (08:44→21:07)
[2017-12-28] MEDS: DIVALPROEX SODIUM E.R. 500 MG TAB PO SCH ×2 (08:47→21:07)
[2017-12-28] MEDS: LORazepam 1 MG TAB PO PRN (10:14)
[2017-12-28] MEDS ORDERED: ZIPRASIDONE MESYLATE 20 MG VIAL IM ONE (11:30)
--- NOTE | 2017-12-28 13:09 | HHI.PYPN ---
Subjective Remarks Reviewed electronic medical record and discussed case with staff. Patient required an ETO of 20 mg IM Geodon due to increasing anger and aggression towards staff and other patients. Follow-up conducted in hallway, patient hyperverbal, suspicious, verbally abusive and irritable. She remains internally stimulated speaking fairly nonstop. Continues to be discharged focused. Mental Status Examination Appearance: Disheveled Consciousness: Alert, Vigilant Orientation: Person, Place (At least) Motor Activity: Other (No abnormal motor movements noted) Speech: Rapid (A little slower today but still fairly rapid) Language: Other (Somewhat rambling) Fund of Knowledge: Inadequate Attention and Concentration: Inadequate Memory: Impaired (Psychosis interferes) Mood: Angry, Irritable Affect: Labile Thought Process & Associations: Disorganized (Ongoing) Thought Content: Hallucinations, Delusional Hallucination Type: Other (Internally preoccupied) Delusion Type: Paranoid Suicidal Ideation: No Homicidal Ideation: No Insight: Poor Judgment: Poor Results Vitals/IOs Vital Signs Date Time Temp Pulse Resp B/P (MAP) Pulse Ox O2 Delivery O2 Flow Rate FiO2 12/28/17 06:12 97.2 109 18 109/58 (75) 97 Assessment & Plan Problem List: (1) Schizoaffective disorder ICD Codes: F25.9 - Schizoaffective disorder, unspecified Status: Acute Assessment & Plan Estimated LOS: Patient remains hyperverbal, irritable and aggressive. Still waiting for current medication dosage to reach therapeutic levels. Continue with treatment plan and monitor for improvement in symptoms. days Justification for Cont. Inpt. Patient continues to be symptomatic. Moving her to a lower level of care would result in decompensation. Request HC Surrog/Guard Advoc?: Yes Problem Qualifiers (1) Schizoaffective disorder: Qualified Codes: F25.0 - Schizoaffective disorder, bipolar type Sandra Mesa Dec 28, 2017 13:09
[2017-12-29 06:05] VITALS: BP 126/68; PULSE 91; RESP 16; TEMP 97.2; O2SAT 99
[2017-12-29] MEDS: INSULIN ASPART SUPPLEMENTAL SCALE SQ SCH ×2 (06:37→16:00)
[2017-12-29] MEDS: cloZAPine 25 MG TAB PO SCH ×2 (09:00→20:25)
[2017-12-29] MEDS: risperiDONE 1 MG TAB PO SCH ×2 (09:00→20:25)
[2017-12-29] MEDS: DIVALPROEX SODIUM E.R. 500 MG TAB PO SCH (09:00)
--- NOTE | 2017-12-29 17:38 | HHI.PYPN ---
Subjective Remarks Patient seen for follow, chart reviewed. Discussion nursing staff reported the patient has not been able to tolerate groups today and was noted to have doing a being bagged at 1 of the text and had to be removed from the group and brought back to the unit. Patient also noted to be spitting and vomiting medications after ingestion, continues with labile behavior mood. Patient was found lying hospital bed noted B, cooperative with interview but noted to have some agitation when demanding discharge. Patient states that she feels that she does not belong here and would be okay living at a retirement. Patient states that she will continue to take medications and asking for how many days which she has to take medication to be discharged. Patient also focused on income and reconnecting with her son who lives in [place]. Patient continues to be disorganized during interview and irritable and labile. Review of Systems Except as stated in HPI: all other systems reviewed are Neg Mental Status Examination Appearance: Disheveled Consciousness: Alert, Vigilant Orientation: Person, Place (At least) Motor Activity: Other (No abnormal motor movements noted) Speech: Rapid (A little slower today but still fairly rapid) Language: Other (Somewhat rambling) Fund of Knowledge: Inadequate Attention and Concentration: Inadequate Memory: Impaired (Psychosis interferes) Mood: Angry, Irritable Affect: Labile Thought Process & Associations: Disorganized (Ongoing) Thought Content: Hallucinations, Delusional Hallucination Type: Other (Internally preoccupied) Delusion Type: Paranoid Suicidal Ideation: No Homicidal Ideation: No Insight: Poor Judgment: Poor Results Vitals/IOs Vital Signs Date Time Temp Pulse Resp B/P (MAP) Pulse Ox O2 Delivery O2 Flow Rate FiO2 12/29/17 06:05 97.2 91 16 126/68 (87) 99 Assessment & Plan Problem List: (1) Schizoaffective disorder ICD Codes: F25.9 - Schizoaffective disorder, unspecified Status: Acute Assessment & Plan Patient continue with some disorganization, labile mood and affect, has been inconsistent with medication adherence as she has been noted to be spitting or vomiting medications after ingestion. Patient reported having difficulty tolerating medication. We will switch Depakote to Depakene liquid, continue rest of medications. Patient encouraged to maintain adherence to treatment. We will continue to monitor mood and behavior. Discharge planning in progress. Justification for Cont. Inpt. At risk for further decompensation if at lower level of care Discharge Planning State referral Request HC Surrog/Guard Advoc?: Yes Problem Qualifiers (1) Schizoaffective disorder: Qualified Codes: F25.0 - Schizoaffective disorder, bipolar type Armani Thakkar MD Dec 29, 2017 17:38
[2017-12-29 17:56] VITALS: BP 118/72; PULSE 109; RESP 18; TEMP 98; O2SAT 99
[2017-12-29] MEDS: VALPROIC ACID SYRUP 250 MG/5 ML UDC PO SCH (20:25)
[2017-12-30] MEDS: INSULIN ASPART SUPPLEMENTAL SCALE SQ SCH ×2 (07:54→16:00)
[2017-12-30] MEDS: risperiDONE 1 MG TAB PO SCH ×2 (08:30→20:32)
[2017-12-30] MEDS: cloZAPine 25 MG TAB PO SCH ×2 (08:30→20:33)
[2017-12-30] MEDS: VALPROIC ACID SYRUP 250 MG/5 ML UDC PO SCH ×2 (08:31→20:32)
[2017-12-30] MEDS: LORazepam 1 MG TAB PO PRN (08:35)
--- NOTE | 2017-12-30 19:02 | HHI.PYPN ---
Subjective Remarks Patient seen for follow, chart reviewed. Discussion nursing staff reported the patient I required ETO yesterday, compliant with medications and requested Ativan 1 this morning. Patient was found noted B, cooperative initially during interview but later signed out lyric writer while interviewing of the patient and began yelling demanding discharge. Patient stated that feeling anxious today as she had requested Ativan for now feeling very sedated due to the same. Patient reports having other group, reports having poor sleep but also reported sleeping a lot during the day. Patient was provided with some advice on sleep hygiene which patient was dismissing. Patient reports her mood as being "medium" and feels that others pick on her and get her into trouble. Patient reports tolerating medications well and encouraged to continue treatment regimen. Patient focused on discharge and becoming irritable and yelling at times. Review of Systems Except as stated in HPI: all other systems reviewed are Neg Mental Status Examination Appearance: Disheveled Consciousness: Alert, Vigilant Orientation: Person, Place (At least) Motor Activity: Other (No abnormal motor movements noted) Speech: Rapid (A little slower today but still fairly rapid) Language: Other (Somewhat rambling) Fund of Knowledge: Inadequate Attention and Concentration: Inadequate Memory: Impaired (Psychosis interferes) Mood: Angry, Irritable Affect: Labile Thought Process & Associations: Disorganized (Ongoing) Thought Content: Hallucinations, Delusional Hallucination Type: Other (Internally preoccupied) Delusion Type: Paranoid Suicidal Ideation: No Homicidal Ideation: No Insight: Poor Judgment: Poor Results Vitals/IOs Vital Signs Date Time Temp Pulse Resp B/P (MAP) Pulse Ox O2 Delivery O2 Flow Rate FiO2 12/29/17 17:56 98.0 109 18 118/72 (87) 99 Assessment & Plan Problem List: (1) Schizoaffective disorder ICD Codes: F25.9 - Schizoaffective disorder, unspecified Status: Acute Assessment & Plan Patient continues with some disorganization, perseveration on discharge, unpredictable labile behavior and mood. We will continue titration of clozapine to 25 mg a.m./100 mg at bedtime, continue rest of medications. Continue monitor mood and behavior. Discharge planning in progress. Justification for Cont. Inpt. At risk for further decompensation if at lower level of care Discharge Planning State referral Request HC Surrog/Guard Advoc?: Yes Problem Qualifiers (1) Schizoaffective disorder: Qualified Codes: F25.0 - Schizoaffective disorder, bipolar type Armani Thakkar MD Dec 30, 2017 19:02
[2017-12-30] MEDS: ACETAMINOPHEN 325 MG TAB PO PRN (21:29)
[2017-12-31 06:38] VITALS: BP 121/80; PULSE 96; RESP 19; TEMP 98.4; O2SAT 100
[2017-12-31] MEDS: INSULIN ASPART SUPPLEMENTAL SCALE SQ SCH ×2 (08:00→16:00)
[2017-12-31] MEDS: risperiDONE 1 MG TAB PO SCH ×2 (08:43→20:04)
[2017-12-31] MEDS: cloZAPine 25 MG TAB PO SCH ×2 (08:43→20:05)
[2017-12-31] MEDS: VALPROIC ACID SYRUP 250 MG/5 ML UDC PO SCH ×2 (08:44→20:05)
[2017-12-31] MEDS: LORazepam 1 MG TAB PO PRN ×2 (13:37→20:23)
--- NOTE | 2017-12-31 16:59 | HHI.PYPN ---
Subjective Remarks Reviewed electronic medical record discussed case with staff. Patient is showing slight improvement. However, she is still grandiose with rapid pressured speech. She reports that [facility] unit is in a competition with the other units and that they are "advanced". He states that it took her a while to get to sleep last night and that she has been eating and going to groups. She is been compliant with medications. However, she remains discharge focused and becomes irritable with this provider when told that she will not be discharged today. Mental Status Examination Appearance: Disheveled Consciousness: Alert, Vigilant Orientation: Person, Place (At least) Motor Activity: Other (No abnormal motor movements noted) Speech: Rapid (A little slower today but still fairly rapid) Language: Other (Somewhat rambling) Fund of Knowledge: Inadequate Attention and Concentration: Inadequate Memory: Impaired (Psychosis interferes) Mood: Angry, Irritable Affect: Labile Thought Process & Associations: Disorganized (Ongoing) Thought Content: Hallucinations, Delusional Hallucination Type: Other (Internally preoccupied) Delusion Type: Paranoid Suicidal Ideation: No Homicidal Ideation: No Insight: Poor Judgment: Poor Results Vitals/IOs Vital Signs Date Time Temp Pulse Resp B/P (MAP) Pulse Ox O2 Delivery O2 Flow Rate FiO2 12/31/17 06:38 98.4 96 19 121/80 (94) 100 Assessment & Plan Problem List: (1) Schizoaffective disorder ICD Codes: F25.9 - Schizoaffective disorder, unspecified Status: Acute Assessment & Plan Estimated LOS: Patient continues to be symptomatic, irritable, and internally stimulated. Continue with current treatment plan and monitor for stabilization. Days Justification for Cont. Inpt. Moving this patient to a less restrictive environment would result in a decompensation Request HC Surrog/Guard Advoc?: Yes Problem Qualifiers (1) Schizoaffective disorder: Qualified Codes: F25.0 - Schizoaffective disorder, bipolar type Sandra Mesa Dec 31, 2017 16:59
[2018-01-01 06:20] VITALS: BP 128/87; PULSE 100; RESP 18; TEMP 98; O2SAT 98
[2018-01-01] MEDS: INSULIN ASPART SUPPLEMENTAL SCALE SQ SCH ×2 (08:00→16:00)
[2018-01-01] MEDS: LORazepam 1 MG TAB PO PRN (08:41)
[2018-01-01] MEDS: VALPROIC ACID SYRUP 250 MG/5 ML UDC PO SCH ×2 (08:42→20:39)
[2018-01-01] MEDS: risperiDONE 1 MG TAB PO SCH ×2 (08:42→20:38)
[2018-01-01] MEDS: cloZAPine 25 MG TAB PO SCH ×2 (08:43→20:38)
--- NOTE | 2018-01-01 09:35 | HHI.PYPN ---
Subjective Remarks Reviewed electronic medical records and discussed case with staff. Patient was observed in the milieu and outside of the nurses station and yelling loudly. She is demanding discharge and stating that she will leave AGAINST MEDICAL ADVICE. She continues to begrudgingly comply with her medications. Patient reports that she has nightmares when she sleeps and reports having frequent bouts of crying periods. She does report that she has had a good appetite. Follow-up was conducted at nurses station medication door. Patient hyperverbal and irritable. However, shortly after taking her medication she was observed sitting quietly in a chair watching TV. Mental Status Examination Appearance: Disheveled Consciousness: Alert, Vigilant Orientation: Person, Place (At least) Motor Activity: Other (No abnormal motor movements noted) Speech: Rapid (A little slower today but still fairly rapid) Language: Other (Somewhat rambling) Fund of Knowledge: Inadequate Attention and Concentration: Inadequate Memory: Impaired (Psychosis interferes) Mood: Angry, Irritable Affect: Labile Thought Process & Associations: Disorganized (Ongoing) Thought Content: Hallucinations, Delusional Hallucination Type: Other (Internally preoccupied) Delusion Type: Paranoid Suicidal Ideation: No Homicidal Ideation: No Insight: Poor Judgment: Poor Results Vitals/IOs Vital Signs Date Time Temp Pulse Resp B/P (MAP) Pulse Ox O2 Delivery O2 Flow Rate FiO2 01/01/18 06:20 98.0 100 18 128/87 (101) 98 Assessment & Plan Problem List: (1) Schizoaffective disorder ICD Codes: F25.9 - Schizoaffective disorder, unspecified Status: Acute Assessment & Plan Estimated LOS: Patient continues to be extremely labile cycling between tearfulness and irritability. Continue with current treatment plan. Monitor for decrease of symptoms. Days Justification for Cont. Inpt. Moving this patient to a less restrictive environment would likely result in decompensation. Request HC Surrog/Guard Advoc?: Yes Problem Qualifiers (1) Schizoaffective disorder: Qualified Codes: F25.0 - Schizoaffective disorder, bipolar type Sandra Mesa Jan 01, 2018 09:35
[2018-01-02] MEDS: ACETAMINOPHEN 325 MG TAB PO PRN (05:55)
[2018-01-02 06:38] VITALS: BP 137/66; PULSE 100; RESP 19; TEMP 98; O2SAT 96
[2018-01-02] MEDS: INSULIN ASPART SUPPLEMENTAL SCALE SQ SCH ×2 (07:49→16:00)
[2018-01-02] MEDS: risperiDONE 1 MG TAB PO SCH ×2 (08:47→20:22)
[2018-01-02] MEDS: cloZAPine 25 MG TAB PO SCH ×2 (08:48→20:21)
[2018-01-02] MEDS: VALPROIC ACID SYRUP 250 MG/5 ML UDC PO SCH ×2 (08:48→20:22)
--- NOTE | 2018-01-02 09:14 | HHI.PYPN ---
Subjective Remarks Patient seen and examined with nurse. Chart reviewed. Case discussed with nursing staff. Patient noted to be labile. Prior to my interview, patient wandering around unit in bra and had to be redirected by staff. Case discussed with counselor who continues to work on [facility] referral. Counselor is pessimistic that patient can be placed, e.g. at [facility], given ongoing psychiatric symptom burden. On my exam, patient initially presents as superficial and somewhat ingratiating. She fairly rapidly derails and is fairly disorganized for remainder of interview. Speech is rapid. Affect is labile with irritable edge. Patient is somewhat disheveled and room is noted to be in significant disarray. No side effects from medications. No physical complaints. Review of Systems ROS Limitations: Psychotic, Poor Historian Except as stated in HPI: all other systems reviewed are Neg Mental Status Examination Appearance: Disheveled Consciousness: Alert Orientation: Person, Place (At least) Motor Activity: Other (No motor abnormalities noted) Speech: Rapid Language: Other (Rambling) Fund of Knowledge: Inadequate Attention and Concentration: Inadequate Memory: Impaired (Psychosis interferes) Mood: Other (Dysphoric) Affect: Irritable, Labile Thought Process & Associations: Loose associations, Other (Rapidly becomes fairly disorganized) Thought Content: Hallucinations, Delusional Hallucination Type: Other (Internally preoccupied) Delusion Type: Paranoid Suicidal Ideation: No Homicidal Ideation: No Insight: Poor Judgment: Poor Results Labs Labs reviewed. CBC ordered for this morning is presently pending. Vitals/IOs Vital Signs Date Time Temp Pulse Resp B/P (MAP) Pulse Ox O2 Delivery O2 Flow Rate FiO2 01/02/18 06:38 98.0 100 19 137/66 (89) 96 Assessment & Plan Problem List: (1) Schizoaffective disorder ICD Codes: F25.9 - Schizoaffective disorder, unspecified Status: Acute Assessment & Plan Titrate clozapine to 50/100 mg to target psychosis. Continue Risperdal and Depakote as ordered. Follow-up CBC. Continue to monitor on inpatient unit. Continue other medications and care as ordered. Justification for Cont. Inpt. Med changes. Impairment in reality construction. Impairment in self-care. High risk for decompensation in less restrictive environment. Discharge Planning [facility] referral Request HC Surrog/Guard Advoc?: Yes Problem Qualifiers (1) Schizoaffective disorder: Qualified Codes: F25.0 - Schizoaffective disorder, bipolar type Mikey Khanna MD Jan 02, 2018 09:14
[2018-01-02] MEDS: LORazepam 1 MG TAB PO PRN (14:15)
[2018-01-02 16:31] LABS: AUTOMATED NEUTROPHIL # 5.4 TH/MM3 (1.8-7.7); BASOPHIL # 0.1 TH/MM3 (0-0.2); BASOPHIL % 0.8 % (0.0-2.0); EOSINOPHIL # 0.2 TH/MM3 (0-0.4); EOSINOPHIL % 1.6 % (0.0-4.0); LYMPH % 27.2 % (9.0-44.0); LYMPHOCYTE # 2.6 TH/MM3 (1.0-4.8); MEAN CELL VOLUME 92.4 FL (80.0-100.0); MEAN CORPUSCULAR HEMOGLOBIN 30.8 PG (27.0-34.0); MEAN CORPUSCULAR HGB CONC 33.3 % (32.0-36.0); MEAN PLATELET VOLUME 7.8 FL (7.0-11.0); MONO % 12.4 % (0.0-8.0); MONOCYTE # 1.2 TH/MM3 (0-0.9); PLATELET COUNT 357 TH/MM3 (150-450); RED CELL DISTRIBUTION WIDTH 13.7 % (11.6-17.2); WHITE BLOOD COUNT 9.4 TH/MM3 (4.0-11.0)
[2018-01-02 17:36] VITALS: BP 133/84; PULSE 105; RESP 18; TEMP 98.3; O2SAT 99
[2018-01-03 05:41] VITALS: BP 107/63; PULSE 95; RESP 17; TEMP 97.9; O2SAT 97
[2018-01-03] MEDS: INSULIN ASPART SUPPLEMENTAL SCALE SQ SCH ×2 (08:00→16:00)
[2018-01-03] MEDS: cloZAPine 25 MG TAB PO SCH ×2 (08:37→20:44)
[2018-01-03] MEDS: risperiDONE 1 MG TAB PO SCH ×2 (08:40→20:44)
[2018-01-03] MEDS: VALPROIC ACID SYRUP 250 MG/5 ML UDC PO SCH ×2 (08:40→20:43)
--- NOTE | 2018-01-03 10:42 | HHI.PYPN ---
Subjective Remarks Patient seen and examined with counselor. Chart reviewed. Case discussed with nursing staff. Nursing notes that patient is compliant with medications in the hospital but has told nursing that she will not take the medications after discharge. Case discussed in treatment team. On my examination today, the patient presents with elevated mood. She describes her mood as "happy, very happy!" She is bouncing in her chair to music from the television in the day area. Affect remains labile. Thought process with ongoing loosening of associations. No side effects from medications. No physical complaints. Review of Systems ROS Limitations: Psychotic, Poor Historian Except as stated in HPI: all other systems reviewed are Neg Mental Status Examination Appearance: Disheveled Consciousness: Alert Orientation: Person, Place (at least) Motor Activity: Other (No abnormal motor movements noted) Speech: Rapid (Perhaps a little less rapid today) Language: Other (Rambling) Fund of Knowledge: Inadequate Attention and Concentration: Inadequate Memory: Impaired (Psychosis interferes) Mood: Other (Elevated) Affect: Labile Thought Process & Associations: Loose associations Thought Content: Hallucinations, Delusional Hallucination Type: Other (Remains internally stimulated) Delusion Type: Paranoid Suicidal Ideation: No Homicidal Ideation: No Insight: Poor Judgment: Poor Results Labs Test 01/02/18 10:42 White Blood Count 9.4 TH/MM3 Red Blood Count 3.90 MIL/MM3 Hemoglobin 12.0 GM/DL Hematocrit 36.0 % Mean Corpuscular Volume 92.4 FL Mean Corpuscular Hemoglobin 30.8 PG Mean Corpuscular Hemoglobin Concent 33.3 % Red Cell Distribution Width 13.7 % Platelet Count 357 TH/MM3 Mean Platelet Volume 7.8 FL Neutrophils (%) (Auto) 58.0 % Lymphocytes (%) (Auto) 27.2 % Monocytes (%) (Auto) 12.4 % Eosinophils (%) (Auto) 1.6 % Basophils (%) (Auto) 0.8 % Neutrophils # (Auto) 5.4 TH/MM3 Lymphocytes # (Auto) 2.6 TH/MM3 Monocytes # (Auto) 1.2 TH/MM3 Eosinophils # (Auto) 0.2 TH/MM3 Basophils # (Auto) 0.1 TH/MM3 CBC Comment DIFF FINAL Differential Comment Labs reviewed Vitals/IOs Vital Signs Date Time Temp Pulse Resp B/P (MAP) Pulse Ox O2 Delivery O2 Flow Rate FiO2 01/03/18 05:41 97.9 95 17 107/63 97 Assessment & Plan Problem List: (1) Schizoaffective disorder ICD Codes: F25.9 - Schizoaffective disorder, unspecified Status: Acute Assessment & Plan Clozapine dose was titrated this morning. I will plan to titrate nighttime dose tomorrow evening to target psychosis and for further mood stabilization. Continue other psychotropics as ordered. Continue to monitor on the high acuity unit. Continue other medications and care as ordered. Justification for Cont. Inpt. Ongoing medication changes. High risk for decompensation in less restrictive environment. Impairment in reality construction. Discharge Planning [facility] referral Request HC Surrog/Guard Advoc?: Yes Problem Qualifiers (1) Schizoaffective disorder: Qualified Codes: F25.0 - Schizoaffective disorder, bipolar type Mikey Khanna MD Jan 03, 2018 10:42
--- NOTE | 2018-01-03 15:53 | PD.TTN ---
Patient Problems 1. Discharge planning 2. Medication compliance 3. Knowledge deficit 4. Lack of coping skills Progress Toward Goals Provider Present: Dr. Carmen Khanna Provider Input: Titrating Clazaril - January 03, 2018 Psychiatric Counselors Present: Landon Rios Jr., [facility] Psych Therapist Input: Patient presents with a relatively happy mood, and happy affect, patient reports she is excited about being transferred to [facility]. Group Spec/RT/OT/ESTEBAN Input: not appropriate for groups Landon Rios Jr, LEHR CUTTER Jan 03, 2018 15:53
[2018-01-03 17:30] VITALS: BP 128/80; PULSE 108; RESP 18; TEMP 98.3; O2SAT 99
[2018-01-04] MEDS: ACETAMINOPHEN 325 MG TAB PO PRN (03:56)
[2018-01-04 05:38] VITALS: BP 143/84; PULSE 115; RESP 18; TEMP 97.4; O2SAT 97
[2018-01-04] MEDS: INSULIN ASPART SUPPLEMENTAL SCALE SQ SCH ×2 (08:00→15:40)
[2018-01-04] MEDS: VALPROIC ACID SYRUP 250 MG/5 ML UDC PO SCH ×2 (08:38→20:19)
[2018-01-04] MEDS: risperiDONE 1 MG TAB PO SCH ×2 (08:38→20:20)
[2018-01-04] MEDS: cloZAPine 25 MG TAB PO SCH ×2 (08:39→20:19)
[2018-01-04] MEDS: LORazepam 1 MG TAB PO PRN (14:48)
--- NOTE | 2018-01-04 17:09 | HHI.PYPN ---
Subjective Remarks Patient seen and examined with nurse. Chart reviewed. Case discussed with nursing staff who reports patient seems more upbeat today. On my examination today, patient remains rambling and tangential. Affect is generally brighter but labile still. She reports that she slept well overnight. No delusional material noted today. Denies side effects from medications. No physical complaints. Review of Systems ROS Limitations: Psychotic, Poor Historian Except as stated in HPI: all other systems reviewed are Neg Mental Status Examination Appearance: Disheveled Consciousness: Alert Orientation: Person, Place (At least) Motor Activity: Other (No motoric abnormalities noted) Speech: Unremarkable Language: Other (Remains fairly rambling) Fund of Knowledge: Inadequate Attention and Concentration: Inadequate Memory: Impaired (Psychosis interferes) Mood: Good Affect: Labile Thought Process & Associations: Tangential Thought Content: Preoccupations Hallucination Type: None Delusion Type: None Suicidal Ideation: No Homicidal Ideation: No Insight: Poor Judgment: Poor Results Labs Labs reviewed. No new labs. Vitals/IOs Vital Signs Date Time Temp Pulse Resp B/P (MAP) Pulse Ox O2 Delivery O2 Flow Rate FiO2 01/04/18 05:38 97.4 115 18 143/84 (103) 97 Assessment & Plan Problem List: (1) Schizoaffective disorder ICD Codes: F25.9 - Schizoaffective disorder, unspecified Status: Acute Assessment & Plan Pulse rate elevated to 115/min today. This is likely due to agitation secondary to psychiatric condition, but in light of clozapine therapy we need to assess for possible myocarditis. Patient does not complain of chest pain or SOB at present. Check EKG, CBC, troponin, CRP, BNP. Plan for echocardiogram and cardiology consultation if labs are concerning for myocarditis or if patient becomes symptomatic from her tachycardia. I will not titrate clozapine today but will not hold this agent as my suspicion for myocarditis is low and patient does seem to be benefiting from this medication. Continue to monitor on the inpatient unit. Continue other medications and care as ordered. Justification for Cont. Inpt. Possible complicating condition. Risk for decompensation in less restrictive environment. [facility] Request HC Surrog/Guard Advoc?: Yes Problem Qualifiers (1) Schizoaffective disorder: Qualified Codes: F25.0 - Schizoaffective disorder, bipolar type Mikey Khanna MD Jan 04, 2018 17:09
[2018-01-04 21:40] LABS: AUTOMATED NEUTROPHIL # 6.2 TH/MM3 (1.8-7.7); BASOPHIL % 0.3 % (0.0-2.0); EOSINOPHIL # 0.3 TH/MM3 (0-0.4); EOSINOPHIL % 2.7 % (0.0-4.0); HEMATOCRIT 33.4 % (35.0-46.0); HEMOGLOBIN 11.6 GM/DL (11.6-15.3); LYMPHOCYTE # 1.9 TH/MM3 (1.0-4.8); MEAN CORPUSCULAR HEMOGLOBIN 31.7 PG (27.0-34.0); MEAN CORPUSCULAR HGB CONC 34.8 % (32.0-36.0); MEAN PLATELET VOLUME 7.2 FL (7.0-11.0); MONO % 14.8 % (0.0-8.0); MONOCYTE # 1.4 TH/MM3 (0-0.9); NEUT % 63.2 % (16.0-70.0); PLATELET COUNT 323 TH/MM3 (150-450); RED BLOOD COUNT 3.67 MIL/MM3 (4.00-5.30); RED CELL DISTRIBUTION WIDTH 13.4 % (11.6-17.2); WHITE BLOOD COUNT 9.8 TH/MM3 (4.0-11.0)
[2018-01-04 22:07] LABS: WESTERGREN SEDIMENTATION RATE 22 mm/hr (0-30)
[2018-01-04 22:43] LABS: C-REACTIVE PROTEIN 0.38 MG/DL (0.00-0.30)
[2018-01-04 22:46] LABS: TROPONIN I LESS THAN 0.02 NG/ML (0.02-0.05)
[2018-01-05] MEDS: ACETAMINOPHEN 325 MG TAB PO PRN (00:25)
[2018-01-05 06:16] VITALS: BP 112/60; PULSE 16; RESP 18; TEMP 98.1; O2SAT 98
[2018-01-05] MEDS: INSULIN ASPART SUPPLEMENTAL SCALE SQ SCH (08:00)
[2018-01-05] MEDS: cloZAPine 25 MG TAB PO SCH (09:13)
[2018-01-05] MEDS: risperiDONE 1 MG TAB PO SCH (09:13)
[2018-01-05] MEDS: VALPROIC ACID SYRUP 250 MG/5 ML UDC PO SCH (09:14)
[2018-01-05] MEDS: LORazepam 1 MG TAB PO PRN (11:13)
--- NOTE | 2018-01-05 13:00 | HHI.PYPN ---
Subjective Remarks Patient seen and examined with nurse. Chart reviewed. Case discussed with nursing staff. Patient noted to be irritable and was making animal noises in the day area according to nursing staff. We find the patient in her room. Her affect is irritable and labile. She remains perseverative on discharge. She tells us, "I don't want to be detained from my freedom." Her insight into her mental illness is poor. No SI/HI. No side effects from medications. No physical complaints. Review of Systems ROS Limitations: Psychotic, Poor Historian Except as stated in HPI: all other systems reviewed are Neg Mental Status Examination Appearance: Disheveled Consciousness: Alert Orientation: Person, Place (At least) Motor Activity: Other (No abnormal motor movements noted) Speech: Unremarkable Language: Other (Remains rambling) Fund of Knowledge: Inadequate Attention and Concentration: Inadequate Memory: Impaired (Psychosis interferes) Mood: Irritable Affect: Irritable, Labile Thought Process & Associations: Tangential Thought Content: Preoccupations Hallucination Type: None Delusion Type: None Suicidal Ideation: No Homicidal Ideation: No Insight: Poor Judgment: Poor Results Labs Test 01/04/18 21:23 White Blood Count 9.8 TH/MM3 Red Blood Count 3.67 MIL/MM3 Hemoglobin 11.6 GM/DL Hematocrit 33.4 % Mean Corpuscular Volume 91.0 FL Mean Corpuscular Hemoglobin 31.7 PG Mean Corpuscular Hemoglobin Concent 34.8 % Red Cell Distribution Width 13.4 % Platelet Count 323 TH/MM3 Mean Platelet Volume 7.2 FL Neutrophils (%) (Auto) 63.2 % Lymphocytes (%) (Auto) 19.0 % Monocytes (%) (Auto) 14.8 % Eosinophils (%) (Auto) 2.7 % Basophils (%) (Auto) 0.3 % Neutrophils # (Auto) 6.2 TH/MM3 Lymphocytes # (Auto) 1.9 TH/MM3 Monocytes # (Auto) 1.4 TH/MM3 Eosinophils # (Auto) 0.3 TH/MM3 Basophils # (Auto) 0.0 TH/MM3 CBC Comment DIFF FINAL Differential Comment Erythrocyte Sedimentation Rate 22 mm/hr Total Creatine Kinase 31 U/L Troponin I LESS THAN 0.02 NG/ML C-Reactive Protein 0.38 MG/DL B-Type Natriuretic Peptide 3 PG/ML Labs reviewed. No eosinophilia. ESR within normal limits. CK and troponin unremarkable. BNP within normal limits. CRP is mildly elevated at 0.38. EKG was read as sinus tachycardia with a QTc of 413 ms. Vitals/IOs Vital Signs Date Time Temp Pulse Resp B/P (MAP) Pulse Ox O2 Delivery O2 Flow Rate FiO2 01/05/18 06:16 98.1 16 112/60 (77) 98 Assessment & Plan Problem List: (1) Schizoaffective disorder ICD Codes: F25.9 - Schizoaffective disorder, unspecified Status: Acute Assessment & Plan I was notified by counselor Darien Rios this afternoon that the patient had been released from the hospital and sent to the [facility] at [facility]. I was not notified prior to the patient's release that the patient was leaving, nor did I enter a discharge order, nor was it my intention to discharge this patient today. It was our long-term plan to transfer the patient to the CSU to await [facility] placement, but again I was not notified that the patient was being transferred today, nor did I approve of this transfer. I have spoken with department legal counsel Barbara Arnold and have also left a voicemail for service line sports administrator Olimpia Owens to notify them of this occurrence. Nurse branch manager trainee Hung Buck is also aware and assures me she will investigate how a patient was released without a valid discharge order. Counselor wall mirror department supervisor Charles Ness has called the CSU. Psychiatrist there is reportedly gone for the day, but staff there have been provided with my contact information so that rounding psychiatrist can contact me tomorrow to discuss the case. Given the generally negative workup for myocarditis, I am not opposed to patient remaining at the CSU at this point, but I want to make sure that receiving physician is comfortable with this plan, given the circumstances of the transfer. If not, we can have the patient return here to [place]. I have myself called over to the CSU at [phone] and have spoken with admissions nurse Germaine to discuss the situation. Germaine will pass my contact information on to patient's nurse Miguelangel, who is presently occupied, in case Miguelangel has any questions overnight and also will pass this information on to rounding physician tomorrow. Justification for Cont. Inpt. Risk for decompensation in less restrictive setting Request HC Surrog/Guard Advoc?: Yes Problem Qualifiers (1) Schizoaffective disorder: Qualified Codes: F25.0 - Schizoaffective disorder, bipolar type Mikey Khanna MD Jan 05, 2018 13:00
--- NOTE | 2018-01-05 20:40 | EKG ---
Date Performed: 01/04/2018 Time Performed: 20:31:10 PTAGE: 52 years EKG: SINUS TACHYCARDIA When compared to previous tracing, sinus rate is faster. ABNORMAL RHYTHM ECG PREVIOUS TRACING : 12/06/2017 10.03 DOCTOR: Rodney Wellington Interpretating Date/Time 01/05/2018 20:38:11
== END 2018-01-05 14:00 | DRG 885 ==
LOC: NEDAMB 08:46 → NEDA 18:13 → H270 20:23
PROVIDERS: ADMIT Psychiatry & Neurology Psychiatry; ATTEND Psychiatry & Neurology Psychiatry
DX: F25.0 Schizoaffective disorder, bipolar type (principal); E11.9 Type 2 diabetes mellitus without complications; I10 Essential (primary) hypertension; R45.1 Restlessness and agitation; Z59.0 Homelessness; Z72.0 Tobacco use; Z88.1 Allergy status to other antibiotic agents; Z88.0 Allergy status to penicillin; Z88.2 Allergy status to sulfonamides; Z88.8 Allergy status to other drugs, medicaments and biological substances
CPT/HCPCS: 70450; 70486; 80048; 80053; 80061; 80164; 80307; 82140; 82550; 82948; 83036; 83735; 83880; 84443; 84484; 85025; 85652; 86140; 90471; 90714; 93005; 96372; J1200; J1815; J2060; J3486; Q0163